=== PATIENT | female | born 1945 | race Caucasian/White ===

== ENCOUNTER → 2018-01-08 08:49 | Outpatient (CLI) | payer MEDICARE, SELFPAY ==
[2018-01-08 09:21] LABS: Color, Urine Yellow (Yellow); Glucose, Dipstick Normal (Normal); Ketone-Dipstick Negative (Negative); Leukocyte Esterase-Dipstick 100 /ul (Negative); Nitrite-Dipstick Negative (Negative); Occult Blood-Urine Negative /ul (Negative); Protein-Dipstick Negative (Negative); Specific Gravity, Urine 1.015 (1.002-1.030); Urine Bilirubin Dipstick Negative (Negative); Urine Clarity Sl. Cloudy (Clear); Urine Urobilinogen Normal (Normal); Urine pH 6.5 (5.0 - 8.0)
[2018-01-08 09:33] LABS: Absolute Lymphocyte Count 1.86 X10^3/ul (0.83-4.51); Absolute Neutrophil Count 3.2 X10^3/uL (2.0-7.7); Basophil# 0.04 X10^3/uL; Basophil% 0.7 % (0-1); Eosinophil# 0.48 X10^3/uL; Eosinophils% 7.9 % (0-5); Hematocrit 44.1 % (37-47); Hemoglobin 14.2 g/dl (12.0-15.0); Lymphocyte # 1.86 X10^3/ul (4.0); Lymphocyte % 30.6 % (19-41); Mean Corp Hgb Conc 32.2 g/gl (32-36); Mean Corpuscular Volume 90.2 fL (81-99); Mean Platelet Vol. 10.7 fl (6.2-12.0); Monocyte# 0.49 X10^3/uL; Monocyte% 8.1 % (0-10); Neutrophil # 3.19 X10^3/uL (2.7-7.7); Neutrophil % 52.5 % (47-70); Platelet Count 245 K/mm3 (150-450); RBC Distribution Width CV 13.4 % (11.6-14.6); RBC Distribution Width SD 44.1 fl (35.1-43.9); Red Blood Count 4.89 M/mm3 (4.2-5.4); White Blood Count 6.1 K/mm3 (4.4-11.0)
[2018-01-08 09:40] LABS: POSITIVE COUNT NO; POSITIVE DIFFERENTIAL NO; POSITIVE MORPHOLOGY NO
[2018-01-08 10:14] LABS: AST(SGOT) 25 U/L (15-37); Alanine Aminotransfer ALT/SGPT 25 U/L (13-56); Albumin, Serum 3.4 g/dL (3.2-5.0); Alkaline Phosphatase 99 U/L (45-117); Anion Gap 7 (5-15); BUN 14 mg/dL (7-18); BUN/Creat Ratio 12.6 RATIO (10-20); Calcium,Total 8.9 mg/dL (8.5-10.1); Chloride 104 mmol/L (98-107); Cholesterol 254 mg/dL (200); Creatinine, Serum 1.11 mg/dL (0.55-1.02); EST Glomerular Filtration Rate 52 mL/min (>60); Est Glom Filt Rate - Afr Amer 62 mL/min (>60); Globulin 3.4 g/dL (2.2-4.2); Glucose 90 mg/dL (74-106); High Density Lipoprotein 59 mg/dL; Potassium 4.1 mmol/L (3.5-5.1); Protein, Total 6.8 g/dL (6.4-8.2); Sodium Level 142 mmol/L (136-145); Thyroid Stim Hormone (TSH) 0.71 uIU/mL (0.358-3.74); Triglycerides 127 mg/dL; Very Low Density Lipoprotein 25 mg/dL (5-40)
== END ==
PROVIDERS: Family Provider Family Medicine; PCP Family Medicine; Visit Provider Family Medicine
DX: Z00.00 Encounter for general adult medical examination without abnormal findings (principal); E78.5 Hyperlipidemia, unspecified; E03.9 Hypothyroidism, unspecified; I10 Essential (primary) hypertension
CPT/HCPCS: 36415; 80053; 80061; 81002; 84443; 85025

== ENCOUNTER → 2018-03-14 14:18 | Outpatient (CLI) | payer MEDICARE, OTHER, SELFPAY | PROVIDERS: Family Provider Family Medicine; PCP Family Medicine; Visit Provider Family Medicine | DX: Z12.31 Encounter for screening mammogram for malignant neoplasm of breast (principal); M81.0 Age-related osteoporosis without current pathological fracture | CPT/HCPCS: 77063; 77067; 77080 ==

== ENCOUNTER → 2018-03-25 15:17 | Outpatient (CLI) | payer MEDICARE, OTHER, SELFPAY ==
[2018-03-25 17:06] LABS: Vitamin D,25 Hydroxy 26.3 ng/mL (29.95-100.01)
== END ==
PROVIDERS: Family Provider Family Medicine; PCP Family Medicine; Visit Provider Family Medicine
DX: M81.0 Age-related osteoporosis without current pathological fracture (principal)
CPT/HCPCS: 36415; 82306

== ENCOUNTER → 2018-09-19 08:51 | Outpatient (CLI) | payer MEDICARE, OTHER, SELFPAY ==
[2018-09-19 10:16] LABS: AST(SGOT) 28 U/L (15-37); Alanine Aminotransfer ALT/SGPT 22 U/L (13-56); Albumin, Serum 3.4 g/dL (3.2-5.0); Alkaline Phosphatase 110 U/L (45-117); Bilirubin, Direct 0.11 mg/dL (0.00-0.30); Cholesterol 247 mg/dL (200); Globulin 3.4 g/dL (2.2-4.2); High Density Lipoprotein 73 mg/dL; Protein, Total 6.8 g/dL (6.4-8.2); Thyroid Stim Hormone (TSH) 0.55 uIU/mL (0.358-3.74); Triglycerides 100 mg/dL; Very Low Density Lipoprotein 20 mg/dL (5-40)
== END ==
PROVIDERS: Family Provider Family Medicine; PCP Family Medicine; Referring Provider Family Medicine; Visit Provider Family Medicine
DX: E78.5 Hyperlipidemia, unspecified (principal)
CPT/HCPCS: 36415; 80061; 80076; 84443

== ENCOUNTER → 2019-11-28 07:44 | Outpatient (CLI) | payer MEDICARE, OTHER, SELFPAY ==
[2017-06-20 02:51] VITALS: BMI 34.5
[2019-11-28 08:50] LABS: Absolute Lymphocyte Count 1.68 X10^3/uL (0.83-4.51); Absolute Neutrophil Count 3.7 X10^3/uL (2.0-7.7); Basophil# 0.05 X10^3/uL; Basophil% 0.8 % (0-1); Eosinophil# 0.25 X10^3/uL; Hematocrit 45.1 % (37-47); Hemoglobin 14.9 g/dL (12.0-15.0); Lymphocyte # 1.68 X10^3/ul (4.0); Lymphocyte % 27.1 % (19-41); Mean Corpuscular Hgb 29.6 pg (27.0-32.0); Mean Corpuscular Volume 89.7 fL (81-99); Mean Platelet Vol. 10.9 fl (6.2-12.0); Monocyte# 0.49 X10^3/uL; Monocyte% 7.9 % (0-10); NRBC Flagged by Analyzer 0 % (0-5); Neutrophil # 3.73 X10^3/uL (2.7-7.7); Platelet Count 235 K/mm3 (150-450); RBC Distribution Width CV 13.5 % (11.6-14.6); RBC Distribution Width SD 43.7 fl (35.1-43.9); Red Blood Count 5.03 M/mm3 (4.2-5.4); White Blood Count 6.2 K/mm3 (4.4-11.0)
[2019-11-28 08:58] LABS: Color, Urine Yellow (Yellow); Glucose, Dipstick Normal (Normal); Ketone-Dipstick Negative (Negative); Leukocyte Esterase-Dipstick 500 /ul (Negative); Nitrite-Dipstick Negative (Negative); Occult Blood-Urine Negative /ul (Negative); Protein-Dipstick Negative (Negative); Specific Gravity, Urine 1.015 (1.002-1.030); Urine Bilirubin Dipstick Negative (Negative); Urine Clarity Sl. Cloudy (Clear); Urine Urobilinogen Normal (Normal); Urine pH 6.5 (5.0 - 8.0)
[2019-11-28 09:39] LABS: ALB/GLOB Ratio 1.1 RATIO (0.9-2.4); AST(SGOT) 30 U/L (15-37); Alanine Aminotransfer ALT/SGPT 26 U/L (13-56); Albumin, Serum 3.4 g/dL (3.2-5.0); Alkaline Phosphatase 84 U/L (45-117); Anion Gap 5 (5-15); BUN 19 mg/dL (7-18); Calcium,Total 9.3 mg/dL (8.5-10.1); Chloride 107 mmol/L (98-107); Cholesterol 275 mg/dL (200); Creatinine, Serum 1.19 mg/dL (0.55-1.02); EST Glomerular Filtration Rate 47 mL/min (>60); Est Glom Filt Rate - Afr Amer 57 mL/min (>60); Globulin 3.2 g/dL (2.2-4.2); Glucose 94 mg/dL (74-106); High Density Lipoprotein 71 mg/dL; Potassium 4.2 mmol/L (3.5-5.1); Protein, Total 6.6 g/dL (6.4-8.2); Sodium Level 140 mmol/L (136-145); Thyroid Stim Hormone (TSH) 0.71 uIU/mL (0.358-3.74); Triglycerides 93 mg/dL; Very Low Density Lipoprotein 19 mg/dL (5-40)
== END ==
PROVIDERS: PCP Family Medicine; Referring Provider Family Medicine; Visit Provider Family Medicine
DX: Z00.00 Encounter for general adult medical examination without abnormal findings (principal); E78.5 Hyperlipidemia, unspecified; E03.9 Hypothyroidism, unspecified; I10 Essential (primary) hypertension
CPT/HCPCS: 36415; 80053; 80061; 81002; 84443; 85025

== ENCOUNTER → 2019-12-03 14:42 | Outpatient (CLI) | payer MEDICARE, OTHER, SELFPAY ==
[2017-06-20 02:51] VITALS: BMI 34.5
--- NOTE | 2019-12-03 14:45 | BI_ITS ---
MAMMOGRAPHY - BILATERAL SCREENING REASON FOR EXAM: Female, 74 years old. Routine annual screening examination. PERTINENT HISTORY: BILAT SCREENING - FAM HX OF PAT 1ST COUSIN @ AGE 52 - NO PREV SURG''S TECHNIQUE: Digital bilateral breast hadley (3D mammographic acquisition) in the CC and MLO projections. 2-D mediolateral oblique (MLO) and craniocaudad (CC) views of both breasts were obtained. CAD: Full Field Digital Mammography with Computer Added Detection was performed. COMPARISON: March 14, 2018 and March 13, 2017 FINDINGS: Breast Composition: There are scattered areas of fibroglandular density. There are no dominant masses or suspicious calcifications. No other significant abnormalities are identified. BI/SCREEN MAMM (CAD) W/HADLEY BILAT IMPRESSION: Stable bilateral screening mammogram. Yearly follow-up mammogram recommended. (A) ASSESSMENT CATEGORY: BIRADS Category 2: Benign. A letter regarding these results will be sent to the patient by the facility within 30 days. Approximately 10% of breast cancers are not detected by mammography. A normal mammogram should not delay biopsy of a clinically suspicious abnormality. [id number] Electronically Signed: Brittney Montgomery, at 15:35 EDT Tel , Service support ,
== END ==
PROVIDERS: PCP Family Medicine; Referring Provider Family Medicine; Visit Provider Family Medicine
DX: Z12.31 Encounter for screening mammogram for malignant neoplasm of breast (principal)
CPT/HCPCS: 77063; 77067

== ENCOUNTER → 2020-11-12 08:45 | Outpatient (CLI) | payer MEDICARE, OTHER, SELFPAY ==
[2017-06-20 02:51] VITALS: BMI 34.5
[2020-11-12 09:40] LABS: Absolute Lymphocyte Count 2.01 X10^3/uL (0.83-4.51); Absolute Neutrophil Count 4.4 X10^3/uL (2.0-7.7); Basophil# 0.07 X10^3/uL; Basophil% 0.9 % (0-1); Eosinophil# 0.37 X10^3/uL; Hematocrit 49.4 % (37-47); Hemoglobin 15.4 g/dL (12.0-15.0); Lymphocyte # 2.01 X10^3/ul (0.83-4.51); Mean Corp Hgb Conc 31.2 g/dL (32-36); Mean Corpuscular Hgb 29.2 pg (27.0-32.0); Mean Corpuscular Volume 93.7 fL (81-99); Mean Platelet Vol. 11.2 fl (6.2-12.0); Monocyte# 0.52 X10^3/uL; NRBC Flagged by Analyzer 0 % (0-5); Neutrophil # 4.44 X10^3/uL (2.7-7.7); Neutrophil % 59.7 % (47-70); Platelet Count 272 K/mm3 (150-450); RBC Distribution Width CV 13.2 % (11.6-14.6); RBC Distribution Width SD 46.3 fl (35.1-43.9); Red Blood Count 5.27 M/mm3 (4.2-5.4); White Blood Count 7.4 K/mm3 (4.4-11.0)
[2020-11-12 10:33] LABS: Cholesterol 286 mg/dL (200); High Density Lipoprotein 75 mg/dL; Thyroid Stim Hormone (TSH) 0.95 uIU/mL (0.358-3.74); Triglycerides 123 mg/dL; Very Low Density Lipoprotein 25 mg/dL (5-40)
== END ==
PROVIDERS: PCP Family Medicine; Visit Provider Family Medicine
DX: Z00.00 Encounter for general adult medical examination without abnormal findings (principal); E78.5 Hyperlipidemia, unspecified; E03.9 Hypothyroidism, unspecified; I10 Essential (primary) hypertension
CPT/HCPCS: 36415; 80061; 84443; 85025

== ENCOUNTER → 2020-12-16 06:59 | Outpatient (CLI) | payer MEDICARE, OTHER, SELFPAY ==
--- NOTE | 2020-12-16 07:01 | BI_ITS ---
MAMMOGRAPHY - BILATERAL SCREENING REASON FOR EXAM: Female, 75 years old. Routine annual screening examination. PERTINENT HISTORY: Non-contributory. TECHNIQUE: Digital bilateral breast hadley (3D mammographic acquisition) in the CC and MLO projections. 2-D mediolateral oblique (MLO) and craniocaudad (CC) views of both breasts were obtained. CAD: Full Field Digital Mammography with Computer Added Detection was performed. COMPARISON: Comparison is made with prior study 12/03/2019 and 03/14/2018. FINDINGS: Breast Composition: The breasts are almost entirely fatty. There are no dominant masses or suspicious calcifications. No other significant abnormalities are identified. There has been no significant change since the prior study. BI/SCRN MAMM (CAD)W/HADLEY BILAT IMPRESSION: Stable bilateral screening mammogram. Yearly follow-up mammogram recommended. (A) ASSESSMENT CATEGORY: BIRADS Category 1: Negative. A letter regarding these results will be sent to the patient by the facility within 30 days. Approximately 10% of breast cancers are not detected by mammography. A normal mammogram should not delay biopsy of a clinically suspicious abnormality. [id number] Electronically Signed: Gerson Saldivar MD at 8:00 EDT , Service support ,
== END ==
PROVIDERS: PCP Family Medicine; Referring Provider Family Medicine; Visit Provider Family Medicine
DX: Z12.31 Encounter for screening mammogram for malignant neoplasm of breast (principal)
CPT/HCPCS: 77063; 77067

== ENCOUNTER → 2021-01-19 08:42 | Outpatient (CLI) | payer MEDICARE, OTHER, SELFPAY ==
[2017-06-20 02:51] VITALS: BMI 34.5
[2021-01-19 10:06] LABS: AST(SGOT) 31 U/L (15-37); Alanine Aminotransfer ALT/SGPT 25 U/L (13-56); Albumin, Serum 3.4 g/dL (3.2-5.0); Alkaline Phosphatase 123 U/L (45-117); Anion Gap 0 (5-15); BUN 17 mg/dL (7-18); BUN/Creat Ratio 15.9 RATIO (10-20); Calcium,Total 9.7 mg/dL (8.5-10.1); Chloride 104 mmol/L (98-107); Cholesterol 256 mg/dL (200); Creatinine, Serum 1.07 mg/dL (0.55-1.02); EST Glomerular Filtration Rate 53 mL/min (>60); Est Glom Filt Rate - Afr Amer 65 mL/min (>60); Globulin 3.5 g/dL (2.2-4.2); Glucose 91 mg/dL (74-106); High Density Lipoprotein 64 mg/dL; Protein, Total 6.9 g/dL (6.4-8.2); Sodium Level 138 mmol/L (136-145); Thyroid Stim Hormone (TSH) 0.94 uIU/mL (0.358-3.74); Triglycerides 98 mg/dL; Very Low Density Lipoprotein 20 mg/dL (5-40)
== END ==
PROVIDERS: PCP Family Medicine; Referring Provider Family Medicine; Visit Provider Family Medicine
DX: I10 Essential (primary) hypertension (principal); E03.9 Hypothyroidism, unspecified; E78.5 Hyperlipidemia, unspecified
CPT/HCPCS: 36415; 80053; 80061; 84443

== ENCOUNTER 2021-08-24 08:18 | Outpatient (CLI) | payer MEDICARE, OTHER, SELFPAY ==
[2021-08-24 10:29] LABS: Absolute Lymphocyte Count 1.61 X10^3/uL (0.83-4.51); Absolute Neutrophil Count 3.1 X10^3/uL (2.0-7.7); Basophil# 0.05 X10^3/uL; Basophil% 0.9 % (0-1); Eosinophil# 0.26 X10^3/uL; Eosinophils% 4.9 % (0-5); Hemoglobin 14.1 g/dL (12.0-15.0); Lymphocyte # 1.61 X10^3/ul (0.83-4.51); Lymphocyte % 30.1 % (19-41); Mean Corpuscular Hgb 29.6 pg (27.0-32.0); Mean Corpuscular Volume 92.2 fL (81-99); Mean Platelet Vol. 11.3 fl (6.2-12.0); Monocyte# 0.37 X10^3/uL; Monocyte% 6.9 % (0-10); NRBC Flagged by Analyzer 0 % (0-5); Neutrophil # 3.05 X10^3/uL (2.7-7.7); Platelet Count 214 K/mm3 (150-450); RBC Distribution Width CV 15.2 % (11.6-14.6); RBC Distribution Width SD 52.2 fl (35.1-43.9); Red Blood Count 4.77 M/mm3 (4.2-5.4); White Blood Count 5.4 K/mm3 (4.4-11.0)
[2021-08-24 11:20] LABS: AST(SGOT) 33 U/L (15-37); Alanine Aminotransfer ALT/SGPT 27 U/L (13-56); Albumin, Serum 3.4 g/dL (3.2-5.0); Alkaline Phosphatase 108 U/L (45-117); Anion Gap 9 (5-15); BUN 14 mg/dL (7-18); BUN/Creat Ratio 14.8 RATIO (10-20); Calcium,Total 9.4 mg/dL (8.5-10.1); Chloride 105 mmol/L (98-107); Cholesterol 253 mg/dL (200); Creatinine, Serum 0.95 mg/dL (0.55-1.02); EST Glomerular Filtration Rate 61 mL/min (>60); Est Glom Filt Rate - Afr Amer 74 mL/min (>60); Globulin 3.3 g/dL (2.2-4.2); Glucose 80 mg/dL (74-106); High Density Lipoprotein 74 mg/dL; Potassium 3.3 mmol/L (3.5-5.1); Protein, Total 6.7 g/dL (6.4-8.2); Sodium Level 141 mmol/L (136-145); Thyroid Stim Hormone (TSH) 0.68 uIU/mL (0.358-3.74); Triglycerides 92 mg/dL; Very Low Density Lipoprotein 18 mg/dL (5-40)
== END 2021-08-24 23:59 | disposition home or self-care (01) ==
LOC: MTLAB 08:22
PROVIDERS: PCP Family Medicine; Referring Provider Family Medicine; Visit Provider Family Medicine
DX: Z00.00 Encounter for general adult medical examination without abnormal findings (principal); I10 Essential (primary) hypertension; E78.5 Hyperlipidemia, unspecified; E03.9 Hypothyroidism, unspecified
CPT/HCPCS: 36415; 80053; 80061; 84443; 85025

== ENCOUNTER 2023-07-11 13:46 | Emergency (ER) | payer MEDICARE, SELFPAY ==
[2023-07-11 13:47] VITALS: BP 135/91; PULSE 98; RESP 14; TEMP 36.1; O2SAT 94; BMI 27.8
--- NOTE | 2023-07-11 15:05 | CT_ITS ---
INDICATION: Trauma, fall, injury EXAMINATION: CT BRAIN - CT Head or Brain W/O Contrast Injection TECHNIQUE: Multiple axial images were obtained of the head without intravenous contrast. A radiation dose optimization technique was used for this scan. IV Contrast dosage and agent: None. COMPARISON: 07/08/2015 FINDINGS: BRAIN PARENCHYMA: No intra- or extra-axial hemorrhage. No evidence of acute infarct. No intracranial mass or mass effect. There is preservation of the bean/white matter interface. Posterior fossa structures are unremarkable. CSF SPACES: Appropriate for age. No hydrocephalus. Basal cisterns are patent. CALVARIUM, SKULL BASE, PARANASAL SINUSES AND MASTOID AIR CELLS: Clear. No acute fracture. ORBITS: Both globes, extraocular muscles, optic nerves and retrobulbar fat appear unremarkable. CT/Brain/Head without Contrast IMPRESSION: No acute intracranial findings. Electronically Signed: Santos Vail MD at 16:17 EST ,
--- NOTE | 2023-07-11 15:06 | ED.VIS.FALL ---
HPI HPI - Fall History of Present Illness Chief Complaint: Fall Informant: patient and family Occured/Mechanism Occurred: Hours (1-2) Mechanism/Context: Yes same level fall Pain/Injury Pain Location: face Quality of Pain: Aching Current Severity: Mild Maximum Severity: Mild Associated Symptoms Associated Symptoms: Negative for Parasthesias, Weakness, Loss of function, Inability to ambulate, Loss of consciousness or Amnesia Narrative Narrative: 78-year-old female feeling well today was at the movie theater with her family states she was walking into theater and accidentally fell and hit her head on the floor or a nearby chair. She sustained a small laceration next to her left eye. She has a mild headache. There is no loss consciousness or amnesia. No nausea or vomiting. No other injuries. She denies any changes in her vision but she did have temporary visual disturbance that she states looked like little squiggly's that were white. That is gone now and her vision is back to normal. She denies any loss of vision or cut visual alcocer. She denies any prodromal symptoms. She thinks she either stumbled or lost her balance. She denies any vertiginous symptoms or lightheadedness. No recent illness. She and family state this was witnessed by many people and EMS was called. Paramedics took her blood pressure was high 180s. She states this is why they recommended she come to the hospital. She states she forgot to take her nightly blood pressure medication last night, Cozaar. [facility] Medical History (Updated 07/11/23 @ 15:[address] Deo Gallagher MD) HTN (hypertension) Hypothyroid Home Medications albuterol sulfate 90 mcg/actuation aerosol inhaler (ProAir HFA) 1 - 2 puff inhalation Q6H PRN PRN Sob &/Or Wheezing 07/08/15 [History Last Taken Unknown] losartan 50 mg tablet 100 mg PO DAILY 07/08/15 [History Last Taken Unknown] levothyroxine 125 mcg tablet 125 mcg PO QODAY 11/01/16 [History Last Taken 10/31/16] paroxetine HCl 20 mg tablet 20 mg PO DAILY 11/01/16 [History Last Taken Unknown] tiotropium 2.5 mcg-olodaterol 2.5 mcg/actuation mist for inhalation (Stiolto Respimat) 4 g IH DAILY 11/01/16 [History Last Taken Unknown] Azithromycin [Zithromax Z-Cesar] 250 mg PO UD ##1 06/20/17 [Rx Last Taken Unknown] alprazolam 0.25 mg tablet 0.125 mg PO BID PRN PRN Shortness Of Breath 06/20/17 [History Last Taken Unknown] levofloxacin 750 mg tablet (Levaquin) 750 mg PO DAILY 06/20/17 [History Last Taken Unknown] ondansetron 8 mg disintegrating tablet (Zofran ODT) 8 mg PO Q6H PRN PRN Nausea ##10 06/20/17 [Rx Last Taken Unknown] Allergy/AdvReac Type Severity Reaction Status Date / Time codeine Allergy Hives Verified 07/11/23 13:55 Social History Smoking Status: Former smoker ROS ROS ED Constitutional Constitutional ED: Denies chills or fever(s) Eyes Eyes: Denies change in vision or diplopia ENT ENT ED: Denies ear pain, epistaxis, facial pain or rhinorrhea Cardiovascular Cardiovascular: Denies chest pain or palpitations Respiratory/Chest Respiratory/Chest: Denies cough or dyspnea Gastrointestinal Gastrointestinal: Denies abdominal pain, diarrhea, melena, nausea or vomiting Genitourinary Genitourinary ED: Denies dysuria or hematuria Musculoskeletal Musculoskeletal: Denies back pain, extremity pain or neck pain Integumentary Reports laceration; Denies abscess, Abrasions or rash Neurologic Neurologic: Reports headache(s); Denies confusion, paresthesias or weakness EXAM Physical Exam Const Vital Signs: 07/11/23 13:47 Temperature 96.9 F L Temperature Source Temporal Pulse Rate 98 Respiratory Rate 14 Blood Pressure 135/91 H Blood Pressure Mean 105 Pulse Ox 94 Oxygen Delivery Method Room Air Positive well nourished and well developed General Appearance ED: well developed and NAD HEENT Reports TM's clear and nasal mucous membranes and turbinates normal HEENT Narrative: Small tender contusion without hematoma or crepitance/deformity lateral aspect of the left superior orbital brim, as well as a small 1 cm L-shaped partial-thickness laceration in the same area. No active bleeding. Clean appearing. No other areas of facial tenderness. No infraorbital hypoesthesia. No Negrete sign. No CSF otorhinorrhea. Face and Sinus: Negative for facial tenderness Tympanic Membrane ED: Yes TM's clear Eyes PERRL and EOMs intact bilaterally Visual Acuity: other Other Details: no entrapment or pain with extraocular movements Neck full ROM and supple General: Negative for tenderness Chest Wall inspection of chest normal and palpation of chest normal Chest: symmetrical chest wall rise; Negative for crepitus or tenderness Resp normal respiratory effort Back/Spine normal ROM Cervical Spine: Negative for cervical spine tenderness Thoracic Spine / Upper Back: Negative for thoracic spinal tenderness Lumbar Spine / Lower Back: Negative for lumbar spinal tenderness Extremity normal to inspection and full ROM Extremity Narrative: Mild tenderness at a minor contusion without hematoma lateral left shoulder at about the area of the acromion. The AC joint is nontender and the humerus is nontender and she has full range of motion without any discomfort or limitation. Otherwise extremities are atraumatic with full range of motion throughout. General Extremety ED: Yes tenderness Neuro oriented x3, CN's II-XII intact bilaterally, moves all extremities, no focal motor deficits and no sensory deficits noted [place] Coma Scale: document GCS findings Spontaneous Obeys Commands Oriented 15 Sensorium / Orientation: awake and alert Psych mental status grossly normal and thought process normal Skin no wounds Lesions: no lesions Rashes: no rashes MDM MDM MDM Narrative Medical decision making narrative: Given this patient's age, presence of a headache, direct trauma to the cranium, and transient visual disturbance, CT of the head is indicated. It was obtained in order to rule out intracranial injury, I reviewed the images and report which I agree with, negative for anything acute. Laceration was Dermabond to the procedure note. She was offered analgesics but declined states she will take some Advil when she gets home which I am okay with. Advised to take her blood pressure medication tonight as scheduled. Here her blood pressure is good, 135/91. With regards to her left shoulder, she did not realize she injured it until we examined her and she was moving around more, her exam is very benign and I am not concerned about a fracture, she can abduct fully without limitation and she is in agreement to skip x-rays here due to a very low suspicion of fracture. Radiography Diagnostic Testing: Clinical Impression(s) from Imaging Studies Brain CT 07/11/23 15:05 IMPRESSION: No acute intracranial findings. Electronically Signed: Santos Vail MD at 16:17 EST , Procedures Lacerations left face: Length: 1 cm Depth: Skin Shape: Linear Prep: Sterile Conditions and Chlorhexadine Laceration repair: Dermabond Discharge Plan Triage Chief Complaint: Fall ED Provider: Deo Gallagher Dx/Rx/DC Orders Clinical Impression: Facial laceration, Accidental fall, Closed head injury without loss of consciousness, Contusion of left shoulder Instructions: ED Head Injury (Adult), ED Laceration, Face: Skin Glue Prescriptions: No Action losartan 50 MG tablet 100 mg PO DAILY albuterol sulfate [ProAir HFA] 1 PUFF inhaler 1 - 2 puff inhalation Q6H PRN PRN (Reason: Sob &/Or Wheezing) tiotropium-olodaterol [Stiolto Respimat] 4 GM mist 4 g IH DAILY paroxetine HCl 20 MG tablet 20 mg PO DAILY levothyroxine 125 MCG tablet 125 mcg PO QODAY alprazolam 0.25 MG tablet 0.125 mg PO BID PRN PRN (Reason: Shortness Of Breath) levofloxacin [Levaquin] 750 MG tablet 750 mg PO DAILY Patient Comments: only took 1 of these Azithromycin [Zithromax Z-Cesar] 250 MG tablet 250 mg PO UD Qty: 1 0RF Rx Instructions: TAKE 2 TABLETS 1ST DAY THEN 1 TABLET DAILY FOR NEXT 4 DAYS. ondansetron [Zofran ODT] 8 MG tablet,disintegrating 8 mg PO Q6H PRN PRN (Reason: Nausea) Qty: 10 0RF Primary Care Provider: Gopal Burrows Referrals: Gopal Burrows MD [Primary Care Provider] - As Needed Disposition Disposition: Home, Self Care
== END 2023-07-11 16:51 | disposition home or self-care (01) ==
PROVIDERS: Emergency Provider Emergency Medicine; PCP Family Medicine; Visit Provider Emergency Medicine
DX: S01.81XA Laceration without foreign body of other part of head, initial encounter (principal); R51.9 Headache, unspecified; I10 Essential (primary) hypertension; S40.012A Contusion of left shoulder, initial encounter; Z87.891 Personal history of nicotine dependence; S09.8XXA Other specified injuries of head, initial encounter; Z79.899 Other long term (current) drug therapy; W01.198A Fall on same level from slipping, tripping and stumbling with subsequent striking against other object, initial encounter; Y93.01 Activity, walking, marching and hiking; Y92.26 Movie house or cinema as the place of occurrence of the external cause; E03.9 Hypothyroidism, unspecified
CPT/HCPCS: 12011; 70450; 99282

== ENCOUNTER 2023-07-14 08:21 | Emergency (ER) | payer MEDICARE, SELFPAY ==
[2023-07-14 08:23] VITALS: BP 130/78; PULSE 98; RESP 16; TEMP 36.3; O2SAT 91; BMI 27.8
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
--- NOTE | 2023-07-14 08:47 | CT_ITS ---
EXAM: CT HEAD WITHOUT INTRAVENOUS CONTRAST CLINICAL INDICATION: Fall injury 3 days ago. New headache. TECHNIQUE: Multiple axial images were obtained of the head without intravenous contrast. This CT exam was performed using one or more of the following dose reduction techniques: automated exposure control, adjustment of the mA and/or kV according to patient size, and/or use of iterative reconstruction technique. RADIATION DOSE: CTDIvol = 44.99 mGy, DLP = 779.24 mGy-cm COMPARISON: CT head without contrast 07/11/2023. FINDINGS: BRAIN AND EXTRA-AXIAL SPACES: Unremarkable. No intra- or extra-axial hemorrhage. No evidence of acute infarct. No intracranial mass or mass effect. There is preservation of the bean/white matter interface. Posterior fossa structures are unremarkable. Ventricles are appropriate for age. No hydrocephalus. Basal cisterns are patent. BONES/JOINTS: Unremarkable. No discrete lytic or blastic abnormalities. SINUSES: Unremarkable as visualized. Clear. MASTOID AIR CELLS: Unremarkable. Clear. ORBITS: Visualized globes, extraocular muscles, optic nerves and retrobulbar fat appear unremarkable. CT/Brain/Head without Contrast IMPRESSION: 1. No CT evidence of intracranial bleeding, intracranial mass, acute ischemic infarct or acute intracranial abnormality. 2. No interval change when compared to 07/11/2023. Electronically Signed: Carlton Logan MD at 10:31 EST ,
--- NOTE | 2023-07-14 08:49 | EX.ED.DYSGE1 ---
HPI History of Present Illness Chief Complaint: General Illness Informant: patient and family Narrative Narrative: Presents with headache neck pain left shoulder pain. Here with daughter. 3 days ago had a fall parking lot going to the movies with her grandson. She was here with CT brain that is negative. She is not on any blood thinners, reports since then increasing headaches. No nausea or vomiting. She states she has had gait instability previously where she holds onto things, however it has been more unstable. She does not have a walker. She lives with her grandson. There is been no new falls. [facility] Medical History HTN (hypertension) Hypothyroid Home Medications albuterol sulfate 90 mcg/actuation aerosol inhaler (ProAir HFA) 1 - 2 puff inhalation Q6H PRN PRN Sob &/Or Wheezing 07/08/15 [History Last Taken Unknown] losartan 50 mg tablet 100 mg PO DAILY 07/08/15 [History Last Taken Unknown] levothyroxine 125 mcg tablet 125 mcg PO QODAY 11/01/16 [History Last Taken 10/31/16] paroxetine HCl 20 mg tablet 20 mg PO DAILY 11/01/16 [History Last Taken Unknown] tiotropium 2.5 mcg-olodaterol 2.5 mcg/actuation mist for inhalation (Stiolto Respimat) 4 g IH DAILY 11/01/16 [History Last Taken Unknown] Azithromycin [Zithromax Z-Cesar] 250 mg PO UD ##1 06/20/17 [Rx Last Taken Unknown] alprazolam 0.25 mg tablet 0.125 mg PO BID PRN PRN Shortness Of Breath 06/20/17 [History Last Taken Unknown] levofloxacin 750 mg tablet (Levaquin) 750 mg PO DAILY 06/20/17 [History Last Taken Unknown] ondansetron 8 mg disintegrating tablet (Zofran ODT) 8 mg PO Q6H PRN PRN Nausea ##10 06/20/17 [Rx Last Taken Unknown] Allergy/AdvReac Type Severity Reaction Status Date / Time codeine Allergy Hives Verified 07/14/23 08:22 Social History Smoking Status: Former smoker ROS ROS ED Constitutional Constitutional ED: Denies chills, fever(s) or sweats Eyes Eyes: Denies change in vision ENT ENT ED: Denies dysphagia or sore throat Cardiovascular Cardiovascular: Denies chest pain, leg edema, palpitations or racing heartbeat Respiratory/Chest Respiratory/Chest: Denies cough, dyspnea or dyspnea on exertion Gastrointestinal Gastrointestinal: Denies abdominal pain, diarrhea, nausea or vomiting Genitourinary Genitourinary ED: Denies dysuria, hematuria or urinary frequency Musculoskeletal Musculoskeletal: Reports extremity pain and neck pain; Denies back pain Integumentary Denies rash or wounds Neurologic Neurologic: Reports headache(s); Denies paresthesias or weakness EXAM Physical Exam Const Vital Signs: 07/14/23 08:23 Temperature 97.4 F L Temperature Source Temporal Pulse Rate 98 Respiratory Rate 16 Blood Pressure 130/78 H Blood Pressure Mean 95 Pulse Ox 91 Oxygen Delivery Method Room Air Positive well nourished and well developed Constitutional Narrative: GCS 15 General Appearance ED: well developed and NAD HEENT Reports moist mucous membranes normocephalic and atraumatic Eyes PERRL, EOMs intact bilaterally and conjunctivae normal General Eye ED: Yes normal appearance of both eyes Neck no lymphadenopathy and supple Neck Narrative: Paracervical tenderness upper. No step-offs. General: tenderness Chest Wall inspection of chest normal and palpation of chest normal Chest Narrative: No chest wall tenderness. Chest: Negative for tenderness Resp normal respiratory effort and normal air movement Effort and Inspection: symmetric chest movement; Negative for respiratory distress Cardio regular rate, regular rhythm and no murmurs Peripheral Pulses: pulses 2+ throughout GI normal to inspection, nondistended, normoactive bowel sounds and non-tender Palpation: Negative for guarding or rebound tenderness present Back/Spine no CVA tenderness and no thoracic nor lumbar tenderness Extremity Extremity Narrative: Lower extremities: Negative logroll. Upper extremities: Able to range bilaterally, however there is ecchymosis tenderness proximal shoulder on left side. General Extremety ED: Yes tenderness; Negative for edema General Extremity: Negative for edema Neuro oriented x3 and no sensory deficits noted Sensorium / Orientation: awake and alert Skin no rashes or lesions noted and no wounds MDM MDM MDM Narrative Medical decision making narrative: Interventions / MDM: Differential diagnosis: Postconcussive headaches, shoulder contusion Diagnosis considered but do not suspect: Delayed intracranial hemorrhage however CT negative. Fractures however images are negative. My EKG interpretation: N/A Imaging independently reviewed and interpreted by myself: Left shoulder x-ray 3 views: No fracture or dislocation. CT head/cervical spine,: No intracranial hemorrhage no cervical fracture. Per radiology incidentally noted vertical trabeculations cervical spine at C5 with gas on the right side of the body. External documents reviewed: N/A Test considered but not ordered:N/A ED course: Headache persistent after head injury. She is not on any blood thinners however trauma scans reordered for rule out delayed bleeds. CT head and cervical spine. She has shoulder contusion on exam x-ray left shoulder ordered. Results images were negative. She was ambulated with no difficulties. She will use Tylenol as needed, discussed postconcussive symptoms. Outpatient follow-up with her PCP. All questions were answered. Re-evaluation: stable Disposition discussed with patient/family/significant other: Patient and family Case discussed with consulting clinician: N/A This note was generated with [employer]ent Edge[employer] software. It may contain incorrect words, spelling, and punctuation that were not noted in checking the note before signing. Radiography Diagnostic Testing: Clinical Impression(s) from Imaging Studies Brain CT 07/14/23 08:47 IMPRESSION: 1. No CT evidence of intracranial bleeding, intracranial mass, acute ischemic infarct or acute intracranial abnormality. 2. No interval change when compared to 07/11/2023. Electronically Signed: Carlton Logan MD at 10:31 EST , Cervical Spine CT 07/14/23 08:47 IMPRESSION: 1[address] evidence of acute fracture or malalignment of the cervical spine, craniocervical junction and cervicothoracic junction. 2. No CT evidence of suspicious cervical extruded disc fragment although limited by the absence of intrathecal contrast. 3. Prominent and intact vertical trabeculations containing gas in the right side of the C5 vertebral body. This is just above the intact C5 inferior endplate. This is of doubtful clinical significance and may be on a degenerative basis although there is no visible degenerative vacuum phenomenon inside the C5-C6 interspace as a source. Electronically Signed: Carlton Logan MD at 10:43 EST , Discharge Plan Triage Chief Complaint: General Illness ED Provider: Christopher Priest Dx/Rx/DC Orders Clinical Impression: Post-concussion headache, Neck strain, Contusion of left shoulder Instructions: Concussion Dc, ED Contusion, Upper Extremity, ED Neck Sprain or Strain Prescriptions: No Action losartan 50 MG tablet 100 mg PO DAILY albuterol sulfate [ProAir HFA] 1 PUFF inhaler 1 - 2 puff inhalation Q6H PRN PRN (Reason: Sob &/Or Wheezing) tiotropium-olodaterol [Stiolto Respimat] 4 GM mist 4 g IH DAILY paroxetine HCl 20 MG tablet 20 mg PO DAILY levothyroxine 125 MCG tablet 125 mcg PO QODAY alprazolam 0.25 MG tablet 0.125 mg PO BID PRN PRN (Reason: Shortness Of Breath) levofloxacin [Levaquin] 750 MG tablet 750 mg PO DAILY Patient Comments: only took 1 of these Azithromycin [Zithromax Z-Cesar] 250 MG tablet 250 mg PO UD Qty: 1 0RF Rx Instructions: TAKE 2 TABLETS 1ST DAY THEN 1 TABLET DAILY FOR NEXT 4 DAYS. ondansetron [Zofran ODT] 8 MG tablet,disintegrating 8 mg PO Q6H PRN PRN (Reason: Nausea) Qty: 10 0RF Primary Care Provider: Gopal Burrows Referrals: Gopal Burrows MD [Primary Care Provider] - 1 Week Activity Restrictions/Additional Instructions: Repeat CT your head negative. CT cervical spine no fractures. Left shoulder x-ray no fracture. Use Tylenol as needed for headache symptoms. Follow-up with your doctor. Disposition Disposition: Home, Self Care
--- OUTSIDE RECORDS SUMMARY | 2023-07-14 08:54 | XMS RPT_ITS | CCD ---
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 Negative. Neurological: Negative. Hematological: Negative. Psychiatric/Behavioral: Negative. Objective BP 134/78 (BP Site: Left Arm, BP Position: Sitting, BP Cuff Size: Large Adult) Pulse 89 Temp 36.1 C (96.9 F) (Temporal) Resp 16 Ht 165.1 cm (5' 5 ) Wt 89.1 kg (196 lb 6 oz) LMP 08/18/1983 SpO2 95% BMI 32.68 kg/m Physical Exam Vitals reviewed. Constitutional: Appearance: Normal appearance. HENT: Head: Normocephalic and atraumatic. Nose: Nose normal. Eyes: Extraocular Movements: Extraocular movements intact. Pupils: Pupils are equal, round, and reactive to light. Cardiovascular: Rate and Rhythm: Normal rate and regular rhythm. Pulmonary: Effort: Pulmonary effort is normal. Breath sounds: Normal breath sounds. Abdominal: General: Bowel sounds are normal. Palpations: Abdomen is soft. Musculoskeletal: General: Normal range of motion. Cervical back: Normal range of motion and neck supple. Skin: General: Skin is warm and dry. Capillary Refill: Capillary refill takes less than 2 seconds. Neurological: General: No focal deficit present. Mental Status: She is alert and oriented to person, place, and time. Mental status is at baseline. Psychiatric: Mood and Affect: Mood normal. Behavior: Behavior normal. Assessment and Plan Encounter Diagnosis ICD-10-CM 1. Acquired hypothyroidism E03.9 TSH BLD 2. Anxiety F41.9 3. Stage 3 chronic kidney disease, unspecified whether stage 3a or 3b CKD (HCC) N18.30 4. Benign essential HTN I10 5. Chronic obstructive pulmonary disease, unspecified COPD type (HCC) J44.9 6. Gastroesophageal reflux disease without esophagitis K21.9 7. Anxiety associated with depression F41.8 Continue present medications. Check TSH. Follow-up in 6 months. Rowdy Das MD Patient in the office today for a 6 month exam. REG: 08/30/2022 Medicare Wellness Exam Patient states she has not filled her Trelegy due to cost but she states she has some at home. I advised her to contact her insurance company to see what is covered at to let us know. She also has the Good Rx coupons if needed. Patient also reports she is taking her own fish oil instead of the Lovaza as ordered. Patient wants to know if that medication is OK to continue. Patient denies any other concerns today. No refills needed today. Sherry Rain LPN March 05, 2023 1:52 PM documented in this encounter [facility] 02-19-2023 Miscellaneous Notes Last Office Visit: 08-30-2022 Next Scheduled Office Visit: 02-28-2023 Requested Prescriptions Pending Prescriptions Disp Refills ALPRAZolam (XANAX) 0.5 mg tablet 90 tablet 2 Sig: Take 1 tablet by mouth three times daily as needed for up to 90 days. Sarah Hyman LPN February 19, 2023 10:56 AM documented in this encounter [facility] 12-14-2022 Miscellaneous Notes Patient called requesting the following refill. Requested Prescriptions Pending Prescriptions Disp Refills losartan (COZAAR) 100 mg tablet 90 tablet 3 Sig: Take 1 tablet by mouth once daily. levothyroxine (SYNTHROID) 100 mcg tablet 90 tablet 3 Sig: Take 1 tablet by mouth once daily. Patient last appointment: 08/30/2022 Patient Phone numbers: [phone] (home) Request is for script(s) to be escript to pharmacy. Shannon Matute LPN documented in this encounter [facility] 10-02-2022 Miscellaneous Notes Patient called requesting the following refill. Requested Prescriptions Pending Prescriptions Disp Refills omega-3 acid ethyl esters (LOVAZA) 1 gram capsule 180 capsule 3 Sig: Take 2 capsules by mouth once daily. Patient last appointment: 08/30/2022 Next appointment 02/28/2023 Patient Phone numbers: [phone] (home) Request is for script(s) to be escript to [facility] pharmacy. Riri Clement LPN documented in this encounter [facility] 10-02-[address] Das regarding patient's recent test results: Patient unable to take statin. LDL is still 203. Very elevated. Increase fish oil to 2 g/day. I spoke with patient Deyanira Gallagher and advised her of all information and instructions per Dr Das's note. Patient did voice understanding and is agreeable. Medication list updated. Riri Clement LPN October 02, 2022 10:42 AM documented in this encounter [facility] 09-29-2022 Miscellaneous Notes October 02, 2022 PID: [id number] Deyanira Gallagher [address] [place] [address] Dear Ms. Gallagher, We are pleased to inform you that the results of your recent breast imaging exam on 09/28/2022 are normal. Early detection of cancer is very important. We also understand recommendations regarding breast cancer screening are controversial. Please discuss with your primary care provider which strategy is best for you and whether a mammogram is right for you. Your imaging studies and report will be kept on file at [facility] as part of your permanent medical record and are available for your continuing care. Thank you for allowing us to help in meeting your health care needs. Sincerely, Dr. Burt Interpreting Radiologist [facility] (Normal over 40) documented in this encounter [facility] 09-28-2022 Note HNO ID: [id number] Author: Zarina Guevara Service: ? Author Type: Retort Loader Type: Progress Notes Filed: 09/28/2022 10:38 AM Note Text: Radiology Service Progress Note PATIENT NAME: Deyanira Gallagher DATE OF SERVICE: September 28, 2022 TIME: 10:15 AM PATIENT IDENTITY VERIFICATION COMPLETED USING TWO (2) IDENTIFIERS: Name and Date of confirmed by patient verbally. FALL SCREENING: Has the patient had 2 falls in the last year or 1 fall with injury or currently using an Ambulatory Assistive Device (Walker, Cane, Wheelchair, Crutches, etc.)? No PATIENT GENDER DATA: Female. status: : No status: NO. PATIENT RELEVANT IMPLANT DATA REVIEWED: Not Applicable RADIOLOGY DEPARTMENT: Mammography PERIPHERAL IV DATA: Not applicable SIGNED BY: Zarina Guevara September 28, 2022 10:15 AM [facility] 09-28-2022 History of Present illness Narrative Radiology Service Progress Note PATIENT NAME: Deyanira Gallagher DATE OF SERVICE: September 28, 2022 TIME: 10:15 AM PATIENT IDENTITY VERIFICATION COMPLETED USING TWO (2) IDENTIFIERS: Name and Date of confirmed by patient verbally. FALL SCREENING: Has the patient had 2 falls in the last year or 1 fall with injury or currently using an Ambulatory Assistive Device (Walker, Cane, Wheelchair, Crutches, etc.)? No PATIENT GENDER DATA: Female. status: : No status: NO. PATIENT RELEVANT IMPLANT DATA REVIEWED: Not Applicable RADIOLOGY DEPARTMENT: Mammography PERIPHERAL IV DATA: Not applicable SIGNED BY: Zarina Guevara September 28, 2022 10:15 AM documented in this encounter [facility] 09-08-2022 Miscellaneous Notes Zigmo informed this nurse that the following orders need generated for the care gaps to close for the year. Colon screening, Spirometry, Hep C Screen,, and Alpha 1 Antitrypsin Deficiency Screening Sarah Hyman LPN September 08, 2022 4:18 PM documented in this encounter [facility] 08-30-2022 Note HNO ID: [id number] Author: Rowdy Das MD Service: ? Author Type: Physician Type: Progress Notes Filed: 08/30/2022 2:54 PM Note Text: This note was created using [employer]. Subjective Deyanira Gallagher is a 77 year old female. Deyanira presents today for her annual Medicare wellness exam. Review of Systems Constitutional: Negative. HENT: Negative. Eyes: Negative. Respiratory: Negative. Cardiovascular: Negative. Gastrointestinal: Negative. Endocrine: Negative. Genitourinary: Negative. Musculoskeletal: Negative. Skin: Negative. Allergic/Immunologic: Negative. Neurological: Negative. Hematological: Negative. Psychiatric/Behavioral: Negative. Objective BP 128/58 (BP Site: Right Arm, BP Position: Sitting) Pulse 98 Temp 36.1 ?C (96.9 ?F) (Temporal) Resp 14 Ht 165.1 cm (5' 5 ) Wt 94.2 kg (207 lb 9.6 oz) LMP 08/18/1983 SpO2 98% BMI 34.55 kg/m? Physical Exam Vitals reviewed. Constitutional: Appearance: Normal appearance. HENT: Head: Normocephalic and atraumatic. Nose: Nose normal. Eyes: Extraocular Movements: Extraocular movements intact. Pupils: Pupils are equal, round, and reactive to light. Cardiovascular: Rate and Rhythm: Normal rate and regular rhythm. Pulmonary: Effort: Pulmonary effort is normal. Breath sounds: Normal breath sounds. Abdominal: General: Bowel sounds are normal. Palpations: Abdomen is soft. Musculoskeletal: General: Normal range of motion. Cervical back: Normal range of motion and neck supple. Skin: General: Skin is warm and dry. Capillary Refill: Capillary refill takes less than 2 seconds. Neurological: General: No focal deficit present. Mental Status: She is alert and oriented to person, place, and time. Mental status is at baseline. Psychiatric: Mood and Affect: Mood normal. Behavior: Behavior normal. Assessment and Plan Deyanira was seen today for medicare wellness exam. Diagnoses and all orders for this visit: Wellness examination Anxiety - ALPRAZolam (XANAX) 0.5 mg tablet; Take 1 tablet by mouth three times daily as needed for up to 90 days. Essential hypertension - COMP METABOLIC PANEL; Future Pure hypercholesterolemia - COMP METABOLIC PANEL; Future - LIPID PANEL BASIC; Future Benign essential HTN Chronic obstructive pulmonary disease, unspecified COPD type (HCC) Gastroesophageal reflux disease without esophagitis Postoperative hypothyroidism - TSH BLD; Future Anxiety associated with depression Screening for deficiency anemia - CBC + DIFF; Future Encounter for screening mammogram for malignant neoplasm of breast - [facility] SCREENING; Future Other orders - tmifqpxhgef-hmgljjjly-soywwtkv (TRELEGY ELLIPTA) 100-62.5-25 mcg inhalation powder; Inhale 1 Puff as instructed once daily. [facility] 08-30-2022 Note HNO ID: [id number] Author: Riri Clement LPN Service: ? Author Type: LICENSED NURSE Type: Progress Notes Filed: 08/30/2022 2:54 PM Note Text: Medicare Yearly Visit PAST MEDICAL HISTORY Diagnosis Date Arthritis Benign essential hypertension COPD (chronic obstructive pulmonary disease) (HCC) Depression Disorder of esophagus Eczema Hyperlipemia Hypertension Hypothyroidism PAST SURGICAL HISTORY Procedure Laterality Date APPENDECTOMY 1963 CHOLECYSTECTOMY 1982 HYSTERECTOMY HX 1984 TONSILLECTOMY AND ADENOIDECTOMY HX 1951 ALLERGIES: Levofloxacin and Codeine Medications reviewed: Yes FAMILY HISTORY Problem Relation Age of Onset Hypertension Mother Hypertension Father Stroke Father Diabetes Father other (heart disease) Father Hypertension Sister Hypertension Brother Cancer Brother SOCIAL HISTORY: Social History Tobacco Use Smoking status: Former Packs/day: 2.00 Years: 30.00 Pack years: 60.00 Types: Cigarettes Quit date: 03/18/2004 Years since quittin.4 Smokeless tobacco: Never Vaping Use Vaping Use: Never used Substance Use Topics Alcohol use: Not Currently Comment: occassionally Drug use: No Deyanira is more or less sedentary occasionally exercising in the form of walking. She watches her diet for sodium, low fat and low cholesterol most of the time, generally not very much. List of current specialists seen: none End of Live Planning discussed including patients advanced directive wishes: Yes I am willing to follow Deyanira's advanced directives. PHQ-2 / Depression screen She in the past two weeks denies, admits to having felt down, depressed, hopeless, or with little interest or pleasure in doing things. PHQ-2 Score: 2 Functional Ability/Safety Screen 1. Was the patient's timed Up and Go test unsteady or longer than 30 seconds? 2. Does the patient need help with the phone, transportation, shopping,preparing meals, housework, laundry, medications or managing money? Yes 3. Does your home have rugs in the hallway, lack of grab bars in the bathroom, lack of handrails on the stairs or have poor lighting? No Hearing Evaluation: within normal limits and normal PHYSICAL EXAM LMP 08/18/1983 Alert and oriented X 3: YES There is no height or weight on file to calculate BMI. Visual acuity: ASSESSMENT/PLAN: 77 year old female The following prevention plan was discussed during the office visit and provided to the patient: Riri Clement [facility] 08-30-2022 History of Present illness Narrative This note was created using [employer]. Subjective Deyanira Gallagher is a 77 year old female. Deyanira presents today for her annual Medicare wellness exam. Review of Systems Constitutional: Negative. HENT: Negative. Eyes: Negative. Respiratory: Negative. Cardiovascular: Negative. Gastrointestinal: Negative. Endocrine: Negative. Genitourinary: Negative. Musculoskeletal: Negative. Skin: Negative. Allergic/Immunologic: Negative. Neurological: Negative. Hematological: Negative. Psychiatric/Behavioral: Negative. Objective BP 128/58 (BP Site: Right Arm, BP Position: Sitting) Pulse 98 Temp 36.1 C (96.9 F) (Temporal) Resp 14 Ht 165.1 cm (5' 5 ) Wt 94.2 kg (207 lb 9.6 oz) LMP 08/18/1983 SpO2 98% BMI 34.55 kg/m Physical Exam Vitals reviewed. Constitutional: Appearance: Normal appearance. HENT: Head: Normocephalic and atraumatic. Nose: Nose normal. Eyes: Extraocular Movements: Extraocular movements intact. Pupils: Pupils are equal, round, and reactive to light. Cardiovascular: Rate and Rhythm: Normal rate and regular rhythm. Pulmonary: Effort: Pulmonary effort is normal. Breath sounds: Normal breath sounds. Abdominal: General: Bowel sounds are normal. Palpations: Abdomen is soft. Musculoskeletal: General: Normal range of motion. Cervical back: Normal range of motion and neck supple. Skin: General: Skin is warm and dry. Capillary Refill: Capillary refill takes less than 2 seconds. Neurological: General: No focal deficit present. Mental Status: She is alert and oriented to person, place, and time. Mental status is at baseline. Psychiatric: Mood and Affect: Mood normal. Behavior: Behavior normal. Assessment and Plan Deyanira was seen today for medicare wellness exam. Diagnoses and all orders for this visit: Wellness examination Anxiety - ALPRAZolam (XANAX) 0.5 mg tablet; Take 1 tablet by mouth three times daily as needed for up to 90 days. Essential hypertension - COMP METABOLIC PANEL; Future Pure hypercholesterolemia - COMP METABOLIC PANEL; Future - LIPID PANEL BASIC; Future Benign essential HTN Chronic obstructive pulmonary disease, unspecified COPD type (HCC) Gastroesophageal reflux disease without esophagitis Postoperative hypothyroidism - TSH BLD; Future Anxiety associated with depression Screening for deficiency anemia - CBC + DIFF; Future Encounter for screening mammogram for malignant neoplasm of breast - [facility] SCREENING; Future Other orders - qfpgupsggty-fydmuebkm-tncnftay (TRELEGY ELLIPTA) 100-62.5-25 mcg inhalation powder; Inhale 1 Puff as instructed once daily. Medicare Yearly Visit PAST MEDICAL HISTORY Diagnosis Date Arthritis Benign essential hypertension COPD (chronic obstructive pulmonary disease) (HCC) Depression Disorder of esophagus Eczema Hyperlipemia Hypertension Hypothyroidism PAST SURGICAL HISTORY Procedure Laterality Date APPENDECTOMY 1963 CHOLECYSTECTOMY 1982 HYSTERECTOMY HX 1983 TONSILLECTOMY AND ADENOIDECTOMY HX 1951 ALLERGIES: Levofloxacin and Codeine Medications reviewed: Yes FAMILY HISTORY Problem Relation Age of Onset Hypertension Mother Hypertension Father Stroke Father Diabetes Father other (heart disease) Father Hypertension Sister Hypertension Brother Cancer Brother SOCIAL HISTORY: Social History Tobacco Use Smoking status: Former Packs/day: 2.00 Years: 30.00 Pack years: 60.00 Types: Cigarettes Quit date: 03/18/2004 Years since quittin.4 Smokeless tobacco: Never Vaping Use Vaping Use: Never used Substance Use Topics Alcohol use: Not Currently Comment: occassionally Drug use: No Deyanira is more or less sedentary occasionally exercising in the form of walking. She watches her diet for sodium, low fat and low cholesterol most of the time, generally not very much. List of current specialists seen: none End of Live Planning discussed including patients advanced directive wishes: Yes I am willing to follow Deyanira's advanced directives. PHQ-2 / Depression screen She in the past two weeks denies, admits to having felt down, depressed, hopeless, or with little interest or pleasure in doing things. PHQ-2 Score: 2 Functional Ability/Safety Screen 1. Was the patient's timed Up and Go test unsteady or longer than 30 seconds? 2. Does the patient need help with the phone, transportation, shopping,preparing meals, housework, laundry, medications or managing money? Yes 3. Does your home have rugs in the hallway, lack of grab bars in the bathroom, lack of handrails on the stairs or have poor lighting? No Hearing Evaluation: within normal limits and normal PHYSICAL EXAM LMP 08/18/1983 Alert and oriented X 3: YES There is no height or weight on file to calculate BMI. Visual acuity: ASSESSMENT/PLAN: 77 year old female The following prevention plan was discussed during the office visit and provided to the patient: Riri Clement LPN documented in this encounter [facility] 03-02-2022 Miscellaneous Notes Please sign attached order per patient request and patients chart Sarah Hyman LPN March 02, 2022 3:23 PM documented in this encounter [facility] 03-02-2022 Miscellaneous Notes Please sign attached per patient request and prior chart order Sarah Hyman LPN March 02, 2022 3:18 PM documented in this encounter [facility] 02-20-2022 History of Present illness Narrative This note was created using [employer]. Subjective Deyanira Gallagher is a 76 year old female. Deyanira presents today for follow-up for multiple medical problems. See list. Her chronic medical problems are well controlled on her current regimen. Her blood pressure remains under excellent control. She has no new complaints today. She is doing well. Review of Systems Constitutional: Negative. HENT: Negative. Eyes: Negative. Respiratory: Negative. Cardiovascular: Negative. Gastrointestinal: Negative. Endocrine: Negative. Genitourinary: Negative. Musculoskeletal: Negative. Skin: Negative. Allergic/Immunologic: Negative. Neurological: Negative. Hematological: Negative. Psychiatric/Behavioral: Negative. Objective BP 110/78 (BP Site: Right Arm, BP Cuff Size: Large Adult) Pulse 85 Resp 14 Ht 165.1 cm (5' 5 ) Wt 90.8 kg (200 lb 3.2 oz) LMP 08/18/1983 SpO2 95% BMI 33.32 kg/m Physical Exam Vitals reviewed. Constitutional: Appearance: Normal appearance. HENT: Head: Normocephalic and atraumatic. Nose: Nose normal. Eyes: Extraocular Movements: Extraocular movements intact. Pupils: Pupils are equal, round, and reactive to light. Cardiovascular: Rate and Rhythm: Normal rate and regular rhythm. Pulmonary: Effort: Pulmonary effort is normal. Breath sounds: Normal breath sounds. Abdominal: General: Bowel sounds are normal. Palpations: Abdomen is soft. Musculoskeletal: General: Normal range of motion. Cervical back: Normal range of motion and neck supple. Skin: General: Skin is warm and dry. Capillary Refill: Capillary refill takes less than 2 seconds. Neurological: General: No focal deficit present. Mental Status: She is alert and oriented to person, place, and time. Mental status is at baseline. Psychiatric: Mood and Affect: Mood normal. Behavior: Behavior normal. Assessment and Plan Deyanira was seen today for 6 month exam. Diagnoses and all orders for this visit: Pure hypercholesterolemia - COMP METABOLIC PANEL; Future - LIPID PANEL BASIC; Future Other specified hypothyroidism - TSH BLD; Future Benign essential HTN - COMP METABOLIC PANEL; Future Other orders - albuterol HFA (PROVENTIL HFA, VENTOLIN HFA) 90 mcg/actuation inhaler; Inhale 2 Puffs as instructed every 4 hours as needed. documented in this encounter [facility] 02-20-2022 Nurse Note Pt has complains that when she wears a mask she feels like the room is spinning and nausea since before December documented in this encounter [facility] Diagnosis Pure hypercholesterolemia- Primary Other specified hypothyroidism Benign essential HTN Essential hypertension, benign [facility] Diagnosis Generalized weakness- Primary Other malaise and fatigue [facility] Diagnosis Wellness examination- Primary Anxiety Anxiety state, unspecified Essential hypertension Unspecified essential hypertension Pure hypercholesterolemia Benign essential HTN Essential hypertension, benign Chronic obstructive pulmonary disease, unspecified COPD type (HCC) Gastroesophageal reflux disease without esophagitis Esophageal reflux Postoperative hypothyroidism Postsurgical hypothyroidism Anxiety associated with depression Dysthymic disorder Screening for deficiency anemia Screening for other and unspecified deficiency anemia Encounter for screening mammogram for malignant neoplasm of breast Other screening mammogram [facility] Diagnosis Anxiety Anxiety state, unspecified [facility] Diagnosis Acquired hypothyroidism- Primary Unspecified hypothyroidism Anxiety Anxiety state, unspecified Stage 3 chronic kidney disease, unspecified whether stage 3a or 3b CKD (HCC) Benign essential HTN Essential hypertension, benign Chronic obstructive pulmonary disease, unspecified COPD type (HCC) Gastroesophageal reflux disease without esophagitis Esophageal reflux Anxiety associated with depression Dysthymic disorder [facility] Diagnosis Chronic obstructive pulmonary disease, unspecified COPD type (HCC)- Primary [facility] Diagnosis Encounter for screening mammogram for malignant neoplasm of breast Other screening mammogram documented in this [facility] Diagnostic Procedure Only (Routine) - Pending Review Specialty Diagnoses / Procedures Referred By Contac t Referred To Contact [facility] Diagnoses Encounter for screening mammogram for malignant neoplasm of breast Procedures MAYA SCREENING SCREENING MAMMOGRAPHY BI 2-VIEW BREAST INC Rowdy Moran MD [address] [place] [address] [facility] [address] [place] [address] Referral ID Status Reason Start Date Expiration Date Visits Requested Visits Authorized [id number] Pending Review Auto-Generat ed Referral 08/30/2022 09/29/2023 [address] [facility] for referral (narrative)* Diagnostic Procedure Only (Routine) - Closed Specialty Diagnoses / Procedures Referred By Contac t Referred To Contact [facility] Diagnoses Encounter for screening mammogram for malignant neoplasm of breast Procedures MAYA SCREENING SCREENING MAMMOGRAPHY BI 2-VIEW BREAST INC Rowdy Moran MD [address] [place] [address] [facility] [address] [address] Referral ID Status Reason Start Date Expiration Date V isits Requested Visits Authorized [id number] Closed Auto-Generate d Referral 08/30/2022 09/29/2023 [address] [facility] for visit Narrative* Diagnostic Procedure Only (Routine) - Closed Specialty Diagnoses / Procedures Referred By Contac t Referred To Contact [facility] Diagnoses Encounter for screening mammogram for malignant neoplasm of breast Procedures MAYA SCREENING SCREENING MAMMOGRAPHY BI 2-VIEW BREAST INC Rowdy Moran MD [address] [place] [address] [facility] [address] [place] [address] Referral ID Status Reason Start Date Expiration Date V isits Requested Visits Authorized [id number] Closed Auto-Generate d Referral 08/30/2022 09/29/2023 1 1 [facility] Summary Purpose Family History No Family History Records FoundNo Family History Records FoundNo Family History Records Found Advance Directives No Advanced Directives Records FoundNo Advanced Directives Records FoundNo Advanced Directives Records Found Additional Source Comments INFORMATION SOURCE (unrecogn ized section and content) DATE CREATED AUTHOR AUTHOR'S ORGANIZ ATION 03/22/2023 [facility] DATE CREATED AUTHOR AUTHOR'S ORGANIZ ATION 04/21/2023 [facility] Source Comments (unrecognize d section and content) In the event this informatio n is protected by the Federal Confidentiality of Alcohol and Drug Abuse Patient Records regulations: The Federal rules restrict any use of the information to criminally investigate or prosecute any alcohol or drug abuse patient.[facility] the event this information is protected by the Federal Confidentiality of Alcohol and Drug Abuse Patient Records regulations: The Federal rules restrict any use of the information to criminally investigate or prosecute any alcohol or drug abuse patient.[facility] the event this information is protected by the Federal Confidentiality of Alcohol and Drug Abuse Patient Records regulations: The Federal rules restrict any use of the information to criminally investigate or prosecute any alcohol or drug abuse patient.[facility] the event this information is protected by the Federal Confidentiality of Alcohol and Drug Abuse Patient Records regulations: The Federal rules restrict any use of the information to criminally investigate or prosecute any alcohol or drug abuse patient.[facility] the event this information is protected by the Federal Confidentiality of Alcohol and Drug Abuse Patient Records regulations: The Federal rules restrict any use of the information to criminally investigate or prosecute any alcohol or drug abuse patient.[facility] the event this information is protected by the Federal Confidentiality of Alcohol and Drug Abuse Patient Records regulations: The Federal rules restrict any use of the information to criminally investigate or prosecute any alcohol or drug abuse patient.[facility] the event this information is protected by the Federal Confidentiality of Alcohol and Drug Abuse Patient Records regulations: The Federal rules restrict any use of the information to criminally investigate or prosecute any alcohol or drug abuse patient.[facility] the event this information is protected by the Federal Confidentiality of Alcohol and Drug Abuse Patient Records regulations: The Federal rules restrict any use of the information to criminally investigate or prosecute any alcohol or drug abuse patient.[facility] the event this information is protected by the Federal Confidentiality of Alcohol and Drug Abuse Patient Records regulations: The Federal rules restrict any use of the information to criminally investigate or prosecute any alcohol or drug abuse patient.[facility] the event this information is protected by the Federal Confidentiality of Alcohol and Drug Abuse Patient Records regulations: The Federal rules restrict any use of the information to criminally investigate or prosecute any alcohol or drug abuse patient.[facility] the event this information is protected by the Federal Confidentiality of Alcohol and Drug Abuse Patient Records regulations: The Federal rules restrict any use of the information to criminally investigate or prosecute any alcohol or drug abuse patient.[facility] the event this information is protected by the Federal Confidentiality of Alcohol and Drug Abuse Patient Records regulations: The Federal rules restrict any use of the information to criminally investigate or prosecute any alcohol or drug abuse patient.[facility] Hospital[facility] the event this information is protected by the Federal Confidentiality of Alcohol and Drug Abuse Patient Records regulations: The Federal rules restrict any use of the information to criminally investigate or prosecute any alcohol or drug abuse patient.[facility] HospitalIn the event this information is protected by the Federal Confidentiality of Alcohol and Drug Abuse Patient Records regulations: The Federal rules restrict any use of the information to criminally investigate or prosecute any alcohol or drug abuse patient.[facility] Hospital[facility] the event this information is protected by the Federal Confidentiality of Alcohol and Drug Abuse Patient Records regulations: The Federal rules restrict any use of the information to criminally investigate or prosecute any alcohol or drug abuse patient.[facility] HospitalIn the event this information is protected by the Federal Confidentiality of Alcohol and Drug Abuse Patient Records regulations: The Federal rules restrict any use of the information to criminally investigate or prosecute any alcohol or drug abuse patient.[facility] Hospital[facility] the event this information is protected by the Federal Confidentiality of Alcohol and Drug Abuse Patient Records regulations: The Federal rules restrict any use of the information to criminally investigate or prosecute any alcohol or drug abuse patient.[facility] Care Teams (unrecognized sec tion and content) 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 Start Date End Date Rowdy Das MD PCP - General Family Practice 07/06/15 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 Start Date End Date Rowdy Das MD PCP - General Family Practice 07/06/15 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 Start Date End Date Rowdy Das MD PCP - General Family Practice 07/06/15 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 Start Date End Date Rowdy Das MD PCP - General Family Medicine 07/06/15 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 Start Date End Date Rowdy Das MD PCP - General Family Medicine 07/06/15 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 Start Date End Date Rowdy Das MD PCP - General Family Medicine 07/06/15 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 Start Date End Date Rowdy Das MD PCP - General Family Medicine 07/06/15 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 Start Date End Date Rowdy Das MD PCP - General Family Medicine 07/06/15 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 Start Date End Date Rowdy Das MD PCP - General Family Medicine 07/06/15 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 Start Date End Date Rowdy Das MD PCP - General Family Medicine 07/06/15 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 Start Date End Date Rowdy Das MD PCP - General Family Medicine 07/06/15 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 Start Date End Date Rowdy Das MD PCP - General Family Medicine 07/06/15 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 Start Date End Date Rowdy Das MD PCP - General Family Medicine 07/06/15 Reason for Visit (unrecogniz ed section and content) Reason Comments 6 Month Exam F/unit(s) copd,anxie ty and other medical problems Reason Onset Date Comments Refill Request 03/02/2022 Reason Comments Orders Reason Comments Medicare Wellness Exam Reason Comments Results elevated lipids Reason Onset Date Comments Refill Request 10/02/2022 Reason Onset Date Comments Refill Request 12/14/2022 Reason Onset Date Comments Refill Request 02/19/2023 Reason Comments 6 Month Exam Reason Onset Date Comments Refill Request 03/20/2023 Reason Comments Follow Up FOR RECORDS PERTAINING TO PATIENTS WHO ARE OR HAVE BEEN ENROLLED IN A CHEMICAL DEPENDENCY/SUBSTANCEABUSE PROGRAM, SOME INFORMATION MAY BE OMITTED. This clinical summary was aggregated from multiple sources. Caution should be exercised in using it in the provision of clinical care. This summary normalizes information from multiple sources, and as a consequence, information in this document may materially change the coding, format and clinical context of patient data. In addition, data may be omitted in some cases. CLINICAL DECISIONS SHOULD BE BASED ON THE PRIMARY CLINICAL RECORDS. [facility] [employer] [facility]. provides no warranty or guarantee of the accuracy or completeness of information in this document.
[2023-07-14 11:38] VITALS: PULSE 74; RESP 16; O2SAT 100
== END 2023-07-14 11:39 | disposition home or self-care (01) ==
PROVIDERS: Emergency Provider Emergency Medicine; PCP Family Medicine; Visit Provider Emergency Medicine
DX: G44.309 Post-traumatic headache, unspecified, not intractable (principal); S40.012A Contusion of left shoulder, initial encounter; Z87.891 Personal history of nicotine dependence; S16.1XXA Strain of muscle, fascia and tendon at neck level, initial encounter; W19.XXXA Unspecified fall, initial encounter; Y92.481 Parking lot as the place of occurrence of the external cause; I10 Essential (primary) hypertension; E03.9 Hypothyroidism, unspecified; Z79.899 Other long term (current) drug therapy
CPT/HCPCS: 70450; 72125; 73030; 99282

== ENCOUNTER 2024-12-17 10:06 | Emergency (ER) | payer MEDICARE, OTHER, SELFPAY ==
[2024-12-17 10:08] VITALS: BP 110/56; PULSE 82; RESP 16; TEMP 35.9; O2SAT 98; BMI 24.8
--- NOTE | 2024-12-17 10:29 | EX.ED.DYSGE1 ---
HPI History of Present Illness Chief Complaint: Nausea/Vomiting/Diarrhea Detail of Chief Complaint: Numerous symptoms Informant: patient and family Onset/Context/Timing Onset: - (December 10) Context: Sudden Onset Timing: Intermittent Quality: Nausea and vomiting, epigastric pain, paresthesias, dark urine Location: Predominately GI Current Severity: Mild Maximum Severity: Severe Worsened by: Nothing Relieved by: Nothing Associated Symptoms Associated Symptoms: Thirst, dry mouth, decreased urine output Narrative Narrative: Patient is a 79-year-old woman. She has history of COPD, hypothyroidism, depression who presents because of nausea and vomiting that started December 10. She had several episodes of vomiting on Sunday and . She also vomited on Sunday and Sunday according to daughter. Patient initially denied. She did have loose stool. She has not had vomiting since Sunday and has had no loose stools since Sunday. Patient states she does not have an appetite. Patient had some intermittent bilateral paresthesias. She does endorse thirst and dry mouth. She denies orthostatic symptoms. She states she has had decreased urine output and her urines been dark. She denies ill contacts. She denies fever, chills night sweats. She denies upper respiratory tract infectious symptoms. She denies cardiovascular symptoms. Patient denies any change in the color, consistency or caliber of her stool past 24 hours. She states initially it was soft and possibly smaller in size. She has no urologic symptoms other than the decreased urine output and dark-colored urine no history of liver disease. She is status post appendectomy and cholecystectomy. Prior similar symptoms: Yes Recent Illness/Hospital[facility]: [facility] Medical History (Updated 12/17/24 @ 14:[address] Jean Claude Starr MD) Anxiety and depression Hyperlipidemia Hypothyroid HTN (hypertension) Home Medications ?Medication ?Instructions ?Recorded ?Last Taken ?Type losartan 50 mg tablet 100 mg PO DAILY 07/08/15 Unknown History levothyroxine 125 mcg tablet 125 mcg PO QODAY 11/01/16 10/31/16 History paroxetine HCl 20 mg tablet 20 mg PO DAILY 11/01/16 Unknown History albuterol sulfate 90 mcg/actuation 2 puff inhalation Q6H PRN 12/17/24 Unknown History aerosol inhaler (Ventolin HFA) shortness of breath or wheezing alprazolam 0.25 mg tablet 0.5 mg PO TID PRN anxiety 12/17/24 Unknown History fluticasone fur. 100 mcg-umeclid 1 inh inhalation DAILY 12/17/24 Unknown History 62.5 mcg-vilant 25 mcg inhalat.powder (Trelegy Ellipta) nitrofurantoin 100 mg PO Q12 #10 CAPSULES 12/17/24 Unknown Rx monohydrate/macrocrystals 100 mg capsule ondansetron 4 mg disintegrating 4 mg PO Q8H PRN PRN Nausea #10 tabs 12/17/24 Unknown Rx tablet Allergy/AdvReac Type Severity Reaction Status Date / Time codeine Allergy Hives Verified 12/17/24 10:06 Social History Smoking Status: Former smoker ROS ROS ED Constitutional Constitutional ED: Reports weight loss and other Details: Significant weight loss since the of her . ; Denies chills, fever(s), subjective or sweats Eyes Eyes: Denies blurry vision or change in vision ENT ENT ED: Denies ear pain, rhinorrhea or sore throat Cardiovascular Cardiovascular: Denies chest pain, orthopnea, palpitations, paroxysmal nocturnal dyspnea or racing heartbeat Respiratory/Chest Respiratory/Chest: Denies cough, dyspnea, dyspnea on exertion, orthopnea or paroxysmal nocturnal dyspnea Gastrointestinal Gastrointestinal: Reports abdominal pain, diarrhea, nausea, vomiting and other Details: Initially she had epigastric pain. She no longer has epigastric pain. ; Denies constipation Genitourinary Genitourinary ED: Denies dysuria, hematuria or urinary frequency Musculoskeletal Musculoskeletal: Denies arthralgias, back pain or myalgias Integumentary Denies rash Neurologic Neurologic: Reports paresthesias and weakness; Denies headache(s) Endocrine Endocrinology: Denies cold intolerance or heat intolerance Hematologic/Lymphatic Hematologic/Lymphatic: Reports systems reviewed and no addt'l complaints, except as documented EXAM Physical Exam Const Vital Signs: 12/17/24 10:08 12/17/24 12:06 12/17/24 12:41 Temperature 96.7 F L Temperature Source Temporal Pulse Rate 82 69 Pulse Rate [Lying] 72 Pulse Rate [Sitting (for 1 minute prior to obtaining)] 70 Pulse Rate [Standing (for 1 minute prior to obtaining)] 85 Respiratory Rate 16 11 L Blood Pressure 110/56 L 134/87 H Blood Pressure [Lying] 123/67 H Blood Pressure [Sitting (for 1 minute prior to obtaining)] 129/82 H Blood Pressure [Standing (for 1 minute prior to obtaining)] 127/84 H Blood Pressure Mean 74 102 Blood Pressure Mean [Lying] 85 Blood Pressure Mean [Sitting (for 1 minute prior to obtaining)] 97 Blood Pressure Mean [Standing (for 1 minute prior to obtaining)] 98 Pulse Ox 98 Oxygen Delivery Method Room Air 12/17/24 14:00 Temperature Temperature Source Pulse Rate 67 Pulse Rate [Lying] Pulse Rate [Sitting (for 1 minute prior to obtaining)] Pulse Rate [Standing (for 1 minute prior to obtaining)] Respiratory Rate 15 Blood Pressure 136/71 H Blood Pressure [Lying] Blood Pressure [Sitting (for 1 minute prior to obtaining)] Blood Pressure [Standing (for 1 minute prior to obtaining)] Blood Pressure Mean 92 Blood Pressure Mean [Lying] Blood Pressure Mean [Sitting (for 1 minute prior to obtaining)] Blood Pressure Mean [Standing (for 1 minute prior to obtaining)] Pulse Ox 97 Oxygen Delivery Method Positive well nourished and well developed Constitutional Narrative: Pleasant elderly woman who appears in no distress. General Appearance ED: well developed and NAD; Negative for pallor HEENT HEENT Narrative: Head is atraumatic normocephalic. Ears normal. Nares patent. Posterior pharynx is normal Eyes PERRL and EOMs intact bilaterally Neck no lymphadenopathy, supple and no JVD Chest Wall inspection of chest normal and palpation of chest normal Resp normal respiratory effort and clear to auscultation bilaterally Cardio regular rate, regular rhythm, S1 normal heart sound, S2 normal heart sound and no murmurs GI normal to inspection, nondistended, normoactive bowel sounds, non-distended and no masses; Negative for non-tender or hepatosplenomegaly GI Narrative: Patient is some mild tenderness to the anterior iliac spine on the right. There is no guarding or peritoneal findings. She is slightly tympanitic to percussion. Palpation: soft Back/Spine no CVA tenderness Extremity normal to inspection Neuro oriented x3 and CN's II-XII intact bilaterally Sensorium / Orientation: alert Psych mental status grossly normal Skin no rashes or lesions noted, no wounds and No skin turgor normal General Skin Exam: Negative for jaundice or pallor MDM MDM MDM Narrative Medical decision making narrative: With complaint of predominately nausea vomiting clinically dehydrated with decreased urine output will obtain basic metabolic panel to assess renal function, CO2 anion gap and electrolytes. CBC was obtained assess H&H and white count. UA to assess specific gravity and to determine if there is bilirubin in the urine. 1 L of normal saline was ordered. Prior records were reviewed. Patient's had no admission dating back to 2017. She has been seen in the ER for minor traumatic injuries and exacerbation of her COPD. History & Record Review Additional record(s) reviewed:: Prior ED visit Lab Data Attestation: I reviewed the patient's lab results. Lab results narrative: BMP is remarkable for slight elevation of glucose and elevated BUN to creatinine ratio. Urine is consistent with infection. White count is unremarkable. H&H is normal. Labs: Laboratory Results - last 24 hr 12/17/24 12/17/24 12/17/24 11:40 11:40 12:04 WBC Cancelled Corrected WBC Cancelled RBC Cancelled Hgb Cancelled Hct Cancelled MCV Cancelled MCH Cancelled MCHC Cancelled RDW Std Deviation Cancelled RDW Coeff of Vipul Cancelled Plt Count Cancelled MPV Cancelled Immature Gran % (Auto) Cancelled Neut % (Auto) Cancelled Lymph % (Auto) Cancelled Sierra % (Auto) Cancelled Eos % (Auto) Cancelled Baso % (Auto) Cancelled Absolute Neuts (auto) Cancelled Absolute Lymphs (auto) Cancelled Total Counted Cancelled Neutrophils % (Manual) Cancelled Band Neutrophils % Cancelled Lymphocytes % (Manual) Cancelled Monocytes % (Manual) Cancelled Eosinophils % (Manual) Cancelled Basophils % (Manual) Cancelled Metamyelocytes % Cancelled Myelocytes % Cancelled Promyelocytes % Cancelled Blast Cells % Cancelled Plasma Cell % (Manual) Cancelled Other Cells % Cancelled Nucleated RBC % Cancelled Nucleated RBCs/100 WBC Cancelled Differential Comment Cancelled Diff Path Review Cancelled Hypersegmented Neuts Cancelled Atypical Lymphocytes Cancelled Reactive Lymphocytes Cancelled Smudge Cells Cancelled Toxic Granulation Cancelled Toxic Vacuolation Cancelled Dohle Bodies Cancelled George Rods Cancelled Platelet Estimate Cancelled Plt Morphology Comment Cancelled RBC Morphology Cancelled Cancelled Polychromasia Cancelled Hypochromasia Cancelled Basophilic Stippling Cancelled Anisocytosis Cancelled Microcytosis Cancelled Macrocytosis Cancelled Spherocytes Cancelled Sickle Cells Cancelled Target Cells Cancelled Tear Drop Cells Cancelled Ovalocytes Cancelled Stomatocytes Cancelled [place] Bodies Cancelled Eva Cells Cancelled Bite Cells Cancelled Crenated Cell Cancelled Acanthocytes (Spur) Cancelled Rouleaux Cancelled Schistocytes Cancelled Sodium 137 Potassium 4.4 Chloride 100 Carbon Dioxide 24.3 Anion Gap 13 BUN 29 H Creatinine 1.18 Estim Creat Clear Calc 35.93 L Est GFR (MDRD) Non-Af 48 L BUN/Creatinine Ratio 24.7 H Glucose 103 H Calcium 9.5 Urine Color Zully Urine Clarity Sl. Cloudy Urine pH 5.0 Ur Specific Sellers 1.020 Urine Protein 30 H Urine Glucose (UA) Normal Urine Ketones Negative Urine Occult Blood 10 H Urine Nitrite Positive H Urine Bilirubin 1 H Urine Urobilinogen 4 H Ur Leukocyte Esterase 500 H Urine RBC 0 SEEN Urine WBC 10-25 SEEN Ur Squamous Epith Cells 5-10 SEEN Urine Bacteria 1+ Hyaline Casts 0-5 SEEN Fine Granular Casts 5-10 SEEN Coarse Granular Casts 0-5 SEEN Urine Mucus 0 SEEN 12/17/24 12:32 WBC 6.9 Corrected WBC RBC 4.92 Hgb 14.2 Hct 43.6 MCV 88.6 MCH 28.9 MCHC 32.6 RDW Std Deviation 43.2 RDW Coeff of Vipul 13.3 Plt Count 184 MPV 11.7 Immature Gran % (Auto) 0.300 Neut % (Auto) 67.1 Lymph % (Auto) 21.6 Sierra % (Auto) 9.4 Eos % (Auto) 0.6 Baso % (Auto) 1.0 Absolute Neuts (auto) 4.6 Absolute Lymphs (auto) 1.49 Total Counted Neutrophils % (Manual) Band Neutrophils % Lymphocytes % (Manual) Monocytes % (Manual) Eosinophils % (Manual) Basophils % (Manual) Metamyelocytes % Myelocytes % Promyelocytes % Blast Cells % Plasma Cell % (Manual) Other Cells % Nucleated RBC % 0 Nucleated RBCs/100 WBC Differential Comment Diff Path Review Hypersegmented Neuts Atypical Lymphocytes Reactive Lymphocytes Smudge Cells Toxic Granulation Toxic Vacuolation Dohle Bodies George Rods Platelet Estimate Plt Morphology Comment RBC Morphology Polychromasia Hypochromasia Basophilic Stippling Anisocytosis Microcytosis Macrocytosis Spherocytes Sickle Cells Target Cells Tear Drop Cells Ovalocytes Stomatocytes [place] Bodies Eva Cells Bite Cells Crenated Cell Acanthocytes (Spur) Rouleaux Schistocytes Sodium Potassium Chloride Carbon Dioxide Anion Gap BUN Creatinine Estim Creat Clear Calc Est GFR (MDRD) Non-Af BUN/Creatinine Ratio Glucose Calcium Urine Color Urine Clarity Urine pH Ur Specific Sellers Urine Protein Urine Glucose (UA) Urine Ketones Urine Occult Blood Urine Nitrite Urine Bilirubin Urine Urobilinogen Ur Leukocyte Esterase Urine RBC Urine WBC Ur Squamous Epith Cells Urine Bacteria Hyaline Casts Fine Granular Casts Coarse Granular Casts Urine Mucus Treatment and Re-Evaluation :: Patient did pass p.o. challenge. She was reassessed and does have suprapubic tenderness. In light of this we will send urine culture and treat with antibiotics. She received her first dose in the emergency department. Patient and daughter were informed of results plan. They are in agreement. Discharge Plan Triage Chief Complaint: Nausea/Vomiting/Diarrhea ED Provider: Jean Claude Starr Dx/Rx/DC Orders Clinical Impression: Abdominal pain, Nausea & vomiting, Urinary tract infection, Acute prerenal azotemia Instructions: ED Dehydration (Adult), ED Cystitis Female Adult, ED Vomiting (Adult) Prescriptions: New nitrofurantoin monohyd/m-cryst 100 mg capsule 100 mg PO Q12 Qty: 10 0RF ondansetron 4 mg tablet,disintegrating 4 mg PO Q8H PRN PRN (Reason: Nausea) Qty: 10 0RF No Action losartan 50 MG tablet 100 mg PO DAILY paroxetine HCl 20 MG tablet 20 mg PO DAILY levothyroxine 125 MCG tablet 125 mcg PO QODAY Trelegy Ellipta 100-62.5-25 mcg blister with device 1 inh inhalation DAILY albuterol sulfate [Ventolin HFA] 90 mcg/actuation HFA aerosol inhaler 2 puff INHALATION Q6H PRN (Reason: shortness of breath or wheezing) alprazolam 0.25 mg tablet 0.5 mg PO TID PRN (Reason: anxiety) Primary Care Provider: Gopal Burrows Referrals: Gopal Burrows MD [Primary Care Provider] - 3-5 Days Print Language: Moroccan Disposition Disposition: Home, Self Care
[2024-12-17] MEDS: 0.9% Normal Saline (1000mL) 1,000 ML 1000 ML IV (10:55)
[2024-12-17 12:06] VITALS: BP 134/87; PULSE 69; RESP 11
[2024-12-17 12:17] LABS: Mucous, Urine 0 SEEN /hpf (<or=2+); Red Blood Cells-Urine 0 SEEN /hpf (0-5)
[2024-12-17 12:23] LABS: Anion Gap 13 (5-15); BUN 29 mg/dL (4-19); BUN/Creat Ratio 24.7 RATIO (10-20); Calcium,Total 9.5 mg/dL (7.6-11.0); Carbon Dioxide 24.3 mmol/L (21.0-32.0); Chloride 100 mmol/L (98-108); Creatinine, Serum 1.18 mg/dL (0.70-1.20); EST Glomerular Filtration Rate 48 (>60); Estimated Creatinine Clearance 35.93 ml/min (50-250); Glucose 103 mg/dL (70-99); Potassium 4.4 mmol/L (3.3-5.1); Sodium Level 137 mmol/L (133-145)
[2024-12-17 12:24] LABS: Color, Urine Amber (Yellow); Glucose, Dipstick Normal (Normal); Ketone-Dipstick Negative (Negative); Leukocyte Esterase-Dipstick 500 /ul (Negative); Nitrite-Dipstick Positive (Negative); Occult Blood-Urine 10 /ul (Negative); Protein-Dipstick 30 mg/dl (Negative); Urine Clarity Sl. Cloudy (Clear); Urine Urobilinogen 4 mg/dl (Normal)
[2024-12-17 12:26] LABS: Urine Bilirubin Dipstick 1 mg/dL (Negative)
[2024-12-17 12:38] LABS: Absolute Lymphocyte Count 1.49 X10^3/uL (0.83-4.51); Absolute Neutrophil Count 4.6 X10^3/uL (2.0-7.7); Basophil# 0.07 X10^3/uL; Eosinophil# 0.04 X10^3/uL; Eosinophils% 0.6 % (0-5); Hematocrit 43.6 % (37-47); Hemoglobin 14.2 g/dL (12.0-15.0); Lymphocyte # 1.49 X10^3/ul (0.83-4.51); Lymphocyte % 21.6 % (19-41); Mean Corp Hgb Conc 32.6 g/dL (32-36); Mean Corpuscular Hgb 28.9 pg (27.0-32.0); Mean Corpuscular Volume 88.6 fL (81-99); Mean Platelet Vol. 11.7 fl (6.2-12.0); Monocyte# 0.65 X10^3/uL; Monocyte% 9.4 % (0-10); NRBC Flagged by Analyzer 0 % (0-5); Neutrophil # 4.63 X10^3/uL (2.7-7.7); Neutrophil % 67.1 % (47-70); Platelet Count 184 K/mm3 (150-450); RBC Distribution Width CV 13.3 % (11.6-14.6); RBC Distribution Width SD 43.2 fl (35.1-43.9); Red Blood Count 4.92 M/mm3 (4.2-5.4); White Blood Count 6.9 K/mm3 (4.4-11.0)
[2024-12-17 12:41] VITALS: BP 123/67; BP 127/84; BP 129/82; PULSE 70; PULSE 72; PULSE 85
[2024-12-17 12:41] LABS: White Blood Cells 10-25 SEEN /hpf (0-5)
[2024-12-17 12:42] LABS: Bacteria 1+ /hpf (None Seen); Squamous Epithelial Cells - UA 5-10 SEEN /hpf (5-10)
[2024-12-17 12:46] LABS: Coarse Granular Cast 0-5 SEEN /lpf (0-5 /lpf); Fine Granular Cast- Urine 5-10 SEEN /lpf (0-5); Hyaline Cast 0-5 SEEN /lpf (0-5)
[2024-12-17 14:00] VITALS: BP 136/71; PULSE 67; RESP 15; O2SAT 97
[2024-12-17] MEDS: Nitrofurantoin Macrocrystals 100 MG Capsule PO (14:28)
[2024-12-17 14:29] VITALS: BP 130/71; PULSE 66; RESP 14; TEMP 36.6; O2SAT 98
== END 2024-12-17 14:30 | disposition home or self-care (01) ==
PROVIDERS: Emergency Provider Emergency Medicine; PCP Family Medicine; Visit Provider Emergency Medicine
DX: R11.2 Nausea with vomiting, unspecified (principal); J44.9 Chronic obstructive pulmonary disease, unspecified; N39.0 Urinary tract infection, site not specified; I10 Essential (primary) hypertension; Z90.89 Acquired absence of other organs; R19.7 Diarrhea, unspecified; Z87.891 Personal history of nicotine dependence; E78.5 Hyperlipidemia, unspecified; R10.9 Unspecified abdominal pain; R79.89 Other specified abnormal findings of blood chemistry; E03.9 Hypothyroidism, unspecified; Z79.890 Hormone replacement therapy; F41.8 Other specified anxiety disorders; Z79.899 Other long term (current) drug therapy; Z79.51 Long term (current) use of inhaled steroids
CPT/HCPCS: 36415; 80048; 81001; 85025; 87077; 87086; 87088; 96360; 96361; 99285; A4216

== ENCOUNTER 2024-12-19 15:28 | Inpatient (IN) | payer MEDICARE, OTHER, SELFPAY ==
[2024-12-19] VITALS (32 sets, daily range): BP systolic 79–154; BP diastolic 52–103; PULSE 76–92; RESP 14–26; TEMP 36.3–37.2; O2SAT 92–100; BMI 25.6
--- NOTE | 2024-12-19 15:36 | EKG12_ITS ---
Test Reason : CP Blood Pressure : */* mmHG Vent. Rate : 85 BPM Atrial Rate : 85 BPM P-R Int : 148 ms QRS Dur : 132 ms QT Int : 372 ms P-R-T Axes : 57 -35 40 degrees QTcB Int : 442 ms Normal sinus rhythm Left axis deviation Right bundle branch block Inferior infarct , age undetermined Anterior infarct , age undetermined Abnormal ECG Confirmed by MICHELLE MONTOYA, WILLY ([id number]), senior editor JERONIMO HARRISON ([id number]) on 12/22/2024 6:56:23 AM Referred By: Confirmed By: WILLY MARTINEZ MD
--- NOTE | 2024-12-19 16:20 | ED.VIS.CHEST ---
HPI History of Present Illness Chief Complaint: Chest Pain [facility] Medical History Anxiety and depression Hyperlipidemia Hypothyroid HTN (hypertension) Home Medications ?Medication ?Instructions ?Recorded ?Last Taken ?Type losartan 50 mg tablet 100 mg PO DAILY 07/08/15 Unknown History levothyroxine 125 mcg tablet 125 mcg PO DAILY 11/01/16 10/31/16 History paroxetine HCl 20 mg tablet 20 mg PO DAILY 11/01/16 Unknown History albuterol sulfate 90 mcg/actuation 2 puff inhalation Q6H PRN 12/17/24 Unknown History aerosol inhaler (Ventolin HFA) shortness of breath or wheezing alprazolam 0.25 mg tablet 0.5 mg PO TID PRN anxiety 12/17/24 Unknown History fluticasone fur. 100 mcg-umeclid 1 inh inhalation DAILY 12/17/24 Unknown History 62.5 mcg-vilant 25 mcg inhalat.powder (Trelegy Ellipta) nitrofurantoin 100 mg PO Q12 #10 CAPSULES 12/17/24 Unknown Rx monohydrate/macrocrystals 100 mg capsule rosuvastatin 10 mg tablet (Crestor) 10 mg PO DAILY 12/19/24 Unknown History Allergy/AdvReac Type Severity Reaction Status Date / Time codeine Allergy Hives Verified 12/19/24 15:29 Social History Smoking Status: Former smoker EXAM Physical Exam Const Vital Signs: 12/19/24 15:29 12/19/24 16:41 12/19/24 16:42 Temperature 99 F Temperature Source Oral Pulse Rate 90 92 Respiratory Rate 16 19 H Respiratory Effort Normal Non-Labored Blood Pressure 146/74 H 140/82 H Blood Pressure Mean 98 101 Pulse Ox 97 96 Oxygen Delivery Method Room Air Room Air 12/19/24 16:43 12/19/24 17:00 12/19/24 18:00 Temperature Temperature Source Pulse Rate 88 85 Respiratory Rate 17 19 H Respiratory Effort Blood Pressure 131/88 H 154/68 H Blood Pressure Mean 102 91 Pulse Ox 97 Oxygen Delivery Method Room Air Room Air 12/19/24 18:15 12/19/24 18:26 12/19/24 18:30 Temperature 97.4 F L Temperature Source Pulse Rate 90 88 86 Respiratory Rate 20 H 14 18 Respiratory Effort Blood Pressure 132/73 H 132/73 H 150/88 H Blood Pressure Mean 84 92 107 Pulse Ox 97 Oxygen Delivery Method 12/19/24 18:45 12/19/24 18:54 12/19/24 19:00 Temperature Temperature Source Pulse Rate 81 87 91 Respiratory Rate 18 14 24 H Respiratory Effort Blood Pressure 121/103 H 121/103 H 132/75 H Blood Pressure Mean 107 109 88 Pulse Ox 98 97 95 Oxygen Delivery Method Room Air 12/19/24 19:15 12/19/24 19:30 12/19/24 19:45 Temperature Temperature Source Pulse Rate 81 90 Respiratory Rate 19 H 21 H Respiratory Effort Blood Pressure 110/64 118/62 108/56 L Blood Pressure Mean 75 78 70 Pulse Ox 93 92 Oxygen Delivery Method Room Air 12/19/24 19:46 12/19/24 20:00 12/19/24 20:15 Temperature Temperature Source Pulse Rate 90 92 83 Respiratory Rate 16 16 23 H Respiratory Effort Blood Pressure 87/63 L Blood Pressure Mean 71 Pulse Ox 95 100 Oxygen Delivery Method Room Air Room Air 12/19/24 20:25 12/19/24 20:29 12/19/24 21:31 Temperature Temperature Source Pulse Rate 78 Respiratory Rate 18 Respiratory Effort Blood Pressure 79/68 L 99/53 L 108/58 L Blood Pressure Mean 73 68 74 Pulse Ox 96 Oxygen Delivery Method Room Air MDM MDM MDM Narrative Medical decision making narrative: HISTORY OF PRESENT ILLNESS: Chief complaint: Chest pain 79-year-old female history of COPD, hypertension, hypothyroidism, anxiety presents with chest pain. Patient notes chest pain began this morning. Notes last approximate 8 hours. Noted to radiate to the back. The pain was not pressure like. It was not exertional. It was not associated with deep breath. States it was not ripping or tearing. States spontaneous resolve just prior to arrival. She notes no vomiting today but did note vomiting yesterday. No hemoptysis, hematochezia, melena or hematemesis. Denies syncope. Denies family personal history of connective tissue disorders. The patient denies recent surgery in the last 4 weeks or immobilization in the last 3 days, denies previous diagnosis of DVT or PE, hemoptysis, unilateral leg swelling or malignancy with treatment the last 6 months or palliative. No estrogen use noted. Patient denies sudden onset of pain, no tearing sensation, no migratory symptoms, no new numbness, weakness or loss of sensation. Patient denies family history or personal history of Connective tissue disorders (Marfan's Syndrome, Opal Danlos etc). Denies fever cough or chills. Denies sick contacts. REVIEW OF SYSTEMS: Pertinent positives: Chest pain Pertinent negatives: Syncope, focal neurologic deficit PHYSICAL EXAM: Nursing triage notes reviewed, Vital signs reviewed Constitutional: please see mdm HENT: MMM Eyes: Pupils equal round and reactive to light, Extraocular muscles intact Neck: No stridor, no JVD, full neck ROM Lungs: Clear to auscultation, No wheezing or rales. No increased work of breathing, no conversational dyspnea, no accessory muscle use, no nasal flaring. No respiratory distress noted Heart: Regular rate and rhythm, No murmurs, No rubs and No gallops, 2+ distal pulses (radial, femoral, posterior tibial) in all extremities Abdomen: Soft, there is no tenderness, rigidity, rebound or guarding, no obvious peritoneal signs, no palpable pulsatile abdominal masses, no auscultated abdominal bruit : No CVAT Extremities: No edema Neuro: No new focal neurological deficits, cranial nerves II through XII intact, 5/5 strength in all present extremities. Intact sensation to light touch in all present extremities, 2+ reflexes bilateral patella tendons. Skin: No rash or lesions noted MEDICAL DECISION MAKING: Chief Complaint: please see HPI External records reviewed: Reviewed prior cardiovascular stent, prior EKGs, no recent Stress or echocardiogram result in the chart. Seen yesterday in the ED for nausea vomiting diarrhea. Denied chest pain at that time. Factors affecting care: As per HPI Social determinants of health: n denies smoking, illicit drug use (cocaine, methamphetamine) History obtained from others: none Consults: Dr. Rosenbaum (recommended PCU full) [facility] Narrative: The patient was initially hemodynamically stable, afebrile and nontoxic-appearing. Exam without focal cardiopulmonary abnormalities. Patient appeared comfortable. No acute distress. No diaphoresis. She was not short of breath. Her vitals were stable I considered the following differential diagnosis: ACS, anemia, arrhythmia, pericarditis, pneumothorax, PE, aortic dissection, esophageal pathology While I considered pulmonary embolism as a potential etiology the patient a low risk Wells score and as such have a low suspicion for PE. No indication for D-dimer or advanced imaging at this time Labs/Images were obtained in the protocol secondary to poor department on dynamics including high-volume high acuity ALL IMAGES (IF OBTAINED) HAVE BEEN PERSONALLY REVIEWED AND INTERPRETED BY MYSELF. EKG with normal sinus rhythm rate 85, left axis deviation, right bundle branch block, no obvious acute STEMI. Right bundle branch block was seen on prior EKG from 2017 Initial troponin was elevated consistent myocardial ischemia Initial BNP grossly elevated consistent with volume overload D-dimer elevated concerning for VTE CTA of the chest was negative for acute PE CBC without leukocytosis, severe anemia, no thrombocytopenia. No coagulopathy BMP without evidence of significant electrolyte abnormalities, no anion gap, no acute kidney injury. The synthesis of the patient's history, physical exam, labs images suggest likely NSTEMI. Will need cardiology consultation. Patient not having any chest pain here no STEMI on EKG sign of PE or dissection on CTA. Patient is appropriate for PCU admission per Dr. Rosenbaum. The patient and/or family, caregivers express understanding. The patient and/or family, caregivers agrees with the plan. Shared decision making: I will have a discussion with the patient and or visitors regarding risk/benefits of further testing or admission. They will be made aware of of the risk/benefits inherent in this decision they will be given the opportunity to voice understanding. Total critical care time today provided was at least 35 minutes. This excludes separately billable procedures. Critical care time (if documented) is secondary to the patient having high probability of clinically significant/life threatening deterioration in the patient's condition which required my urgent intervention. Impression: 1. Chest pain 2. NSTEMI 3. Elevated D-dimer Dispo: Admit to PCU This note was generated with [employer] dictation software. It may contain incorrect words, spelling, and punctuation that were not noted in review of the chart prior to signing. Lab Data Labs: Laboratory Results - last 24 hr 12/19/24 12/19/24 12/19/24 16:35 18:00 18:45 WBC 8.9 RBC 4.94 Hgb 14.2 Hct 43.7 MCV 88.5 MCH 28.7 MCHC 32.5 RDW Std Deviation 42.7 RDW Coeff of Vipul 13.3 Plt Count 221 MPV 11.9 Immature Gran % (Auto) 0.200 Neut % (Auto) 76.8 H Lymph % (Auto) 12.2 L [place] % (Auto) 9.8 Eos % (Auto) 0.5 Baso % (Auto) 0.5 Absolute Neuts (auto) 6.8 Absolute Lymphs (auto) 1.08 Nucleated RBC % 0 PT 13.9 INR 1.1 APTT 27.0 D-Dimer Quant (PE/DVT) 4.00 H* Sodium 138 Potassium 3.9 Chloride 101 Carbon Dioxide 25.2 Anion Gap 12 BUN 15 Creatinine 1.07 Estim Creat Clear Calc 43.21 L Est GFR (MDRD) Non-Af 53 L BUN/Creatinine Ratio 14.3 Glucose 107 H Calcium 9.7 Troponin T High Sens 5909 H* Troponin T Hi Sens 2 Hr 5021 H* [place] 4[place] [address] H 12/19/24 20:25 WBC RBC Hgb Hct MCV MCH MCHC RDW Std Deviation RDW Coeff of Vipul Plt Count MPV Immature Gran % (Auto) Neut % (Auto) Lymph % (Auto) [place] % (Auto) Eos % (Auto) Baso % (Auto) Absolute Neuts (auto) Absolute Lymphs (auto) Nucleated RBC % PT INR APTT D-Dimer Quant (PE/DVT) Sodium Potassium Chloride Carbon Dioxide Anion Gap BUN Creatinine Estim Creat Clear Calc Est GFR (MDRD) Non-Af BUN/Creatinine Ratio Glucose Calcium Troponin T High Sens Troponin T Hi Sens 2 Hr Troponin T Hi Sens 4Hr 4679 H* NT pro BNP II Radiography Diagnostic Testing: Clinical Impression(s) from Imaging Studies Chest X-Ray 12/19/24 17:15 IMPRESSION: Cardiomegaly without overt failure. Reading Location: [facility] Chest CTA 12/19/24 19:35 IMPRESSION: 1. No pulmonary embolism is identified. Some of the distal pulmonary arteries cannot be evaluated due to suboptimal opacification. 2. Mild cardiomegaly with small pericardial effusion. 3. Continue low-dose CT scan of the chest in 12 months is recommended. Reading Location: [facility] Discharge Plan Triage Chief Complaint: Chest Pain ED Provider: Agustin Easley Dx/Rx/DC Orders Primary Care Provider: Gopal Burrows
[2024-12-19 17:08] LABS: Absolute Lymphocyte Count 1.08 X10^3/uL (0.83-4.51); Absolute Neutrophil Count 6.8 X10^3/uL (2.0-7.7); Basophil# 0.04 X10^3/uL; Basophil% 0.5 % (0-1); Eosinophil# 0.04 X10^3/uL; Eosinophils% 0.5 % (0-5); Hematocrit 43.7 % (37-47); Hemoglobin 14.2 g/dL (12.0-15.0); Lymphocyte # 1.08 X10^3/ul (0.83-4.51); Lymphocyte % 12.2 % (19-41); Mean Corp Hgb Conc 32.5 g/dL (32-36); Mean Corpuscular Hgb 28.7 pg (27.0-32.0); Mean Corpuscular Volume 88.5 fL (81-99); Mean Platelet Vol. 11.9 fl (6.2-12.0); Monocyte# 0.87 X10^3/uL; Monocyte% 9.8 % (0-10); NRBC Flagged by Analyzer 0 % (0-5); Neutrophil % 76.8 % (47-70); Platelet Count 221 K/mm3 (150-450); RBC Distribution Width CV 13.3 % (11.6-14.6); RBC Distribution Width SD 42.7 fl (35.1-43.9); Red Blood Count 4.94 M/mm3 (4.2-5.4); White Blood Count 8.9 K/mm3 (4.4-11.0)
--- NOTE | 2024-12-19 17:15 | RAD_ITS ---
EXAM: XR Chest, 1 View CLINICAL INDICATION: CHEST PAIN TECHNIQUE: Frontal view of the chest. COMPARISON: No relevant prior studies available. FINDINGS: LUNGS AND PLEURAL SPACES: Unremarkable. No consolidation. No pneumothorax. HEART: Cardiomegaly without overt failure. MEDIASTINUM: Unremarkable. Normal mediastinal contour. BONES/JOINTS: Unremarkable. No acute fracture. RAD/Chest 1 View (Portable) IMPRESSION: Cardiomegaly without overt failure. Reading Location: [id number]
[2024-12-19 17:29] LABS: Anion Gap 12 (5-15); BUN 15 mg/dL (4-19); BUN/Creat Ratio 14.3 RATIO (10-20); Calcium,Total 9.7 mg/dL (7.6-11.0); Carbon Dioxide 25.2 mmol/L (21.0-32.0); Chloride 101 mmol/L (98-108); Creatinine, Serum 1.07 mg/dL (0.70-1.20); EST Glomerular Filtration Rate 53 (>60); Estimated Creatinine Clearance 43.21 ml/min (50-250); Glucose 107 mg/dL (70-99); Potassium 3.9 mmol/L (3.3-5.1); Sodium Level 138 mmol/L (133-145); Troponin T High Sensitivity 5909 ng/L (<=14)
[2024-12-19] MEDS: Heparin Injection (Vial) 5,000 UNIT/ML VIAL IV (18:02)
[2024-12-19] MEDS: HEPARIN/D5w 25,000 UNITS 25,000 UNITS/250 ML IV.SOLN. 8 UNITS CONT INF (18:04)
[2024-12-19] MEDS: Aspirin 325 MG Tablet PO (18:16)
[2024-12-19 18:37] LABS: Pro- Brain NATRIURETIC PEPTIDE 10767 pg/mL (<=1800)
[2024-12-19 19:20] LABS: International Normalized Ratio 1.1; Prothrombin Time (Protime)PT. 13.9 SECONDS (11.7-14.9)
[2024-12-19 19:22] LABS: Troponin T High Sens 2 HR 5021 ng/L (<=14)
--- OUTSIDE RECORDS SUMMARY | 2024-12-19 19:23 | XMS RPT_ITS | CCD ---
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 Name Role Phone Gopal Das MD, Raymond Gregory Primary Care Provider Pippa MONTOYA, Gopal Charles Primary Care Provider Pippa MONTOYA, Gopal Charles Primary Care Provider Pippa MONTOYA, Gopal Charles Primary Care Provider Pippa MONTOYA, Gopal Charles Primary Care Provider GOPAL DAS Referring Unavailab le PIPPA, GOPAL CHARLES Primary Care Unavailab le PIPPAGOPAL Referring Unavailab le PIPPA, GOPAL CHARLES Primary Care Unavailab le PIPPA, GOPAL CHARLES Attending Unavailab le PIPPA, GOPAL CHARLES Primary Care Unavailab le PIPPA, GOPAL CHARLES Attending Unavailab le PIPPA, GOPAL CHARLES Primary Care Unavailab le PIPPA, GOPAL CHARLES Attending Unavailab le PIPPA, GOPAL CHARLES Primary Care Unavailab le StarrJean Claude Attending Unavailable Gopal Das Primary Care Unavailable Dr. Gopal Das MD Primary Care Provider Dr. Jean Claude Starr MD Emergency Provider Allergies Allergy Classification Reported Allergen(s) Allergy Type Date of Onset Reaction(s) Facility Opioid Agonists (1 source) Codeine Drug Allergy 07-22-2015 [facility] Quinolones (antibiotic) (1 source) levoFLOXacin Drug Allergy 06-21-2017 Vomiting [facility] (20 sources) Codeine; Translations: [CODEINE] Drug Allergy 07-22-2015 [facility] (20 sources) levoFLOXacin; Translations: [LEVOFLOXACIN] Drug Allergy 06-21-2017 Vomiting [facility] (1 source) Codeine Drug Allergy 12-17-2024 [facility] Repository Medications Current Medications Medication Drug Class(es) Dates Sig (Normalized) Sig (Original) [id number] 200 actuat albuterol 0.09 mg/actuat metered dose inhaler (20 sources) beta2-Adrenergic Agonist Start: 12-17-2024 Albuterol Sulfate (Ventolin Hfa) 90 mcg/actuation HFA aerosol inhaler Active 2 NMA INHALATION EVERY 6 HOURS as needed for shortness of breath or wheezing December 17, 2024 12:00am Start: 09-03-2023 take 2 puff(s) by mo uth every four hours as needed albuterol HFA (PROVENTIL HFA, VENTOLIN HFA) 90 mcg/actuation inhaler inhale 2 puffs by mouth every 4 hours as needed 25.5 Each 3 09/03/2023 Active Start: 11-22-2022 End: 09-03-2023 take 2 puff(s) by mouth every four hours as needed albuterol HFA (PROVENTIL HFA, VENTOLIN HFA) 90 mcg/actuation inhaler TAKE 2 PUFFS BY MOUTH EVERY 4 HOURS NEEDED 54 Each 3 11/22/2022 09/03/2023 Discontinued Start: 02-20-2022 End: 11-22-2022 take 2 puff(s) by inhalation every four hours as needed albuterol HFA (PROVENTIL HFA, VENTOLIN HFA) 90 mcg/actuation inhaler Inhale 2 Puffs as instructed every 4 hours as needed. 18 g 11 02/20/2022 11/22/2022 Discontinued Start: 03-08-2021 End: 02-20-2022 take 2 puff(s) by inhalation every four hours as needed albuterol HFA (PROVENTIL HFA, VENTOLIN HFA) 90 mcg/actuation inhaler Apply 2 Puffs to affected area every 4 hours as needed. 0 03/08/2021 02/20/2022 Discontinued Start: 07-08-2015 take 1 puff(s) by in halation every six hours as needed Albuterol Sulfate (Proair Hfa (Sp)Vent Pts) 1 PUFF inhaler Active 1 - 2 PUFF INHALATION EVERY 6 HOURS NEEDED July 08, 2015 12:00am Start: 05-22-2015 End: 11-26-2021 PROAIR HFA 90 mcg/actuation inhaler as needed. 0 05/22/2015 11/26/2021 Discontinued (Duplicate Entry) Comment on above: as needed. Apply 2 Puffs to aff ected area every 4 hours as needed. Inhale 2 Puffs as in structed every 4 hours as needed. TAKE 2 PUFFS BY MOUT H EVERY 4 HOURS NEEDED inhale 2 puffs by mo uth every 4 hours as needed ALPRAZolam 0.25 mg oral tablet (20 sources) Benzodiazepine Start: take 2 tablets by mouth three times daily as needed for anxiety Alprazolam 0.25 mg tablet Active 0.5 mg PO THREE TIMES A DAY as needed for anxiety December 17, 2024 12:00am Start: 11-27-2024 End: 02-25-2025 take 1 tablet by mouth every eight hours as needed for anxiety and anxiety ALPRAZolam (XANAX) 0.5 mg tablet Indications: Anxiety Take 1 tablet by mouth three times a day as needed for anxiety for up to 90 days. 90 tablet 1 11/27/2024 02/25/2025 Active Start: 08-30-2022 End: 08-05-2024 take 1 tablet by mouth every eight hours as needed for anxiety and anxiety ALPRAZolam (XANAX) 0.5 mg tablet Indications: Anxiety Take 1 tablet by mouth three times a day as needed for anxiety for up to 90 days. 90 tablet 1 05/07/2024 08/05/2024 Active Start: 01-13-2022 End: 02-12-2022 take 1 tablet by mouth every eight hours as needed for anxiety and anxiety ALPRAZolam (XANAX) 0.5 mg tablet Indications: Anxiety Take 1 tablet by mouth every 8 hours as needed for up to 30 days. 120 tablet 0 01/13/2022 02/12/2022 Active Start: 06-20-2017 End: 12-17-2024 take 0.125 mg by mouth twice daily as needed Alprazolam 0.25 MG tablet Discontinued 0.125 mg PO TWICE DAILY NEEDED as needed for Shortness Of Breath June 20, 2017 1:00am December 17, 2024 11:07am Start: 06-20-2017 take 0.125 mg by tomas th twice daily as needed Alprazolam Active 0.125 MG PO TWICE DAILY NEEDED June 20, 2017 12:00am Start: 02-19-2017 End: 01-11-2022 take 1 tablet by mouth every eight hours as needed ALPRAZolam (XANAX) 0.5 mg tablet Take 1 tablet by mouth every 8 hours as needed. 0 02/19/2017 01/11/2022 Discontinued Comment on above: Take 1 tablet by tomas th every 8 hours as needed. Take 1 tablet by tomas th every 8 hours as needed for up to 30 days. Take 1 tablet by tomas th three times daily as needed for up to 90 days. Take 0.5 mg by mouth three times daily as needed. Calcium Carbonate / vitamin D3 (20 sources) take 2 tablets by mouth once daily CALCIUM CARBONATE/VITAMIN D3 (CALCIUM 600 + D ORAL) Take 2 tablets by mouth once daily. Active take 2 tablets by mouth once twin ly CALCIUM CARBONATE/VITAMIN D3 (CALCIUM 600 + D ORAL) Take 2 tablets by mouth once daily. 0 Active take 1 tablet by mouth once jaret y CALCIUM CARBONATE/VITAMIN D3 (CALCIUM 600 + D ORAL) Take 1 tablet by mouth once daily. 0 Active Comment on above: Take 1 tablet by tomas th once daily. Take 2 tablets by mo [facility] once daily. cholecalciferol 0.125 mg oral tablet (20 sources) Vitamin D take 1 tablet by mouth once daily Cholecalciferol, Vitamin D3, 5,000 unit tab Take 5,000 Units by mouth once daily. Active Comment on above: Take 5,000 Units by mouth once daily. cyanocobalamin-salcaprozat sod 1,000 mcg tab (20 sources) take 1 tablet by mouth once daily cyanocobalamin-salc aprozat sod 1,000 mcg tab Take 1 tablet by mouth once daily. Active take 1 tablet by tomas th once daily cyanocobalamin-salcaprozat sod 1,000 mcg tab Take 1 tablet by mouth once daily. 0 Active Comment on above: Take 1 tablet by tomas th once daily. Fluticasone-Umeclidin- Vilanter (20 sources) Anticholinergic, Corticosteroid, beta2-Adrenergic Agonist Start: 12-17-2024 Quykrjjudfj-Zruabhlbt-Gn lanter (Trelegy Ellipta) 100-62.5-25 mcg blister with device Active 1 NMA INHALATION DAILY December 17, 2024 12:00am Start: 06-19-2023 End: 11-05-2023 take 1 puff(s) by inhalation once daily vouwgjwvbix-ulzfavwtk-tpnhrccy (TRELEGY ELLIPTA) 100-62.5-25 mcg inhalation powder Indications: Chronic obstructive pulmonary disease, unspecified (HCC) Inhale 1 Puff as instructed once daily. 180 Each 3 11/05/2023 Active Start: 11-22-2022 take 1 puff(s) by mo uth once daily TRELEGY ELLIPTA 100-62.5-25 mcg inhalati on powder Indications: Chronic obstructive pulmonary disease, unspecified (HCC) INHALE 1 PUFF BY MOUTH DIRECTED ONCE A DAY 180 Each 3 11/22/2022 Active Start: 01-09-2022 End: 11-22-2022 take 1 puff(s) by inhalation once daily fikpfntvjfj-bnfdgjrri-ndkfufrn (TRELEGY ELLIPTA) 100-62.5-25 mcg inhalation powder Inhale 1 Puff as instructed once daily. 90 Each 3 08/30/2022 11/22/2022 Discontinued Start: [birth year]-16[birth year]1969 take 1 puff(s) by inhalation once daily gkbndetzyrg-zxcbnkrzg-edtadzlr (TRELEGY ELLIPTA) 100-62.5-25 mcg inhalation powder Inhale 1 Puff as instructed once daily. 0 07/16/1969 Active Comment on above: Inhale 1 Puff as ins tructed once daily. INHALE 1 PUFF BY TOMAS DIRECTED ONCE A DAY levothyroxine sodium 0.125 mg oral tablet (20 sources) l-Thyroxine Start: 01-14-20 take 1 tablet by mouth once daily before breakfast levothyroxine (SYNTHROID) 125 mcg tablet Take 1 tablet by mouth daily before breakfast. 90 tablet 3 01/14/2024 Active Start: 03-22-2023 End: 03-21-2024 take 1 tablet by mouth once daily before breakfast levothyroxine (SYNTHROID) 112 mcg tablet Take 1 tablet by mouth daily before breakfast. 90 tablet 3 03/22/2023 01/14/2024 Discontinued Start: 12-17-2022 End: 03-22-2023 take 1 tablet by mouth once daily levothyroxine (SYNTHROID) 100 mcg tablet Take 1 tablet by mouth once daily. 90 tablet 3 12/17/2022 03/22/2023 Discontinued Start: 01-13-2022 End: 12-14-2022 take 1 tablet by mouth once daily levothyroxine (SYNTHROID) 100 mcg tablet Take 1 tablet by mouth once daily. 90 tablet 3 01/13/2022 12/14/2022 Discontinued Start: 07-06-2017 End: 01-11-2022 take 1 tablet by mouth once daily levothyroxine (SYNTHROID) 100 mcg tablet Take 1 tablet by mouth once daily. 0 07/06/2017 01/11/2022 Discontinued (Erroneous entry) Start: 11-01-2016 take 1 tablet by tomas th every other day Levothyroxine 125 MCG tablet Active 125 ug PO EVERY OTHER DAY November 01, 2016 12:00am Start: 04-12-2015 End: 01-11-2022 levothyroxine (SYNTHROID) 11 2 mcg tablet 1 tablet once daily. 0 04/12/2015 01/11/2022 Discontinued (Duplicate Entry) Comment on above: 1 tablet once daily. Take 1 tablet by tomas th once daily. Take 1 tablet by tomas th daily before breakfast. losartan potassium 100 mg oral tablet (20 sources) Angiotensin 2 Receptor Obie Start: 09-18-2023 End: 07-11-2024 take 1 tablet by mouth once daily losartan (COZAAR) 100 mg tablet TAKE 1 TABLET BY MOUTH EVERY DAY 90 tablet 3 07/11/2024 Active Start: 12-17-2022 take 1 tablet by tomas th once daily losartan (COZAAR) 100 mg tablet Take 1 tablet by mouth once daily. 90 tablet 3 12/17/2022 Active Start: 01-13-2022 End: 12-14-2022 take 1 tablet by mouth once daily losartan (COZAAR) 100 mg tablet Take 1 tablet by mouth once daily. 90 tablet 3 01/13/2022 12/14/2022 Discontinued Start: 07-12-2015 End: 01-11-2022 take 1 tablet by mouth once daily losartan (COZAAR) 100 mg tablet Take 1 tablet by mouth once daily. 0 02/19/2017 01/11/2022 Discontinued Start: 07-08-2015 take 2 tablets by [facility] once daily Losartan 50 MG tablet Active 100 mg PO DAILY July 08, 2015 1:00am Start: 07-08-2015 take 100 mg by mouth once jaret y Losartan Active 100 MG PO DAILY July 08, 2015 12:00am Comment on above: 1 tablet once daily. Take 1 tablet by [facility] once daily. Multivitamin capsule (20 sources) take 1 capsule by mouth once daily Multivitamin capsule Take 1 capsule by mouth once daily. Active take 1 capsule by mouth once twin ly Multivitamin capsule Take 1 capsule by mouth once daily. 0 Active Comment on above: Take 1 capsule by [facility] once daily. naproxen sodium 220 mg oral capsule (20 sources) Nonsteroidal Anti-inflammatory Drug naproxen sodium 220 mg cap Take by mouth as needed. Active Comment on above: Take by mouth as nee ded. nitrofurantoin, macrocrystals 25 mg / nitrofurantoin, monohydrate 75 mg oral capsule (1 source) Nitrofuran Antibacterial Start: 12-18-19 take 1 capsule by mouth every twelve hours Nitrofurantoin Monohyd/M-Cryst 100 mg capsule Active 100 mg PO EVERY 12 HOURS December 17, 2024 12:00am [place]-3 Fatty Acids 300 mg cap (20 sources) take 1 capsule by mouth once daily [place]-3 Fatty Acids 300 mg cap Take 1 capsule by mouth once daily. Active take 1 capsule by mouth once twin ly [place]-3 Fatty Acids 300 mg cap Take 1 capsule by mouth once daily. 0 Active Comment on above: Take 1 capsule by [facility] once daily. ondansetron 4 mg disintegrating oral tablet (4 sources) Serotonin-3 Receptor Antagonist Start: take 1 tablet by mouth every eight hours as needed for nausea Ondansetron 4 mg tablet,disintegrati ng Active 4 mg PO EVERY 8 HOURS NEEDED as needed for Nausea December 17, 2024 12:00am Start: 06-20-2017 End: 12-17-2024 take 1 tablet by mouth every six hours as needed for nausea Ondansetron (Zofran Odt) 8 MG tablet,disintegrating Discontinued 8 mg PO EVERY 6 HOURS NEEDED as needed for Nausea June 20, 2017 6:20am December 17, 2024 11:24am PARoxetine hydrochloride 20 mg oral tablet (20 sources) Serotonin Reuptake Inhibitor Start: 11-01-2016 End: 11-26-2024 take 1 tablet by mouth once daily Paroxetine Hcl 20 MG tablet Active 20 mg PO DAILY November 01, 2016 12:00am Start: 05-07-2015 End: 01-11-2022 PARoxetine ER (PAXIL CR) 12. 5 mg 24 hr tablet once daily. 0 05/07/2015 01/11/2022 Discontinued (Erroneous entry) Comment on above: once daily. [facility] rosuvastatin calcium 10 mg oral tablet (6 sources) HMG-CoA Reductase Inhibitor Start: 024 End: 025 take 1 tablet by mouth once daily at bedtime rosuvastatin (CRESTOR) 10 mg tablet Take 1 tablet by mouth daily at bedtime. 90 tablet 3 01/14/2024 01/13/2025 Active triamcinolone acetonide 1 mg/ml topical cream (20 sources) Corticosteroid triamcinolone acetonide (KENALOG) 0.1 % cream Apply to affected area as needed. Active Comment on above: Apply to affected ar ea as needed. ubidecarenone 100 mg oral capsule (20 sources) take 10 capsules by mouth once daily coenzyme Q10 100 mg cap Take 200 mg by mouth once daily. Active Comment on above: Take 200 mg by mouth once daily. ZINC/ASCORBIC ACID/PYRIDOXINE (ZINC LOZENGE ORAL) (20 sources) ZINC/ASCORBIC ACID/PYRIDOXINE (ZINC LOZENGE ORAL) Take 1 Lozenge by mouth as needed. Active ZINC/ASCORBIC AC ID/PYRIDOXINE (ZINC LOZENGE ORAL) Take 1 Lozenge by mouth as needed. 0 Active ZINC/ASCORBIC AC ID/PYRIDOXINE (ZINC LOZENGE ORAL) Take by mouth as needed. 0 Active Comment on above: Take by mouth as nee ded. Take 1 Lozenge by mo [facility] as needed. Completed/Discontinued Medications Medication Drug Class(es) Dates Sig (Normalized) Sig (Original) Albuterol Sulfate (Proair Hfa (Sp)Vent Pts) 1 PUFF inhaler (1 source) Start: 07-08-2015 End: 12-17-2024 take 1 puff(s) by inhalation every six hours as needed Albuterol Sulfate (Proair Hfa (Sp)Vent Pts) 1 PUFF inhaler Discontinued 1 - 2 NMA INHALATION EVERY 6 HOURS NEEDED as needed for Sob &/Or Wheezing July 08, 2015 1:00am December 17, 2024 10:56am azelastine hydrochloride 0.5 mg/ml ophthalmic solution (6 sources) Histamine-1 Receptor Antagonist Start: 04-23-2015 End: 08-30-2022 Azelastine HCl (OPTIVAR) 0.05 % ophthalmic solution four times daily. 0 04/23/2015 08/30/2022 Discontinued Comment on above: four times daily. azithromycin 250 mg oral tablet (3 sources) Macrolide Antimicrobial Start: 06-20-2017 End: 12-17-2024 take 2 tablets by mouth once daily, then take 1 tablet by mouth once daily Azithromycin (Zithromax Z-Cesar) 250 MG tablet Discontinued 250 mg PO DIRECTED June 20, 2017 1:00am December 17, 2024 10:56am TAKE 2 TABLETS 1ST DAY THEN 1 TABLET DAILY FOR NEXT 4 DAYS. 1 ml denosumab 60 mg/ml prefilled syringe (6 sources) RANK Ligand Inhibitor Start: 06-23-2021 End: 08-30-2022 denosumab (PROLIA) 60 mg/mL Inject 60 mg subcutaneously once every 6 months. 0 06/23/2021 08/30/2022 Discontinued Comment on above: Inject 60 mg subcuta neously once every 6 months. dicyclomine hydrochloride 20 mg oral tablet (6 sources) Anticholinergic End: 08-30-2022 dicyclomine (BENTYL) 20 mg tablet Take 20 mg by mouth as needed. 0 08/30/2022 Discontinued Comment on above: Take 20 mg by mouth as needed. ibuprofen 100 mg oral tablet (6 sources) Nonsteroidal Anti-inflammatory Drug End: 08-30-2022 take 1 tablet by mouth every six hours as needed Ibuprofen 100 mg tablet Take 100 mg by mouth every 6 hours as needed. 0 08/30/2022 Discontinued Comment on above: Take 100 mg by mouth every 6 hours as needed. levoFLOXacin 750 mg oral tablet (3 sources) Quinolone Antimicrobial Start: 06-20-2017 End: 12-17-2024 take 1 tablet by mouth once daily Levofloxacin (Levaquin) 750 MG tablet Discontinued 750 mg PO DAILY June 20, 2017 1:00am December 17, 2024 10:56am nystatin [id number] unt/ml / triamcinolone acetonide 1 mg/ml topical cream (19 sources) Polyene Antifungal, Corticosteroid Start: 02-19-2017 End: 11-05-2023 nystatin-triamcinol one (MYCOLOG II) cream Apply 1 application to affected area three times daily as needed. 0 02/19/2017 11/05/2023 Discontinued (Other) Comment on above: Apply 1 application to affected area three times daily as needed. Tiotropium-Olodater ol (3 sources) Anticholinergic, beta2-Adrenergic Agonist Start: 11-01-2016 End: 12-17-2024 take 4 g by inhalation once daily Tiotropium-Olodater ol (Stiolto Respimat Inhal [place]) 4 GM mist Discontinued 4 g IH DAILY November 01, 2016 12:00am December 17, 2024 11:24am Start: 11-01-2016 take 4 g by inhalati on once daily Tiotropium-Olodaterol (Stiolto Respimat Inhal [place]) 4 GM mist Active 4 GM IH DAILY October 31, 2016 11:00pm omega-3 acid ethyl esters (detention) 1000 mg oral capsule (6 sources) Start: 10-02-2022 End: 03-05-2023 omega-3 acid ethyl esters (LOVAZA) 1 gram capsule Take 2 capsules by mouth once daily. 180 capsule 3 10/02/2022 03/05/2023 Discontinued Comment on above: Take 2 g by mouth on ce daily. Take 2 capsules by m outh once daily. omeprazole 40 mg delayed release oral capsule (6 sources) Proton Pump Inhibitor Start: 11-10-2015 End: 08-30-2022 take 1 capsule by mouth once daily Omeprazole (PRILOSEC) 40 mg capsule Take 1 capsule by mouth once daily. 30 capsule 2 11/10/2015 08/30/2022 Discontinued Comment on above: Take 1 capsule by mo ut once daily. oxymetazoline hydrochloride 0.5 mg/ml nasal spray (6 sources) End: 08-30-2022 oxymetazoline (GENASAL) 0.05 % nasal spray Use 2 Sprays in the nose as needed. 0 08/30/2022 Discontinued Comment on above: Use 2 Sprays in the nose as needed. sodium chloride 0.111 meq/ml nasal spray (6 sources) End: 08-30-2022 sodium chloride (AYR, OCEAN) 0.65 % nasal spray Use 1 [place] in the nose as needed. 0 08/30/2022 Discontinued Comment on above: Use 1 [place] in the n ose as needed. tiotropium 0.018 mg inhalation powder (6 sources) Anticholinergic Start: 04-12-2015 End: 08-30-2022 SPIRIVA WITH HANDIHALER 18 mcg inhalation capsule once daily. 0 04/12/2015 08/30/2022 Discontinued Comment on above: once daily. Problems Active Problems Problem Classification Problem Date Documented Da te Episodic/Chronic Abdominal pain (1 source) Abdominal pain; Translations: [Unspecified abdominal pain] 12-17-2024 Episodic Acute and unspecified renal failure (1 source) Prerenal azotemia; Translations: [Unspecified kidney failure] 12-17-2024 Chronic Anxiety disorders (20 sources) Mixed anxiety and depressive disorder; Translations: [Other specified anxiety disorders] Onset: 6 08-18-2015 Chronic Chronic kidney disease (17 sources) Chronic kidney disease stage 3; Translations: [Stage 3 chronic kidney disease, unspecified whether stage 3a or 3b CKD (HCC)] Onset: 3 03-05-2023 Chronic Chronic kidney disease (2 sources) Chronic kidney disease; Translations: [Stage 3 chronic kidney disease, unspecified whether stage 3a or 3b CKD (HCC)] Onset: 3 Chronic obstructive pulmonary disease and bronchiectasis (20 sources) Chronic obstructive lung disease; Translations: [Chronic obstructive pulmonary disease, unspecified] Onset: 6 08-18-2015 Chronic Complications of surgical procedures or medical care (1 source) Postoperative hypothyroidism; Translations: [Postprocedural hypothyroidism] Chronic Disorders of lipid metabolism (20 sources) Hyperlipidemia; Translations: [Hyperlipidemia, unspecified] Onset: 7 11-26-2021 Chronic E Codes: Adverse effects of medical drugs (3 sources) Adverse reaction to drug; Translations: [Adverse effect of unspecified drugs, medicaments and biological substances, initial encounter] 06-21-2017 Episodic E Codes: Fall (3 sources) Accidental fall ; Translations: [Unspecified fall, initial encounter] 07-11-2023 Episodic Esophageal disorders (20 sources) Gastroesophageal reflux disease without esophagitis; Translations: [Gastro-esophageal reflux disease without esophagitis] Onset: 6 08-18-2015 Chronic Essential hypertension (20 sources) Essential hypertension; Translations: [Essential (primary) hypertension] Onset: 6 08-18-2015 Chronic Headache; including migraine (2 sources) Headache; Translations: [Post-traumatic headache, unspecified, not intractable] 07-14-2023 Episodic Malaise and fatigue (2 sources) Asthenia; Translations: [Weakness] Episodic Mood disorders (20 sources) Depressive disorder; Translations: [Depression] Onset: 7 11-26-2021 Chronic Nausea and vomiting (4 sources) Nausea and vomiting; Translations: [Nausea with vomiting, unspecified] 06-21-2017 Episodic Open wounds of head; neck; and trunk (3 sources) Facial laceration ; Translations: [Laceration without foreign body of other part of head, initial encounter] 07-11-2023 Episodic Osteoporosis (20 sources) Osteoporosis; Translations: [Age-related osteoporosis without current pathological fracture] Onset: 8 11-26-2021 Chronic Other gastrointestinal disorders (1 source) Chronic constipation; Translations: [Other constipation] 11-17-2024 Episodic Other injuries and conditions due to external causes (3 sources) Closed injury of head; Translations: [Unspecified injury of head, initial encounter] 07-11-2023 Episodic Other non-traumatic joint disorders (1 source) Polyarthropathy; Translations: [Polyarthritis, unspecified] 01-14-2024 Chronic Other non-traumatic joint disorders (1 source) Polyarthritis, unspecified; Translations: [Polyarthritis] Onset: Chronic Other nutritional; endocrine; and metabolic disorders (20 sources) Obesity; Translations: [Obesity, unspecified] Onset: 6 08-18-2015 Chronic Other skin disorders (1 source) Seborrheic keratosis; Translations: [Other seborrheic keratosis] 11-17-2024 Episodic Sprains and strains (2 sources) Strain of neck muscle; Translations: [Strain of muscle, fascia and tendon at neck level, initial encounter] 07-14-2023 Episodic Superficial injury; contusion (3 sources) Contusion of left shoulder; Translations: [Contusion of left shoulder, initial encounter] 07-11-2023 Episodic Thyroid disorders (20 sources) Hypothyroidism; Translations: [Hypothyroidism, unspecified] Onset: 7 11-26-2021 Chronic Unclassified (1 source) Unknown / UNK(Unknown) Onset: 7 Urinary tract infections (1 source) Urinary tract infectious disease; Translations: [Urinary tract infection, site not specified] 12-17-2024 Episodic Past or Other Problems Problem Classification Problem Date Documented Da te Episodic/Chronic Acute bronchitis (20 sources) Acute bacterial bronchitis; Translations: [Acute bronchitis due to other specified organisms] Onset: 06-19-2017 11-26-2021 Episodic Allergic reactions (20 sources) Eczema; Translations: [Dermatitis, unspecified] Onset: 02-19-2017 11-26-2021 Episodic Conditions associated with dizziness or vertigo (20 sources) Dizziness; Translations: [Dizziness and giddiness] Onset: 05-29-2019 11-26-2021 Episodic Esophageal disorders (20 sources) Disorder of esophagus; Translations: [Disease of esophagus, unspecified] Onset: 02-19-2017 11-26-2021 Episodic Fluid and electrolyte disorders (3 sources) Hyperkalemia; Translations: [Hyperkalemia] Onset: 01-14-2024 01-14-2024 Episodic Other gastrointestinal disorders (20 sources) Occult blood in stools; Translations: [Other fecal abnormalities] Onset: 09-03-2015 09-03-2015 Episodic Other non-traumatic joint disorders (20 sources) Pain of joint of right foot; Translations: [Pain in right ankle and joints of right foot] Onset: 04-16-2018 11-26-2021 Episodic Other screening for suspected conditions (not mental disorders or infectious disease) (20 sources) Patient encounter status; Translations: [Encounter for screening mammogram for malignant neoplasm of breast] Onset: 01-07-2018 11-26-2021 Episodic Unclassified (1 source) HYPOTHYROIDISM,E0 3.9 Onset: 07-05-2017 Unclassified (1 source) Patient encounter status 11-17-2024 Results Test Name Value Interpretation Reference Range Facility Absolute lymphocyte countOrd ered By: Jean Claude Starr on 12-17-2024 Lymphocytes Auto (Unsp spec) [#/Vol] 1.49 10*3/uL 0.83-4.51 [facility] Absolute neutrophil countOrd ered By: Jean Claudeaudrey Starr on 12-17-2024 Neutrophils (Bld) [#/Vol] 4.6 10*3/uL 2.0-7.7 [facility] Anion gap in Serum or Plasma Ordered By: Jean Claudeaudrey Starr on 12-17-2024 Anion gap [Moles/Vol] 13 mmol/L 5-15 [facility] Automated lymphocyte count a s percentage of total leukocytesOrdered By: Jean Claudeaudrey Starr on 12-17-2024 Lymphocytes/100 WBC Auto (Unsp spec) 21.6 % 19-41 [facility] BUN/creatinine ratioOrdered By: Jean Claudeaudrey Starr on 12-17-2024 Urea nitrogen/Creatinine [Mass ratio] 24.7 mg/mg High 10-20 [facility] Basic Metabolic Profile (BMP )on 12-17-2024 BUN/CRE 24.7 RATIO High 10- [facility] Comment on above: Performed By: #### L 100.0100, L500.2500 #### [facility] Laboratory [address] [place], [address] Calcium [Mass/Vol] 9.5 mg/dL Normal 7.6-11.0 [facility] Comment on above: Performed By: #### L 100.0100, L500.2500 #### [facility] [address] [place], [address] Chloride [Moles/Vol] 100 mmol/L Normal 98-108 [facility] Comment on above: Performed By: #### L 100.0100, L500.2500 #### [facility] [address] [place], [address] CO2 [Moles/Vol] 24.3 mmol/L Normal 21.0-32.0 [facility] Comment on above: Performed By: #### L 100.0100, L500.2500 #### [facility] [address] [place], [address] Creatinine [Mass/Vol] 1.18 mg/dL Normal 0.70-1.20 [facility] Comment on above: Performed By: #### L 100.0100, L500.2500 #### [facility] [address] [place], [address] ECRCL 35.93 ml/min Low 50-250 [facility] Comment on above: Performed By: #### L 100.0100, L500.2500 #### [facility] [address] [place], [address] GAP 13 Normal 5-15 [facility] Comment on above: Performed By: #### L 100.0100, L500.2500 #### [facility] [address] [place], [address] GFR/1.73 sq M.predicted among non-blacks MDRD (S/P/Bld) [Vol rate/Area] 48 mL/min/{1.73_m2} Low >60 [facility] Comment on above: Result Comment: mL/m in/1.73m2 CKD-EPI Creatinine Equation (2020) Performed By: #### L 100.0100, L500.2500 #### [facility] [address] [place], [address] Glucose [Mass/Vol] 103 mg/dL High 70-99 [facility] Comment on above: Performed By: #### L 100.0100, L500.2500 #### [facility] [address] [place], [address] Potassium [Moles/Vol] 4.4 mmol/L Normal 3.3-5.1 [facility] Comment on above: Result Comment: Hemo lysis present, Results??could be affected. ?? Performed By: #### L 100.0100, L500.2500 #### [facility] [address] [place], [address] Sodium [Moles/Vol] 137 mmol/L Normal 133-145 [facility] Comment on above: Performed By: #### L 100.0100, L500.2500 #### [facility] [address] [place], [address] Urea nitrogen [Mass/Vol] 29 mg/dL High 4-19 [facility] Comment on above: Performed By: #### L 100.0100, L500.2500 #### [facility] [address] [place], [address] Basophil percentageOrdered B y: Jean Claude Starr on 12-17-2024 Basophils/100 WBC (Bld) 1.0 % 0-1 [facility] Bilirubin Test strip Ql (U)O rdered By: Jean Claude Starr on 12-17-2024 Bilirubin Ql (U) 1 mg/dL High Negative [facility] Comment on above: COLOR OF URINE MAY A FFECT DIPSTICK RESULTS. CBC W/Diff, Automatedon Absolute Lymph 1.49 X10 3/uL Normal 0.83-4.51 [facility] Comment on above: Order Comment: REDRA W. PREVIOUS SPECIMEN REJECTED DUE TO SPECIMEN BEING QNS. 12/17/24 1157 Gerard Asencio. Performed By: #### L 100.0100 #### [facility] [address] [place], [address] Absolute Neut 4.6 X10 3/uL Normal 2.0-7.7 [facility] Comment on above: Order Comment: REDRA W. PREVIOUS SPECIMEN REJECTED DUE TO SPECIMEN BEING QNS. 12/17/24 1157 Gerard Page Performed By: #### L 100.0100 #### [facility] [address] [place], [address] Basophils/100 WBC (Bld) 1.0 % Normal 0-1 [facility] Comment on above: Order Comment: REDRA W. PREVIOUS SPECIMEN REJECTED DUE TO SPECIMEN BEING QNS. 12/17/24 1157 Gerard Asencio. Performed By: #### L 100.0100 #### [facility] [address] [place], [address] Eosinophils/100 WBC (Bld) 0.6 % Normal 0-5 [facility] Comment on above: Order Comment: REDRA W. PREVIOUS SPECIMEN REJECTED DUE TO SPECIMEN BEING QNS. 12/17/24 1157 Gerard Page Performed By: #### L 100.0100 #### [facility] [address] [place], [address] Erythrocyte distribution width (RBC) [Ratio] 13.3 % Normal 11.6-14.6 [facility] Comment on above: Order Comment: REDRA W. PREVIOUS SPECIMEN REJECTED DUE TO SPECIMEN BEING QNS. 12/17/24 1157 Gerard Page Performed By: #### L 100.0100 #### [facility] [address] [place], [address] Hematocrit (Bld) [Volume fraction] 43.6 % Normal 37-47 [facility] Comment on above: Order Comment: REDRA W. PREVIOUS SPECIMEN REJECTED DUE TO SPECIMEN BEING QNS. 12/17/24 1157 Gerard Page Performed By: #### L 100.0100 #### [facility] [address] [place], [address] Hemoglobin (Bld) [Mass/Vol] 14.2 g/dL Normal 12.0-15.0 [facility] Comment on above: Order Comment: REDRA W. PREVIOUS SPECIMEN REJECTED DUE TO SPECIMEN BEING QNS. 12/17/24 1157 Gerard Page Performed By: #### L 100.0100 #### [facility] [address] [place], [address] IG% 0.300 Normal 0.0-0.9 [facility] Comment on above: Order Comment: REDRA W. PREVIOUS SPECIMEN REJECTED DUE TO SPECIMEN BEING QNS. 12/17/24 1157 Gerard Page Result Comment: IG% - Immature Granulocytes (promyelocytes, myelocytes and metamyelocytes) > 1% indicates that a LEFT SHIFT is Present. Performed By: #### L 100.0100 #### [facility] [address] [place], [address] Lymphocytes/100 WBC (Bld) 21.6 % Normal 19-41 [facility] Comment on above: Order Comment: REDRA W. PREVIOUS SPECIMEN REJECTED DUE TO SPECIMEN BEING QNS. 12/17/24 1157 Gerard Page Performed By: #### L 100.0100 #### [facility] [address] [place], [address] MCH (RBC) [Entitic mass] 28.9 pg Normal 27.0-32.0 [facility] Comment on above: Order Comment: REDRA W. PREVIOUS SPECIMEN REJECTED DUE TO SPECIMEN BEING QNS. 12/17/24 1157 Gerard Page Performed By: #### L 100.0100 #### [facility] [address] [place], [address] MCHC (RBC) [Mass/Vol] 32.6 g/dL Normal 32-36 [facility] Comment on above: Order Comment: REDRA W. PREVIOUS SPECIMEN REJECTED DUE TO SPECIMEN BEING QNS. 12/17/24 1157 Gerard Page Performed By: #### L 100.0100 #### [facility] [address] [place], [address] MCV (RBC) [Entitic vol] 88.6 fL Normal 81-99 [facility] Comment on above: Order Comment: REDRA W. PREVIOUS SPECIMEN REJECTED DUE TO SPECIMEN BEING QNS. 12/17/24 1157 Gerard Page Performed By: #### L 100.0100 #### [facility] [address] [place], [address] Monocytes/100 WBC (Bld) 9.4 % Normal 0-10 [facility] Comment on above: Order Comment: REDRA W. PREVIOUS SPECIMEN REJECTED DUE TO SPECIMEN BEING QNS. 12/17/24 1157 Gerard Asencio. Performed By: #### L 100.0100 #### [facility] [address] [place], [address] Neutrophils/100 WBC (Bld) 67.1 % Normal 47-70 [facility] Comment on above: Order Comment: REDRA W. PREVIOUS SPECIMEN REJECTED DUE TO SPECIMEN BEING QNS. 12/17/24 1157 Gerard Asencio. Performed By: #### L 100.0100 #### [facility] Laboratory [address] [place], [address] Nucleated RBC (Bld) [#/Vol] 0 10*3/uL Normal 0-5 [facility] Comment on above: Order Comment: REDRA W. PREVIOUS SPECIMEN REJECTED DUE TO SPECIMEN BEING QNS. 12/17/24 1157 Gerard Asencio. Performed By: #### L 100.0100 #### [facility] [address] [place], [address] Platelet mean volume (Bld) [Entitic vol] 11.7 fL Normal 6.2-12.0 [facility] Comment on above: Order Comment: REDRA W. PREVIOUS SPECIMEN REJECTED DUE TO SPECIMEN BEING QNS. 12/17/24 1157 Gerard Asencio. Performed By: #### L 100.0100 #### [facility] [address] [place], [address] Platelets (Bld) [#/Vol] 184 10*3/uL Normal 150-450 [facility] Comment on above: Order Comment: REDRA W. PREVIOUS SPECIMEN REJECTED DUE TO SPECIMEN BEING QNS. 12/17/24 1157 Gerard Garcesr. Performed By: #### L 100.0100 #### [facility] [address] [place], [address] RBC (Bld) [#/Vol] 4.92 10*6/uL Normal 4.2-5.4 [facility] Comment on above: Order Comment: REDRA W. PREVIOUS SPECIMEN REJECTED DUE TO SPECIMEN BEING QNS. 12/17/24 1157 Gerard R Stoner. Performed By: #### L 100.0100 #### [facility] [address] [place], [address] RDW SD 43.2 fl Normal 35.1-43.9 [facility] Comment on above: Order Comment: REDRA W. PREVIOUS SPECIMEN REJECTED DUE TO SPECIMEN BEING QNS. 12/17/24 1157 Gerard R Stoner. Performed By: #### L 100.0100 #### [facility] [address] [place], [address] WBC (Bld) [#/Vol] 6.9 10*3/uL Normal 4.4-11.0 [facility] Comment on above: Order Comment: REDRA W. PREVIOUS SPECIMEN REJECTED DUE TO SPECIMEN BEING QNS. 12/17/24 1157 Gerard R Stoner. Performed By: #### L 100.0100 #### [facility] [address] [place], [address] Absolute Neut Normal 2.0-7.7 [facility] Comment on above: Result Comment: This specimen has been REJECTED due to Laboratory criteria: Quanity Not Sufficient. ED STAFF has been notified of need of recollection. 12/17/24 1155 Gerard R Stoner Performed By: #### L 100.0100, L500.2500 #### [facility] [address] [place], [address] HCT Normal 37-47 [facility] Comment on above: Result Comment: This specimen has been REJECTED due to Laboratory criteria: Quanity Not Sufficient. ED STAFF has been notified of need of recollection. 12/17/24 1155 Gerard R Stoner Performed By: #### L 100.0100, L500.2500 #### [facility] [address] [place], [address] HGB Normal 12.0-15.0 [facility] Comment on above: Result Comment: This specimen has been REJECTED due to Laboratory criteria: Quanity Not Sufficient. ED STAFF has been notified of need of recollection. 12/17/24 1155 Gerard R Stoner Performed By: #### L 100.0100, L500.2500 #### [facility] [address] [place], [address] MCH Normal 27.0-32.0 [facility] Comment on above: Result Comment: This specimen has been REJECTED due to Laboratory criteria: Quanity Not Sufficient. ED STAFF has been notified of need of recollection. 12/17/24 1155 Gerard R Stoner Performed By: #### L 100.0100, L500.2500 #### [facility] [address] [place], [address] MCHC Normal 32-36 [facility] Comment on above: Result Comment: This specimen has been REJECTED due to Laboratory criteria: Quanity Not Sufficient. ED STAFF has been notified of need of recollection. 12/17/24 1155 Gerard R Stoner Performed By: #### L 100.0100, L500.2500 #### [facility] [address] [place], [address] MCV Normal 81-99 [facility] Comment on above: Result Comment: This specimen has been REJECTED due to Laboratory criteria: Quanity Not Sufficient. ED STAFF has been notified of need of recollection. 12/17/24 1155 Gerard R Stoner Performed By: #### L 100.0100, L500.2500 #### [facility] [address] [place], [address] NEUT% Normal 47-70 [facility] Comment on above: Result Comment: This specimen has been REJECTED due to Laboratory criteria: Quanity Not Sufficient. ED STAFF has been notified of need of recollection. 12/17/24 1155 Gerard R Stoner Performed By: #### L 100.0100, L500.2500 #### [facility] [address] [place], [address] PLT Normal 150-450 [facility] Comment on above: Result Comment: This specimen has been REJECTED due to Laboratory criteria: Quanity Not Sufficient. ED STAFF has been notified of need of recollection. 12/17/24 1155 Gerard R Stoner Performed By: #### L 100.0100, L500.2500 #### [facility] [address] [place], [address] RBC Normal 4.2-5.4 [facility] Comment on above: Result Comment: This specimen has been REJECTED due to Laboratory criteria: Quanity Not Sufficient. ED STAFF has been notified of need of recollection. 12/17/24 115 Gerard R Stoner Performed By: #### L 100.0100, L500.2500 #### [facility] [address] [place], [address] RDW CV Normal 11.6-14.6 [facility] Comment on above: Result Comment: This specimen has been REJECTED due to Laboratory criteria: Quanity Not Sufficient. ED STAFF has been notified of need of recollection. 12/17/24 115 Gerard R Stoner Performed By: #### L 100.0100, L500.2500 #### [facility] [address] [place], [address] RDW SD Normal 35.1-43.9 [facility] Comment on above: Result Comment: This specimen has been REJECTED due to Laboratory criteria: Quanity Not Sufficient. ED STAFF has been notified of need of recollection. 12/17/24 115 Gerard R Stoner Performed By: #### L 100.0100, L500.2500 #### [facility] [address] [place], [address] WBC Normal 4.4-11.0 [facility] Comment on above: Result Comment: This specimen has been REJECTED due to Laboratory criteria: Quanity Not Sufficient. ED STAFF has been notified of need of recollection. 12/17/24 1155 Gerard R Stoner Performed By: #### L 100.0100, L500.2500 #### [facility] [address] [place], [address] Carbon dioxide, total [Moles /volume] in Central venous bloodOrdered By: Jean Claude Starr on 12-17-2024 CO2 [Moles/Vol] 24.3 mmol/L 21.0-32.0 [facility] Chloride assayOrdered By: Nima Starr on 12-17-2024 Chloride [Moles/Vol] 100 mmol/L 98-108 [facility] Emergency Department Summary on 12-17-2024 Emergency Department Summary [facility] Medical Records Department [address] [place] [address] Emergency Department Summary 12/17/24 MR#: [id number] Acct: [id number] Name: YULIA GALLAGHER Rep #: [id number] : 1945 79 From: Jean Claude Starr MD PCP: Dr. Gopal Das MD Status:REG ER Location: ED HPI History of Present Illness Chief Complaint: Nausea/Vomiting/Miranda rrhea Detail of Chief Complaint: Numerous symptoms Informant: patient and family Onset/Context/Keily garcia Onset: - (December 10) Context: Sudden Onset Timing: Intermittent Quality: Nausea and vomiting, epigastric pain, paresthesias, dark urine Location: Predominately GI Current Severity: Mild Maximum Severity: Severe Worsened by: Nothing Relieved by: Nothing Associated Symptoms Associated Symptoms: Thirst, dry mouth, decreased urine output Narrative Narrative: Patient is a 79-year-old woman. She has history of COPD, hypothyroidism, depression who presents because of nausea and vomiting that started December 10. She had several episodes of vomiting on Sunday and . She also vomited on Sunday and Sunday according to daughter. Patient initially denied. She did have loose stool. She has not had vomiting since Sunday and has had no loose stools since Sunday. Patient states she does not have an appetite. Patient had some intermittent bilateral paresthesias. She does endorse thirst and dry mouth. She denies orthostatic symptoms. She states she has had decreased urine output and her urines been dark. She denies ill contacts. She denies fever, chills night sweats. She denies upper respiratory tract infectious symptoms. She denies cardiovascular symptoms. Patient denies any change in the color, consistency or caliber of her stool past 24 hours. She states initially it was soft and possibly smaller in size. She has no urologic symptoms other than the decreased urine output and dark-colored urine no history of liver disease. She is status post appendectomy and cholecystectomy. Prior similar symptoms: Yes Recent Illness/Hospitaliza tion: No PFSH [facility] Medical History (Updated 12/17/24 @ 14:[address] Jean Claude Starr MD) Anxiety and depression Hyperlipidemia Hypothyroid HTN (hypertension) Home Medications ???Medication ???Instructions ???Recorded ???Last Taken ???Type losartan 50 mg tablet 100 mg PO DAILY 07/08/15 Unknown H istory levothyroxine 125 mcg tablet 125 mcg PO QODAY 11/01/16 10/31/16 History paroxetine HCl 20 mg tablet 20 mg PO DAILY 11/01/16 Unknown Hi story albuterol sulfate 90 mcg/actuation 2 puff inhalation Q6H PRN Unknown History aerosol inhaler (Ventolin HFA) shortness of breath or wheezing alprazolam 0.25 mg tablet 0.5 mg PO TID PRN anxiety 12/17/24 Unknown History fluticasone fur. 100 mcg-umeclid 1 inh inhalation DAILY 12/17/24 Un known History 62.5 mcg-vilant 25 mcg inhalat.powder (Trelegy Ellipta) nitrofurantoin 100 mg PO Q12 #10 CAPSULES 5 Unknown Rx monohydrate/macrocr ystals 100 mg capsule ondansetron 4 mg disintegrating 4 mg PO Q8H PRN PRN Nausea #10 tab s 12/17/24 Unknown Rx tablet Allergy/AdvReac Type Severity Reaction Status Date / Time codeine Allergy Hives Verified 12/17/24 10:06 Social History Smoking Status: Former smoker ROS ROS ED Constitutional Constitutional ED: Reports weight loss and other Details: Significant weight loss since the of her . ; Denies chills, fever(s), subjective or sweats Eyes Eyes: Denies blurry vision or change in vision ENT ENT ED: Denies ear pain, rhinorrhea or sore throat Cardiovascular Cardiovascular: Denies chest pain, orthopnea, palpitations, paroxysmal nocturnal dyspnea or racing heartbeat Respiratory/Chest Respiratory/Chest: Denies cough, dyspnea, dyspnea on exertion, orthopnea or paroxysmal nocturnal dyspnea Gastrointestinal Gastrointestinal: Reports abdominal pain, diarrhea, nausea, vomiting and other Details: Initially she had epigastric pain. She no longer has epigastric pain. ; Denies constipation Genitourinary Genitourinary ED: Denies dysuria, hematuria or urinary frequency Musculoskeletal Musculoskeletal: Denies arthralgias, back pain or myalgias Integumentary Denies rash Neurologic Neurologic: Reports paresthesias and weakness; Denies headache(s) Endocrine Endocrinology: Denies cold intolerance or heat intolerance Hematologic/Lymphat ic Hematologic/Lymphat ic: Reports systems reviewed and no addt'l complaints, except as documented EXAM Physical Exam Const Vital Signs: 12/17/24 10:08 12/17/24 12:06 12/17/24 12:41 Temperature 96.7 F L Temperature Source Temporal Pulse Rate 82 69 Pulse Rate [Lying] 72 Pulse Rate [Sitting (for 1 minute prior to o (more content not included)... Normal [facility] Eosinophil percentageOrdered By: Jean Claudeaudrey Starr on 12-17-2024 Eosinophils/100 WBC (Bld) 0.6 % 0-5 [facility] Erythrocyte distribution wid th ratioOrdered By: Jean Claude Starr on 12-17-2024 Erythrocyte distribution width (RBC) [Ratio] 13.3 % 11.6-14.6 [facility] Erythrocyte distribution wid th standard deviationOrdered By: Jean Claude Starr on 12-17-2024 Erythrocyte distribution width (RBC) [Ratio] 43.2 fl 35.1-43.9 [facility] Glomerular filtration rate ( GFR) estimation/1.73 sq m using serum, plasma, or whole bOrdered By: Jean Claudeaudrey Starr on 12-17-2024 GFR/1.73 sq M.predicted among non-blacks MDRD (S/P/Bld) [Vol rate/Area] 48 mL/min/{1.73_m2} Low >60 [facility] Comment on above: mL/min/1.73m2 CKD-EP I Creatinine Equation (2020) Hematocrit Auto (Bld) [Volum e fraction]Ordered By: Jean Claude Starr on 12-17-2024 Hematocrit (Bld) [Volume fraction] 43.6 % 37-47 [facility] Hemoglobin measurementOrdere d By: Jean Claude Starr on 12-17-2024 Hemoglobin (Bld) [Mass/Vol] 14.2 g/dL 12.0-15.0 [facility] Hyaline casts LM.LPF (Urine sed) [#/Area]Ordered By: Jean Claude Starr on 12-17-2024 Hyaline casts (Urine sed) [#/Area] 0 /[LPF] 0-5 [facility] Immature granulocytes/100 WB C Auto (Bld)Ordered By: Jean Claudeaudrey Starr on 12-17-2024 Immature granulocytes/100 WBC (Bld) 0.300 % 0.0-0.9 [facility] Comment on above: IG% - Immature Granu locytes (promyelocytes, myelocytes and metamyelocytes) > 1% indicates that a LEFT SHIFT is Present. Ketones Test strip Ql (U)Ord ered By: Jean Claude Starr on 12-17-2024 Ketones Ql (U) Negative Negative [facility] MCV (mean corpuscular volume ) determinationOrdered By: Jean Claude Starr on 12-17-2024 MCV (RBC) [Entitic vol] 88.6 fL 81-99 [facility] Mean corpuscular hemoglobin (MCH) determinationOrdered By: Jean Claudeaudrey Starr on 12-17-2024 MCH (RBC) [Entitic mass] 28.9 pg 27.0-32.0 [facility] Mean corpuscular hemoglobin concentration (MCHC) determinationOrdered By: Jean Claudeaudrey Starr on 12-17-2024 MCHC (RBC) [Mass/Vol] 32.6 g/dL 32-36 [facility] Mean platelet volume determi nationOrdered By: Jean Claudeaudrey Starr 12-17-2024 Platelet mean volume (Bld) [Entitic vol] 11.7 fL 6.2-12.0 [facility] Microscopic analysis of urin e for red blood cells (RBC)Ordered By: Jean Claude Starr on 12-17-2024 Microscopic analysis of urine for red blood cells (RBC) 0 SEEN /hpf 0-5 [facility] Monocyte percentageOrdered B y: Jean Claude Starr on 12-17-2024 Monocytes/100 WBC (Bld) 9.4 % 0-10 [facility] Mucus LM Ql (Urine sed)Order ed By: Jean Claude Starr on 12-17-2024 Mucus Ql (Urine sed) 0 SEEN /hpf [facility] Neutrophil percentageOrdered By: Jean Claude Starr on 12-17-2024 Neutrophils/100 WBC (Bld) 67.1 % 47-70 [facility] Nitrite Test strip Ql (U)Ord ered By: Jean Claude Starr on 12-17-2024 Nitrite Ql (U) Positive High Negative [facility] Nucleated red blood cell per centageOrdered By: Jean Claude Starr on 12-17-2024 Nucleated RBC/100 WBC (Bld) [Ratio] 0 % 0-5 [facility] Platelet countOrdered By: Nima Starr on 12-17-2024 Platelets (Bld) [#/Vol] 184 10*3/uL 150-450 [facility] Potassium measurement (mass/ volume)Ordered By: Jean Claudeaudrey Starr on 12-17-2024 Potassium (Unsp spec) [Mass/Vol] 4.4 mmol/L 3.3-5.1 [facility] Comment on above: Hemolysis present, R esults could be affected. Protein Test strip Ql (U)Ord ered By: Jean Claude Starr on 12-17-2024 Protein Ql (U) 30 mg/dl High Negative [facility] RBC Auto (Bld) [#/Vol]Ordere d By: Jean Claude Starr on 12-17-2024 RBC (Bld) [#/Vol] 4.92 10*6/uL 4.2-5.4 [facility] Serum creatinine measurement (mass/volume)Ordered By: Jean Claude Starr on 12-17-2024 Creatinine [Mass/Vol] 1.18 mg/dL 0.70-1.20 [facility] Serum glucose measurement (m ass/volume)Ordered By: Jean Claude Starr on 12-17-2024 Glucose [Mass/Vol] 103 mg/dL High 70-99 [facility] Serum or plasma calcium claude urement (mass/volume)Ordered By: Jean Claude Starr on 12-17-2024 Calcium [Mass/Vol] 9.5 mg/dL 7.6-11.0 [facility] Serum or plasma urea nitroge n measurement (mass/volume)Ordered By: Jean Claude Starr on 12-17-2024 Urea nitrogen [Mass/Vol] 29 mg/dL High 4-19 [facility] Sodium levelOrdered By: Jean Claude Starr on 12-17-2024 Sodium [Moles/Vol] 137 mmol/L 133-145 [facility] Squamous epithelial cells de tection in urine sediment by light microscopyOrdered By: Jean Claude Starr on 12-17-2024 Epithelial cells.squamous LM Ql (Urine sed) 5-10 SEEN /hpf 5-10 [facility] Urinalysis, Completeon 12-17 CAST,COARSE GR 0-5 SEEN Normal 0-5 /lpf [facility] Comment on above: Order Comment: COLOR OF URINE MAY AFFECT DIPSTICK RESULTS. ELEVATOR REPAIRER HELPER TO SPECIFY Performed By: #### L [id number] #### [facility] [address] [facility] [address] CAST,FINE GRAN 5-10 SEEN Normal 0-5 [facility] Comment on above: Order Comment: COLOR OF URINE MAY AFFECT DIPSTICK RESULTS. ELEVATOR REPAIRER HELPER TO SPECIFY Performed By: #### L [id number] #### [facility] [address] [place], [address] CAST,HYALINE 0-5 SEEN Normal 0-5 [facility] Comment on above: Order Comment: COLOR OF URINE MAY AFFECT DIPSTICK RESULTS. ELEVATOR REPAIRER HELPER TO SPECIFY Performed By: #### L [id number] #### [facility] [address] [place], [address] BACTERIA 1+ /hpf Normal None Seen [facility] Comment on above: Order Comment: COLOR OF URINE MAY AFFECT DIPSTICK RESULTS. ELEVATOR REPAIRER HELPER TO SPECIFY Performed By: #### L [id number] #### [facility] [address] [place], [address] EPI,SQUAMOUS 5-10 SEEN Normal 5-10 [facility] Comment on above: Order Comment: COLOR OF URINE MAY AFFECT DIPSTICK RESULTS. ELEVATOR REPAIRER HELPER TO SPECIFY Performed By: #### L [id number] #### [facility] [address] [place], [address] WBC 10-25 SEEN Normal 0-5 [facility] Comment on above: Order Comment: COLOR OF URINE MAY AFFECT DIPSTICK RESULTS. ELEVATOR REPAIRER HELPER TO SPECIFY Performed By: #### L [id number] #### [facility] [address] [place], [address] Mucus Ql (Urine sed) 0 SEEN Normal [facility] Comment on above: Order Comment: COLOR OF URINE MAY AFFECT DIPSTICK RESULTS. ELEVATOR REPAIRER HELPER TO SPECIFY Performed By: #### L [id number] #### [facility] [address] [place], [address] RBC 0 SEEN Normal 0-5 [facility] Comment on above: Order Comment: COLOR OF URINE MAY AFFECT DIPSTICK RESULTS. ELEVATOR REPAIRER HELPER TO SPECIFY Performed By: #### L [id number] #### [facility] [address] [place], [address] Urine clarityOrdered By: Jean Claude Strar on 12-17-2024 Clarity (U) Sl. Cloudy Clear [facility] Urine coarse granular cast d etectionOrdered By: Jean Claude Starr on 12-17-2024 Coarse Granular Casts LM Ql (Urine sed) 0-5 SEEN /lpf 0-5 /lpf [facility] Urine color determinationOrd ered By: Jean Claude Starr on 12-17-2024 Color (U) Zully Yellow [facility] Urine glucose detectionOrder ed By: Jean Claude Starr on 12-17-2024 Glucose Ql (U) Normal mg/dl Normal [facility] Urine leukocyte esterase det ection by dipstickOrdered By: Jean Claude Starr on 12-17-2024 Leukocyte esterase Test strip Ql (U) 500 /ul High Negative [facility] Urine pHOrdered By: Jean Claude ventura on 12-17-2024 pH (U) 5.0 [pH] 5.0 - 8.0 [facility] Urine sediment bacteria coun t by microscopy (number/high power field)Ordered By: Jean Claude Starr on 12-17-2024 Bacteria LM.HPF (Urine sed) [#/Area] 1 /[HPF] None Seen [facility] Urine sediment fine granular cast count by microscopy (number/low power field)Ordered By: Jean Claude Starr on 12-17-2024 Fine Granular Casts LM.LPF (Urine sed) [#/Area] 5-10 SEEN /lpf 0-5 [facility] Urine specific gravity measu rementOrdered By: [facility] on 12-17-2024 Specific gravity (U) [Rel density] 1.020 1.002-1.030 [facility] Urine urobilinogen measureme ntOrdered By: Jean Claude Starr on 12-17-2024 Urobilinogen Ql (U) 4 mg/dl High Normal [facility] White blood cell (WBC) count Ordered By: Jean Claude Starr on 12-17-2024 WBC (Bld) [#/Vol] 6.9 10*3/uL 4.4-11.0 [facility] White blood cell countOrdere d By: Jean Claude Starr on 12-17-2024 White blood cell count 10-25 SEEN /hpf 0-5 [facility] CNOVon 11-17-2024 CNOV Office Visit (FAMMAS) ---- YULIA GALLAGHER ([id number]) 1945 F Date Time Provider Department 11/17/24 2:40 PM GOPAL DAS During your visit today, we recorded the following information about you: Temperature Pulse Respiration Blood pressure 97.5 degrees 92/minute 16/minute 136/72 Weight Height 70.7 kg 1.651 m Yemi Clement LPN 11/17/2024 3:21 PM Signed Harish is here today for her annual Medicare wellness exam Hepatitis C Screening Never done BP Controlled (<130/80) Never done DTaP,Tdap,Td Vaccine(1 - Tdap) Never done Pneumococcal Vaccine: 50+(1 of 2 - PCV) Never done Shingrix Vaccine(1 of 2) Never done Bone Density Screening due on 03/14/2020 RSV Vaccine(1 - 1-dose 75+ series) Never done Covid-19 Vaccine( - season) Never done Advance Directive Discussion due on 07/16/2024 Patient declines all of the above vaccines No refills needed Yemi Clement LPN November 17, 2024 2:41 PM Gopal Das MD 11/17/2024 3:21 PM Signed Yulia Gallagher is a 79 year old female here for a Medicare wellness visit. Subjective Harish is a 79-year-old female with a history of COPD and depression, presenting for a Medicare wellness visit, with additional concerns about constipation and skin lesions. Medicare Wellness Visit: COPD: - Currently using Trelegy and a rescue inhaler. - Reports using Trelegy only on bad days, with effects lasting 3-4 days. - Unclear on proper usage of Trelegy and rescue inhaler. Depression: - Mood is stable. - Managed with Paxil. Constipation: - Reports irregular bowel movements, with some days of no bowel movements and other days requiring straining. - Occasionally experiences very soft stools. - Uncertain if changes are related to decreased food intake. Skin Lesions: - Multiple skin lesions under the breasts, varying in color and size, with associated pruritus. - No current dermatology follow-up. Review of Systems GENERAL: No weight loss, malaise, or fevers. HEENT: Negative for frequent or significant headaches, changes in vision, or hearing; no nose bleeds or other nasal problems. NECK: Negative for lumps, goiter, pain, and significant neck swelling. RESPIRATORY: Negative for cough, dyspnea, or shortness of breath. CARDIOVASCULAR: Negative for chest pain, leg swelling, CHF, or palpitations. GI: Positive for occasional constipation and episodes of loose stool; negative for nausea, vomiting, heartburn, abdominal pain, blood in stool, or black stool. GENITOURINARY: No history of dysuria, frequency, or incontinence. MUSCULOSKELETAL: Negative for joint pain or swelling, or muscle pain; no back pain. SKIN: Positive for pruritic lesions (likely seborrheic keratoses) under the breasts; negative for other rashes or itching. PSYCH: Negative for anxiety or depression. HEMATOLOGY/LYMPHOLO GY: No bleeding concerns. NEURO: No history of headaches, syncope, paralysis, seizures, or tremors. ENDOCRINE: No history of polydipsia, increased thirst, or other endocrine symptoms. PAST SURGICAL HISTORY Procedure Laterality Date APPENDECTOMY 1962 CHOLECYSTECTOMY 1982 HYSTERECTOMY HX 1983 TONSILLECTOMY AND ADENOIDECTOMY HX 1951 PAST MEDICAL HISTORY Diagnosis Date Arthritis Benign essential hypertension COPD (chronic obstructive pulmonary disease) (HCC) Depression Disorder of esophagus Eczema Hyperlipemia Hypertension Hypothyroidism FAMILY HISTORY Problem Relation Age of Onset Hypertension Mother Hypertension Father Stroke Father Diabetes Father other (heart disease) Father Hypertension Sister Hypertension Brother Cancer Brother Social History Tobacco Use Smoking status: Former Current packs/day: 0.00 Average packs/day: 2.0 packs/day for 30.0 years (60.0 ttl pk-yrs) Types: Cigarettes Start date: 03/18/1974 Quit date: 03/18/2004 Years since quittin.6 Smokeless tobacco: Never Vaping Use Vaping status: Never Used Substance Use Topics Alcohol use: Not Currently Comment: occassionally Drug use: No ALLERGIES Allergen Reactions Levofloxacin Vomiting Codeine Hives MEDICATIONS: losartan (COZAAR) 100 mg tablet TAKE 1 TABLET BY MOUTH EVERY DAY levothyroxine (SYNTHROID) 125 mcg tablet Take 1 tablet by mouth daily before breakfast. rosuvastatin (CRESTOR) 10 mg tablet Take 1 tablet by mouth daily at bedtime. PARoxetine (PAXIL) 20 mg tablet Take 1 tablet by mouth once daily. fluticasone-umeclid in-vilanter (TRELEGY ELLIPTA) 100-62.5-25 mcg inhalation powder Inhale 1 Puff as instructed once daily. albuterol HFA (PROVENTIL HFA, VENTOLIN HFA) 90 mcg/actuation inhaler inhale 2 puffs by mouth every 4 hours as needed triamcinolone acetonide (KENALOG) 0.1 % cream Apply to affected area as needed. naproxen sodium 220 mg cap Take by mouth as needed. Multivitamin capsule Take 1 capsule by tomas (more content not included)... Normal [facility] CNOVon 05-07-2024 [facility] Office Visit (F[facility]MAS) ---- YULIA GALLAGHER ([id number]) 1945 F Date Time Provider Department 05/07/24 2:20 PM GOPAL DAS During your visit today, we recorded the following information about you: Temperature Pulse Respiration Blood pressure 97.6 degrees 62/minute 18/minute 132/80 Weight Height 75.3 kg 1.651 m Farrah Hyman LPN 05/17/2024 3:32 PM Signed Patient is in office for 6 month exam. Patient has no current complaints or concerns. No refills needed aFrrah Hyman LPN May 07, 2024 2:35 PM Gopal Das MD 05/17/2024 3:32 PM Signed Subjective Yulia Gallagher is a 79 year old female.The patient presents today for follow-up for multiple medical problems. See list. Her chronic medical problems have been stable. Her blood pressure is under good control. She has no new complaints today. She is feeling well. Review of Systems Constitutional: Negative. HENT: Negative. Eyes: Negative. Respiratory: Negative. Cardiovascular: Negative. Gastrointestinal: Negative. Endocrine: Negative. Genitourinary: Negative. Musculoskeletal: Negative. Skin: Negative. Allergic/Immunologi c: Negative. Neurological: Negative. Hematological: Negative. Psychiatric/Behavio ral: Negative. PAST SURGICAL HISTORY Procedure Laterality Date APPENDECTOMY 1963 CHOLECYSTECTOMY 1982 HYSTERECTOMY HX 1983 TONSILLECTOMY AND ADENOIDECTOMY HX 1951 PAST MEDICAL HISTORY Diagnosis Date Arthritis Benign essential hypertension COPD (chronic obstructive pulmonary disease) (HCC) Depression Disorder of esophagus Eczema Hyperlipemia Hypertension Hypothyroidism FAMILY HISTORY Problem Relation Age of Onset Hypertension Mother Hypertension Father Stroke Father Diabetes Father other (heart disease) Father Hypertension Sister Hypertension Brother Cancer Brother Social History Tobacco Use Smoking status: Former Current packs/day: 0.00 Average packs/day: 2.0 packs/day for 30.0 years (60.0 ttl pk-yrs) Types: Cigarettes Start date: 03/18/1974 Quit date: 03/18/2004 Years since quittin.1 Smokeless tobacco: Never Vaping Use Vaping status: Never Used Substance Use Topics Alcohol use: Not Currently Comment: occassionally Drug use: No ALLERGIES Allergen Reactions Levofloxacin Vomiting Codeine Hives MEDICATIONS: levothyroxine (SYNTHROID) 125 mcg tablet Take 1 tablet by mouth daily before breakfast. rosuvastatin (CRESTOR) 10 mg tablet Take 1 tablet by mouth daily at bedtime. PARoxetine (PAXIL) 20 mg tablet Take 1 tablet by mouth once daily. fluticasone-umeclid in-vilanter (TRELEGY ELLIPTA) 100-62.5-25 mcg inhalation powder Inhale 1 Puff as instructed once daily. losartan (COZAAR) 100 mg tablet take 1 tablet by mouth every day albuterol HFA (PROVENTIL HFA, VENTOLIN HFA) 90 mcg/actuation inhaler inhale 2 puffs by mouth every 4 hours as needed triamcinolone acetonide (KENALOG) 0.1 % cream Apply to affected area as needed. naproxen sodium 220 mg cap Take by mouth as needed. Multivitamin capsule Take 1 capsule by mouth once daily. Cholecalciferol, Vitamin D3, 5,000 unit tab Take 5,000 Units by mouth once daily. CALCIUM CARBONATE/VITAMIN D3 (CALCIUM 600 + D ORAL) Take 2 tablets by mouth once daily. cyanocobalamin-salc aprozat sod 1,000 mcg tab Take 1 tablet by mouth once daily. coenzyme Q10 100 mg cap Take 200 mg by mouth once daily. [place]-3 Fatty Acids 300 mg cap Take 1 capsule by mouth once daily. ZINC/ASCORBIC ACID/PYRIDOXINE (ZINC LOZENGE ORAL) Take 1 Lozenge by mouth as needed. ALPRAZolam (XANAX) 0.5 mg tablet Take 1 tablet by mouth three times a day as needed for anxiety for up to 90 days. Allergies, past surgical history, family history and past medical history were reviewed per this encounter. Medications were reviewed and verified. 11/05/2023 05/07/2024 INTAKE PAIN ASSESSMENT Are you having pain associated with your visit today? No No If pain assessment is 0, no action needed. If pain assessment is positive, please see assessment and plain. Objective BP 132/80 (BP Site: Left Arm, BP Position: Sitting, BP Cuff Size: Regular Adult) Pulse 62 Temp 36.4 ?C (97.6 ?F) (Temporal) Resp 18 Ht 165.1 cm (5' 5) Wt 75.3 kg (166 lb) LMP 08/18/1983 SpO2 97% BMI 27.62 kg/m? Physical Exam Vitals reviewed. Constitutional: Appearance: [...] is soft. Musculoskeletal: General: Normal range of (more content not included)... Normal [facility] 01-14-2024 [facility] Office Visit ([facility]) ---- YULIA GALLAGHER ([id number]) 1945 F Date Time Provider Department 01/14/24 1:40 PM GOPAL DAS During your visit today, we recorded the following information about you: Pulse Respiration Blood pressure Weight 80/minute 18/minute 122/68 74.9 kg Skyla Rain LPN 01/14/2024 2:14 PM Signed Patient in the office today to discuss recent lab results completed on 01/07/2024. Gopal Das MD 01/14/2024 2:14 PM Signed Subjective Yulia Gallagher is a 78 year old female. Yulia presents today for follow-up for lab work. Lab work showed TSH was elevated. Her current dose of Synthroid is 112 mcg. She is compliant with her medications and is taking it properly. Additionally her potassium was high at 5.6. Most likely due to hemolyzed specimen. It will need rechecked. She also had LDL over 200. She has refused medicine prior to today due to her having had severe side effect from statin. Patiently she complains of shoulder pain bilaterally today. Review of Systems Constitutional: Negative. HENT: Negative. Eyes: Negative. Respiratory: Negative. Cardiovascular: Negative. Gastrointestinal: Negative. Endocrine: Negative. Genitourinary: Negative. Musculoskeletal: Negative. Skin: Negative. Allergic/Immunologi c: Negative. Neurological: Negative. Hematological: Negative. Psychiatric/Behavio ral: Negative. PAST SURGICAL HISTORY Procedure Laterality Date APPENDECTOMY 1962 CHOLECYSTECTOMY 1982 HYSTERECTOMY HX 1983 TONSILLECTOMY AND ADENOIDECTOMY HX 1951 PAST MEDICAL HISTORY Diagnosis Date Arthritis Benign essential hypertension COPD (chronic obstructive pulmonary disease) (HCC) Depression Disorder of esophagus Eczema Hyperlipemia Hypertension Hypothyroidism FAMILY HISTORY Problem Relation Age of Onset Hypertension Mother Hypertension Father Stroke Father Diabetes Father other (heart disease) Father Hypertension Sister Hypertension Brother Cancer Brother Social History Tobacco Use Smoking status: Former Packs/day: 2.00 Years: 30.00 Additional pack years: 0.00 Total pack years: 60.00 Types: Cigarettes Quit date: 03/18/2004 Years since quittin.8 Smokeless tobacco: Never Vaping Use Vaping Use: Never used Substance Use Topics Alcohol use: Not Currently Comment: occassionally Drug use: No ALLERGIES Allergen Reactions Levofloxacin Vomiting Codeine Hives MEDICATIONS: ALPRAZolam (XANAX) 0.5 mg tablet Take 0.5 mg by mouth three times a day as needed for anxiety. PARoxetine (PAXIL) 20 mg tablet Take 1 tablet by mouth once daily. fluticasone-umeclid in-vilanter (TRELEGY ELLIPTA) 100-62.5-25 mcg inhalation powder Inhale 1 Puff as instructed once daily. losartan (COZAAR) 100 mg tablet take 1 tablet by mouth every day albuterol HFA (PROVENTIL HFA, VENTOLIN HFA) 90 mcg/actuation inhaler inhale 2 puffs by mouth every 4 hours as needed triamcinolone acetonide (KENALOG) 0.1 % cream Apply to affected area as needed. naproxen sodium 220 mg cap Take by mouth as needed. cyanocobalamin-salc aprozat sod 1,000 mcg tab Take 1 tablet by mouth once daily. levothyroxine (SYNTHROID) 125 mcg tablet Take 1 tablet by mouth daily before breakfast. rosuvastatin (CRESTOR) 10 mg tablet Take 1 tablet by mouth daily at bedtime. Multivitamin capsule Take 1 capsule by mouth once daily. (Patient not taking: Reported on 01/14/2024) Cholecalciferol, Vitamin D3, 5,000 unit tab Take 5,000 Units by mouth once daily. (Patient not taking: Reported on 01/14/2024) CALCIUM CARBONATE/VITAMIN D3 (CALCIUM 600 + D ORAL) Take 2 tablets by mouth once daily. (Patient not taking: Reported on 01/14/2024) coenzyme Q10 100 mg cap Take 200 mg by mouth once daily. (Patient not taking: Reported on 01/14/2024) [place]-3 Fatty Acids 300 mg cap Take 1 capsule by mouth once daily. (Patient not taking: Reported on 01/14/2024) ZINC/ASCORBIC ACID/PYRIDOXINE (ZINC LOZENGE ORAL) Take 1 Lozenge by mouth as needed. (Patient not taking: Reported on 01/14/2024) Allergies, past surgical history, family history and past medical history were reviewed per this encounter. Medications were reviewed and verified. Objective BP 122/68 (BP Site: Left Arm, BP Position: Sitting, BP Cuff Size: Regular Adult) Pulse 80 Resp 18 Wt 74.9 kg (165 lb 3.2 oz) LMP 08/18/1983 BMI 27.49 kg/m? Physical Exam Vitals reviewed. Constitutional: Appearance: Normal appearance. HENT: Head: Normocephalic and atraumatic. Nose: Nose normal. Eyes: Extraocular Movements: Extraocular movements intact. Pupils: Pupils are equal, round, and reactive to light. Cardiovascular: Rate and Rhythm: Normal rate and regular rhythm. Pulmonary: Effort: Pulmonary effort is normal. Breath sounds: Normal breath sounds. Abdominal: General: Bowel sounds are normal. (more content not included)... [facility] 01-08-2024 [facility] Telephone ([facility]) ---- TIFFANIEYULIA Guillermina ([id number]) 1945 F Date Time Provider Department 01/08/24 GOPAL DAS During your visit today, we recorded the following information about you: Farrah Hyman LPN 01/08/2024 3:53 PM Signed ----- Message from Gopal Das MD sent at 01/08/2024 3:40 PM EDT ----- Schedule follow-up to discuss results Farrah Hyman LPN 01/08/2024 3:53 PM Signed Message left for patient to phone office at earliest convenience in regards to results. Farrah Hyman LPN January 08, 2024 3:53 PM Cindy Norwood 01/09/2024 8:33 AM Signed Yulia returned the phone call to the [place] office. I scheduled an office visit to for her to follow up with Dr. Das on January 13 at 1:40 pm. Cindy Phillip January 09, 2024 8:33 AM Allergies As of Date: 01/08/2024 Noted Allergy Reaction LEVOFLOXACIN 06/21/2017 11 - Vomiting CODEINE 07/22/2015 4 - Hives Date Reviewed: 11/05/2023 Reviewed by: Skyla Rain LPN - Fully Assessed Reason for Visit: Results [95] Prescriptions as of 01/09/2024 - PARoxetine (PAXIL) 20 mg tablet Take 1 tablet by mouth once daily. - fluticasone-umeclid in-vilanter (TRELEGY ELLIPTA) 100-62.5-25 mcg inhalation powder Inhale 1 Puff as instructed once daily. - losartan (COZAAR) 100 mg tablet take 1 tablet by mouth every day - albuterol HFA (PROVENTIL HFA, VENTOLIN HFA) 90 mcg/actuation inhaler inhale 2 puffs by mouth every 4 hours as needed - levothyroxine (SYNTHROID) 112 mcg tablet Take 1 tablet by mouth daily before breakfast. - triamcinolone acetonide (KENALOG) 0.1 % cream Apply to affected area as needed. - naproxen sodium 220 mg cap Take by mouth as needed. - Multivitamin capsule Take 1 capsule by mouth once daily. - Cholecalciferol, Vitamin D3, 5,000 unit tab Take 5,000 Units by mouth once daily. - CALCIUM CARBONATE/VITAMIN D3 (CALCIUM 600 + D ORAL) Take 2 tablets by mouth once daily. - cyanocobalamin-salc aprozat sod 1,000 mcg tab Take 1 tablet by mouth once daily. - coenzyme Q10 100 mg cap Take 200 mg by mouth once daily. - [place]-3 Fatty Acids 300 mg cap Take 1 capsule by mouth once daily. - ZINC/ASCORBIC ACID/PYRIDOXINE (ZINC LOZENGE ORAL) Take 1 Lozenge by mouth as needed. Problem List As Of Date 01/08/2024 Noted Resolved COPD (chronic obstructive pulmonary disease) (H*08/18/2015 Essential hypertension [I10] 08/18/2015 Gastroesophageal reflux disease without esophag*08/18/2015 Anxiety associated with depression [F41.8] 08/18/2015 Non morbid obesity [E66.9] 08/18/2015 Heme positive stool [R19.5] 09/03/2015 Acute bacterial bronchitis [J20.8, B96.89] 06/19/2017 Arthralgia of right foot [M25.571] 04/16/2018 Disorder of esophagus [K22.9] 02/19/2017 Dizziness [R42] 05/29/2019 Eczema [L30.9] 02/19/2017 Hyperlipidemia [E78.5] 02/19/2017 Hypothyroidism [E03.9] 02/19/2017 Osteoporosis [M81.0] 01/07/2018 Well adult health check [Z00.00] 01/07/2018 Visit for screening mammogram [Z12.31] 01/07/2018 Depression [F32.A] 02/19/2017 Chronic obstructive pulmonary disease (HCC) [J4*02/19/2017 Benign essential HTN [I10] 02/19/2017 Stage 3 chronic kidney disease (HCC) [N18.30] 03/05/2023 Encounter Status:Closed by CINDY NORWOOD on 01/09/24 [facility] CBC W Auto Differential pane l (Bld)on 06-24-2024 Basophils (Bld) [#/Vol] 0.07 10*3/uL Normal <0.11 [facility] Comment on above: Order Comment: Speci men Type: BLOOD SPECIMEN Ordering Facility: [facility] Address: [address] [place] [address] Performed By: #### 5 7021-8 #### [facility] CLIA [id number] [address] [place] [address] [place] Basophils/100 WBC (Bld) 1.4 % Normal [facility] Comment on above: Order Comment: Speci men Type: BLOOD SPECIMEN Ordering Facility: [facility] Address: [address] [place] [address] Performed By: #### 5 7021-8 #### [facility] CLIA [id number] [address] [place] [address] [place] Differential cell count method Nom (Bld) Auto Normal [facility] Comment on above: Order Comment: Speci men Type: BLOOD SPECIMEN Ordering Facility: [facility] Address: [address] [place] [address] Performed By: #### 5 7021-8 #### [facility] CLIA [id number] [address] [place] [address] [place] Eosinophils (Bld) [#/Vol] 0.52 10*3/uL High <0.46 [facility] Comment on above: Order Comment: Speci men Type: BLOOD SPECIMEN Ordering Facility: [facility] Address: [address] [place] [address] Performed By: #### 5 7021-8 #### [facility] CLIA [id number] [address] [place] [address] [place] Eosinophils/100 WBC (Bld) 10.1 % Normal [facility] Comment on above: Order Comment: Speci men Type: BLOOD SPECIMEN Ordering Facility: [facility] Address: [address] [place] [address] Performed By: #### 5 7021-8 #### [facility] CLIA [id number] [address] [place] [address] [place] Erythrocyte distribution width (RBC) [Ratio] 13.7 % Normal 11.5-15.0 [facility] Comment on above: Order Comment: Speci men Type: BLOOD SPECIMEN Ordering Facility: [facility] Address: [address] [place] [address] Performed By: #### 5 7021-8 #### [facility] CLIA [id number] [address] [place] [address] [place] Hematocrit (Bld) [Volume fraction] 44.9 % Normal 36.0-46.0 [facility] Comment on above: Order Comment: Speci men Type: BLOOD SPECIMEN Ordering Facility: [facility] Address: [address] [place] [address] Performed By: #### 5 7021-8 #### [facility] CLIA [id number] [address] [place] [address] [place] Hemoglobin (Bld) [Mass/Vol] 14.5 g/dL Normal 11.5-15.5 [facility] Comment on above: Order Comment: Speci men Type: BLOOD SPECIMEN Ordering Facility: [facility] Address: [address] [place] [address] Performed By: #### 5 7021-8 #### [facility] CLIA [id number] [address] [place] [address] [place] Immature granulocytes (Bld) [#/Vol] 10*3/uL Normal <0.10 [facility] Comment on above: Order Comment: Speci men Type: BLOOD SPECIMEN Ordering Facility: [facility] Address: [address] [place] [address] Performed By: #### 5 7021-8 #### [id number] [address] [place] [address] [place] Immature granulocytes/100 WBC (Bld) 0.2 % Normal [facility] Comment on above: Order Comment: Speci men Type: BLOOD SPECIMEN Ordering Facility: [facility] Address: [address] [place] [address] Performed By: #### 5 7021-8 #### [facility] CLIA [id number] [address] [place] [address] [place] Lymphocytes (Bld) [#/Vol] 1.30 10*3/uL Normal 1.00-4.0 0 [facility] Comment on above: Order Comment: Speci men Type: BLOOD SPECIMEN Ordering Facility: [facility] Address: [address] [place], [place] [address] Performed By: #### 5 7021-8 #### [facility] CLIA [id number] [address] [place] [address] [place] Lymphocytes/100 WBC (Bld) 25.1 % Normal [facility] Comment on above: Order Comment: Speci men Type: BLOOD SPECIMEN Ordering Facility: [facility] Address: [address] [place] [address] Performed By: #### 5 7021-8 #### [facility] CLIA [id number] [address] [place] [address] [place] MCH (RBC) [Entitic mass] 29.5 pg Normal 26.0-34.0 [facility] Comment on above: Order Comment: Speci men Type: BLOOD SPECIMEN Ordering Facility: [facility] Address: [address] [place] [address] Performed By: #### 5 7021-8 #### [facility] CLIA [id number] [address] [place] [address] [place] MCHC (RBC) [Mass/Vol] 32.3 g/dL Normal 30.5-36.0 [facility] Comment on above: Order Comment: Speci men Type: BLOOD SPECIMEN Ordering Facility: [facility] Address: [address] [place] [address] Performed By: #### 5 7021-8 #### [facility] CLIA [id number] [address] [place] [address] [place] MCV (RBC) [Entitic vol] 91.3 fL Normal 80.0-100.0 [facility] Comment on above: Order Comment: Speci men Type: BLOOD SPECIMEN Ordering Facility: [facility] Address: [address] [place] [address] Performed By: #### 5 7021-8 #### [facility] CLIA [id number] [address] [place] [address] [place] Monocytes (Bld) [#/Vol] 0.45 10*3/uL Normal <0.87 [facility] Comment on above: Order Comment: Speci men Type: BLOOD SPECIMEN Ordering Facility: [facility] Address: [address] [place] [address] Performed By: #### 5 7021-8 #### [facility] CLIA [id number] [address] [place] [address] [place] Monocytes/100 WBC (Bld) 8.7 % Normal [facility] Comment on above: Order Comment: Speci men Type: BLOOD SPECIMEN Ordering Facility: [facility] Address: [address] [place] [address] Performed By: #### 5 7021-8 #### [facility] CLIA [id number] [address] [place] [address] [place] Neutrophils (Bld) [#/Vol] 2.82 10*3/uL Normal 1.45-7.5 0 [facility] Comment on above: Order Comment: Speci men Type: BLOOD SPECIMEN Ordering Facility: [facility] Address: [address] [place] [address] Performed By: #### 5 7021-8 #### [facility] CLIA [id number] [address] [place] [address] [place] Neutrophils/100 WBC (Bld) 54.5 % Normal [facility] Comment on above: Order Comment: Speci men Type: BLOOD SPECIMEN Ordering Facility: [facility] Address: [address] [place] [address] Performed By: #### 5 7021-8 #### [facility] CLIA [id number] [address] [place] [address] [place] Nucleated RBC (Bld) [#/Vol] 10*3/uL Normal <0.01 [facility] Comment on above: Order Comment: Speci men Type: BLOOD SPECIMEN Ordering Facility: [facility] Address: [address] [place] [address] Performed By: #### 5 7021-8 #### [facility] CLIA [id number] [address] [place] [address] [place] Nucleated RBC/100 WBC (Bld) [Ratio] 0.0 /100 WBC Normal [facility] Comment on above: Order Comment: Speci men Type: BLOOD SPECIMEN Ordering Facility: [facility] Address: [address] [place] [address] Performed By: #### 5 7021-8 #### [facility] CLIA [id number] [address] [place] [address] [place] Platelet mean volume (Bld) [Entitic vol] 11.1 fL Normal 9.0-12.7 [facility] Comment on above: Order Comment: Speci men Type: BLOOD SPECIMEN Ordering Facility: [facility] Address: [address] [place] [address] Performed By: #### 5 7021-8 #### [facility] CLIA [id number] [address] [place] [address] [place] Platelets (Bld) [#/Vol] 220 10*3/uL Normal 150-400 [facility] Comment on above: Order Comment: Speci men Type: BLOOD SPECIMEN Ordering Facility: [facility] Address: [address] [place] [address] Performed By: #### 5 7021-8 #### [facility] CLIA [id number] [address] [place] [address] [place] RBC (Bld) [#/Vol] 4.92 10*6/uL Normal 3.90-5.20 [facility] Comment on above: Order Comment: Speci men Type: BLOOD SPECIMEN Ordering Facility: [facility] Address: [address] [place] [address] Performed By: #### 5 7021-8 #### [facility] CLIA [id number] [address] [place] [address] [place] WBC (Bld) [#/Vol] 5.17 10*3/uL Normal 3.70-11.00 [facility] Comment on above: Order Comment: Speci men Type: BLOOD SPECIMEN Ordering Facility: [facility] Address: [address] [place] [address] Performed By: #### 5 7021-8 #### [facility] CLIA [id number] [address] [place] [address] [place] Comprehensive metabolic 2000 panelon 01-07-2024 Albumin [Mass/Vol] 4.0 g/dL Normal 3.9-4.9 [facility] Comment on above: Order Comment: Speci men Type: BLOOD SPECIMEN Ordering Facility: [facility] Address: [address] [place] [address] Performed By: #### 2 4323-8 #### [facility] CLIA [id number] [address] [place] [address] [place] ALP [Catalytic activity/Vol] 114 U/L Normal 34-123 [facility] Comment on above: Order Comment: Speci men Type: BLOOD SPECIMEN Ordering Facility: [facility] Address: [address] [place] [address] [place] [address] Performed By: #### 2 4323-8 #### [facility] CLIA [id number] [address] [place] [address] [place] ALT [Catalytic activity/Vol] 10 U/L Normal 7-38 [facility] Comment on above: Order Comment: Speci men Type: BLOOD SPECIMEN Ordering Facility: [facility] Address: [facility] [place] [address] Performed By: #### 2 4323-8 #### [facility] CLIA [id number] [address] [place] [address] [place] Anion gap [Moles/Vol] 9 mmol/L Normal 8-15 [facility] Comment on above: Order Comment: Speci men Type: BLOOD SPECIMEN Ordering Facility: [facility] Address: [facility] [place] [address] Performed By: #### 2 4323-8 #### [facility] CLIA [id number] [address] [place] [address] [place] AST [Catalytic activity/Vol] 25 U/L Normal 13-35 [facility] Comment on above: Order Comment: Speci men Type: BLOOD SPECIMEN Ordering Facility: [facility] Address: [facility] [place] [address] Performed By: #### 2 4323-8 #### [facility] CLIA [id number] [address] [place] [address] [place] Bilirubin [Mass/Vol] 0.4 mg/dL Normal 0.2-1.3 [facility] Comment on above: Order Comment: Speci men Type: BLOOD SPECIMEN Ordering Facility: [facility] Address: [facility] [place] [id number] Performed By: #### 2 4323-8 #### [facility] CLIA [id number] [address] [place] [address] [place] Calcium [Mass/Vol] 10.1 mg/dL Normal 8.5-10.2 [facility] Comment on above: Order Comment: Speci men Type: BLOOD SPECIMEN Ordering Facility: [facility] Address: [address] [place] [address] Performed By: #### 2 4323-8 #### [facility] CLIA [id number] [address] [place] [address] [place] Chloride [Moles/Vol] 104 mmol/L Normal 98-107 [facility] Comment on above: Order Comment: Speci men Type: BLOOD SPECIMEN Ordering Facility: [facility] Address: [address] [place] [address] Performed By: #### 2 4323-8 #### [facility] CLIA [id number] [address] [place] [address] [place] CO2 [Moles/Vol] 27 mmol/L Normal 22-30 [facility] Comment on above: Order Comment: Speci men Type: BLOOD SPECIMEN Ordering Facility: [facility] Address: [address] [place] [address] Performed By: #### 2 4323-8 #### [facility] CLIA [id number] [address] [place] [address] [place] Creatinine [Mass/Vol] 1.13 mg/dL High 0.58-0.96 [facility] Comment on above: Order Comment: Speci men Type: BLOOD SPECIMEN Ordering Facility: [facility] Address: [address] [place] [address] Performed By: #### 2 4323-8 #### [facility] CLIA [id number] [address] [place] [address] [place] Creatinine and Glomerular filtration rate.predicted panel (S/P/Bld) 51 mL/min/1.73m??? Low >=60 [facility] Comment on above: Order Comment: Speci men Type: BLOOD SPECIMEN Ordering Facility: [facility] Address: [address] [place], [place] [address] Result Comment: Estela mated Glomerular Filtration Rate (eGFR) is calculated using the 2020 CKD-EPI creatinine equation. This equation utilizes serum creatinine, sex, and age as parameters. The creatinine assay has traceable calibration to isotope dilution-mass spectrometry. Refer to KDIGO guidelines for clinical interpretation. In patients with unstable renal function, e.g. those with acute kidney injury, the eGFR may not accurately reflect actual GFR. Performed By: #### 2 4323-8 #### [facility] [id number] [address] [place] [address] [place] Glucose [Mass/Vol] 93 mg/dL Normal 74-99 [facility] Comment on above: Order Comment: Gloria storey Type: BLOOD SPECIMEN Ordering Facility: [facility] Address: [address] [place] [address] Result Comment: The [place] Diabetes Association (ADA) provides guidance for cutoff values for fasting glucose and random glucose. The ADA defines fasting as no caloric intake for at least 8 hours. Fasting plasma glucose results between 100 to 125 mg/dL indicate increased risk for diabetes (prediabetes). Fasting plasma glucose results greater than or equal to 126 mg/dL meet the criteria for diagnosis of diabetes. In the absence of unequivocal hyperglycemia, results should be confirmed by repeat testing. In a patient with classic symptoms of hyperglycemia or hyperglycemic crisis, random plasma glucose results greater than or equal to 200 mg/dL meet the criteria for diagnosis of diabetes. Reference: Standards of Medical Care in Diabetes 2016, [place] Diabetes Association. Diabetes Care. 2016.39(Suppl 1). Performed By: #### 2 4323-8 #### [facility] [id number] [address] [place] [address] [place] Potassium [Moles/Vol] 5.6 mmol/L High 3.7-5.1 [facility] Comment on above: Order Comment: Gloria storey Type: BLOOD SPECIMEN Ordering Facility[facility] Address: [address] [place], [place] [address] Performed By: #### 2 4323-8 #### [facility] CLIA [id number] [address] [place] [address] [place] Protein [Mass/Vol] 6.4 g/dL Normal 6.3-8.0 [facility] Comment on above: Order Comment: Speci men Type: BLOOD SPECIMEN Ordering Facility: [facility] Address: [address] [place] [address] Performed By: #### 2 4323-8 #### [facility] CLIA [id number] [address] [place] [address] [place] Sodium [Moles/Vol] 140 mmol/L Normal 136-144 [facility] Comment on above: Order Comment: Speci men Type: BLOOD SPECIMEN Ordering Facility: [facility] Address: [address] [place] [address] Performed By: #### 2 4323-8 #### [facility] CLIA [id number] [address] [place] [address] [place] Urea nitrogen [Mass/Vol] 15 mg/dL Normal 7-21 [facility] Comment on above: Order Comment: Speci men Type: BLOOD SPECIMEN Ordering Facility: [facility] Address: [address] [place] [address] Performed By: #### 2 4323-8 #### [facility] CLIA [id number] [address] [place] [address] [place] Lipid 1996 panelon 4 Cholesterol [Mass/Vol] 297 mg/dL High <[address] [facility] Comment on above: Order Comment: Speci men Type: BLOOD SPECIMEN Ordering Facility: [facility] Address: [address] [place] [address] Result Comment: <200 mg/dL, Desirable 200-239 mg/dL, Borderline high >239 mg/dL, High Performed By: #### 2 4331-1 #### [facility] CLIA [id number] [address] [place] [address] [place] [facility] CLIA [id number] [address] [place] [address] [place] #### 3016-3 #### [facility] CLIA [id number] [address] [place] [address] [place] Cholesterol in HDL [Mass/Vol] 64 mg/dL Normal >39 [facility] Comment on above: Order Comment: Gloria storey Type: BLOOD SPECIMEN Ordering Facility: [facility] Address: [address] [place] [address] Result Comment: 40-5 9 mg/dL, Acceptable >59 mg/dL, High: Negative risk factor for coronary heart disease <40 mg/dL, Low: Positive risk factor for coronary heart disease Performed By: #### 2 4331-1 #### [facility] CLIA [id number] [address] [place] [address] [place] [facility] CLIA [id number] [address] [place] [address] [place] #### 3016-3 #### [facility] CLIA [id number] [address] [place] [address] [place] Cholesterol in LDL [Mass/Vol] 214 mg/dL High <100 [facility] Comment on above: Order Comment: lGoria storey Type: BLOOD SPECIMEN Ordering Facility[facility] Address: [address] [place] [address] Result Comment: <100 mg/dL, Optimal 100-129 mg/dL, Near optimal/above optimal 130-159 mg/dL, Borderline high 160-189 mg/dL, High >189 mg/dL, Very high Secondary prevention optimal LDL Cholesterol levels are recommended to be < 70 mg/dL Performed By: #### 2 4331-1 #### [facility] CLIA [id number] [address] [place] [address] [place] [facility] CLIA [id number] [address] [place] [address] [place] #### 3016-3 #### [facility] CLIA [id number] [address] [place] [address] [place] Cholesterol in LDL/Cholesterol in HDL [Mass ratio] 3.34 {ratio} High <2.54 [facility] Comment on above: Order Comment: Speci men Type: BLOOD SPECIMEN Ordering Facility[facility] Address: [address] [place] [address] Result Comment: Salas olivo: 1. National Cholesterol Education Program ATP III Guideline At-A-Glance Quick Desk Reference: National Heart, Lung, and Blood [place]. National Institutes of Health. 2001: NIH Publication No. 01-3305. 2. An International Atherosclerosis Society position paper: global recommendations for the management of dyslipidemia: executive summary, Atherosclerosis. 2014: 232(2):410-413. Performed By: #### 2 4331-1 #### [facility] CLIA [id number] [address] [place] [address] [place] [facility] CLIA [id number] [address] [place] [address] [place] #### 3016-3 #### [facility] CLIA [id number] [address] [place] [address] [place] Cholesterol in VLDL [Mass/Vol] 19 mg/dL Normal <30 [facility] Comment on above: Order Comment: Speci men Type: BLOOD SPECIMEN Ordering Facility[facility] Address: [address] [place] [address] Performed By: #### 2 4331-1 #### [facility] CLIA [id number] [address] [place] [address] [place] [facility] CLIA [id number] [address] [place] [address] [place] #### 3016-3 #### [facility] CLIA [id number] [address] [place] [address] [place] Cholesterol non HDL [Mass/Vol] 233 mg/dL High <130 [facility] Comment on above: Order Comment: Speci men Type: BLOOD SPECIMEN Ordering Facility[facility] Address: [address] [place] [address] Result Comment: <130 mg/dL, Optimal 130-159 mg/dL, Near optimal/above optimal 160-189 mg/dL, Borderline high 190-219 mg/dL, High >219 mg/dL, Very high Secondary prevention optimal non HDL Cholesterol levels are recommended to be <100 mg/dL Performed By: #### 2 4331-1 #### [facility] CLIA [id number] [address] [place] [address] [place] [address] [place] #### 3016-3 #### [facility] CLIA [id number] [address] [place] [address] [place] Cholesterol.total/Cholest caity in HDL [Mass ratio] 4.64 {ratio} Normal <5.10 [facility] Comment on above: Order Comment: Speci men Type: BLOOD SPECIMEN Ordering Facility[facility] Address: [address] [place] [address] Performed By: #### 2 4331-1 #### [facility] CLIA [id number] [address] [place] [address] [place] [id number] [place] [address] [place] #### 3016-3 #### [facility] CLIA [id number] [address] [place] [address] [place] FASTING TIME 12 hrs Normal [facility] Comment on above: Order Comment: Speci men Type: BLOOD SPECIMEN Ordering Facility[facility] Address: [address] [place] [address] Performed By: #### 2 4331-1 #### [facility] CLIA [id number] [address] [place] [address] [place] [facility] CLIA [id number] [address] [place] [address] [place] #### 3016-3 #### [facility] CLIA [id number] [address] [place] [address] [place] Triglyceride [Mass/Vol] 95 mg/dL Normal <150 [facility] Comment on above: Order Comment: Speci men Type: BLOOD SPECIMEN Ordering Facility: [facility] Address: [address] [place] [address] Result Comment: <150 mg/dL, Normal 150-199 mg/dL, Borderline high 200-499 mg/dL, High >499 mg/dL, Very high Performed By: #### 2 4331-1 #### [facility] CLIA [id number] [address] [place] [address] [place] [facility] CLIA [id number] [address] [place] [address] [place] #### 3016-3 #### [facility] CLIA [id number] [address] [place] [address] [place] TSH SerPl-aCncon 01-07-2024 TSH Qn 6.820 m[IU]/L High 0.270-4.200 [facility] Comment on above: Order Comment: Speci men Type: BLOOD SPECIMEN Ordering Facility[facility] Address: [address] [place] [address] Performed By: #### 2 4331-1 #### [facility] CLIA [id number] [address] [place] [id number] [place] [facility] CLIA [id number] [address] [place] [address] [place] #### 3016-3 #### [facility] CLIA [id number] [address] [place] [id number] [place] TSH SerPl-aCncon 03-21-2023 TSH Qn 6.500 m[IU]/L High 0.270-4.200 [facility] Comment on above: Order Comment: Speci men Type: BLOOD SPECIMEN Ordering Facility[facility] Address: [address] [place] [address] Performed By: #### 3 016-3 #### [facility] CLIA [id number] [facility] [place] [id number] [place] MAYA SCREENINGon 09-28-2022 [facility] TSHon 07-06-2017 Thyroid stimulating hormone (TSH) 0.130 UIU/ML Low 0.358-3.740 [facility] Comment on above: Result Comment: 3rd generation ultra sensitive TSH Performed By: #### L [id number] ####[facility] [id number] [place], [place] [address]Ny# [phone] Vital Signs Date Time Vital Sign Value Performing Clinician Facility 12-17-2024 14:29-0400 Body temperature 97.9 [degF] Dr. Gopal Das MD Work Phone: [facility] 12-17-2024 14:29-0400 Diastolic blood pressure 71 mm[Hg] Dr. Gopal Das MD Work Phone: [facility] 12-17-2024 14:29-0400 Heart rate 66 /min Dr. Gopal Das MD Work Phone: [facility] 12-17-2024 14:29-0400 Respiratory rate 14 /min Dr. Gopal Das MD Work Phone: [facility] 12-17-2024 14:29-0400 SaO2% (BldA) [Mass fraction] 98 % Dr. Gopal Das MD Work Phone: [facility] 12-17-2024 14:29-0400 Systolic blood pressure 130 mm[Hg] Dr. Gopal Das MD Work Phone: [facility] 12-17-2024 10:08-0400 Body height 165.[address] Gopal Das MD Work Phone: [facility] 12-17-2024 10:08-0400 Body mass index (BMI) [Ratio] 24.8 kg/m2 Dr. Gopal Das MD Work Phone: [facility] 12-17-2024 10:08-0400 Body weight 67.[address] Gopal Das MD Work Phone: [facility] 11-17-2024 14:30-0400 Body height 165.1 cm Gopal Das MD Work Phone: [facility] 11-17-2024 14:30-0400 Body mass index (BMI) [Ratio] 25.93 kg/m2 Gopal Das MD Work Phone: [facility] 11-17-2024 14:30-0400 Body temperature 97.5 [degF] Gopal Das MD Work Phone: [facility] 11-17-2024 14:30-0400 Body weight 70.67 kg Gopal Das MD Work Phone: [facility] 11-17-2024 14:30-0400 Diastolic blood pressure 72 mm[Hg] Gopal Das MD Work Phone: [facility] 11-17-2024 14:30-0400 Heart rate 92 /min Gopal Das MD Work Phone: [facility] 11-17-2024 14:30-0400 Respiratory rate 16 /min Gopal Das MD Work Phone: [facility] 11-17-2024 14:30-0400 SaO2% (BldA) [Mass fraction] 96 % Gopal Das MD Work Phone: [facility] 11-17-2024 14:30-0400 Systolic blood pressure 136 mm[Hg] Gopal Das MD Work Phone: [facility] 05-07-2024 14:35-0400 Body height 165.1 cm Gopal Das MD Work Phone: [facility] 05-07-2024 14:35-0400 Body mass index (BMI) [Ratio] 27.62 kg/m2 Gopal Das MD Work Phone: [facility] 05-07-2024 14:35-0400 Body temperature 97.59 [degF] Gopal Das MD Work Phone: [facility] 05-07-2024 14:35-0400 Body weight 75.3 kg Gopal Das MD Work Phone: [facility] 05-07-2024 14:35-0400 Diastolic blood pressure 80 mm[Hg] Gopal Das MD Work Phone: [facility] 05-07-2024 14:35-0400 Heart rate 62 /min Gopal Das MD Work Phone: [facility] 05-07-2024 14:35-0400 Respiratory rate 18 /min Gopal Das MD Work Phone: [facility] 05-07-2024 14:35-0400 SaO2% (BldA) [Mass fraction] 97 % Gopal Das MD Work Phone: [facility] 05-07-2024 14:35-0400 Systolic blood pressure 132 mm[Hg] Gopal Das MD Work Phone: [facility] 01-14-2024 13:28-0400 Body mass index (BMI) [Ratio] 27.49 kg/m2 Gopal Das MD Work Phone: [facility] 01-14-2024 13:28-0400 Body weight 74.93 kg Gopal Das MD Work Phone: [facility] 01-14-2024 13:28-0400 Diastolic blood pressure 68 mm[Hg] Gopal Das MD Work Phone: [facility] 01-14-2024 13:28-040 Heart rate 80 /min Gopal Das MD Work Phone: [facility] 01-14-2024 13:28040 Respiratory rate 18 /min Gopal Das MD Work Phone: [facility] 01-14-2024 13:28040 Systolic blood pressure 122 mm[Hg] Gopal Das MD Work Phone: [facility] 11-05-2023 16:10-0400 Body height 165.1 cm Gopal Das MD Work Phone: [facility] 11-05-2023 16:10-0400 Body mass index (BMI) [Ratio] 27.12 kg/m2 Gopal Das MD Work Phone: [facility] 11-05-2023 16:10-0400 Body temperature 97.9 [degF] Gopal Das MD Work Phone: [facility] 11-05-2023 16:10-0400 Body weight 73.94 kg Gopal Das MD Work Phone: [facility] 11-05-2023 16:10-0400 Diastolic blood pressure 72 mm[Hg] Gopal Das MD Work Phone: [facility] 11-05-2023 16:10-0400 Heart rate 62 /min Gopal Das MD Work Phone: [facility] 11-05-2023 16:10-0400 Respiratory rate 15 /min Gopal Das MD Work Phone: [facility] 11-05-2023 16:10-0400 SaO2% (BldA) [Mass fraction] 95 % Gopal Das MD Work Phone: [facility] 11-05-2023 16:10-0400 Systolic blood pressure 136 mm[Hg] Gopal Das MD Work Phone: [facility] 07-14-2023 11:38-0500 Heart rate 74 /min [facility] 07-14-2023 11:38-0500 Respiratory rate 16 /min [facility] 07-14-2023 11:38-0500 SaO2% (BldA) [Mass fraction] 100 % [facility] 07-14-2023 08:23-0500 Body height 165.1 cm [facility] 07-14-2023 08:23-0500 Body mass index (BMI) [Ratio] 27.8 kg/m2 [facility] 07-14-2023 08:23-0500 Body temperature 97.4 [degF] [facility] 07-14-2023 08:23-0500 Body weight 75.79 kg [facility] 07-14-2023 08:23-0500 Diastolic blood pressure 78 mm[Hg] [facility] 07-14-2023 08:23-0500 Systolic blood pressure 130 mm[Hg] [facility] 07-11-2023 13:47-0500 Body height 170.18 cm [facility] 07-11-2023 13:47-0500 Body mass index (BMI) [Ratio] 27.8 kg/m2 [facility] 07-11-2023 13:47-0500 Body temperature 96.9 [degF] [facility] 07-11-2023 13:47-0500 Body weight 80.6 kg [facility] 07-11-2023 13:47-0500 Diastolic blood pressure 91 mm[Hg] [facility] 07-11-2023 13:47-0500 Heart rate 98 /min [facility] 07-11-2023 13:47-0500 Respiratory rate 14 /min [facility] 07-11-2023 13:47-0500 SaO2% (BldA) [Mass fraction] 94 % [facility] 07-11-2023 13:47-0500 Systolic blood pressure 135 mm[Hg] [facility] 04-16-2023 10:22-0400 Body height 165.1 cm Gopal Das MD Work Phone: [facility] 04-16-2023 10:22-0400 Body temperature 97 [degF] Gopal Das MD Work Phone: [facility] 04-16-2023 10:22-0400 Body weight 86.36 kg Gopal Das MD Work Phone: [facility] 04-16-2023 10:22-0400 Diastolic blood pressure 84 mm[Hg] Gopal Das MD Work Phone: [facility] 04-16-2023 10:22-0400 Heart rate 76 /min Gopal Das MD Work Phone: [facility] 04-16-2023 10:22-0400 Respiratory rate 18 /min Gopal Das MD Work Phone: [facility] 04-16-2023 10:22-0400 SaO2% (BldA) [Mass fraction] 96 % Gopal Das MD Work Phone: [facility] 04-16-2023 10:22-0400 Systolic blood pressure 138 mm[Hg] Gopal aDs MD Work Phone: [facility] 03-05-2023 13:46-0400 Body height 165.1 cm Gopal Das MD Work Phone: [facility] 03-05-2023 13:46-0400 Body temperature 96.91 [degF] Gopal Das MD Work Phone: [facility] 03-05-2023 13:46-0400 Body weight 89.08 kg Gopal Das MD Work Phone: [facility] 03-05-2023 13:46-0400 Diastolic blood pressure 78 mm[Hg] Gopal Dsa MD Work Phone: [facility] 03-05-2023 13:46-0400 Heart rate 89 /min Gopal Das MD Work Phone: [facility] 03-05-2023 13:46-0400 Respiratory rate 16 /min Gopal Das MD Work Phone: [facility] 03-05-2023 13:46-0400 SaO2% (BldA) [Mass fraction] 95 % Gopal Das MD Work Phone: [facility] 03-05-2023 13:46-0400 Systolic blood pressure 134 mm[Hg] Gopal Das MD Work Phone: [facility] 08-30-2022 13:32-0500 Body height 165.1 cm Gopal Das MD Work Phone: [facility] 08-30-2022 13:32-0500 Body temperature 96.91 [degF] Gopal Das MD Work Phone: [facility] 08-30-2022 13:32-0500 Body weight 94.17 kg Gopal Das MD Work Phone: [facility] 08-30-2022 13:32-0500 Diastolic blood pressure 58 mm[Hg] Gopal Das MD Work Phone: [facility] 08-30-2022 13:32-0500 Heart rate 98 /min Gopal Das MD Work Phone: [facility] 08-30-2022 13:32-0500 Respiratory rate 14 /min Gopal Das MD Work Phone: [facility] 08-30-2022 13:32-0500 SaO2% (BldA) [Mass fraction] 98 % Gopal Das MD Work Phone: [facility] 08-30-2022 13:32-0500 Systolic blood pressure 128 mm[Hg] Gopal Das MD Work Phone: [facility] 02-20-2022 10:07-0400 Body height 165.1 cm Gopal Das MD Work Phone: [facility] 02-20-2022 10:07-0400 Body weight 90.81 kg Gopal Das MD Work Phone: [facility] 02-20-2022 10:07-0400 Diastolic blood pressure 78 mm[Hg] Gopal Das MD Work Phone: [facility] 02-20-2022 10:07-0400 Heart rate 85 /min Gopal Das MD Work Phone: [facility] 02-20-2022 10:07-0400 Respiratory rate 14 /min Gopal Das MD Work Phone: [facility] 02-20-2022 10:07-0400 SaO2% (BldA) [Mass fraction] 95 % Gopal Das MD Work Phone: [facility] 02-20-2022 10:07-0400 Systolic blood pressure 110 mm[Hg] Gopal Das MD Work Phone: [facility] 06-27-2021 09:29-0500 Body temperature 97.5 [degF] Gopal Das MD Work Phone: [facility] 06-27-2021 09:29-0500 Body weight 96.16 kg Gopal Das MD Work Phone: [facility] 06-27-2021 09:29-0500 Diastolic blood pressure 80 mm[Hg] Gopal Das MD Work Phone: [facility] 06-27-2021 09:29-0500 Heart rate 88 /min Gopal Das MD Work Phone: [facility] 06-27-2021 09:29-0500 SaO2% (BldA) [Mass fraction] 93 % Gopal Das MD Work Phone: [facility] 06-27-2021 09:29-0500 Systolic blood pressure 128 mm[Hg] Gopal Das MD Work Phone: [facility] Encounters Encounter Date Encounter Type Care Provider Facility Start: 12-17-2024 End: 12-17-2024 Emergency department patient visit Formerly [facility], [facility]–1983 Facility:[facility] Start: 11-27-2024 End: 11-27-2024 Refill Gopal Das MD Work Phone: [facility] Comment on above: Refill Request Start: 11-26-2024 End: 11-27-2024 Refill Gopal Das MD Work Phone: [facility] Comment on above: Refill Request Start: 11-17-2024 End: 11-17-2024 Patient encounter procedure Gopal Das MD Work Phone: [facility] Comment on above: Wellness examination (Primary Dx); Essential hypertension; Benign essential HTN; Chronic obstructive pulmonary disease, unspecified COPD type (HCC); Gastroesophageal reflux disease without esophagitis; Hypothyroidism, unspecified type; Stage 3 chronic kidney disease, unspecified whether stage 3a or 3b CKD (HCC); Anxiety associated with depression; Screening for deficiency anemia; Encounter for screening mammogram for malignant neoplasm of breast; Mixed hyperlipidemia; Chronic constipation; Seborrheic keratoses; Medicare annual wellness visit, subsequent Start: 11-17-2024 End: 11-17-2024 Patient encounter status Gopal Das MD Work Phone: [facility] Start: 11-17-2024 End: 11-17-2024 ambulatory GOPAL ADS Facility:[id number] Start: 07-09-2024 End: 07-11-2024 Refill Alice Ji APRN.CNP Work Phone: [facility] Comment on above: Refill Request Start: 05-07-2024 End: 05-07-2024 Office outpatient visit 25 minutes Gopal Das MD Work Phone: [facility] Comment on above: Benign essential HTN (Primary Dx); Pure hypercholesterolemia; Acquired hypothyroidism; Stage 3 chronic kidney disease, unspecified whether stage 3a or 3b CKD (HCC); Screening for deficiency anemia; Anxiety; Chronic obstructive pulmonary disease, unspecified COPD type (HCC) Start: 05-07-2024 End: 05-07-2024 ambulatory GOPAL DAS Facility:[id number] Start: 01-14-2024 End: 01-14-2024 Office outpatient visit 15 minutes Gopal Das MD Work Phone: [facility] Comment on above: Serum potassium elev ated (Primary Dx); Polyarthritis; Acquired hypothyroidism; Pure hypercholesterolemia; Hyperkalemia Start: 01-14-2024 End: 01-14-2024 ambulatory GOPAL DAS Facility:[id number] Start: 01-08-2024 Telephone encounter Gopal Das MD Work Phone: [facility] Comment on above: Results Start: 01-07-2024 End: 01-07-2024 ambulatory GOPAL DAS Facility:[facility] Start: 11-05-2023 End: 11-05-2023 Patient encounter procedure Gopal Das MD Work Phone: [facility] Comment on above: Wellness examination (Primary Dx); Advance care planning; Chronic obstructive pulmonary disease, unspecified (HCC); Acquired hypothyroidism; Stage 3 chronic kidney disease, unspecified whether stage 3a or 3b CKD (HCC); Benign essential HTN; Pure hypercholesterolemia; Screening for deficiency anemia; Encounter for screening mammogram for malignant neoplasm of breast; Medicare annual wellness visit, subsequent Start: 11-05-2023 End: 11-05-2023 Patient encounter status Gopal Das MD Work Phone: [facility] Start: 08-31-2023 Refill Janett Parson i, APRN.CNP Work Phone: [facility] Comment on above: Refill Request Start: 07-14-2023 End: 07-14-2023 Emergency department patient visit [facility] Work Phone: Start: 07-11-2023 End: 07-11-2023 Emergency department patient visit [facility] Work Phone: Start: 04-16-2023 End: 04-16-2023 Office outpatient visit 15 minutes Goapl Das MD Work Phone: [facility] Comment on above: Chronic obstructive pulmonary disease, unspecified COPD type (HCC) (Primary Dx) Start: 03-22-2023 Telephone encounter Gopal Das MD Work Phone: [facility] Start: 03-21-2023 End: 03-21-2023 ambulatory GOPAL DAS Facility:[facility] Start: 03-20-2023 Refill Gopal Richards MD Work Phone: [facility] Comment on above: Refill Request Start: 03-05-2023 End: 03-05-2023 Office outpatient visit 15 minutes Gopal Das MD Work Phone: [facility] Comment on above: Acquired hypothyroid ism (Primary Dx); Anxiety; Stage 3 chronic kidney disease, unspecified whether stage 3a or 3b CKD (HCC); Benign essential HTN; Chronic obstructive pulmonary disease, unspecified COPD type (HCC); Gastroesophageal reflux disease without esophagitis; Anxiety associated with depression Start: 02-19-2023 Refill Gopal Richards MD Work Phone: [facility] Comment on above: Refill Request Start: 12-14-2022 Refill Gopal Richards MD Work Phone: [facility] Comment on above: Refill Request Start: 10-02-2022 Telephone encounter Gopal Das MD Work Phone: [facility] Comment on above: Results (elevated li pids) Refill Request Start: 09-29-2022 Documentation procedure Mammog anthony Coordinator [facility] Start: 09-29-2022 Letter encounter Mammography Coordinator [facility] Department Start: 09-28-2022 End: 09-28-2022 Subsequent hospital visit by physician Screen Mammo [facility] Comment on above: Encounter for screen ing mammogram for malignant neoplasm of breast [Z12.31] Start: 09-08-2022 Telephone encounter Gopal Das MD Work Phone: [facility] Comment on above: Orders Start: 08-30-2022 End: 08-30-2022 Patient encounter procedure Gopal Das MD Work Phone: [facility] Comment on above: Wellness examination (Primary Dx); Anxiety; Essential hypertension; Pure hypercholesterolemia; Benign essential HTN; Chronic obstructive pulmonary disease, unspecified COPD type (HCC); Gastroesophageal reflux disease without esophagitis; Postoperative hypothyroidism; Anxiety associated with depression; Screening for deficiency anemia; Encounter for screening mammogram for malignant neoplasm of breast Start: 08-30-2022 End: 08-30-2022 Patient encounter status Gopal Das MD Work Phone: [facility] Start: 03-02-2022 Refill Gopal Richards MD Work Phone: [facility] Comment on above: Refill Request Orders Start: 02-20-2022 End: 02-20-2022 Office outpatient visit 15 minutes Gopal Das MD Work Phone: [facility] Comment on above: Pure hypercholestero lemia (Primary Dx); Other specified hypothyroidism; Benign essential HTN Start: 01-11-2022 Refill Gopal Richards MD Work Phone: [facility] Comment on above: Refill Request Start: 11-26-2021 Chart abstracting Gopal Das MD Work Phone: [facility] Start: 11-26-2021 Patient encounter status Verna Das MD Work Phone: [facility] Start: 07-05-2017 Ambulatory Gopal Das Facilit y:[facility] Procedures Date Procedure Procedure Detail Performing Clinician Start: 12-17-2024 Urnls dip stick/tabl et reagent auto microscopy Dr. Gopal Das MD Work Phone: Start: 12-17-[address] Gopal Das MD Work Phone: Start: 07-14-2023 CT cervical spine wi thout contrast Start: 07-14-2023 CT of head without contrast Start: 07-11-2023 CT of head without contrast Start: 09-28-2022 Screening mammograph y bi 2-view breast inc cad Gopal Das MD Work Phone: Start: 08-24-2015 Colonoscopy Gopal lopez MD Work Phone: Plan of Treatment Date Care Activity Detail Author Start: 09-29-2027 LIPID SCREEN LIPID SCREEN [facility] Start: 04-07-2027 LIPID SCREEN LIPID SCREEN [facility] Start: 01-06-2027 Diabetes Screening Diabetes Screening [facility] Start: 11-17-2025 Annual PCP Team Chronic Disease Visit Annual PCP Team Chronic Disease Visit [facility] Start: 09-28-2025 DIABETES SCREEN DIABETES SCREEN [facility] Start: 09-28-2025 Diabetes Screening Diabetes Screening [facility] Start: 05-25-2025 End: 05-25-2025 Patient encounter procedure 05/25/2025 2:10 PM EST [facility] [address] [place] [id number] Gopal Das MD [address] [place], [place] [id number] 6 month follow up [facility] Comment on above: 6 month follow up Start: 05-07-2025 Annual PCP Team Chronic Disease Visit Annual PCP Team Chronic Disease Visit [facility] Start: 04-07-2025 DIABETES SCREEN DIABETES SCREEN [facility] Start: 03-16-2025 Influenza vaccination Influenza Vaccine (Season Ended) [facility] Start: 01-13-2025 Annual PCP Team Chronic Disease Visit Annual PCP Team Chronic Disease Visit [facility] Start: 01-13-2025 BP Controlled (<130/80) BP Controlled (<130/80) [facility] Start: 01-06-2025 Complete blood count Hemoglobin/Hematocrit [facility] Start: 01-06-2025 Creatinine measurement Serum Creatinine [facility] Start: 12-17-2024 [facility] Start: 12-17-2024 Bacteria identified in Urine by Culture Urine Culture [facility] Start: 12-17-2024 [facility] Start: 12-01-2024 End: 12-01-2024 Patient encounter procedure 12/01/2024 11:10 AM EDT Appointment Mammogram [address] [place] [address] Mammogram Start: 11-17-2024 End: 02-16-2025 CBC W Auto Differential panel - Blood COMPLETE BLOOD COUNT AND DIFFERENTIAL Lab Routine Screening for deficiency anemia Expected: 11/17/2024, Expires: 02/16/2025 [facility] Work Phone: Comment on above: Expected: 11/17/2024, Expires: Start: 11-17-2024 End: 02-16-2025 Comprehensive metabolic 2000 panel - Serum or Plasma COMPREHENSIVE METABOLIC PANEL Lab Routine Essential hypertension Stage 3 chronic kidney disease, unspecified whether stage 3a or 3b CKD (HCC) Expected: 11/17/2024, Expires: 02/16/2025 [facility] Comment on above: Expected: 11/17/2024, Expires: Start: 11-17-2024 End: 02-16-2025 Lipid 1996 panel - Serum or Plasma LIPID PANEL, FASTING Lab Routine Mixed hyperlipidemia Expected: 11/17/2024, Expires: 02/16/2025 [facility] Comment on above: Expected: 11/17/2024, Expires: Start: 11-17-2024 End: 02-16-2025 Thyrotropin [Units/volume] in Serum or Plasma THYROID STIMULATING HORMONE Lab Routine Hypothyroidism, unspecified type Expected: 11/17/2024, Expires: 02/16/2025 [facility] Comment on above: Expected: 11/17/2024, Expires: Start: 11-10-2024 End: 11-10-2024 Patient encounter procedure 11/10/2024 11:00 AM EDT Office Visit [facility] [address] [place] [phone] Gopal Das MD [address] [place], [place] [id number] Annual Wellness [facility] Comment on above: Annual Wellness Start: 11-04-2024 Annual PCP Team Chronic Disease Visit Annual PCP Team Chronic Disease Visit [facility] Start: 07-16-2024 Advance Directive Discussion Advance Directive Discussion [facility] Start: 05-07-2024 End: 05-07-2024 Patient encounter procedure 05/07/2024 2:20 PM EDT Office Visit [facility] [address] [place] [phone] Gopal Das MD [address] [place] [address] 6 Month Follow Up [facility] Comment on above: 6 Month Follow Up Start: 05-07-2024 End: 08-06-2024 CBC W Auto Differential panel - Blood COMPLETE BLOOD COUNT AND DIFFERENTIAL Lab Routine Screening for deficiency anemia Expected: 05/07/2024, Expires: 08/06/2024 [facility] Work Phone: Comment on above: Expected: 05/07/2024, Expires: Start: 05-07-2024 End: 08-06-2024 Comprehensive metabolic 2000 panel - Serum or Plasma COMPREHENSIVE METABOLIC PANEL Lab Routine Pure hypercholesterolemia Benign essential HTN Stage 3 chronic kidney disease, unspecified whether stage 3a or 3b CKD (HCC) Expected: 05/07/2024, Expires: 08/06/2024 [facility] Comment on above: Expected: 05/07/2024, Expires: Start: 05-07-2024 End: 08-06-2024 Lipid 1996 panel - Serum or Plasma LIPID PANEL BASIC Lab Routine Pure hypercholesterolemia Expected: 05/07/2024, Expires: 08/06/2024 [facility] Comment on above: Expected: 05/07/2024, Expires: Start: 05-07-2024 End: 08-06-2024 Thyrotropin [Units/volume] in Serum or Plasma THYROID STIMULATING HORMONE Lab Routine Acquired hypothyroidism Expected: 05/07/2024, Expires: 08/06/2024 [facility] Comment on above: Expected: 05/07/2024, Expires: 5 Start: 04-16-2024 Annual PCP Team Chronic Disease Visit Annual PCP Team Chronic Disease Visit [facility] Start: 04-15-2024 End: 07-15-2024 Hepatic function 2000 panel - Serum or Plasma HEPATIC FUNCTION PNL Lab Routine Pure hypercholesterolemia Expected: 04/15/2024, Expires: 07/15/2024 [facility] Comment on above: Expected: 04/15/2024, Expires: 4 Start: 04-15-2024 End: 07-15-2024 Lipid 1996 panel - Serum or Plasma LIPID PANEL BASIC Lab Routine Pure hypercholesterolemia Expected: 04/15/2024, Expires: 07/15/2024 [facility] Comment on above: Expected: 04/15/2024, Expires: 4 Start: 04-15-2024 End: 07-15-2024 Thyrotropin [Units/volume] in Serum or Plasma THYROID STIMULATING HORMONE Lab Routine Acquired hypothyroidism Expected: 04/15/2024, Expires: 07/15/2024 [facility] Comment on above: Expected: 04/15/2024, Expires: Start: 03-16-2024 Covid-19 Vaccine ( season) Covid-19 Vaccine () [facility] Start: 03-16-2024 Influenza vaccination [facility] Start: 03-05-2024 ANNUAL PCP TEAM CHRONIC DISEASE VISIT ANNUAL PCP TEAM CHRONIC DISEASE VISIT [facility] Start: 01-14-2024 End: 04-14-2024 Basic metabolic 2000 panel - Serum or Plasma BASIC METABOLIC PANEL Lab Routine Serum potassium elevated Expected: 01/14/2024, Expires: 04/14/2024 [facility] Work Phone: Comment on above: Expected: 01/14/2024, Expires: 4 Start: 01-14-2024 End: 04-14-2024 Erythrocyte sedimentation rate SEDIMENTATION RATE, WESTERGREN Lab Routine Polyarthritis Expected: 01/14/2024, Expires: 04/14/2024 [facility] Comment on above: Expected: 01/14/2024, Expires: Start: 01-14-2024 End: 01-14-2024 Patient encounter procedure 01/14/2024 1:40 PM EDT [facility] [address] [place] [id number] Gopal Das MD [address] [place] [address] discuss lab results [facility] Comment on above: discuss lab results Start: 11-05-2023 End: 02-04-2024 CBC W Auto Differential panel - Blood COMPLETE BLOOD COUNT AND DIFFERENTIAL Lab Routine Screening for deficiency anemia Expected: 11/05/2023, Expires: 02/04/2024 [facility] Work Phone: Comment on above: Expected: 11/05/2023, Expires: Start: 11-05-2023 End: 02-04-2024 Comprehensive metabolic 2000 panel - Serum or Plasma COMPREHENSIVE METABOLIC PANEL Lab Routine Stage 3 chronic kidney disease, unspecified whether stage 3a or 3b CKD (HCC) Benign essential HTN Pure hypercholesterolemia Expected: 11/05/2023, Expires: 02/04/2024 [facility] Comment on above: Expected: 11/05/2023, Expires: Start: 11-05-2023 End: 02-04-2024 Lipid 1996 panel - Serum or Plasma LIPID PANEL BASIC Lab Routine Pure hypercholesterolemia Expected: 11/05/2023, Expires: 02/04/2024 [facility] Comment on above: Expected: 11/05/2023, Expires: Start: 11-05-2023 End: 02-04-2024 Thyrotropin [Units/volume] in Serum or Plasma THYROID STIMULATING HORMONE Lab Routine Acquired hypothyroidism Expected: 11/05/2023, Expires: 02/04/2024 [facility] Comment on above: Expected: 11/05/2023, Expires: Start: 09-29-2023 Complete blood count Hemoglobin/Hematocrit [facility] Start: 09-29-2023 Creatinine measurement Serum Creatinine [facility] Start: 09-29-2023 HEMOGLOBIN/HEMATOCRIT HEMOGLOBIN/HEMATOCRIT [facility] Start: 09-29-2023 SERUM CREATININE SERUM CREATININE [facility] Start: 08-30-2023 ANNUAL PCP TEAM CHRONIC DISEASE VISIT ANNUAL PCP TEAM CHRONIC DISEASE VISIT [facility] Start: 08-30-2023 BP CONTROLLED (<130/80) BP CONTROLLED (<130/80) [facility] Start: 07-16-2023 Advance Directive Discussion Advance Directive Discussion [facility] Start: 07-14-2023 [facility] Start: 07-14-2023 Plain X-ray of shoulder Shoulder min 2 Views [facility] Start: 07-14-2023 XR Shoulder GE 2 Views [facility] Start: 07-11-2023 [facility] Start: 03-16-2023 Covid-19 Vaccine () Covid-19 Vaccine () [facility] Start: 03-16-2023 Influenza vaccination [facility] Start: 03-05-2023 End: 05-05-2023 Thyrotropin [Units/volume] in Serum or Plasma TSH BLD Lab Routine Acquired hypothyroidism Expected: 03/05/2023, Expires: 05/05/2023 [facility] Work Phone: Comment on above: Expected: 03/05/2023, Expires: Start: 02-20-2023 ANNUAL PCP TEAM CHRONIC DISEASE VISIT ANNUAL PCP TEAM CHRONIC DISEASE VISIT [facility] Start: 02-20-2023 BP CONTROLLED (<130/80) BP CONTROLLED (<130/80) [facility] Start: 08-30-2022 End: 10-30-2022 CBC W Auto Differential panel - Blood CBC + DIFF Lab Routine Screening for deficiency anemia Expected: 08/30/2022, Expires: 10/30/2022 [facility] Work Phone: Comment on above: Expected: 08/30/2022, Expires: Start: 08-30-2022 End: 10-30-2022 Comprehensive metabolic 2000 panel - Serum or Plasma COMP METABOLIC PANEL Lab Routine Essential hypertension Pure hypercholesterolemia Expected: 08/30/2022, Expires: 10/30/2022 [facility] Work Phone: Comment on above: Expected: 08/30/2022, Expires: 3 Start: 08-30-2022 End: 10-30-2022 Lipid 1996 panel - Serum or Plasma LIPID PANEL BASIC Lab Routine Pure hypercholesterolemia Expected: 08/30/2022, Expires: 10/30/2022 [facility] Work Phone: Comment on above: Expected: 08/30/2022, Expires: 3 Start: 08-30-2022 End: 10-30-2022 Thyrotropin [Units/volume] in Serum or Plasma TSH BLD Lab Routine Postoperative hypothyroidism Expected: 08/30/2022, Expires: 10/30/2022 [facility] Work Phone: Comment on above: Expected: 08/30/2022, Expires: 3 Start: 07-16-2022 ADVANCE DIRECTIVE DISCUSSION ADVANCE DIRECTIVE DISCUSSION [facility] Start: 2022 RSV Vaccine (1 - 1-dose 75+ series) RSV Vaccine (1 - 1-dose 75+ series) [facility] Start: 03-16-2022 Influenza vaccination [facility] Start: 02-20-2022 End: 04-22-2022 Comprehensive metabolic 2000 panel - Serum or Plasma COMP METABOLIC PANEL Lab Routine Pure hypercholesterolemia Benign essential HTN Expected: 02/20/2022, Expires: 04/22/2022 [facility] Work Phone: Comment on above: Expected: 02/20/2022, Expires: 2 Start: 02-20-2022 End: 04-22-2022 Lipid 1996 panel - Serum or Plasma LIPID PANEL BASIC Lab Routine Pure hypercholesterolemia Expected: 02/20/2022, Expires: 04/22/2022 [facility] Work Phone: Comment on above: Expected: 02/20/2022, Expires: 2 Start: 02-20-2022 End: 04-22-2022 Thyrotropin [Units/volume] in Serum or Plasma TSH BLD Lab Routine Other specified hypothyroidism Expected: 02/20/2022, Expires: 04/22/2022 [facility] Work Phone: Comment on above: Expected: 02/20/2022, Expires: Start: 07-16-2021 ADVANCE DIRECTIVE DISCUSSION ADVANCE DIRECTIVE DISCUSSION [facility] Start: 03-14-2020 Screening for osteoporosis Bone Density Screening [facility] Start: 06-23-2018 COLOGUARD (FIT-DNA) COLOGUARD (FIT-DNA) [facility] Start: 08-24-2017 Colonoscopy COLONOSCOPY [facility] Start: 08-24-2017 COLORECTAL CANCER SCREENING COLORECTAL CANCER SCREENING [facility] Start: 2012 BONE DENSITY BONE DENSITY [facility] Start: 2012 PNEUMOVAX AGE 65 AND OVER WITH 5YR LOOKBACK (#1) PNEUMOVAX AGE 65 AND OVER WITH 5YR LOOKBACK (#1) [facility] Start: 2007 RSV Vaccine (1 - 1-dose 60+ series) RSV Vaccine (1 - 1-dose 60+ series) [facility] Start: 1997 SHINGRIX VACCINE (1 of 2) SHINGRIX VACCINE (1 of 2) [facility] Start: 1992 COLOGUARD (FIT-DNA) COLOGUARD (FIT-DNA) [facility] Start: [address] COLONOGRAPHY [facility] Start: 1992 DIABETES SCREEN DIABETES SCREEN [facility] Start: 1992 FECAL OCCULT BLOOD FECAL OCCULT BLOOD [facility] Start: 1992 LIPID SCREEN LIPID SCREEN [facility] Start: 1992 SIGMOIDOSCOPY SIGMOIDOSCOPY [facility] Start: 1987 Mammography MAMMOGRAM [facility] Start: 1977 Zoledronic acid therapy ALPHA-1 ANTITRYPSIN DEFICIENCY SCREENING [facility] Start: 1966 Pneumococcal Vaccine: 50+ (1 of 2 - PCV) Pneumococcal Vaccine: 50+ (1 of 2 - PCV) [facility] Start: 1966 Urine microalbumin profile [facility] Start: 1965 ANNUAL PCP TEAM CHRONIC DISEASE VISIT ANNUAL PCP TEAM CHRONIC DISEASE VISIT [facility] Start: 1965 BP CONTROLLED (<130/80) BP CONTROLLED (<130/80) [facility] Start: 1965 HEPATITIS C SCREENING HEPATITIS C SCREENING [facility] Start: 1965 Hepatitis C screening Hepatitis C Screening [facility] Start: 1965 SPIROMETRY SPIROMETRY [facility] Start: 1953 Pneumococcal Vaccine: 65+ (1 - PCV) Pneumococcal Vaccine: 65+ (1 - PCV) [facility] Start: 1953 Pneumococcal Vaccine: 65+ (1 of 2 - PCV) Pneumococcal Vaccine: 65+ (1 of 2 - PCV) [facility] Start: 1953 PNEUMOCOCCAL: 65+ (1 - PCV) PNEUMOCOCCAL: 65+ (1 - PCV) [facility] Start: 1952 COVID-19 VACCINE (#1) COVID-19 VACCINE (#1) [facility] Start: 1947 COVID-19 VACCINE (#1) COVID-19 VACCINE (#1) [facility] End: 09-29-2023 MAYA SCREENING MAYA SCREENING Radiology Routine Encounter for screening mammogram for malignant neoplasm of breast 1 Occurrences starting 08/30/2022 until 09/29/2023 [facility] Work Phone: Comment on above: 1 Occurrences starting 08/30/2022 until 09/29/2023 End: 12-04-2024 MG Breast Screening MAYA SCREENING Radiology Routine Encounter for screening mammogram for malignant neoplasm of breast 1 Occurrences starting 11/05/2023 until 12/04/2024 [facility] Comment on above: 1 Occurrences starting 11/05/2023 until 12/04/2024 End: 12-17-2025 MG Breast Screening MAYA SCREENING Radiology Routine Encounter for screening mammogram for malignant neoplasm of breast 1 Occurrences starting 11/17/2024 until 12/17/2025 [facility] Comment on above: 1 Occurrences starting 11/17/2024 until 12/17/2025 Patient Education [facility] Work Phone: Patient referral [facility] Work Phone: [place] culture [facility] [place] [facility] [place] Payer Category Payer Medicare [id number] 2024 Self-pay [id number] 2024 Unknown [id number] 2024 Medicare (Managed Care) [employer] ME DICARE [id number] 2023 Unknown [id number] 2021 Medicare AETNA MEDICARE A ETNA MEDICARE O [id number] 2021-Present [phone] [address] [place] [address] [facility] [id number] 2021 Medicare [id number] 2021 Private Health Insurance [facility] [id number] 2019 Medicare HUMANA MEDICARE HUMANA MEDICARE PPO [id number] 2019-Present [phone] [id number] [place] [id number] [id number] 2015 Unknown RODY [id number] 2012 Medicare MEDICARE PART A B [id number] 3 [id number] Medicare [id number] Private Health Insurance AETNA SR SUPPLEM ENT INS [id number] Private Health Insurance [id number] Unknown [id number] Social History Date Type Detail Facility Start: 07-22-2015 End: 12-17-2024 Tobacco smoking status NHIS Ex-smoker [facility] Start: 03-18-1974 End: 03-18-2004 History of tobacco use Current smoker [facility] Start: 07-22-2015 End: 03-05-2023 Cigarettes smoked current (pack per day) - Reported 2 [facility] Start: 11-26-2021 End: 02-20-2022 Alcohol intake Current drinker of alcohol (finding) [facility] Start: 07-22-2015 History SDOH Alcohol Comment per week [facility] Start: 1945 Sex Assigned At Not on file [facility] Start: 12-24-2021 End: 02-20-2022 Exposure to SARS-CoV-2 (event) Not sure [facility] Start: 03-18-1974 End: 03-18-2004 History of tobacco use Cigarette Smoker [facility] Start: 02-20-2022 Tobacco use and exposure Smokeless tobacco non-user [facility] Start: 08-30-2022 End: 11-17-2024 Alcohol intake Ex-drinker (finding) [facility] Start: 08-30-2022 History SDOH Alcohol Frequency 2 [facility] Start: 08-30-2022 History SDOH Alcohol Std Drinks 1 [facility] Start: 08-30-2022 History SDOH Social Connections Phone 5 [facility] Start: 08-30-2022 History SDOH Social Connections Jain 3 [facility] Start: 08-30-2022 History SDOH Physical Activity DPW 0 [facility] Start: 08-30-2022 History SDOH Stress 4 [facility] Start: 08-30-2022 Education 21 [facility] Start: 08-30-2022 Alcohol Comment occassionally [facility] Start: 08-30-2022 End: 03-05-2023 Social connection and isolation panel [facility] Do you belong to any clubs or organizations such as samaritan groups, unions, fraternal or athletic groups, or school groups? No [facility] Are you now , , , , never or living with a partner? [facility] How often to you hav e a drink containing alcohol? Monthly or less [facility] How many standard dr inks containing alcohol do you have on a typical day? 1 or 2 [facility] How often do you hav e 6 or more drinks on 1 occasion? Never [facility] How hard is it for y ou to pay for the very basics like food, housing, medical care, and heating Not hard at all [facility] Do you feel stress - tense, restless, nervous, or anxious, or unable to sleep at night because your mind is troubled all the time - these days [OSQ] Rather much [facility] (I/We) worried amanda er (my/our) food would run out before (I/we) got money to buy more. Never true [facility] Start: 08-30-2022 Gender identity Identifies as female gender (finding) [facility] Start: 08-30-2022 Sexual orientation Heterosexual (finding) [facility] Start: 1945 Sex Assigned At Female [facility] Start: 07-11-2023 End: 07-14-2023 Tobacco smoking status NHIS Unknown if ever smoked [facility] Are you now , , , , never or living with a partner? [facility] Do you feel stress - tense, restless, nervous, or anxious, or unable to sleep at night because your mind is troubled all the time - these days [OSQ] Very much [facility] Do you feel stress - tense, restless, nervous, or anxious, or unable to sleep at night because your mind is troubled all the time - these days [OSQ] Not at all [facility] Functional Status Date Assessment Result Facility [facility] Mental Status Date Assessment Result Facility 07-14-2023 Cognitive function Level Of Cons ciousness Awake;Alert;Appropriate;Follow s Commands [facility] Work Phone: Clinical Notes 02-20-2022 to 12-17-2024 Note Date & Type Note Facility 12-17-2024 Discharge summary [facility] 12-17-2024 Discharge summary Note Date/Time December 17, 2024 2:17pm [facility] Medical Records Department [address] [place] [address] Emergency Department Summary 12/17/24 MR#: [id number] Acct: [id number] Name: YULIA GALLAGHER Rep #:[id number] : 1945 79 From: Jean Claude Starr MD PCP: Dr. Gopal Das MD Status:REG ER Location: ED HPI History of Present Illness Chief Complaint: Nausea/Vomiting/Diarrhea Detail of Chief Complaint: Numerous symptoms Informant: patient and family Onset/Context/Timing Onset: - (December 10) Context: Sudden Onset Timing: Intermittent Quality: Nausea and vomiting, epigastric pain, paresthesias, dark urine Location: Predominately GI Current Severity: Mild Maximum Severity: Severe Worsened by: Nothing Relieved by: Nothing Associated Symptoms Associated Symptoms: Thirst, dry mouth, decreased urine output Narrative Narrative: Patient is a 79-year-old woman. She has history of COPD, hypothyroidism, depression who presents because of nausea and vomiting that started December 10. She had several episodes of vomiting on Sunday and . She also vomited on Sunday and Sunday according to daughter. Patient initially denied. She did have loose stool. She has not had vomiting since Sunday and has had no loose stools since Sunday. Patient states she does not have an appetite. Patient had some intermittent bilateral paresthesias. She does endorse thirst and dry mouth. She denies orthostatic symptoms. She states she has had decreased urine output and her urines been dark. She denies ill contacts. She denies fever, chills night sweats. She denies upper respiratory tract infectious symptoms. She denies cardiovascular symptoms. Patient denies any change in the color, consistency or caliber of her stool past24 hours. She states initially it was soft and possibly smaller in size. She has no urologic symptoms other than the decreased urine output and dark-colored urine no history of liver disease. She is status post appendectomy and cholecystectomy. Prior similar symptoms: Yes Recent Illness/Hospitalization: No PFSH PFSH Medical History (Updated 12/17/24 @ 14:[address] Jean Claude Starr MD) Anxiety and depression Hyperlipidemia Hypothyroid HTN (hypertension) Home Medications ?Medication ?Instructions ?Recorded ?Last Taken ?Type losartan 50 mg tablet 100 mg PO DAILY 07/08/15 Unk nown History levothyroxine 125 mcg tablet 125 mcg PO QODAY 11/01/16 10/31/16 History paroxetine HCl 20 mg tablet 20 mg PO DAILY 11/01/16 Un known History albuterol sulfate 90 mcg/actuation 2 puff inhalation Q 6H PRN 12/17/24 Unknown History aerosol inhaler (Ventolin HFA) shortness of breath or wheezing alprazolam 0.25 mg tablet 0.5 mg PO TID PRN anxiety Unknown History fluticasone fur. 100 mcg-umeclid 1 inh inhalation JARET Y 12/17/24 Unknown History 62.5 mcg-vilant 25 mcg inhalat.powder (Trelegy Ellipta) nitrofurantoin 100 mg PO Q12 #10 CAPSULES 0 12/17/24 Unknown Rx monohydrate/macrocrystals 100 mg capsule ondansetron 4 mg disintegrating 4 mg PO Q8H PRN PRN Na usea #10 tabs 12/17/24 Unknown Rx tablet Allergy/AdvReac Type Severity Reaction Status Date / Time codeine Allergy Hives Verified 12/17/24 10:06 Social History Smoking Status: Former smoker ROS ROS ED Constitutional Constitutional ED: Reports weight loss and other Details: Significant weight loss since the of her . ; Denies chills, fever(s), subjective or sweats Eyes Eyes: Denies blurry vision or change in vision ENT ENT ED: Denies ear pain, rhinorrhea or sore throat Cardiovascular Cardiovascular: Denies chest pain, orthopnea, palpitations, paroxysmal nocturnaldyspnea or racing heartbeat Respiratory/Chest Respiratory/Chest: Denies cough, dyspnea, dyspnea on exertion, orthopnea or paroxysmal nocturnal dyspnea Gastrointestinal Gastrointestinal: Reports abdominal pain, diarrhea, nausea, vomiting and other Details: Initially she had epigastric pain. She no longer has epigastric pain. ; Denies constipation Genitourinary Genitourinary ED: Denies dysuria, hematuria or urinary frequency Musculoskeletal Musculoskeletal: Denies arthralgias, back pain or myalgias Integumentary Denies rash Neurologic Neurologic: Reports paresthesias and weakness; Denies headache(s) Endocrine Endocrinology: Denies cold intolerance or heat intolerance Hematologic/Lymphatic Hematologic/Lymphatic: Reports systems reviewed and no addt'l complaints, exceptas documented EXAM Physical Exam Const Vital Signs: 12/17/24 10:08 12/17/24 12:06 12/17/24 12:41 Temperature 96.7 F L Temperature Source Temporal Pulse Rate 82 69 Pulse Rate [Lying] 72 Pulse Rate [Sitting (for 1 minute prior to obtaining)] 70 Pulse Rate [Standing (for 1 minute prior to obtaining)] 85 Respiratory Rate 16 11 L Blood Pressure 110/56 L 134/87 H Blood Pressure [Lying] 123/67 H Blood Pressure [Sitting (for 1 minute prior to obtaining)] 129/82 H Blood Pressure [Standing (for 1 minute prior to obtaining)] 127/84 H Blood Pressure Mean 74 102 Blood Pressure Mean [Lying] 85 Blood Pressure Mean [Sitting (for 1 minute prior to obtaining)] 97 Blood Pressure Mean [Standing (for 1 minute prior to obtaining)] 98 Pulse Ox 98 Oxygen Delivery Method Room Air 12/17/24 14:00 Temperature Temperature Source Pulse Rate 67 Pulse Rate [Lying] Pulse Rate [Sitting (for 1 minute prior to obtaining)] Pulse Rate [Standing (for 1 minute prior to obtaining)] Respiratory Rate 15 Blood Pressure 136/71 H Blood Pressure [Lying] Blood Pressure [Sitting (for 1 minute prior to obtaining)] Blood Pressure [Standing (for 1 minute prior to obtaining)] Blood Pressure Mean 92 Blood Pressure Mean [Lying] Blood Pressure Mean [Sitting (for 1 minute prior to obtaining)] Blood Pressure Mean [Standing (for 1 minute prior to obtaining)] Pulse Ox 97 Oxygen Delivery Method Positive well nourished and well developed Constitutional Narrative: Pleasant elderly woman who appears in no distress. General Appearance ED: well developed and NAD; Negative for pallor HEENT HEENT Narrative: Head is atraumatic normocephalic. Ears normal. Nares patent. Posterior pharynx is normal Eyes PERRL and EOMs intact bilaterally Neck no lymphadenopathy, supple and no JVD Chest Wall inspection of chest normal and palpation of chest normal Resp normal respiratory effort and clear to auscultation bilaterally Cardio regular rate, regular rhythm, S1 normal heart sound, S2 normal heart sound and no murmurs GI normal to inspection, nondistended, normoactive bowel sounds, non-distended and no masses; Negative for non-tender or hepatosplenomegaly GI Narrative: Patient is some mild tenderness to the anterior iliac spine on the right. Thereis no guarding or peritoneal findings. She is slightly tympanitic to percussion. Palpation: soft Back/Spine no CVA tenderness Extremity normal to inspection Neuro oriented x3 and CN's II-XII intact bilaterally Sensorium / Orientation: alert Psych mental status grossly normal Skin no rashes or lesions noted, no wounds and No skin turgor normal General Skin Exam: Negative for jaundice or pallor MDM MDM MDM Narrative Medical decision making narrative: With complaint of predominately nausea vomiting clinically dehydrated with decreased urine output will obtain basic metabolic panel to assess renal function,CO2 anion gap and electrolytes. CBC was obtained assess H&H and white count. UA to assess specific gravity and to determine if there is bilirubin in the urine. 1 L of normal saline was ordered. Prior records were reviewed. Patient's had no admission dating back to 2016. She has been seen in the ER for minor traumatic injuries and exacerbation of her COPD. History & Record Review Additional record(s) reviewed:: Prior ED visit Lab Data Attestation: I reviewed the patient's lab results. Lab results narrative: BMP is remarkable for slight elevation of glucose and elevated BUN to creatinineratio. Urine is consistent with infection. White count is unremarkable. H&H is normal. Labs: Laboratory Results - last 24 hr 12/17/24 12/17/24 12/17/24 11:40 11:40 12:04 WBC Cancelled Corrected WBC Cancelled RBC Cancelled Hgb Cancelled Hct Cancelled MCV Cancelled MCH Cancelled MCHC Cancelled RDW Std Deviation Cancelled RDW Coeff of Vipul Cancelled Plt Count Cancelled MPV Cancelled Immature Gran % (Auto) Cancelled Neut % (Auto) Cancelled Lymph % (Auto) Cancelled [place] % (Auto) Cancelled Eos % (Auto) Cancelled Baso % (Auto) Cancelled Absolute Neuts (auto) Cancelled Absolute Lymphs (auto) Cancelled Total Counted Cancelled Neutrophils % (Manual) Cancelled Band Neutrophils % Cancelled Lymphocytes % (Manual) Cancelled Monocytes % (Manual) Cancelled Eosinophils % (Manual) Cancelled Basophils % (Manual) Cancelled Metamyelocytes % Cancelled Myelocytes % Cancelled Promyelocytes % Cancelled Blast Cells % Cancelled Plasma Cell % (Manual) Cancelled Other Cells % Cancelled Nucleated RBC % Cancelled Nucleated RBCs/100 WBC Cancelled Differential Comment Cancelled Diff Path Review Cancelled Hypersegmented Neuts Cancelled Atypical Lymphocytes Cancelled Reactive Lymphocytes Cancelled Smudge Cells Cancelled Toxic Granulation Cancelled Toxic Vacuolation Cancelled Dohle Bodies Cancelled George Rods Cancelled Platelet Estimate Cancelled Plt Morphology Comment Cancelled RBC Morphology Cancelled Cancelled Polychromasia Cancelled Hypochromasia Cancelled Basophilic Stippling Cancelled Anisocytosis Cancelled Microcytosis Cancelled Macrocytosis Cancelled Spherocytes Cancelled Sickle Cells Cancelled Target Cells Cancelled Tear Drop Cells Cancelled Ovalocytes Cancelled Stomatocytes Cancelled [place] Bodies Cancelled Scuddy Cells Cancelled Bite Cells Cancelled Crenated Cell Cancelled Acanthocytes (Spur) Cancelled Rouleaux Cancelled Schistocytes Cancelled Sodium 137 Potassium 4.4 Chloride 100 Carbon Dioxide 24.3 Anion Gap 13 BUN 29 H Creatinine 1.18 Estim Creat Clear Calc 35.93 L Est GFR (MDRD) Non-Af 48 L BUN/Creatinine Ratio 24.7 H Glucose 103 H Calcium 9.5 Urine Color Zully Urine Clarity Sl. Cloudy Urine pH 5.0 Ur Specific Voss 1.020 Urine Protein 30 H Urine Glucose (UA) Normal Urine Ketones Negative Urine Occult Blood 10 H Urine Nitrite Positive H Urine Bilirubin 1 H Urine Urobilinogen 4 H Ur Leukocyte Esterase 500 H Urine RBC 0 SEEN Urine WBC 10-25 SEEN Ur Squamous Epith Cells 5-10 SEEN Urine Bacteria 1+ Hyaline Casts 0-5 SEEN Fine Granular Casts 5-10 SEEN Coarse Granular Casts 0-5 SEEN Urine Mucus 0 SEEN 12/17/24 12:32 WBC 6.9 Corrected WBC RBC 4.92 Hgb 14.2 Hct 43.6 MCV 88.6 MCH 28.9 MCHC 32.6 RDW Std Deviation 43.2 RDW Coeff of Vipul 13.3 Plt Count 184 MPV 11.7 Immature Gran % (Auto) 0.300 Neut % (Auto) 67.1 Lymph % (Auto) 21.6 [place] % (Auto) 9.4 Eos % (Auto) 0.6 Baso % (Auto) 1.0 Absolute Neuts (auto) 4.6 Absolute Lymphs (auto) 1.49 Total Counted Neutrophils % (Manual) Band Neutrophils % Lymphocytes % (Manual) Monocytes % (Manual) Eosinophils % (Manual) Basophils % (Manual) Metamyelocytes % Myelocytes % Promyelocytes % Blast Cells % Plasma Cell % (Manual) Other Cells % Nucleated RBC % 0 Nucleated RBCs/100 WBC Differential Comment Diff Path Review Hypersegmented Neuts Atypical Lymphocytes Reactive Lymphocytes Smudge Cells Toxic Granulation Toxic Vacuolation Dohle Bodies George Rods Platelet Estimate Plt Morphology Comment RBC Morphology Polychromasia Hypochromasia Basophilic Stippling Anisocytosis Microcytosis Macrocytosis Spherocytes Sickle Cells Target Cells Tear Drop Cells Ovalocytes Stomatocytes [place] Bodies Scuddy Cells Bite Cells Crenated Cell Acanthocytes (Spur) Rouleaux Schistocytes Sodium Potassium Chloride Carbon Dioxide Anion Gap BUN Creatinine Estim Creat Clear Calc Est GFR (MDRD) Non-Af BUN/Creatinine Ratio Glucose Calcium Urine Color Urine Clarity Urine pH Ur Specific Voss Urine Protein Urine Glucose (UA) Urine Ketones Urine Occult Blood Urine Nitrite Urine Bilirubin Urine Urobilinogen Ur Leukocyte Esterase Urine RBC Urine WBC Ur Squamous Epith Cells Urine Bacteria Hyaline Casts Fine Granular Casts Coarse Granular Casts Urine Mucus Treatment and Re-Evaluation :: Patient did pass p.o. challenge. She was reassessed and does have suprapubic tenderness. In light of this we will send urine culture and treat with antibiotics. She received her first dose in the emergency department. Patient and daughter were informed of results plan. They are in agreement. Discharge Plan Triage Chief Complaint: Nausea/Vomiting/Diarrhea ED Provider: Jean Claude Starr Dx/Rx/DC Orders Clinical Impression: Abdominal pain, Nausea & vomiting, Urinary tract infection, Acute prerenal azotemia Instructions: ED Dehydration (Adult), ED Cystitis Female Adult, ED Vomiting (Adult) Prescriptions: New nitrofurantoin monohyd/m-cryst 100 mg capsule 100 mg PO Q12 Qty: 10 0RF ondansetron 4 mg tablet,disintegrating 4 mg PO Q8H PRN PRN (Reason: Nausea) Qty: 10 0RF No Action losartan 50 MG tablet 100 mg PO DAILY paroxetine HCl 20 MG tablet 20 mg PO DAILY levothyroxine 125 MCG tablet 125 mcg PO QODAY Trelegy Ellipta 100-62.5-25 mcg blister with device 1 inh inhalation DAILY albuterol sulfate [Ventolin HFA] 90 mcg/actuation HFA aerosol inhaler 2 puff INHALATION Q6H PRN (Reason: shortness of breath or wheezing) alprazolam 0.25 mg tablet 0.5 mg PO TID PRN (Reason: anxiety) Primary Care Provider: Gopal Das Referrals: Gopal Das MD [Primary Care Provider] - 3-5 Days Print Language: Mongolian Disposition Disposition: Home, Self Care What to do if you have Problems For any increased pain, shortness of breath, bleeding, nausea or vomiting, chestpain, or any unexpected problems, contact your Primary Care Provider. Call [facility] ([phone]) or report to the closest Emergency Room. Call 911 if necessary. 12/17/24 1871 <Electronically signed by Jean Claude Starr MD> Cosigner Signature (if applicable): CC: Dr. Gopal Das MD ~ Signed [facility] Work Phone: 1(355) 243-679305-15-2025 Telephone encounter Note* Telephone Encounter - Yemi Clement LPN - 11/27/2024 1:20 PM EDT Patient called requesting the following refill. Requested Prescriptions Pending Prescriptions Disp Refills ALPRAZolam (XANAX) 0.5 mg tablet 90 tablet 1 Sig: Take 1 tablet by mouth three times a day as needed for anxiety for up to 90 days. Patient last appointment: 11/17/2024 Next appointment 05/25/2025 Patient Phone numbers: [phone] (home) Request is for script(s) to be escript to [facility] pharmacy. Yemi Clement LPN [facility]05-15-2025 Miscellaneous Notes* Telephone Encounter - Yemi Clement LPN - 11/27/2024 1:20 PM EDT Patient called requesting the following refill. Requested Prescriptions Pending Prescriptions Disp Refills ALPRAZolam (XANAX) 0.5 mg tablet 90 tablet 1 Sig: Take 1 tablet by mouth three times a day as needed for anxiety for up to 90 days. Patient last appointment: 11/17/2024 Next appointment 05/25/2025 Patient Phone numbers: [phone] (home) Request is for script(s) to be escript to [facility] pharmacy. Yemi Clement LPN [facility] Telephone encounter Note * Telephone Encounter - Yemi Clement LPN - 11/26/2024 2:42 PM EDT Patient called requesting the following refill. Requested Prescriptions Pending Prescriptions Disp Refills PARoxetine (PAXIL) 20 mg tablet 90 tablet 3 Sig: Take 1 tablet by mouth once daily. Patient last appointment: 11/17/2024 Next appointment 05/25/2025 Patient Phone numbers: [phone] (home) Request is for script(s) to be escript to [facility] pharmacy. Yemi Clement LPN [facility]05-14-2025 Miscellaneous Notes* Telephone Encounter - Yemi Clement LPN - 11/26/2024 2:42 PM EDT Patient called requesting the following refill. Requested Prescriptions Pending Prescriptions Disp Refills PARoxetine (PAXIL) 20 mg tablet 90 tablet 3 Sig: Take 1 tablet by mouth once daily. Patient last appointment: 11/17/2024 Next appointment 05/25/2025 Patient Phone numbers: [phone] (home) Request is for script(s) to be escript to [facility] pharmacy. Yemi Clement LPN [facility] Instructions* Patient Instructions* Gopal Das MD - 11/17/2024 3:21 PM EDT Screening schedule The following prevention plan is recommended: Hepatitis C Screening Never done BP Controlled (<130/80) Never done DTaP,Tdap,Td Vaccine(1 - Tdap) Never done Pneumococcal Vaccine: 50+(1 of 2 - PCV) Never done Shingrix Vaccine(1 of 2) Never done Bone Density Screening due on 03/14/2020 RSV Vaccine(1 - 1-dose 75+ series) Never done Covid-19 Vaccine( season) Never done Advance Directive Discussion due on 07/16/2024 WHAT YOU CAN DO TO PREVENT FALLS Many falls can be prevented. By making some changes, you can lower your chances of falling. Four things YOU can do to prevent falls for you* and your caregiver 1. Begin a regular exercise program Exercise is one of the most important ways to lower your chances of falling. It makes you stronger and helps you feel better. Exercises that improve balance and coordination (like Wili Chi) are the most helpful. Lack of exercise leads to weakness and increases your chances of falling. Ask your doctor or health care provider about the best type of exercise program for you. 2. Have your health care provider review your medicines Have your doctor or pharmacist review all the medicines you take, even jgxw-rwa-vgucmje medicines. As you get older, the way medicines work in your body can change. Some medicines, or combinations of medicines, can make you sleepy or dizzy andcan cause you to fall. 3. Have your vision checked Have your eyes checked by an eye doctor at least once a year. You may be wearing the wrong glasses or have a condition like glaucoma or cataracts that limits your vision. Poor vision can increase your chances of falling. 4. Make your home safer About half of all falls happen at home. To make your home safer: Remove things you can trip over (like papers, books, clothes, and shoes) from stairs and places where you walk. Remove small throw rugs or use double-sided tape to keep the rugs from slipping. Keep items you use often in cabinets you can reach easily without using a step stool. Have grab bars put in next to your toilet and in the tub or shower. Use non-slip mats in the bathtub and on shower floors. Improve the lighting in your home. As you get older, you need brighter lights to see well. Hang light-weight curtains or shades to reduce glare. Have handrails and lights put in on all staircases. Wear shoes both inside and outside the house. Avoid going barefoot or wearing slippers. For more information, contact: Centers for Disease Control and Prevention www.cdc.gov/injury * This information may not apply if you have certain medical conditions. documented in [facility]Reg[facility]25 NoteHNO ID: [id number] Author: GOPAL DAS MD Service: ? Author Type: Physician Type: Progress Notes Filed: 11/17/2024 15:21 Note Text: Yulia Gallagher is a 79 year old female here for a Medicare wellness visit. Jenny Moreira is a 79-year-old female with a history of COPD and depression, presenting for a Medicare wellness visit, with additional concerns about constipation and skin lesions. Medicare Wellness Visit: COPD: - Currently using Trelegy and a rescue inhaler. - Reports using Trelegy only on bad days, with effects lasting 3-4 days. - Unclear on proper usage of Trelegy and rescue inhaler. Depression: - Mood is stable. - Managed with Paxil. Constipation: - Reports irregular bowel movements, with some days of no bowel movements and other days requiring straining. - Occasionally experiences very soft stools. - Uncertain if changes are related to decreased food intake. Skin Lesions: - Multiple skin lesions under the breasts, varying in color and size, with associated pruritus. - No current dermatology follow-up. Review of Systems GENERAL: No weight loss, malaise, or fevers. HEENT: Negative for frequent or significant headaches, changes in vision, or hearing; no nose bleeds or other nasal problems. NECK: Negative for lumps, goiter, pain, and significant neck swelling. RESPIRATORY: Negative for cough, dyspnea, or shortness of breath. CARDIOVASCULAR: Negative for chest pain, leg swelling, CHF, or palpitations. GI: Positive for occasional constipation and episodes of loose stool; negative for nausea, vomiting, heartburn, abdominal pain, blood in stool, or black stool. GENITOURINARY: No history of dysuria, frequency, or incontinence. MUSCULOSKELETAL: Negative for joint pain or swelling, or muscle pain; no back pain. SKIN: Positive for pruritic lesions (likely seborrheic keratoses) under the breasts; negative for other rashes or itching. PSYCH: Negative for anxiety or depression. HEMATOLOGY/LYMPHOLOGY: No bleeding concerns. NEURO: No history of headaches, syncope, paralysis, seizures, or tremors. ENDOCRINE: No history of polydipsia, increased thirst, or other endocrine symptoms. PAST SURGICAL HISTORY Procedure Laterality Date APPENDECTOMY 1962 CHOLECYSTECTOMY 1982 HYSTERECTOMY HX 1983 TONSILLECTOMY AND ADENOIDECTOMY HX 1951 PAST MEDICAL HISTORY Diagnosis Date Arthritis Benign essential hypertension COPD (chronic obstructive pulmonary disease) (HCC) Depression Disorder of esophagus Eczema Hyperlipemia Hypertension Hypothyroidism FAMILY HISTORY Problem Relation Age of Onset Hypertension Mother Hypertension Father Stroke Father Diabetes Father other (heart disease) Father Hypertension Sister Hypertension Brother Cancer Brother Social History Tobacco Use Smoking status: Former Current packs/day: 0.00 Average packs/day: 2.0 packs/day for 30.0 years (60.0 ttl pk-yrs) Types: Cigarettes Start date: 03/18/1974 Quit date: 03/18/2004 Years since quittin.6 Smokeless tobacco: Never Vaping Use Vaping status: Never Used Substance Use Topics Alcohol use: Not Currently Comment: occassionally Drug use: No ALLERGIES Allergen Reactions Levofloxacin Vomiting Codeine Hives MEDICATIONS: losartan (COZAAR) 100 mg tablet TAKE 1 TABLET BY MOUTH EVERY DAY levothyroxine (SYNTHROID) 125 mcg tablet Take 1 tablet by mouth daily before breakfast. rosuvastatin (CRESTOR) 10 mg tablet Take 1 tablet by mouth daily at bedtime. PARoxetine (PAXIL) 20 mg tablet Take 1 tablet by mouth once daily. odbclroydow-ursusvpbr-oedtwovh (TRELEGY ELLIPTA) 100-62.5-25 mcg inhalation powder Inhale 1 Puff as instructed once daily. albuterol HFA (PROVENTIL HFA, VENTOLIN HFA) 90 mcg/actuation inhaler inhale 2 puffs by mouth every 4 hours as needed triamcinolone acetonide (KENALOG) 0.1 % cream Apply to affected area as needed. naproxen sodium 220 mg cap Take by mouth as needed. Multivitamin capsule Take 1 capsule by mouth once daily. Cholecalciferol, Vitamin D3, 5,000 unit tab Take 5,000 Units by mouth once daily. CALCIUM CARBONATE/VITAMIN D3 (CALCIUM 600 + D ORAL) Take 2 tablets by mouth once daily. cyanocobalamin-salcaprozat sod 1,000 mcg tab Take 1 tablet by mouth once daily. coenzyme Q10 100 mg cap Take 200 mg by mouth once daily. [place]-3 Fatty Acids 300 mg cap Take 1 capsule by mouth once daily. ZINC/ASCORBIC ACID/PYRIDOXINE (ZINC LOZENGE ORAL) Take 1 Lozenge by mouth as needed. Allergies, past surgical history, family history and past medical history were reviewed per this encounter. Medications were reviewed and verified. 05/07/2024 11/17/2024 INTAKE PAIN ASSESSMENT Are you having pain associated with your visit today? No No If pain assessment is 0, no action needed. If pain assessment is positive, please see assessment and plain. Objective BP 136/72 (BP Site: Left Arm, BP Position: Sitting, BP Cuff Size: (more content not included)...[facility]05-05-2025 History of Present illness Narrative* Gopal Das MD - 11/17/2024 3:15 PM EDT Images from the original note were not included. Yulia Gallagher is a 79 year old female here for a Medicare wellness visit. Jenny Moreira is a 79-year-old female with a history of COPD and depression, presenting for a Medicare wellness visit, with additional concerns about constipation and skin lesions. Medicare Wellness Visit: COPD: - Currently using Trelegy and a rescue inhaler. - Reports using Trelegy only on bad days, with effects lasting 3-4 days. - Unclear on proper usage of Trelegy and rescue inhaler. Depression: - Mood is stable. - Managed with Paxil. Constipation: - Reports irregular bowel movements, with some days of no bowel movements and other days requiring straining. - Occasionally experiences very soft stools. - Uncertain if changes are related to decreased food intake. Skin Lesions: - Multiple skin lesions under the breasts, varying in color and size, with associated pruritus. - No current dermatology follow-up. Review of Systems GENERAL: No weight loss, malaise, or fevers. HEENT: Negative for frequent or significant headaches, changes in vision, or hearing; no nose bleeds or other nasal problems. NECK: Negative for lumps, goiter, pain, and significant neck swelling. RESPIRATORY: Negative for cough, dyspnea, or shortness of breath. CARDIOVASCULAR: Negative for chest pain, leg swelling, CHF, or palpitations. GI: Positive for occasional constipation and episodes of loose stool; negative for nausea, vomiting, heartburn, abdominal pain, blood in stool, or black stool. GENITOURINARY: No history of dysuria, frequency, or incontinence. MUSCULOSKELETAL: Negative for joint pain or swelling, or muscle pain; no back pain. SKIN: Positive for pruritic lesions (likely seborrheic keratoses) under the breasts; negative for other rashes or itching. PSYCH: Negative for anxiety or depression. HEMATOLOGY/LYMPHOLOGY: No bleeding concerns. NEURO: No history of headaches, syncope, paralysis, seizures, or tremors. ENDOCRINE: No history of polydipsia, increased thirst, or other endocrine symptoms. PAST SURGICAL HISTORY Procedure Laterality Date APPENDECTOMY 1962 CHOLECYSTECTOMY 1981 HYSTERECTOMY HX 1983 TONSILLECTOMY AND ADENOIDECTOMY HX 1951 PAST MEDICAL HISTORY Diagnosis Date Arthritis Benign essential hypertension COPD (chronic obstructive pulmonary disease) (HCC) Depression Disorder of esophagus Eczema Hyperlipemia Hypertension Hypothyroidism FAMILY HISTORY Problem Relation Age of Onset Hypertension Mother Hypertension Father Stroke Father Diabetes Father other (heart disease) Father Hypertension Sister Hypertension Brother Cancer Brother Social History Tobacco Use Smoking status: Former Current packs/day: 0.00 Average packs/day: 2.0 packs/day for 30.0 years (60.0 ttl pk-yrs) Types: Cigarettes Start date: 03/18/1974 Quit date: 03/18/2004 Years since quittin.6 Smokeless tobacco: Never Vaping Use Vaping status: Never Used Substance Use Topics Alcohol use: Not Currently Comment: occassionally Drug use: No ALLERGIES Allergen Reactions Levofloxacin Vomiting Codeine Hives MEDICATIONS: losartan (COZAAR) 100 mg tablet TAKE 1 TABLET BY MOUTH EVERY DAY levothyroxine (SYNTHROID) 125 mcg tablet Take 1 tablet by mouth daily before breakfast. rosuvastatin (CRESTOR) 10 mg tablet Take 1 tablet by mouth daily at bedtime. PARoxetine (PAXIL) 20 mg tablet Take 1 tablet by mouth once daily. aenuxcqbrgi-wclxvaxul-vkqiyrhe (TRELEGY ELLIPTA) 100-62.5-25 mcg inhalation powder Inhale 1 Puff asinstructed once daily. albuterol HFA (PROVENTIL HFA, VENTOLIN HFA) 90 mcg/actuation inhaler inhale 2 puffs by mouth every 4 hours as needed triamcinolone acetonide (KENALOG) 0.1 % cream Apply to affected area as needed. naproxen sodium 220 mg cap Take by mouth as needed. Multivitamin capsule Take 1 capsule by mouth once daily. Cholecalciferol, Vitamin D3, 5,000 unit tab Take 5,000 Units by mouth once daily. CALCIUM CARBONATE/VITAMIN D3 (CALCIUM 600 + D ORAL) Take 2 tablets by mouth once daily. cyanocobalamin-salcaprozat sod 1,000 mcg tab Take 1 tablet by mouth once daily. coenzyme Q10 100 mg cap Take 200 mg by mouth once daily. [place]-3 Fatty Acids 300 mg cap Take 1 capsule by mouth once daily. ZINC/ASCORBIC ACID/PYRIDOXINE (ZINC LOZENGE ORAL) Take 1 Lozenge by mouth as needed. Allergies, past surgical history, family history and past medical history were reviewed per this encounter. Medications were reviewed and verified. 05/07/2024 11/17/2024 INTAKE PAIN ASSESSMENT Are you having pain associated with your visit today? No No If pain assessment is 0, no action needed. If pain assessment is positive, please see assessment and plain. Objective BP 136/72 (BP Site: Left Arm, BP Position: Sitting, BP Cuff Size: Regular Adult) Pulse 92 Temp 36.4 C (97.5 F) (Temporal) Resp 16 Ht 165.1 cm (5' 5) Wt 70.7 kg (155 lb 12.8 oz) LMP 08/18/1983 SpO2 96% BMI 25.93 kg/m Physical Exam GENERAL: NAD, alert and oriented. SKIN: Unremarkable, no rash or skin lesions. HEAD: Normocephalic. EYES: PERRLA, EOMI, conjunctiva clear. EARS: External ears normal, canals clear, TM's normal. NOSE/SINUSES: Nares normal. Septum midline. OROPHARYNX: Lips, mucosa, and tongue normal, good dentition. No oral lesions noted. NECK: Supple, no lymphadenopathy, normal thyroid, no carotid bruits. LUNGS: Clear to auscultation bilaterally, no wheezes/rhonchi/rales. HEART: Regular rate and rhythm, no murmurs. No ectopy. EXTREMITIES: Normal, no deformities, no skin discoloration, no edema. NEURO: Awake, alert and oriented x3, cranial nerves II-XII grossly intact, normal gait, no involuntary motions. Procedures Assessment and Plan 1. Wellness examination (Z00.00) - Conducted Medicare wellness examination. - Ordered comprehensive lab work including CBC, CMP, lipid panel, and TSH. - Follow-up scheduled for May 25 at 1410. 2. Essential hypertension (I10) 3. Benign essential HTN (I10) - Blood pressure is well-controlled. 4. Chronic obstructive pulmonary disease, unspecified COPD type (HCC) (J44.9) - Currently using Trelegy and rescue inhaler. - Educated on the importance of daily use of Trelegy to prevent exacerbations; advised to use rescue inhaler as needed. 5. Gastroesophageal reflux disease without esophagitis (K21.9) - No current issues reported. 6. Hypothyroidism, unspecified type (E03.9) - Ordered TSH to monitor thyroid function. 7. Stage 3 chronic kidney disease, unspecified whether stage 3a or 3b CKD ([facility]) (N18.30) - No combination machine tool operator currently managing care. - Ordered CMP to assess renal function. 8. Anxiety associated with depression (F41.8) - Mood is stable on Paxil. 9. Screening for deficiency anemia (Z13.0) - Ordered CBC to screen for anemia. 10. Encounter for screening mammogram for malignant neoplasm of breast (Z12.31) - Discussed the importance of regular mammograms for early detection of breast cancer. - Ordered screening mammogram; patient advised to schedule at her convenience. 11. Mixed hyperlipidemia (E78.2) - Ordered lipid panel to monitor cholesterol levels. 12. Chronic constipation (K59.09) - Advised increased water intake and daily use of psyllium fiber (e.g., Metamucil) to regulate bowel movements. - Educated on potential initial cramping with fiber use. 13. Seborrheic keratoses (L82.1) - Multiple lesions noted, some pruritic. - Discussed benign nature of seborrheic keratoses. - Advised patient that treatment is not necessary unless desired for cosmetic reasons. Gopal Das MD 11/17/2024 Recording using [employer] software for draft documentation of the visit was discussed with the patient/authorized sales promotion representative; all questions welcomed and answered. Patient/authorized sales promotion representative agreed to proceed Medicare Health Risk Assessment General Health Exercise: Minutes/Day 0 min Exercise: Days/Week 0 days Alcohol: Daily Use Alcohol: Drinks/Day 1 or 2 Alcohol: 6 or more drinks Never Feel off balance Yes Concerns: Teeth/Dentures Yes (dentures are too big) Concerns: Sexual function No Troubled by feelings Anxious; Stressed Frequency: Eating healthy diet Several days ADLs requiring help Grocery shopping; Cooking; Housework Safety precautions in home/vehicle Yes Smoke, vape, chews tobacco No Difficulty hearing No Difficulty seeing Yes (due to allergies her eyes get blurry) Current Providers Specialists: I have reviewed specialist-related care of the patient in the medical record. Medical/Family history review Reviewed and updated problem list, medical/surgical/family/social history, medications, and allergies. Opioid use review Opioid Medications (last 90 days) No data to display Anxiety/Depression screening Recommendation: no further intervention at this time Cognitive screening Mini Cog Score: (P) 4 Cognitive screening reviewed and No further action needed (score 3-5). Functional Observation Was the patient's Timed Up & Go test unsteady or >= 12 seconds? No Advance Care Planning Patient did not wish or was not able to name a surrogate decision maker or provide an advance care plan Measurements BP 136/72 (BP Site: Left Arm, BP Position: Sitting, BP Cuff Size: Regular Adult) Pulse 92 Temp 36.4 C (97.5 F) (Temporal) Resp 16 Ht 165.1 cm (5' 5) Wt 70.7 kg (155 lb 12.8 oz) LMP 08/18/1983 SpO2 96% BMI 25.93 kg/m Vision Screening: Follows with optometry/ophthalmology Assessment/Plan Medicare annual wellness visit, subsequent (Z00.00) - Counseled on healthy diet and regular exercise - Fall avoidance information provided * Yemi Clement LPN - 11/17/2024 2:26 PM EDT Harish is here today for her annual Medicare wellness exam Hepatitis C Screening Never done BP Controlled (<130/80) Never done DTaP,Tdap,Td Vaccine(1 - Tdap) Never done Pneumococcal Vaccine: 50+(1 of 2 - PCV) Never done Shingrix Vaccine(1 of 2) Never done Bone Density Screening due on 03/14/2020 RSV Vaccine(1 - 1-dose 75+ series) Never done Covid-19 Vaccine( - season) Never done Advance Directive Discussion due on 07/16/2024 Patient declines all of the above vaccines No refills needed Yemi Clement LPN November 17, 2024 2:41 PM [facility]25 NoteHNO ID: [id number] Author: YEMI CLEMENT LPN Service: ? Author Type: LICENSED NURSE Type: Progress Notes Filed: 11/17/2024 15:21 Note Text: Harish is here today for her annual Medicare wellness exam Hepatitis C Screening Never done BP Controlled (<130/80) Never done DTaP,Tdap,Td Vaccine(1 - Tdap) Never done Pneumococcal Vaccine: 50+(1 of 2 - PCV) Never done Shingrix Vaccine(1 of 2) Never done Bone Density Screening due on 03/14/2020 RSV Vaccine(1 - 1-dose 75+ series) Never done Covid-19 Vaccine( season) Never done Advance Directive Discussion due on 07/16/2024 Patient declines all of the above vaccines No refills needed Yemi Clement LPN November 17, 2024 2:41 [facility] Note* Telephone Encounter - Farrah Hyman LPN - 07/10/2024 8:29 AM EST Last Office Visit: 05-07-2024 Next Scheduled Office Visit: 11-10-2024 Requested Prescriptions Pending Prescriptions Disp Refills losartan (COZAAR) 100 mg tablet [Pharmacy Med Name: LOSARTAN POTASSIUM 100 MG TAB] 90 tablet 3 Sig: TAKE 1 TABLET BY MOUTH EVERY DAY Farrah Hyman LPN July 10, 2024 8:29 AM [facility]12-26-2024 Miscellaneous Notes* Telephone Encounter - Farrah Hyman LPN - 07/10/2024 8:29 AM EST Last Office Visit: 05-07-2024 Next Scheduled Office Visit: 11-10-2024 Requested Prescriptions Pending Prescriptions Disp Refills losartan (COZAAR) 100 mg tablet [Pharmacy Med Name: LOSARTAN POTASSIUM 100 MG TAB] 90 tablet 3 Sig: TAKE 1 TABLET BY MOUTH EVERY DAY Farrah Hyman LPN July 10, 2024 8:29 AM documented in [facility] encounterReg[facility]-2024 NoteHNO ID: [id number] Author: GOPAL DAS MD Service: ? Author Type: Physician Type: Progress Notes Filed: 05/17/2024 15:32 Note Text: Jenny Gallagher is a 79 year old female.The patient presents today for follow-up for multiple medical problems. See list. Her chronic medical problems have been stable. Her blood pressure is under good control. She has no new complaints today. She is feeling well. Review of Systems Constitutional: Negative. HENT: Negative. Eyes: Negative. Respiratory: Negative. Cardiovascular: Negative. Gastrointestinal: Negative. Endocrine: Negative. Genitourinary: Negative. Musculoskeletal: Negative. Skin: Negative. Allergic/Immunologic: Negative. Neurological: Negative. Hematological: Negative. Psychiatric/Behavioral: Negative. PAST SURGICAL HISTORY Procedure Laterality Date APPENDECTOMY 1962 CHOLECYSTECTOMY 1982 HYSTERECTOMY HX 1983 TONSILLECTOMY AND ADENOIDECTOMY HX 1951 PAST MEDICAL HISTORY Diagnosis Date Arthritis Benign essential hypertension COPD (chronic obstructive pulmonary disease) (HCC) Depression Disorder of esophagus Eczema Hyperlipemia Hypertension Hypothyroidism FAMILY HISTORY Problem Relation Age of Onset Hypertension Mother Hypertension Father Stroke Father Diabetes Father other (heart disease) Father Hypertension Sister Hypertension Brother Cancer Brother Social History Tobacco Use Smoking status: Former Current packs/day: 0.00 Average packs/day: 2.0 packs/day for 30.0 years (60.0 ttl pk-yrs) Types: Cigarettes Start date: 03/18/1974 Quit date: 03/18/2004 Years since quittin.1 Smokeless tobacco: Never Vaping Use Vaping status: Never Used Substance Use Topics Alcohol use: Not Currently Comment: occassionally Drug use: No ALLERGIES Allergen Reactions Levofloxacin Vomiting Codeine Hives MEDICATIONS: levothyroxine (SYNTHROID) 125 mcg tablet Take 1 tablet by mouth daily before breakfast. rosuvastatin (CRESTOR) 10 mg tablet Take 1 tablet by mouth daily at bedtime. PARoxetine (PAXIL) 20 mg tablet Take 1 tablet by mouth once daily. tbzhyhllxhn-pesyniidz-rsqprwni (TRELEGY ELLIPTA) 100-62.5-25 mcg inhalation powder Inhale 1 Puff as instructed once daily. losartan (COZAAR) 100 mg tablet take 1 tablet by mouth every day albuterol HFA (PROVENTIL HFA, VENTOLIN HFA) 90 mcg/actuation inhaler inhale 2 puffs by mouth every 4 hours as needed triamcinolone acetonide (KENALOG) 0.1 % cream Apply to affected area as needed. naproxen sodium 220 mg cap Take by mouth as needed. Multivitamin capsule Take 1 capsule by mouth once daily. Cholecalciferol, Vitamin D3, 5,000 unit tab Take 5,000 Units by mouth once daily. CALCIUM CARBONATE/VITAMIN D3 (CALCIUM 600 + D ORAL) Take 2 tablets by mouth once daily. cyanocobalamin-salcaprozat sod 1,000 mcg tab Take 1 tablet by mouth once daily. coenzyme Q10 100 mg cap Take 200 mg by mouth once daily. [place]-3 Fatty Acids 300 mg cap Take 1 capsule by mouth once daily. ZINC/ASCORBIC ACID/PYRIDOXINE (ZINC LOZENGE ORAL) Take 1 Lozenge by mouth as needed. ALPRAZolam (XANAX) 0.5 mg tablet Take 1 tablet by mouth three times a day as needed for anxiety for up to 90 days. Allergies, past surgical history, family history and past medical history were reviewed per this encounter. Medications were reviewed and verified. 11/05/2023 05/07/2024 INTAKE PAIN ASSESSMENT Are you having pain associated with your visit today? No No If pain assessment is 0, no action needed. If pain assessment is positive, please see assessment and plain. Objective BP 132/80 (BP Site: Left Arm, BP Position: Sitting, BP Cuff Size: Regular Adult) Pulse 62 Temp 36.4 ?C (97.6 ?F) (Temporal) Resp 18 Ht 165.1 cm (5' 5) Wt 75.3 kg (166 lb) LMP 08/18/1983 SpO2 97% BMI 27.62 kg/m? Physical Exam Vitals reviewed. Constitutional: Appearance: [...] Assessment and Plan Encounter Diagnosis ICD-10-CM 1. Benign essential HTN I10 COMPREHENSIVE METABOLIC PANEL Blood pressure improve (more content not included)...[facility] 05-17-[facility] History of Present illness Narrative* Gopal Das MD - 05/17/2024 3:29 PM EDT Subjective Yulia Gallagher is a 79 year old female.The patient presents today for follow-up for multiple medical problems. See list. Her chronic medical problems have been stable. Her blood pressure is under good control. She has no new complaints today. She is feeling well. Review of Systems Constitutional: Negative. HENT: Negative. Eyes: Negative. Respiratory: Negative. Cardiovascular: Negative. Gastrointestinal: Negative. Endocrine: Negative. Genitourinary: Negative. Musculoskeletal: Negative. Skin: Negative. Allergic/Immunologic: Negative. Neurological: Negative. Hematological: Negative. Psychiatric/Behavioral: Negative. PAST SURGICAL HISTORY Procedure Laterality Date APPENDECTOMY 1963 CHOLECYSTECTOMY 1982 HYSTERECTOMY HX 1984 TONSILLECTOMY AND ADENOIDECTOMY HX 1951 PAST MEDICAL HISTORY Diagnosis Date Arthritis Benign essential hypertension COPD (chronic obstructive pulmonary disease) (HCC) Depression Disorder of esophagus Eczema Hyperlipemia Hypertension Hypothyroidism FAMILY HISTORY Problem Relation Age of Onset Hypertension Mother Hypertension Father Stroke Father Diabetes Father other (heart disease) Father Hypertension Sister Hypertension Brother Cancer Brother Social History Tobacco Use Smoking status: Former Current packs/day: 0.00 Average packs/day: 2.0 packs/day for 30.0 years (60.0 ttl pk-yrs) Types: Cigarettes Start date: 03/18/1974 Quit date: 03/18/2004 Years since quittin.1 Smokeless tobacco: Never Vaping Use Vaping status: Never Used Substance Use Topics Alcohol use: Not Currently Comment: occassionally Drug use: No ALLERGIES Allergen Reactions Levofloxacin Vomiting Codeine Hives MEDICATIONS: levothyroxine (SYNTHROID) 125 mcg tablet Take 1 tablet by mouth daily before breakfast. rosuvastatin (CRESTOR) 10 mg tablet Take 1 tablet by mouth daily at bedtime. PARoxetine (PAXIL) 20 mg tablet Take 1 tablet by mouth once daily. dteijsijwae-powgxkizy-obuhiuwg (TRELEGY ELLIPTA) 100-62.5-25 mcg inhalation powder Inhale 1 Puff asinstructed once daily. losartan (COZAAR) 100 mg tablet take 1 tablet by mouth every day albuterol HFA (PROVENTIL HFA, VENTOLIN HFA) 90 mcg/actuation inhaler inhale 2 puffs by mouth every 4 hours as needed triamcinolone acetonide (KENALOG) 0.1 % cream Apply to affected area as needed. naproxen sodium 220 mg cap Take by mouth as needed. Multivitamin capsule Take 1 capsule by mouth once daily. Cholecalciferol, Vitamin D3, 5,000 unit tab Take 5,000 Units by mouth once daily. CALCIUM CARBONATE/VITAMIN D3 (CALCIUM 600 + D ORAL) Take 2 tablets by mouth once daily. cyanocobalamin-salcaprozat sod 1,000 mcg tab Take 1 tablet by mouth once daily. coenzyme Q10 100 mg cap Take 200 mg by mouth once daily. [place]-3 Fatty Acids 300 mg cap Take 1 capsule by mouth once daily. ZINC/ASCORBIC ACID/PYRIDOXINE (ZINC LOZENGE ORAL) Take 1 Lozenge by mouth as needed. ALPRAZolam (XANAX) 0.5 mg tablet Take 1 tablet by mouth three times a day as needed for anxiety forup to 90 days. Allergies, past surgical history, family history and past medical history were reviewed per this encounter. Medications were reviewed and verified. 11/05/2023 05/07/2024 INTAKE PAIN ASSESSMENT Are you having pain associated with your visit today? No No If pain assessment is 0, no action needed. If pain assessment is positive, please see assessment and plain. Objective BP 132/80 (BP Site: Left Arm, BP Position: Sitting, BP Cuff Size: Regular Adult) Pulse 62 Temp 36.4 C (97.6 F) (Temporal) Resp 18 Ht 165.1 cm (5' 5) Wt 75.3 kg (166 lb) LMP 08/18/1983 SpO2 97% BMI 27.62 kg/m Physical Exam Vitals reviewed. Constitutional: Appearance: [...] Assessment and Plan Encounter Diagnosis ICD-10-CM 1. Benign essential HTN I10 COMPREHENSIVE METABOLIC PANEL Blood pressure improved and stable on current regimen. Continue present medications. 2. Pure hypercholesterolemia E78.00 COMPREHENSIVE METABOLIC PANEL LIPID PANEL BASIC Improved and stable on current medication. Check lipids 3. Acquired hypothyroidism E03.9 THYROID STIMULATING HORMONE Stable on current medication 4. Stage 3 chronic kidney disease, unspecified whether stage 3a or 3b CKD (HCC) N18.30 COMPREHENSIVE METABOLIC PANEL Stable 5. Screening for deficiency anemia Z13.0 COMPLETE BLOOD COUNT AND DIFFERENTIAL 6. Anxiety F41.9 ALPRAZolam (XANAX) 0.5 mg tablet Stable 7. Chronic obstructive pulmonary disease, unspecified COPD type (HCC) J44.9 Stable on current medication Continue present medications. Check labs as above. Monitor blood pressure regularly. Exercise as tolerated. Maintain good diet. Follow-up in 6 months. Gopal Das MD * Farrah Hyman LPN - 05/07/2024 2:30 PM EDT Patient is in office for 6 month exam. Patient has no current complaints or concerns. No refills needed Farrah Hyman LPN May 07, 2024 2:35 PM documented in [facility] encounterReg[facility]24 NoteHNO ID: [id number] Author: FARRAH HYMAN LPN Service: ? Author Type: LICENSED NURSE Type: Progress Notes Filed: 05/17/2024 15:32 Note Text: Patient is in office for 6 month exam. Patient has no current complaints or concerns. No refills needed Farrah Hyman LPN May 07, 2024 2:35 [facility] NoteHNO ID: [id number] Author: GOPAL DAS MD Service: ? Author Type: Physician Type: Progress Notes Filed: 01/14/2024 14:14 Note Text: Subjective Yulia Gallagher is a 78 year old female. Yulia presents today for follow-up for lab work. Lab work showed TSH was elevated. Her current dose of Synthroid is 112 mcg. She is compliant with her medications and is taking it properly. Additionally her potassium was high at 5.6. Most likely due to hemolyzed specimen. It will need rechecked. She also had LDL over 200. She has refused medicine prior to today due to her having had severe side effect from statin. Patiently she complains of shoulder pain bilaterally today. Review of Systems Constitutional: Negative. HENT: Negative. Eyes: Negative. Respiratory: Negative. Cardiovascular: Negative. Gastrointestinal: Negative. Endocrine: Negative. Genitourinary: Negative. Musculoskeletal: Negative. Skin: Negative. Allergic/Immunologic: Negative. Neurological: Negative. Hematological: Negative. Psychiatric/Behavioral: Negative. PAST SURGICAL HISTORY Procedure Laterality Date APPENDECTOMY 1963 CHOLECYSTECTOMY 1982 HYSTERECTOMY HX 1984 TONSILLECTOMY AND ADENOIDECTOMY HX 1951 PAST MEDICAL HISTORY Diagnosis Date Arthritis Benign essential hypertension COPD (chronic obstructive pulmonary disease) (HCC) Depression Disorder of esophagus Eczema Hyperlipemia Hypertension Hypothyroidism FAMILY HISTORY Problem Relation Age of Onset Hypertension Mother Hypertension Father Stroke Father Diabetes Father other (heart disease) Father Hypertension Sister Hypertension Brother Cancer Brother Social History Tobacco Use Smoking status: Former Packs/day: 2.00 Years: 30.00 Additional pack years: 0.00 Total pack years: 60.00 Types: Cigarettes Quit date: 03/18/2004 Years since quittin.8 Smokeless tobacco: Never Vaping Use Vaping Use: Never used Substance Use Topics Alcohol use: Not Currently Comment: occassionally Drug use: No ALLERGIES Allergen Reactions Levofloxacin Vomiting Codeine Hives MEDICATIONS: ALPRAZolam (XANAX) 0.5 mg tablet Take 0.5 mg by mouth three times a day as needed for anxiety. PARoxetine (PAXIL) 20 mg tablet Take 1 tablet by mouth once daily. egplhnyvepe-kuzzrrvin-crfxmsdf (TRELEGY ELLIPTA) 100-62.5-25 mcg inhalation powder Inhale 1 Puff as instructed once daily. losartan (COZAAR) 100 mg tablet take 1 tablet by mouth every day albuterol HFA (PROVENTIL HFA, VENTOLIN HFA) 90 mcg/actuation inhaler inhale 2 puffs by mouth every 4 hours as needed triamcinolone acetonide (KENALOG) 0.1 % cream Apply to affected area as needed. naproxen sodium 220 mg cap Take by mouth as needed. cyanocobalamin-salcaprozat sod 1,000 mcg tab Take 1 tablet by mouth once daily. levothyroxine (SYNTHROID) 125 mcg tablet Take 1 tablet by mouth daily before breakfast. rosuvastatin (CRESTOR) 10 mg tablet Take 1 tablet by mouth daily at bedtime. Multivitamin capsule Take 1 capsule by mouth once daily. (Patient not taking: Reported on 01/14/2024) Cholecalciferol, Vitamin D3, 5,000 unit tab Take 5,000 Units by mouth once daily. (Patient not taking: Reported on 01/14/2024) CALCIUM CARBONATE/VITAMIN D3 (CALCIUM 600 + D ORAL) Take 2 tablets by mouth once daily. (Patient not taking: Reported on 01/14/2024) coenzyme Q10 100 mg cap Take 200 mg by mouth once daily. (Patient not taking: Reported on 01/14/2024) [place]-3 Fatty Acids 300 mg cap Take 1 capsule by mouth once daily. (Patient not taking: Reported on 01/14/2024) ZINC/ASCORBIC ACID/PYRIDOXINE (ZINC LOZENGE ORAL) Take 1 Lozenge by mouth as needed. (Patient not taking: Reported on 01/14/2024) Allergies, past surgical history, family history and past medical history were reviewed per this encounter. Medications were reviewed and verified. Objective BP 122/68 (BP Site: Left Arm, BP Position: Sitting, BP Cuff Size: Regular Adult) Pulse 80 Resp 18 Wt 74.9 kg (165 lb 3.2 oz) LMP 08/18/1983 BMI 27.49 kg/m? Physical Exam Vitals reviewed. Constitutional: Appearance: [...] time. Mental status is at baseline. Psychiatric: M (more content not included)...[facility]07-01-[facility] History of Present illness Narrative* Gopal Das MD - 01/14/2024 2:09 PM EDT Subjective Yulia Gallagher is a 78 year old female. Yulia presents today for follow- up for lab work. Labwork showed TSH was elevated. Her current dose of Synthroid is 112 mcg. She is compliant with her medications and is taking it properly. Additionally her potassium was high at 5.6. Most likely due tohemolyzed specimen. It will need rechecked. She also had LDL over 200. She has refused medicine prior to today due to her having had severe side effect from statin. Patiently she complains ofshoulder pain bilaterally today. Review of Systems Constitutional: Negative. HENT: Negative. Eyes: Negative. Respiratory: Negative. Cardiovascular: Negative. Gastrointestinal: Negative. Endocrine: Negative. Genitourinary: Negative. Musculoskeletal: Negative. Skin: Negative. Allergic/Immunologic: Negative. Neurological: Negative. Hematological: Negative. Psychiatric/Behavioral: Negative. PAST SURGICAL HISTORY Procedure Laterality Date APPENDECTOMY 1963 CHOLECYSTECTOMY 1982 HYSTERECTOMY HX 1984 TONSILLECTOMY AND ADENOIDECTOMY HX 1951 PAST MEDICAL HISTORY Diagnosis Date Arthritis Benign essential hypertension COPD (chronic obstructive pulmonary disease) (HCC) Depression Disorder of esophagus Eczema Hyperlipemia Hypertension Hypothyroidism FAMILY HISTORY Problem Relation Age of Onset Hypertension Mother Hypertension Father Stroke Father Diabetes Father other (heart disease) Father Hypertension Sister Hypertension Brother Cancer Brother Social History Tobacco Use Smoking status: Former Packs/day: 2.00 Years: 30.00 Additional pack years: 0.00 Total pack years: 60.00 Types: Cigarettes Quit date: 03/18/2004 Years since quittin.8 Smokeless tobacco: Never Vaping Use Vaping Use: Never used Substance Use Topics Alcohol use: Not Currently Comment: occassionally Drug use: No ALLERGIES Allergen Reactions Levofloxacin Vomiting Codeine Hives MEDICATIONS: ALPRAZolam (XANAX) 0.5 mg tablet Take 0.5 mg by mouth three times a day as needed for anxiety. PARoxetine (PAXIL) 20 mg tablet Take 1 tablet by mouth once daily. lrevdqzvqks-rqczdothh-vdsvvqmk (TRELEGY ELLIPTA) 100-62.5-25 mcg inhalation powder Inhale 1 Puff asinstructed once daily. losartan (COZAAR) 100 mg tablet take 1 tablet by mouth every day albuterol HFA (PROVENTIL HFA, VENTOLIN HFA) 90 mcg/actuation inhaler inhale 2 puffs by mouth every 4 hours as needed triamcinolone acetonide (KENALOG) 0.1 % cream Apply to affected area as needed. naproxen sodium 220 mg cap Take by mouth as needed. cyanocobalamin-salcaprozat sod 1,000 mcg tab Take 1 tablet by mouth once daily. levothyroxine (SYNTHROID) 125 mcg tablet Take 1 tablet by mouth daily before breakfast. rosuvastatin (CRESTOR) 10 mg tablet Take 1 tablet by mouth daily at bedtime. Multivitamin capsule Take 1 capsule by mouth once daily. (Patient not taking: Reported on 01/14/2024) Cholecalciferol, Vitamin D3, 5,000 unit tab Take 5,000 Units by mouth once daily. (Patient not taking: Reported on 01/14/2024) CALCIUM CARBONATE/VITAMIN D3 (CALCIUM 600 + D ORAL) Take 2 tablets by mouth once daily. (Patient not taking: Reported on 01/14/2024) coenzyme Q10 100 mg cap Take 200 mg by mouth once daily. (Patient not taking: Reported on 01/14/2024) [place]-3 Fatty Acids 300 mg cap Take 1 capsule by mouth once daily. (Patient not taking: Reported on01/14/2024) ZINC/ASCORBIC ACID/PYRIDOXINE (ZINC LOZENGE ORAL) Take 1 Lozenge by mouth as needed. (Patient not taking: Reported on 01/14/2024) Allergies, past surgical history, family history and past medical history were reviewed per this encounter. Medications were reviewed and verified. Objective BP 122/68 (BP Site: Left Arm, BP Position: Sitting, BP Cuff Size: Regular Adult) Pulse 80 Resp 18 Wt 74.9 kg (165 lb 3.2 oz) LMP 08/18/1983 BMI 27.49 kg/m Physical Exam Vitals reviewed. Constitutional: Appearance: [...] Assessment and Plan Encounter Diagnosis ICD-10-CM 1. Serum potassium elevated E87.5 BASIC METABOLIC PANEL 2. Polyarthritis M13.0 SEDIMENTATION RATE, [place] 3. Acquired hypothyroidism E03.9 THYROID STIMULATING HORMONE 4. Pure hypercholesterolemia E78.00 5. Hyperkalemia E87.5 Recheck potassium level. Check sed rate. Increase Synthroid to 125 mcg daily. Begin Crestor 10 mg daily. Recheck labs in 3 months. Gopal Das MD * Skyla Rain LPN - 01/14/2024 1:40 PM EDT Patient in the office today to discuss recent lab results completed on 01/07/2024. documented in this encounterReg[facility]24 NoteHNO ID: [id number] Author: SKYLA RAIN LPN Service: ? Author Type: LICENSED NURSE Type: Progress Notes Filed: 01/14/2024 14:14 Note Text: Patient in the office today to discuss recent lab results completed on 01/07/2024.[facility]06-26-2024 Telephone encounter Note* Telephone Encounter - Cindy Norwood - 01/09/2024 8:32 AM EDT Yulia returned the phone call to the [place] office. I scheduled an office visit to for her to follow up with Dr. Das on January 13 at 1:40 pm. Cindy Phillip January 09, 2024 8:33 AM [facility]06-26-2024 Miscellaneous Notes* Telephone Encounter - Cindy Norwood - 01/09/2024 8:32 AM EDT Yulia returned the phone call to the [place] office. I scheduled an office visit to for her to follow up with Dr. Das on January 13 at 1:40 pm. Cindy Phillip January 09, 2024 8:33 AM * Telephone Encounter - Farrah Hyman LPN - 01/08/2024 3:53 PM EDT Message left for patient to phone office at earliest convenience in regards to results. Farrah Hyman LPN January 08, 2024 3:53 PM * Telephone Encounter - Farrah Hyman LPN - 01/08/2024 3:53 PM EDT ----- Message from Gopal Das MD sent at 01/08/2024 3:40 PM EDT ----- Schedule follow-up to discuss results documented in this encounterReg[facility]06-25-2024 Telephone encounter Note * Telephone Encounter - Farrah Hyman LPN - 01/08/2024 3:53 PM EDT Message left for patient to phone office at earliest convenience in regards to results. Farrah Hmyan LPN January 08, 2024 3:53 PM [facility]06-25-2024 Telephone encounter Note* Telephone Encounter - Farrah Hyman LPN - 01/08/2024 3:53 PM EDT ----- Message from Gopal Das MD sent at 01/08/2024 3:40 PM EDT ----- Schedule follow-up to discuss results [facility]04-28-2024 Instructions* Patient Instructions* Gopal Das MD - 11/11/2023 5:43 PM EDT Screening schedule The following prevention plan is recommended: Pneumococcal Vaccine: 65+(1 of 2 - PCV) Never done Spirometry Never done Hepatitis C Screening Never done BP Controlled (<130/80) Never done DTaP,Tdap,Td Vaccine(1 - Tdap) Never done Shingrix Vaccine(1 of 2) Never done RSV Vaccine(1 - 1-dose 60+ series) Never done Bone Density Screening due on 03/14/2020 Covid-19 Vaccine( - 2022- season) Never done Serum Creatinine due on 09/29/2023 Hemoglobin/Hematocrit due on 09/29/2023 WHAT YOU CAN DO TO PREVENT FALLS Many falls can be prevented. By making some changes, you can lower your chances of falling. Four things YOU can do to prevent falls for you* and your caregiver 1. Begin a regular exercise program Exercise is one of the most important ways to lower your chances of falling. It makes you stronger and helps you feel better. Exercises that improve balance and coordination (like Wili Chi) are the most helpful. Lack of exercise leads to weakness and increases your chances of falling. Ask your doctor or health care provider about the best type of exercise program for you. 2. Have your health care provider review your medicines Have your doctor or pharmacist review all the medicines you take, even [id number] medicines. As you get older, the way medicines work in your body can change. Some medicines, or combinations of medicines, can make you sleepy or dizzy andcan cause you to fall. 3. Have your vision checked Have your eyes checked by an eye doctor at least once a year. You may be wearing the wrong glasses or have a condition like glaucoma or cataracts that limits your vision. Poor vision can increase your chances of falling. 4. Make your home safer About half of all falls happen at home. To make your home safer: Remove things you can trip over (like papers, books, clothes, and shoes) from stairs and places where you walk. Remove small throw rugs or use double-sided tape to keep the rugs from slipping. Keep items you use often in cabinets you can reach easily without using a step stool. Have grab bars put in next to your toilet and in the tub or shower. Use non-slip mats in the bathtub and on shower floors. Improve the lighting in your home. As you get older, you need brighter lights to see well. Hang light-weight curtains or shades to reduce glare. Have handrails and lights put in on all staircases. Wear shoes both inside and outside the house. Avoid going barefoot or wearing slippers. For more information, contact: Centers for Disease Control and Prevention www.cdc.gov/injury * This information may not apply if you have certain medical conditions. documented in this encounterReg[facility]-22-2024 History of Present illness Narrative* Gopal Das MD - 11/05/2023 4:23 PM EDT Images from the original note were not included. Subjective Yulia Gallagher is a 78 year old female. Yulia presents today for her Medicare wellness visit.Additionally she follows up for multiple medical problems. See list. Her chronic medical problems been stable. Her blood pressure is under good control on her current regimen. Review of Systems Constitutional: Negative. HENT: Negative. Eyes: Negative. Respiratory: Negative. Cardiovascular: Negative. Gastrointestinal: Negative. Endocrine: Negative. Genitourinary: Negative. Musculoskeletal: Negative. Skin: Negative. Allergic/Immunologic: Negative. Neurological: Negative. Hematological: Negative. Psychiatric/Behavioral: Negative. PAST SURGICAL HISTORY Procedure Laterality Date APPENDECTOMY 1963 CHOLECYSTECTOMY 1982 HYSTERECTOMY HX 1983 TONSILLECTOMY AND ADENOIDECTOMY HX 1951 PAST MEDICAL HISTORY Diagnosis Date Arthritis Benign essential hypertension COPD (chronic obstructive pulmonary disease) (HCC) Depression Disorder of esophagus Eczema Hyperlipemia Hypertension Hypothyroidism FAMILY HISTORY Problem Relation Age of Onset Hypertension Mother Hypertension Father Stroke Father Diabetes Father other (heart disease) Father Hypertension Sister Hypertension Brother Cancer Brother Social History Tobacco Use Smoking status: Former Packs/day: 2.00 Years: 30.00 Additional pack years: 0.00 Total pack years: 60.00 Types: Cigarettes Quit date: 03/18/2004 Years since quittin.6 Smokeless tobacco: Never Vaping Use Vaping Use: Never used Substance Use Topics Alcohol use: Not Currently Comment: occassionally Drug use: No ALLERGIES Allergen Reactions Levofloxacin Vomiting Codeine Hives MEDICATIONS: losartan (COZAAR) 100 mg tablet take 1 tablet by mouth every day albuterol HFA (PROVENTIL HFA, VENTOLIN HFA) 90 mcg/actuation inhaler inhale 2 puffs by mouth every 4 hours as needed levothyroxine (SYNTHROID) 112 mcg tablet Take 1 tablet by mouth daily before breakfast. triamcinolone acetonide (KENALOG) 0.1 % cream Apply to affected area as needed. naproxen sodium 220 mg cap Take by mouth as needed. Multivitamin capsule Take 1 capsule by mouth once daily. Cholecalciferol, Vitamin D3, 5,000 unit tab Take 5,000 Units by mouth once daily. CALCIUM CARBONATE/VITAMIN D3 (CALCIUM 600 + D ORAL) Take 2 tablets by mouth once daily. cyanocobalamin-salcaprozat sod 1,000 mcg tab Take 1 tablet by mouth once daily. coenzyme Q10 100 mg cap Take 200 mg by mouth once daily. [place]-3 Fatty Acids 300 mg cap Take 1 capsule by mouth once daily. ZINC/ASCORBIC ACID/PYRIDOXINE (ZINC LOZENGE ORAL) Take 1 Lozenge by mouth as needed. PARoxetine (PAXIL) 20 mg tablet Take 1 tablet by mouth once daily. cnaniuvvlqx-mcxcayqaq-swjhafeb (TRELEGY ELLIPTA) 100-62.5-25 mcg inhalation powder Inhale 1 Puff asinstructed once daily. Allergies, past surgical history, family history and past medical history were reviewed per this encounter. Medications were reviewed and verified. Objective BP 136/72 (BP Site: Left Arm, BP Position: Sitting, BP Cuff Size: Large Adult) Pulse 62 Temp 36.6 C (97.9 F) (Temporal) Resp 15 Ht 165.1 cm (5' 5) Wt 73.9 kg (163 lb) LMP 08/18/1983 SpO2 95% BMI 27.12 kg/m Physical Exam Vitals reviewed. Constitutional: Appearance: [...] Assessment and Plan Encounter Diagnosis ICD-10-CM 1. Wellness examination Z00.00 2. Advance care planning Z71.89 ADVANCE CARE PLAN DISCUSSION 3. Chronic obstructive pulmonary disease, unspecified (HCC) J44.9 oktptvjpcyw-gjpxsexxk-icrqigyg (TRELEGY ELLIPTA) 100-62.5-25 mcg inhalation powder 4. Acquired hypothyroidism E03.9 THYROID STIMULATING HORMONE 5. Stage 3 chronic kidney disease, unspecified whether stage 3a or 3b CKD (HCC) N18.30 COMPREHENSIVE METABOLIC PANEL 6. Benign essential HTN I10 COMPREHENSIVE METABOLIC PANEL 7. Pure hypercholesterolemia E78.00 COMPREHENSIVE METABOLIC PANEL LIPID PANEL BASIC 8. Screening for deficiency anemia Z13.0 COMPLETE BLOOD COUNT AND DIFFERENTIAL 9. Encounter for screening mammogram for malignant neoplasm of breast Z12.31 MAYA SCREENING All open preventative health maintenance topics discussed with patient in detail. This includes risks and benefits regarding vaccines, cancer screening, healthy life style, and diet. Continue present medications. Check labs as above. Monitor blood pressure regularly. Exercise as tolerated. Maintain good diet. Follow-up in 6 months. Medicare Health Risk Assessment General Health Fair Exercise: Minutes/Day 0 min Exercise: Days/Week 0 days Alcohol: Daily Use Never Alcohol: Drinks/Day Patient does not drink Alcohol: 6 or more drinks Never Feel off balance Yes (scooter but does not use) Concerns: Teeth/Dentures No Concerns: Sexual function No Troubled by feelings None of the above Frequency: Eating healthy diet Nearly every day ADLs requiring help None of the above Safety precautions in home/vehicle No Smoke, vape, chews tobacco No Difficulty hearing No Difficulty seeing No Current Providers Specialists: I have reviewed specialist-related care of the patient in the medical record. Medical/Family history review Reviewed and updated problem list, medical/surgical/family/social history, medications, and allergies. Opioid use review Opioid Medications (last 90 days) No data to display Depression screening Depression Screening PHQ-2 Score 11/05/2023 0 Depression screening tool completed and reviewed. Based on score and interview, patient is not at risk for depression. Screening tool discussed with patient, and I recommended no further interventionat this time. Cognitive screening Mini Cog Score: 5 Cognitive screening reviewed and No further action needed (score 3-5). Functional Observation Was the patient's Timed Up & Go test unsteady or ? 12 seconds? No Advance Care Planning Surrogate decision maker documented and/or advance directives scanned in chart Measurements BP 136/72 Pulse 62 Temp (Src) 97.9 (Temporal) Resp 15 Ht 5' 5 (1.65m) Wt 163 lb (73.9kg) SpO2 95% LMP 08/18/1983 BMI 27.12 kg/(m^2). Vision Screening: Follows with optometry/ophthalmology Assessment/Plan Medicare annual wellness visit, subsequent (Z00.00) - Counseled on healthy diet and regular exercise - Fall avoidance information provided - Personalized prevention plan provided * Skyla Rain LPN - 11/05/2023 3:44 PM EDT Patient in the office today for an annual Medicare Wellness exam. No refills needed today. Health Maintenance Due: Pneumococcal Vaccine: 65+(1 of 2 - PCV) Spirometry Hepatitis C Screening BP Controlled (<130/80) DTaP,Tdap,Td Vaccine(1 - Tdap) Shingrix Vaccine(1 of 2) RSV Vaccine(1 - 1-dose 60+ series) Covid-19 Vaccine( - 2022- season) Advance Directive Discussion done Serum Creatinine Hemoglobin/Hematocrit Refills entered. Skyla Rain LPN November 05, 2023 4:16 PM documented in this encounterRegency [facility]02-19-2024 Miscellaneous Notes* Telephone Encounter - Farrah Hyman LPN - 09/03/2023 1:16 PM EST Last Office Visit: 04-16-2023 Next Scheduled Office Visit: 09-24-2023 Requested Prescriptions Pending Prescriptions Disp Refills albuterol HFA (PROVENTIL HFA, VENTOLIN HFA) 90 mcg/actuation inhaler [Pharmacy Med Name: ALBUTEROL HFA (PROAIR) INHALER] 25.5 Each 3 Sig: inhale 2 puffs by mouth every 4 hours as needed Farrah Hyman LPN September 03, 2023 1:17 PM documented in this encounterRegency [facility]12-27-2023 Discharge summary Author Deo Gallagher [facility] July 11, 2023 4:22pm Note Date/Time July 11, 2023 3:11pm [facility] Medical Records Department [address] [place] [address] Emergency Department Summary 07/11/23 MR#: [id number] Acct: [id number] Name: YULIA GALLAGHER Rep #:[id number] 1945 78 From: Deo Gallagher MD PCP: Dr. Gopal Das MD Status:REG ER Location: ED HPI HPI - Fall History of Present Illness Chief Complaint: Fall Informant: patient and family Occured/Mechanism Occurred: Hours (1-2) Mechanism/Context: Yes same level fall Pain/Injury Pain Location: face Quality of Pain: Aching Current Severity: Mild Maximum Severity: Mild Associated Symptoms Associated Symptoms: Negative for Parasthesias, Weakness, Loss of function, Inability to ambulate, Loss of consciousness or Amnesia Narrative Narrative: 78-year-old female feeling well today was at the movie theater with her family states she was walking into theater and accidentally fell and hit her head on the floor or a nearby chair. She sustained a small laceration next to her left eye. She has a mild headache. There is no loss consciousness or amnesia. No nausea or vomiting. No other injuries. She denies any changes in her vision but she did have temporary visual disturbance that she states looked like little squiggly's that were white. That is gone now and her vision is back tonormal. She denies any loss of vision or cut visual alcocer. She denies any prodromal symptoms. She thinks she either stumbled or lost her balance. She denies any vertiginous symptoms or lightheadedness. No recent illness. She and family state this was witnessed by many people and EMS was called. Paramedics took her blood pressure was high 180s. She states this is why they recommended she come to the hospital. She states she forgot to take her nightlyblood pressure medication last night, Cozaar. [facility] Medical History (Updated 07/11/23 @ 15:[address] Deo Gallagher MD) HTN (hypertension) Hypothyroid Home Medications albuterol sulfate 90 mcg/actuation aerosol inhaler (ProAir HFA) 1 - 2 puff inhalation Q6H PRN PRN Sob &/Or Wheezing 07/08/15 [History Last Taken Unknown] losartan 50 mg tablet 100 mg PO DAILY 07/08/15 [History Last Taken Unknown] levothyroxine 125 mcg tablet 125 mcg PO QODAY 11/01/16 [History Last Taken 10/31/16] paroxetine HCl 20 mg tablet 20 mg PO DAILY 11/01/16 [History Last Taken Unknown] tiotropium 2.5 mcg-olodaterol 2.5 mcg/actuation mist for inhalation (Stiolto Respimat) 4 g IH DAILY 11/01/16 [History Last Taken Unknown] Azithromycin [Zithromax Z-Cesar] 250 mg PO UD ##1 06/20/17 [Rx Last Taken Unknown] alprazolam 0.25 mg tablet 0.125 mg PO BID PRN PRN Shortness Of Breath 06/20/17 [History Last Taken Unknown] levofloxacin 750 mg tablet (Levaquin) 750 mg PO DAILY 06/20/17 [History Last Taken Unknown] ondansetron 8 mg disintegrating tablet (Zofran ODT) 8 mg PO Q6H PRN PRN Nausea ##10 06/20/17 [Rx Last Taken Unknown] Allergy/AdvReac Type Severity Reaction Status Date / Time codeine Allergy Hives Verified 07/11/23 13:55 Social History Smoking Status: Former smoker ROS ROS ED Constitutional Constitutional ED: Denies chills or fever(s) Eyes Eyes: Denies change in vision or diplopia ENT ENT ED: Denies ear pain, epistaxis, facial pain or rhinorrhea Cardiovascular Cardiovascular: Denies chest pain or palpitations Respiratory/Chest Respiratory/Chest: Denies cough or dyspnea Gastrointestinal Gastrointestinal: Denies abdominal pain, diarrhea, melena, nausea or vomiting Genitourinary Genitourinary ED: Denies dysuria or hematuria Musculoskeletal Musculoskeletal: Denies back pain, extremity pain or neck pain Integumentary Reports laceration; Denies abscess, Abrasions or rash Neurologic Neurologic: Reports headache(s); Denies confusion, paresthesias or weakness EXAM Physical Exam Const Vital Signs: 07/11/23 13:47 Temperature 96.9 F L Temperature Source Temporal Pulse Rate 98 Respiratory Rate 14 Blood Pressure 135/91 H Blood Pressure Mean 105 Pulse Ox 94 Oxygen Delivery Method Room Air Positive well nourished and well developed General Appearance ED: well developed and NAD HEENT Reports TM's clear and nasal mucous membranes and turbinates normal HEENT Narrative: Small tender contusion without hematoma or crepitance/deformity lateral aspect of the left superior orbital brim, as well as a small 1 cm L-shaped partial-thickness laceration in the same area. No active bleeding. Clean appearing. No other areas of facial tenderness. No infraorbital hypoesthesia. No Negrete sign. No CSF otorhinorrhea. Face and Sinus: Negative for facial tenderness Tympanic Membrane ED: Yes TM's clear Eyes PERRL and EOMs intact bilaterally Visual Acuity: other Other Details: no entrapment or pain with extraocular movements Neck full ROM and supple General: Negative for tenderness Chest Wall inspection of chest normal and palpation of chest normal Chest: symmetrical chest wall rise; Negative for crepitus or tenderness Resp normal respiratory effort Back/Spine normal ROM Cervical Spine: Negative for cervical spine tenderness Thoracic Spine / Upper Back: Negative for thoracic spinal tenderness Lumbar Spine / Lower Back: Negative for lumbar spinal tenderness Extremity normal to inspection and full ROM Extremity Narrative: Mild tenderness at a minor contusion without hematoma lateral left shoulder at about the area of the acromion. The AC joint is nontender and the humerus is nontender and she has full range of motion without any discomfort or limitation. Otherwise extremities are atraumatic with full range of motion throughout. General Extremety ED: Yes tenderness Neuro oriented x3, CN's II-XII intact bilaterally, moves all extremities, no focal motor deficits and no sensory deficits noted James Coma Scale: document GCS findings Spontaneous Obeys Commands Oriented 15 Sensorium / Orientation: awake and alert Psych mental status grossly normal and thought process normal Skin no wounds Lesions: no lesions Rashes: no rashes MDM MDM MDM Narrative Medical decision making narrative: Given this patient's age, presence of a headache, direct trauma to the cranium, and transient visual disturbance, CT of the head is indicated. It was obtained in order to rule out intracranial injury, I reviewed the images and report whichI agree with, negative for anything acute. Laceration was Dermabond to the procedure note. She was offered analgesics but declined states she will take some Advil when she gets home which I am okay with. Advised to take her blood pressure medication tonight as scheduled. Here her blood pressure is good, 135/91. With regards to her left shoulder, she did not realize she injured it until we examined her and she was moving around more, her exam is very benign and I am not concerned about a fracture, she can abduct fully without limitationand she is in agreement to skip x-rays here due to a very low suspicion of fracture. Radiography Diagnostic Testing: Clinical Impression(s) from Imaging Studies Brain CT 07/11/23 15:05 IMPRESSION: No acute intracranial findings. Electronically Signed: Santos Vail MD at 16:17 EST , Procedures Lacerations left face: Length: 1 cm Depth: Skin Shape: Linear Prep: Sterile Conditions and Chlorhexadine Laceration repair: Dermabond Discharge Plan Triage Chief Complaint: Fall ED Provider: Deo Gallagher Dx/Rx/DC Orders Clinical Impression: Facial laceration, Accidental fall, Closed head injury without loss of consciousness, Contusion of left shoulder Instructions: ED Head Injury (Adult), ED Laceration, Face: Skin Glue Prescriptions: No Action losartan 50 MG tablet 100 mg PO DAILY albuterol sulfate [ProAir HFA] 1 PUFF inhaler 1 - 2 puff inhalation Q6H PRN PRN (Reason: Sob &/Or Wheezing) tiotropium-olodaterol [Stiolto Respimat] 4 GM mist 4 g IH DAILY paroxetine HCl 20 MG tablet 20 mg PO DAILY levothyroxine 125 MCG tablet 125 mcg PO QODAY alprazolam 0.25 MG tablet 0.125 mg PO BID PRN PRN (Reason: Shortness Of Breath) levofloxacin [Levaquin] 750 MG tablet 750 mg PO DAILY Patient Comments: only took 1 of these Azithromycin [Zithromax Z-Cesar] 250 MG tablet 250 mg PO UD Qty: 1 0RF Rx Instructions: TAKE 2 TABLETS 1ST DAY THEN 1 TABLET DAILY FOR NEXT 4 DAYS. ondansetron [Zofran ODT] 8 MG tablet,disintegrating 8 mg PO Q6H PRN PRN (Reason: Nausea) Qty: 10 0RF Primary Care Provider: Gopal Das Referrals: Gopal Das MD [Primary Care Provider] - As Needed Disposition Disposition: Home, Self Care What to do if you have Problems For any increased pain, shortness of breath, bleeding, nausea or vomiting, chestpain, or any unexpected problems, contact your Primary Care Provider. Call [facility] ([phone]) or report to the closest Emergency Room. Call 911 if necessary. 07/11/232 <Electronically signed by Deo Gallagher MD> Cosigner Signature (if applicable): CC: Dr. Gopal Das MD ~ Signed [facility] Work Phone: 1(313) 935-607810-02-2023 History of Present illness Narrative* Gopal Das MD - 04/16/2023 1:09 PM EDT This note was created using En Noir. Subjective Yulia Gallagher is a 78 year old female.Patient is in office with follow up for COPD. Patient states that she is needing a letter to give to the post office explaining that patient is unable to walk more then 200 feet. Patients mailbox is 400 feet from door, therefore she is unable toget her mail, unless someone brings it to [...] (Temporal) Resp 18 Ht 165.1 cm (5' 5) Wt 86.4 kg (190 lb 6.4 oz) [...] our house instead of to her mailbox. Gopal Das MD * Farrah Hyman LPN - 04/16/2023 10:12 AM EDT Patient is in office with follow up for COPD. Patient states that she is needing a letter to give to the post office explaining that patient is unable to walk more then 200 feet. Patients mailbox is 400 feet from door, therefore she is unable toget her mail, unless someone brings it to her door. No refills needed Farrah Hyman LPN April 16, 2023 10:24 AM documented in this encounterRegency [facility]09-07-2023 Miscellaneous Notes* Telephone Encounter - Farrah Hyman LPN - 03/22/2023 1:12 PM EDT Patient notified of information, verbalized understanding Farrah Hyman LPN March 22, 2023 1:13 PM * Telephone Encounter - Gopal Das MD - 03/22/2023 9:51 AM EDT Have Yulia increase her Synthroid dose to 112 mcg daily. Recheck TSH in 3 months. * Addendum Note - Gopal Das MD - 03/22/2023 9:50 AM EDTAddended by: GOPAL DAS on: 03/22/2023 09:50 AM Modules accepted: Orders * Telephone Encounter - María Hopkins MA - 03/22/2023 9:09 AM EDT Patient called and states that she faithfully takes med every morning and has not missed any doses * Telephone Encounter - María Hopkins MA - 03/22/2023 9:09 AM EDT -----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 Specialty Start Date End Date Gopal Das MD PCP - General Family Practice 07/06/15 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 Specialty Start Date End Date Gopal Das MD PCP - General Family Medicine 07/06/15 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 Specialty Start Date End Date Gopal Das MD PCP - General Family Medicine 07/06/15 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 Specialty Start Date End Date Gopal Das MD PCP - General Family Medicine 07/06/15 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 Specialty Start Date End Date Gopal Das MD PCP - General Family Medicine 07/06/15 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 Specialty Start Date End Date Gopal Das MD PCP - General Family Medicine 07/06/15 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 Specialty Start Date End Date Gopal Das MD PCP - General Family Medicine 07/06/15 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 Specialty Start Date End Date Gopal Das MD PCP - General Family Medicine 07/06/15 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 Specialty Start Date End Date Gopal Das MD PCP - General Family Medicine 07/06/15 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 Specialty Start Date End Date Gopal Das MD PCP - General Family Medicine 07/06/15 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 Specialty Start Date End Date Gopal Das MD PCP - General Family Medicine 07/06/15 Team Status: Active Member Role Status Dates Dr. Gopal Das MD Family Provider Active Dr. Goapl Das MD Primary Care Provider Active Team Status: Inactive Member Role Status Dates Dr. Gopal Das MD Primary Care Provider Active Dr. Deo Gallagher MD Emergency Provider Active Team Status: Inactive Member Role Status Dates Dr. Gopal Das MD Primary Care Provider Active Dr. 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 Specialty Start Date End Date Gopal Das MD PCP - General Family Medicine 07/06/15 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 Specialty Start Date End Date Gopal Das MD PCP - General Family Medicine 07/06/15 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 Specialty Start Date End Date Gopal Das MD PCP - General Family Medicine 07/06/15 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 Specialty Start Date End Date Gopal Das MD PCP - General Family Medicine 07/06/15 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 Specialty Start Date End Date Gopal Das MD PCP - General Family Medicine 07/06/15 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 Specialty Start Date End Date Gopal Das MD PCP - General Family Medicine 07/06/15 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 Specialty Start Date End Date Gopal Das MD PCP - [facility] Family Medicine 07/06/15 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 Specialty Start Date End Date Gopal Das MD PCP - General Family Medicine 07/06/15 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 Specialty Start Date End Date Gopal Das MD PCP - [facility] Medicine 07/06/15 Team Status: Active Member Role Status Dates Dr. Gopal Das MD Primary Care Provider Active Team Status: Inactive Member Role Status Dates Dr. Gopal Das MD Primary Care Provider Active Start: December 17, 2024 End: December 17, 2024 Dr. Jean Claude Starr MD Emergency Provider Active Sta rt: December 17, 2024 End: December 17, 2024 Reason for Visit (unrecogniz ed section and content) Reason Onset Date Comments Refill Request 01/11/2022 Reason Comments 6 Month Exam F/unit(s) copd,anxie [...] Refill Request 03/20/2023 Reason Comments Follow Up Reason Comments Refill Request Reason Comments Results Reason Comments Follow Up Discuss labwork Reason Onset Date Comments Refill Request 11/26/2024 Reason Onset Date Comments Refill Request 11/27/2024 Goals (unrecognized section and content) Goals may be documented in a n alternate sectionGoals may be documented in an alternate sectionGoals may be documented in an alternate section FOR RECORDS PERTAINING TO PATIENTS WHO ARE [...] BE BASED ON THE PRIMARY CLINICAL RECORDS. [facility]. provides no warranty or guarantee of the accuracy or completeness of information in this document.
--- NOTE | 2024-12-19 19:24 | ED.RN ---
Critical D Dimer of 4.[address] Easley notified
--- NOTE | 2024-12-19 19:35 | CT_ITS ---
EXAM: CT Angiography Chest Without and With Intravenous Contrast CLINICAL INDICATION: CP, ELEVATED D-DIMER TECHNIQUE: Axial computed tomographic angiography images of the chest without and with intravenous contrast. This CT exam was performed using one or more of the following dose reduction techniques: automated exposure control, adjustment of the mA and/or kV according to patient size, and/or use of iterative reconstruction technique. MIP reconstructed images were created and reviewed. COMPARISON: No relevant prior studies available. FINDINGS: LIMITATIONS: Suboptimal opacification of the pulmonary arteries. PULMONARY ARTERIES: No pulmonary embolism is identified. Some of the distal pulmonary arteries cannot be evaluated due to suboptimal opacification. AORTA: No acute findings. No thoracic aortic aneurysm. LUNGS AND PLEURAL SPACES: Lung emphysema/COPD. No mass. No consolidation. No significant effusion. No pneumothorax. HEART: Mild cardiomegaly with small pericardial effusion. No evidence of RV dysfunction. BONES/JOINTS: No acute fracture. No dislocation. SOFT TISSUES: Unremarkable. LYMPH NODES: Unremarkable. No enlarged lymph nodes. OTHER FINDINGS: 3 mm nodule of the left major fissure. CT/CTA Chest W/WO Contrast IMPRESSION: 1. No pulmonary embolism is identified. Some of the distal pulmonary arteries cannot be evaluated due to suboptimal opacification. 2. Mild cardiomegaly with small pericardial effusion. 3. Continue low-dose CT scan of the chest in 12 months is recommended. Reading Location: [facility]
[2024-12-19 21:33] LABS: Troponin T High Sens 4 HR 4679 ng/L (<=14)
--- NOTE | 2024-12-19 22:34 | HP.PCM.HOS_ITS ---
HPI - General General Date of Admission: 12/19/24 Date of Service: 12/19/24 Chief Complaint: Chest pain, recent prior history N/V/D HPI Narrative The patient is a 79 y/o F w/ PMHx: Anxiety and Depression, COPD, HTN, HLD, Hypothyroidism, Former tobacco use who presents to the [facility] ED on 12/19/24 with history of onset of chest discomfort beginning in the morning on day of presentation with radiation toward the back occurring at rest spontaneously resolving just prior to ED arrival with no marked dyspnea, nausea or emesis on day of presentation but she was seen in the ED the day prior for episode of nausea and emesis as well as loose stools which had been ongoing starting on December 10 however her emesis had seemed to oscar as well as the loose stools but she continued to have poor appetite and decreased urine output eventually improving passing p.o. challenge with concern for suprapubic tenderness on exam with urinalysis marked appearing discharged on nitrofurantoin at that time. Currently urine culture pending from 12/17/2024 with gram-positive cocci 80,000-100,000 with identification and sensitivity still pending. Patient currently notes she has been able to tolerate oral intake with no abdominal pain or any recurrent diarrhea or emesis since ED arrival. She notes that when she did have her chest discomfort she rated it 10 out of 10 in severity and described as stabbing/squeezing/aching with associated dyspnea, diaphoresis and nausea without emesis. She has not had any recurrent discomfort in the ED. Workup in the ED included T99, heart rate 90, BP 146/74, respiratory rate 16, 97% on room air with most recent repeat vitals T97.4, heart rate 87, BP 121/103, respiratory rate 14, 97% room air, CBC with WBC 8.9, hemoglobin 14.2, platelet 221 without marked shift, BMP with BUN/15/1.07, GFR 53, glucose 107, coags unremarkable aside D-dimer 4.0, troponin 5909 with repeat delta troponin 5021 and most recently 4-hour troponin 4679, NT proBNP II 10,767, chest x-ray with cardiomegaly without overt failure evident, CTPA with no evidence of PE, some of the distal pulmonary arteries cannot be evaluated due to suboptimal opacification, mild cardiomegaly small pericardial effusion EKG with normal sinus rhythm with right bundle myrtle block seen on previous EKGs with no acute evidence of ischemia. In the ED patient ministered full-strength aspirin therapy in addition to heparin bolus and started on a heparin drip. ED discussed case with PENDING SALE TO [facility] Medical History (Updated 12/20/24 @ 01:[address] Vicki Rosenbaum MD) Anxiety and depression Hyperlipidemia Hypothyroid HTN (hypertension) Home Medications ?Medication ?Instructions ?Recorded ?Last Taken ?Type losartan 50 mg tablet 100 mg PO DAILY BP 07/08/15 Unknown History levothyroxine 125 mcg tablet 125 mcg PO DAILY thyroid 11/01/16 12/19/24 08:00 History 125 mcg paroxetine HCl 20 mg tablet 20 mg PO DAILY depression 11/01/16 12/18/24 22:00 History 20 mg albuterol sulfate 90 mcg/actuation 2 puff inhalation Q 6H PRN 12/17/24 12/19/24 08:00 History aerosol inhaler (Ventolin HFA) shortness of breath or wheezing 2 puff alprazolam 0.25 mg tablet 0.25 mg PO TID PRN anxiety 0 12/17/24 Unknown History fluticasone fur. 100 mcg-umeclid 1 inh inhalation JARET Y COPD 12/17/24 12/19/24 08:00 History 62.5 mcg-vilant 25 mcg 1 inh inhalat.powder (Trelegy Ellipta) nitrofurantoin 100 mg PO Q12 #10 CAPSULES 0 12/17/24 Unknown Rx monohydrate/macrocrystals 100 mg capsule rosuvastatin 10 mg tablet (Crestor) 10 mg PO DAILY low ers cholesterol 12/19/24 12/18/24 22:00 History 10 mg losartan 100 mg tablet 100 mg PO DAILY BP 12/20/24 12/18/24 22:00 History 100 mg Allergy/AdvReac Type Severity Reaction Status Date / Time codeine Allergy Hives Verified 12/19/24 15:29 Family History (Updated 12/20/24 @ 01:[address] Vicki Rosenbaum MD) Mother Alzheimer's dementia Father CAD (coronary artery disease) Heart disease Hypertension Myocardial infarction Surgical History (Updated 12/20/24 @ 01:[address] Vicki Rosenbaum MD) History of cholecystectomy S/P appendectomy History of hysterectomy History of tonsillectomy and adenoidectomy Status post cataract extraction Social History (Updated 12/20/24 @ 01:[address] Vicki Rosenbaum MD) household members: none Smoking Status: Former smoker how long ago did patient quit smoking: Quit remotely but cannot give exact timeline. alcohol intake: current alcohol intake frequency: holidays/special occasions only substance use type: does not use ROS ROS Narrative Admission Review of Systems: CONSTITUTIONAL: No weight loss, fever, chills, + weakness or fatigue. HEENT: Eyes: No visual loss, blurred vision, double vision or yellow sclerae. Ears, Nose, Throat: No hearing loss, sneezing, congestion, runny nose or sore throat. SKIN: No rash or itching, lesions, wounds. CARDIOVASCULAR: + Chest pain. No palpitations, edema, orthopnea, syncopal events. RESPIRATORY: No shortness of breath, cough or sputum, wheezing, hemoptysis. GASTROINTESTINAL: + anorexia, nausea, vomiting, diarrhea, suprapubic discomfort. No abdominal pain, melena, BRBPR. GENITOURINARY: + Suprapubic discomfort. No dysuria, frequency, urgency or retention. NEUROLOGICAL: No headache, dizziness, syncope, paralysis, ataxia, numbness or tingling in the extremities, focal weakness, change in bowel or bladder control, seizure. MUSCULOSKELETAL: + muscle, back pain, joint pain or stiffness. HEMATOLOGIC: No anemia, bleeding or bruising. LYMPHATICS: No enlarged nodes. No history of splenectomy. PSYCHIATRIC: + History of anxiety and depression. ENDOCRINOLOGIC: No reports of sweating, cold or heat intolerance. No polyuria or polydipsia. ALLERGIES: No history of asthma, hives, eczema or rhinitis. Vital Signs Vital Signs Vital Signs: 12/19/24 15:29 12/19/24 16:41 12/19/24 16:42 Temperature 99 F Temperature Source Oral Pulse Rate 90 92 Respiratory Rate 16 19 H Respiratory Effort Normal Non-Labored Blood Pressure 146/74 H 140/82 H Blood Pressure Mean 98 101 Pulse Ox 97 96 Oxygen Delivery Method Room Air Room Air 12/19/24 16:43 12/19/24 17:00 12/19/24 18:00 Temperature Temperature Source Pulse Rate 88 85 Respiratory Rate 17 19 H Respiratory Effort Blood Pressure 131/88 H 154/68 H Blood Pressure Mean 102 91 Pulse Ox 97 Oxygen Delivery Method Room Air Room Air 12/19/24 18:15 12/19/24 18:26 12/19/24 18:30 Temperature 97.4 F L Temperature Source Pulse Rate 90 88 86 Respiratory Rate 20 H 14 18 Respiratory Effort Blood Pressure 132/73 H 132/73 H 150/88 H Blood Pressure Mean 84 92 107 Pulse Ox 97 Oxygen Delivery Method 12/19/24 18:45 12/19/24 18:54 12/19/24 19:00 Temperature Temperature Source Pulse Rate 81 87 91 Respiratory Rate 18 14 24 H Respiratory Effort Blood Pressure 121/103 H 121/103 H 132/75 H Blood Pressure Mean 107 109 88 Pulse Ox 98 97 95 Oxygen Delivery Method Room Air 12/19/24 19:15 12/19/24 19:30 12/19/24 19:45 Temperature Temperature Source Pulse Rate 81 90 Respiratory Rate 19 H 21 H Respiratory Effort Blood Pressure 110/64 118/62 108/56 L Blood Pressure Mean 75 78 70 Pulse Ox 93 92 Oxygen Delivery Method Room Air 12/19/24 19:46 12/19/24 20:00 12/19/24 20:15 Temperature Temperature Source Pulse Rate 90 92 83 Respiratory Rate 16 16 23 H Respiratory Effort Blood Pressure 87/63 L Blood Pressure Mean 71 Pulse Ox 95 100 Oxygen Delivery Method Room Air Room Air 12/19/24 20:25 12/19/24 20:29 12/19/24 21:31 Temperature Temperature Source Pulse Rate 78 Respiratory Rate 18 Respiratory Effort Blood Pressure 79/68 L 99/53 L 108/58 L Blood Pressure Mean 73 68 74 Pulse Ox 96 Oxygen Delivery Method Room Air Weight Weight: 154 lb 1.65 oz Body Mass Index (BMI) 25.6 Physical Exam Narrative Physical Examination: General: Awake, alert, oriented x 3 and cooperative, seated upright in the ED bed, denies any current chest discomfort. Skin: Normal color, normal turgor, no icterus, no cyanosis except for occasional stage ecchymoses, abrasion, bilateral lower extremity venous stasis skin changes. HEENT: AT/NC, EOMI, PERRLA, mildly dry MM, no carotid bruits, no markedly discerned JVD noted. Lungs: Mildly diminished, greater bases, poor effort, no rales, ronchi or wheezing. Heart: Regular rate and rhythm; no gallop, rub audible. Abdomen: Soft, overweight, NTTP, ND, mildly hyperactive BS, no appreciated HSM. Extremities: No cyanosis, no clubbing, stable chronic distal peripheral edema, see skin. Neurological: Patient awake, alert, oriented as noted, cognitive function intact; pupils equally reactive to light and accommodation, cranial nerves grossly normal, moving all 4 extremities, no focal deficits, strength moderately to severely globally decreased secondary to acute presentation complaints Psychiatric: Affect appears fatigued otherwise normal, no acute evidence of depressive or anxiety feelings but does have underlying history. Results Lab / Micro Data 12/19/24 16:35 12/19/24 16:35 Labs: Laboratory Results - last 24 hr 12/19/24 16:35: WBC 8.9, RBC 4.94, Hgb 14.2, Hct 43.7, MCV 88.5, MCH 28.7, MCHC 32.5, RDW Std Deviation 42.7, RDW Coeff of Vipul 13.3, Plt Count 221, MPV 11.9, Immature Gran % (Auto) 0.200, Neut % (Auto) 76.8 H, Lymph % (Auto) 12.2 L, Oliver % (Auto) 9.8, Eos % (Auto) 0.5, Baso % (Auto) 0.5, Absolute Neuts (auto) 6.8, Absolute Lymphs (auto) 1.08, Nucleated RBC % 0, Sodium 138, Potassium 3.9, Chloride 101, Carbon Dioxide 25.2, Anion Gap 12, BUN 15, Creatinine 1.07, Estim Creat Clear Calc 43.21 L, Est GFR (MDRD) Non-Af 53 L, BUN/Creatinine Ratio 14.3, Glucose 107 H, Calcium 9.7, Troponin T High Sens 5909 H*, [place] [address] H 12/19/24 18:00: PT 13.9, INR 1.1, APTT 27.0, D-Dimer Quant (PE/DVT) 4.00 H* 12/19/24 18:45: Troponin T Hi Sens 2 Hr 5021 H* 12/19/24 20:25: Troponin T Hi Sens 4Hr 4679 H* Imaging Radiology Impression Chest X-Ray 12/19/24 17:15 IMPRESSION: Cardiomegaly without overt failure. Reading Location: [id number] Chest CTA 12/19/24 19:35 IMPRESSION: 1. No pulmonary embolism is identified. Some of the distal pulmonary arteries cannot be evaluated due to suboptimal opacification. 2. Mild cardiomegaly with small pericardial effusion. 3. Continue low-dose CT scan of the chest in 12 months is recommended. Reading Location: [facility] Assessment & Plan Assessment/Plan (1) NSTEMI, initial episode of care: PLAN: Plan The patient is a 79 y/o F w/ PMHx: Anxiety and Depression, COPD, HTN, HLD, Hypothyroidism, Former tobacco use who presents to the [facility] ED on 12/19/24 with history of onset of chest discomfort beginning in the morning on day of presentation with radiation toward the back occurring at rest spontaneously resolving just prior to ED arrival with no marked dyspnea, nausea or emesis on day of presentation but she was seen in the ED the day prior for episode of nausea and emesis as well as loose stools which had been ongoing starting on Sunday, December 10 however her emesis had seemed to oscar as well as the loose stools but she continued to have poor appetite and decreased urine output eventually improving passing p.o. challenge with concern for suprapubic tenderness on exam with urinalysis marked appearing discharged on nitrofurantoin at that time. #1. Chest Pain w/ Acute NSTEMI, presumed type I with noted small pericardial effusion: EKG in ED w/ sinus rhythm with a right bundle branch block noted on previous EKGs with no acute evidence of ischemia, CXR w/ cardiomegaly without any overt failure evident, troponin 5909 with repeat delta troponin 5021 and most recently 4-hour troponin 4679, NT proBNP II 10,767,. Will admit to PCU, maintain on a monitored bed, continue serial cardiac enzymes and EKGs. Obtain magnesium level upon admission. Will continue heparin drip. Continue medical management w/ asa, add low-dose metoprolol given COPD history but will defer to Cardiology discretion, continue FAM inhibitor, continue home statin w/ AM FLP. ECHO requested. Cardiology consulted and aware. Will maintain n.p.o. status after midnight for possible cardiac catheterization. #2. Recent intractable nausea, emesis, diarrhea possibly possibly secondary recent acute complicated gram-positive cocci urinary tract infection: UA upon ED evaluation 12/17/2024 notable, urine culture with current gram-positive cocci noted but identification and sensitivity still pending, discharged at that time on nitrofurantoin, will monitor I/Os, continue nitrofurantoin w/ transition as able pending sensitivities and speciation. If any onset continued diarrhea low threshold to obtain C. difficile and enteric pathogen's to be cautious. As long as patient tolerating oral intake we will continue to allow cardiac diet until n.p.o. status at midnight. #3. Chronic COPD: Will temporarily hold home inhalers and in the interim transition to ATC DuoNebs, PRN albuterol, HOB, IS parameters, encourage continued tobacco cessation. #4. Chronic Kidney Disease Stage III, unclear subtype per GFR trending: Admission BUN/Cr 15/1.07, GFR 53, baseline renal function 0.9-1.1, repeat BMP in AM. #5. Anxiety and depression: Will continue patient home paroxetine and low-dose alprazolam regimen with hold parameters for sedation. #6. Hypertension: Continue home regimen including losartan, given presentation will add low-dose Coreg but will defer regimen adjustment/changes to cardiology discretion,, PRN hydralazine. #7. Hyperlipidemia: Continue home statin regimen. AM FLP. #8. Hypothyroidism: Will continue patient on levothyroxine regimen. #9. Former tobacco use: Encourage continued tobacco cessation. #10. DVT prophylaxis: Continue heparin drip as noted above. #11. CODE status: Patient LUKASZ is her son-in-law Dominic Flores and living will is currently in place. Discussed CODE status at length including difference between FULL code, DNR-CCA and DNR-CC status. Following discussions about the differences in these status, requested Full Code status. Advanced Care Planning Face to Face Time: 16 minutes. Charges/Coding Visit Charges Inpatient E&M: 83925 Init Hosp L3 Procedures Hospitalists Procedures: 18082 Advncd Care Plan 30 Min
--- OUTSIDE RECORDS SUMMARY | 2024-12-19 23:19 | XMS RPT_ITS | CCD ---
Author Organization [facility] Care Team Providers Care Agriscience Technology Instructor Name Role Phone Gopal Das MD, Raymond Gregory Primary Care Provider Pippa MONTOYA, Gopal Charles Primary Care Provider Pippa MONTOYA, Gopal Charles Primary Care Provider Pippa MONTOYA, Gopal Charles Primary Care Provider Pippa MONTOYA, Gopal Charlse Primary Care Provider GOPAL DAS Referring Unavailab [...] Agonists (1 source) Codeine Drug Allergy 07-22-2015 [facility] Quinolones (antibiotic) (1 source) levoFLOXacin Drug Allergy 06-21-2017 [facility] (20 sources) Codeine; Translations: [CODEINE] Drug Allergy 07-22-2015 [facility] (20 sources) levoFLOXacin; Translations: [LEVOFLOXACIN] Drug Allergy 06-21-2017 [facility]om[facility] (1 source) Codeine Drug Allergy 12-17-2024 [facility] Repository Medications Current Medications Medication Drug Class(es) Dates Sig (Normalized) Sig (Original) [id number] 200 actuat albuterol 0.09 mg/actuat metered dose [...] Active take 1 tablet by mouth once jaert y CALCIUM CARBONATE/VITAMIN D3 (CALCIUM 600 + D ORAL) Take 1 tablet by mouth once daily. 0 Active Comment on above: Take 1 tablet by tomas th once daily. Take 2 tablets by mo [facility] once daily. cholecalciferol 0.125 mg oral tablet [...] sources) Anticholinergic, Corticosteroid, beta2-Adrenergic Agonist Start: 12-17-2024 Opfvsgvewov-Kfmwhxelp-Cj lanter (Trelegy Ellipta) 100-62.5-25 mcg blister with device Active 1 NMA INHALATION DAILY December 17, 2024 12:00am Start: 06-19-2023 End: 11-05-2023 take 1 puff(s) by inhalation once daily ilfnwpfypkq-jkkljzoco-bfzdcddj (TRELEGY ELLIPTA) 100-62.5-25 mcg inhalation powder Indications: [...] take 1 puff(s) by inhalation once daily egopmpzxelt-nzyhzkkau-mfsfisob (TRELEGY ELLIPTA) 100-62.5-25 mcg inhalation powder Inhale 1 Puff as instructed once daily. 90 Each 3 08/30/2022 11/22/2022 Discontinued Start: 07-16-1969 take 1 puff(s) by inhalation once daily hoajgesydem-vojszcvqv-eefmonjz (TRELEGY ELLIPTA) 100-62.5-25 mcg inhalation powder Inhale [...] Discontinued Start: 07-08-2015 take 2 tablets by [facility] once daily Losartan 50 MG tablet Active 100 mg PO DAILY July 08, 2015 1:00am Start: 07-08-2015 take 100 mg by mouth once jaret y Losartan Active 100 MG PO DAILY July 08, 2015 12:00am Comment on above: 1 tablet once daily. Take 1 tablet by [facility] once daily. Multivitamin capsule (20 sources) take 1 capsule by mouth once daily Multivitamin capsule Take 1 capsule by mouth once daily. Active take 1 capsule by mouth once twin ly Multivitamin capsule Take 1 capsule by mouth once daily. 0 Active Comment on above: Take 1 capsule by [facility] once daily. naproxen sodium 220 mg oral [...] EVERY 12 HOURS December 17, 2024 12:00am Kramer-3 Fatty Acids 300 mg cap (20 sources) take 1 capsule by mouth once daily Kramer-3 Fatty Acids 300 mg cap Take 1 capsule by mouth once daily. Active take 1 capsule by mouth once twin ly Kramer-3 Fatty Acids 300 mg cap Take 1 capsule by mouth once daily. 0 Active Comment on above: Take 1 capsule by [facility] once daily. ondansetron 4 mg disintegrating oral [...] above: once daily. [facility] rosuvastatin calcium 10 mg [...] nee ded. Take 1 Lozenge by mo [facility] as needed. Completed/Discontinued Medications Medication Drug Class(es) [...] 2017 1:00am December 17, 2024 10:56am nystatin [id number] unt/ml / triamcinolone acetonide 1 mg/ml topical [...] once daily Tiotropium-Olodater ol (Stiolto Respimat Inhal Pioche) 4 GM mist Discontinued 4 g IH DAILY November 01, 2016 12:00am December 17, 2024 11:24am Start: 11-01-2016 take 4 g by inhalati on once daily Tiotropium-Olodaterol (Stiolto Respimat Inhal Pioche) 4 GM mist Active 4 GM IH DAILY October 31, 2016 11:00pm omega-3 acid ethyl esters ([facility]) 1000 mg oral capsule (6 sources) Start: [...] OCEAN) 0.65 % nasal spray Use 1 Pioche in the nose as needed. 0 08/30/2022 Discontinued Comment on above: Use 1 Pioche in the n ose as needed. tiotropium [...] Auto (Unsp spec) [#/Vol] 1.49 10*3/uL 0.83-4.51 [facility] Absolute neutrophil countOrd ered By: Jean Claudeaudrey Starr on 12-17-2024 Neutrophils (Bld) [#/Vol] 4.6 10*3/uL 2.0-7.7 [facility] Anion gap in Serum or Plasma Ordered By: Jean Claudeaudrey Starr on 12-17-2024 Anion gap [Moles/Vol] 13 mmol/L 5-15 [facility] Automated lymphocyte count a s percentage of total leukocytesOrdered By: Jean Claudeaudrey Starr on 12-17-2024 Lymphocytes/100 WBC Auto (Unsp spec) 21.6 % 19-41 [facility] BUN/creatinine ratioOrdered By: Jean Claudeaudrey Starr on 12-17-2024 Urea nitrogen/Creatinine [Mass ratio] 24.7 mg/mg High 10-20 [facility] Basic Metabolic Profile (BMP )on 12-17-2024 BUN/CRE 24.7 RATIO High 10- [facility] Comment on above: Performed By: #### L 100.0100, L500.2500 #### [facility] [address] [place], [address] Calcium [Mass/Vol] 9.5 mg/dL Normal 7.6-11.0 [facility] Comment on above: Performed By: #### L 100.0100, L500.2500 #### [facility] [address] [place], [address] Chloride [Moles/Vol] 100 mmol/L Normal 98-108 [facility] Comment on above: Performed By: #### L 100.0100, L500.2500 #### [facility] [address] [place], [address] CO2 [Moles/Vol] 24.3 mmol/L Normal 21.0-32.0 [facility] Comment on above: Performed By: #### L 100.0100, L500.2500 #### [facility] [address] [place], [address] Creatinine [Mass/Vol] 1.18 mg/dL Normal 0.70-1.20 [facility] Comment on above: Performed By: #### L 100.0100, L500.2500 #### [facility] [address] [place], [address] ECRCL 35.93 ml/min Low 50-250 [facility] Comment on above: Performed By: #### L 100.0100, L500.2500 #### [facility] [address] [place], [address] GAP 13 Normal 5-15 [facility] Comment on above: Performed By: #### L 100.0100, L500.2500 #### [facility] [address] [place], [address] GFR/1.73 sq M.predicted among non-blacks MDRD (S/P/Bld) [Vol rate/Area] 48 mL/min/{1.73_m2} Low >60 [facility] Comment on above: Result Comment: mL/m in/1.73m2 CKD-EPI Creatinine Equation (2020) Performed By: #### L 100.0100, L500.2500 #### [facility] [address] [place], [address] Glucose [Mass/Vol] 103 mg/dL High 70-99 [facility] Comment on above: Performed By: #### L 100.0100, L500.2500 #### [facility] [address] [place], [address] Potassium [Moles/Vol] 4.4 mmol/L Normal 3.3-5.1 [facility] Comment on above: Result Comment: Hemo lysis present, Results??could be affected. ?? Performed By: #### L 100.0100, L500.2500 #### [facility] [address] [place], [address] Sodium [Moles/Vol] 137 mmol/L Normal 133-145 [facility] Comment on above: Performed By: #### L 100.0100, L500.2500 #### [facility] [address] [place], [address] Urea nitrogen [Mass/Vol] 29 mg/dL High 4-19 [facility] Comment on above: Performed By: #### L 100.0100, L500.2500 #### [facility] [address] [place], [address] Basophil percentageOrdered B y: Jean Claude Starr on 12-17-2024 Basophils/100 WBC (Bld) 1.0 % 0-1 [facility] Bilirubin Test strip Ql (U)O rdered By: Jean Claude Starr on 12-17-2024 Bilirubin Ql (U) 1 mg/dL High Negative [facility] Comment on above: COLOR OF URINE MAY A FFECT DIPSTICK RESULTS. CBC W/Diff, Automatedon Absolute Lymph 1.49 X10 3/uL Normal 0.83-4.51 [facility] Comment on above: Order Comment: REDRA W. PREVIOUS SPECIMEN REJECTED DUE TO SPECIMEN BEING QNS. 12/17/24 1157 Gerard Asencio. Performed By: #### L 100.0100 #### [facility] [address] [place], [address] Absolute Neut 4.6 X10 3/uL Normal 2.0-7.7 [facility] Comment on above: Order Comment: REDRA W. PREVIOUS SPECIMEN REJECTED DUE TO SPECIMEN BEING QNS. 12/17/24 1157 Gerard Page Performed By: #### L 100.0100 #### [facility] [address] [place], [address] Basophils/100 WBC (Bld) 1.0 % Normal 0-1 [facility] Comment on above: Order Comment: REDRA W. PREVIOUS SPECIMEN REJECTED DUE TO SPECIMEN BEING QNS. 12/17/24 1157 Gerard Asencio. Performed By: #### L 100.0100 #### [facility] [address] [place], [address] Eosinophils/100 WBC (Bld) 0.6 % Normal 0-5 [facility] Comment on above: Order Comment: REDRA W. PREVIOUS SPECIMEN REJECTED DUE TO SPECIMEN BEING QNS. 12/17/24 1157 Gerard Page Performed By: #### L 100.0100 #### [facility] [address] [place], [address] Erythrocyte distribution width (RBC) [Ratio] 13.3 % Normal 11.6-14.6 [facility] Comment on above: Order Comment: REDRA W. PREVIOUS SPECIMEN REJECTED DUE TO SPECIMEN BEING QNS. 12/17/24 1157 Gerard Page Performed By: #### L 100.0100 #### [facility] [address] [place], [address] Hematocrit (Bld) [Volume fraction] 43.6 % Normal 37-47 [facility] Comment on above: Order Comment: REDRA W. PREVIOUS SPECIMEN REJECTED DUE TO SPECIMEN BEING QNS. 12/17/24 1157 Gerard Page Performed By: #### L 100.0100 #### [facility] [address] [place], [address] Hemoglobin (Bld) [Mass/Vol] 14.2 g/dL Normal 12.0-15.0 [facility] Comment on above: Order Comment: REDRA W. PREVIOUS SPECIMEN REJECTED DUE TO SPECIMEN BEING QNS. 12/17/24 1157 Gerard Page Performed By: #### L 100.0100 #### [facility] [address] [place], [address] IG% 0.300 Normal 0.0-0.9 [facility] Comment on above: Order Comment: REDRA W. PREVIOUS SPECIMEN REJECTED DUE TO SPECIMEN BEING QNS. 12/17/24 1157 Gerard Page Result Comment: IG% - Immature Granulocytes (promyelocytes, myelocytes and metamyelocytes) > 1% indicates that a LEFT SHIFT is Present. Performed By: #### L 100.0100 #### [facility] [address] [place], [address] Lymphocytes/100 WBC (Bld) 21.6 % Normal 19-41 [facility] Comment on above: Order Comment: REDRA W. PREVIOUS SPECIMEN REJECTED DUE TO SPECIMEN BEING QNS. 12/17/24 1157 Gerard Page Performed By: #### L 100.0100 #### [facility] [address] [place], [address] MCH (RBC) [Entitic mass] 28.9 pg Normal 27.0-32.0 [facility] Comment on above: Order Comment: REDRA W. PREVIOUS SPECIMEN REJECTED DUE TO SPECIMEN BEING QNS. 12/17/24 1157 Gerard Page Performed By: #### L 100.0100 #### [facility] [address] [place], [address] MCHC (RBC) [Mass/Vol] 32.6 g/dL Normal 32-36 [facility] Comment on above: Order Comment: REDRA W. PREVIOUS SPECIMEN REJECTED DUE TO SPECIMEN BEING QNS. 12/17/24 1157 Gerard Page Performed By: #### L 100.0100 #### [facility] [address] [place], [address] MCV (RBC) [Entitic vol] 88.6 fL Normal 81-99 [facility] Comment on above: Order Comment: REDRA W. PREVIOUS SPECIMEN REJECTED DUE TO SPECIMEN BEING QNS. 12/17/24 1157 Gerard Page Performed By: #### L 100.0100 #### [facility] [address] [place], [address] Monocytes/100 WBC (Bld) 9.4 % Normal 0-10 [facility] Comment on above: Order Comment: REDRA W. PREVIOUS SPECIMEN REJECTED DUE TO SPECIMEN BEING QNS. 12/17/24 1157 Gerard Asencio. Performed By: #### L 100.0100 #### [facility] [address] [place], [address] Neutrophils/100 WBC (Bld) 67.1 % Normal 47-70 [facility] Comment on above: Order Comment: REDRA W. PREVIOUS SPECIMEN REJECTED DUE TO SPECIMEN BEING QNS. 12/17/24 1157 Gerard Asencio. Performed By: #### L 100.0100 #### [facility] [address] [place], [address] Nucleated RBC (Bld) [#/Vol] 0 10*3/uL Normal 0-5 [facility] Comment on above: Order Comment: REDRA W. PREVIOUS SPECIMEN REJECTED DUE TO SPECIMEN BEING QNS. 12/17/24 1157 Gerard Asencio. Performed By: #### L 100.0100 #### [facility] [address] [place], [address] Platelet mean volume (Bld) [Entitic vol] 11.7 fL Normal 6.2-12.0 [facility] Comment on above: Order Comment: REDRA W. PREVIOUS SPECIMEN REJECTED DUE TO SPECIMEN BEING QNS. 12/17/24 1157 Gerard Asencio. Performed By: #### L 100.0100 #### [facility] [address] [place], [address] Platelets (Bld) [#/Vol] 184 10*3/uL Normal 150-450 [facility] Comment on above: Order Comment: REDRA W. PREVIOUS SPECIMEN REJECTED DUE TO SPECIMEN BEING QNS. 12/17/24 1157 Gerard Garcesr. Performed By: #### L 100.0100 #### [facility] [address] [place], [address] RBC (Bld) [#/Vol] 4.92 10*6/uL Normal 4.2-5.4 [facility] Comment on above: Order Comment: REDRA W. PREVIOUS SPECIMEN REJECTED DUE TO SPECIMEN BEING QNS. 12/17/24 1157 Gerard R Stoner. Performed By: #### L 100.0100 #### [facility] [address] [place], [address] RDW SD 43.2 fl Normal 35.1-43.9 [facility] Comment on above: Order Comment: REDRA W. PREVIOUS SPECIMEN REJECTED DUE TO SPECIMEN BEING QNS. 12/17/24 1157 Gerard R Stoner. Performed By: #### L 100.0100 #### [facility] [address] [place], [address] WBC (Bld) [#/Vol] 6.9 10*3/uL Normal 4.4-11.0 [facility] Comment on above: Order Comment: REDRA W. PREVIOUS SPECIMEN REJECTED DUE TO SPECIMEN BEING QNS. 12/17/24 1157 Gerard R Stoner. Performed By: #### L 100.0100 #### [facility] [address] [place], [address] Absolute Neut Normal 2.0-7.7 [facility] Comment on above: Result Comment: This specimen has been REJECTED due to Laboratory criteria: Quanity Not Sufficient. ED STAFF has been notified of need of recollection. 12/17/24 1155 Gerard R Stoner Performed By: #### L 100.0100, L500.2500 #### [facility] [address] [place], [address] HCT Normal 37-47 [facility] Comment on above: Result Comment: This specimen has been REJECTED due to Laboratory criteria: Quanity Not Sufficient. ED STAFF has been notified of need of recollection. 12/17/24 1155 Gerard R Stoner Performed By: #### L 100.0100, L500.2500 #### [facility] [address] [place], [address] HGB Normal 12.0-15.0 [facility] Comment on above: Result Comment: This specimen has been REJECTED due to Laboratory criteria: Quanity Not Sufficient. ED STAFF has been notified of need of recollection. 12/17/24 1155 Gerard R Stoner Performed By: #### L 100.0100, L500.2500 #### [facility] [address] [place], [address] MCH Normal 27.0-32.0 [facility] Comment on above: Result Comment: This specimen has been REJECTED due to Laboratory criteria: Quanity Not Sufficient. ED STAFF has been notified of need of recollection. 12/17/24 1155 Gerard R Stoner Performed By: #### L 100.0100, L500.2500 #### [facility] [address] [place], [address] MCHC Normal 32-36 [facility] Comment on above: Result Comment: This specimen has been REJECTED due to Laboratory criteria: Quanity Not Sufficient. ED STAFF has been notified of need of recollection. 12/17/24 1155 Gerard R Stoner Performed By: #### L 100.0100, L500.2500 #### [facility] [address] [place], [address] MCV Normal 81-99 [facility] Comment on above: Result Comment: This specimen has been REJECTED due to Laboratory criteria: Quanity Not Sufficient. ED STAFF has been notified of need of recollection. 12/17/24 1155 Gerard R Stoner Performed By: #### L 100.0100, L500.2500 #### [facility] [address] [place], [address] NEUT% Normal 47-70 [facility] Comment on above: Result Comment: This specimen has been REJECTED due to Laboratory criteria: Quanity Not Sufficient. ED STAFF has been notified of need of recollection. 12/17/24 1155 Gerard R Stoner Performed By: #### L 100.0100, L500.2500 #### [facility] [address] [place], [address] PLT Normal 150-450 [facility] Comment on above: Result Comment: This specimen has been REJECTED due to Laboratory criteria: Quanity Not Sufficient. ED STAFF has been notified of need of recollection. 12/17/24 1155 Gerard R Stoner Performed By: #### L 100.0100, L500.2500 #### [facility] [address] [place], [address] RBC Normal 4.2-5.4 [facility] Comment on above: Result Comment: This specimen has been REJECTED due to Laboratory criteria: Quanity Not Sufficient. ED STAFF has been notified of need of recollection. 12/17/24 115 Gerard R Stoner Performed By: #### L 100.0100, L500.2500 #### [facility] [address] [place], [address] RDW CV Normal 11.6-14.6 [facility] Comment on above: Result Comment: This specimen has been REJECTED due to Laboratory criteria: Quanity Not Sufficient. ED STAFF has been notified of need of recollection. 12/17/24 115 Gerard R Stoner Performed By: #### L 100.0100, L500.2500 #### [facility] [address] [place], [address] RDW SD Normal 35.1-43.9 [facility] Comment on above: Result Comment: This specimen has been REJECTED due to Laboratory criteria: Quanity Not Sufficient. ED STAFF has been notified of need of recollection. 12/17/24 115 Gerard R Stoner Performed By: #### L 100.0100, L500.2500 #### [facility] [address] [place], [address] WBC Normal 4.4-11.0 [facility] Comment on above: Result Comment: This specimen has been REJECTED due to Laboratory criteria: Quanity Not Sufficient. ED STAFF has been notified of need of recollection. 12/17/24 1155 Gerard R Stoner Performed By: #### L 100.0100, L500.2500 #### [facility] [address] [place], [address] Carbon dioxide, total [Moles /volume] in Central venous bloodOrdered By: Jean Claude Starr on 12-17-2024 CO2 [Moles/Vol] 24.3 mmol/L 21.0-32.0 [facility] Chloride assayOrdered By: Nima Starr on 12-17-2024 Chloride [Moles/Vol] 100 mmol/L 98-108 [facility] Emergency Department Summary on 12-17-2024 Emergency Department Summary [facility] Medical Records Department [address] [place] [address] Emergency Department Summary 12/17/24 MR#: [id number] Acct: [id number] Name: YULIA GALLAGHER Rep #: [id number] : 1945 79 From: Jean Claude Starr MD PCP: Dr. Gopal aDs MD Status:REG ER Location: ED HPI History [...] symptoms: Yes Recent Illness/Hospitaliza tion: No PFSH [facility] Medical History (Updated 12/17/24 @ 14:15 by [...] to o (more content not included)... Normal [facility] Eosinophil percentageOrdered By: Jean Claudeaudrey Starr on 12-17-2024 Eosinophils/100 WBC (Bld) 0.6 % 0-5 [facility] Erythrocyte distribution wid th ratioOrdered By: Jean Claude Starr on 12-17-2024 Erythrocyte distribution width (RBC) [Ratio] 13.3 % 11.6-14.6 [facility] Erythrocyte distribution wid th standard deviationOrdered By: Jean Claude Starr on 12-17-2024 Erythrocyte distribution width (RBC) [Ratio] 43.2 fl 35.1-43.9 [facility] Glomerular filtration rate ( GFR) estimation/1.73 [...] Hematocrit (Bld) [Volume fraction] 43.6 % 37-47 [facility] Hemoglobin measurementOrdere d By: Jean Claude Starr on 12-17-2024 Hemoglobin (Bld) [Mass/Vol] 14.2 g/dL 12.0-15.0 [facility] Hyaline casts LM.LPF (Urine sed) [#/Area]Ordered By: Jean Claude Starr on 12-17-2024 Hyaline casts (Urine sed) [#/Area] 0 /[LPF] 0-5 [facility] Immature granulocytes/100 WB C Auto (Bld)Ordered By: Jean Claudeaudrey Starr on 12-17-2024 Immature granulocytes/100 WBC (Bld) 0.300 % 0.0-0.9 [facility] Comment on above: IG% - Immature Granu locytes (promyelocytes, myelocytes and metamyelocytes) > 1% indicates that a LEFT SHIFT is Present. Ketones Test strip Ql (U)Ord ered By: Jean Claude Starr on 12-17-2024 Ketones Ql (U) Negative Negative [facility] MCV (mean corpuscular volume ) determinationOrdered By: Jean Claude Starr on 12-17-2024 MCV (RBC) [Entitic vol] 88.6 fL 81-99 [facility] Mean corpuscular hemoglobin (MCH) determinationOrdered By: Jean Claudeaudrey Starr on 12-17-2024 MCH (RBC) [Entitic mass] 28.9 pg 27.0-32.0 [facility] Mean corpuscular hemoglobin concentration (MCHC) determinationOrdered By: Jean Claudeaudrey Starr on 12-17-2024 MCHC (RBC) [Mass/Vol] 32.6 g/dL 32-36 [facility] Mean platelet volume determi nationOrdered By: Jean Claudeaudrey Starr 12-17-2024 Platelet mean volume (Bld) [Entitic vol] 11.7 fL 6.2-12.0 [facility] Microscopic analysis of urin e for red blood cells (RBC)Ordered By: Jean Claude Starr on 12-17-2024 Microscopic analysis of urine for red blood cells (RBC) 0 SEEN /hpf 0-5 [facility] Monocyte percentageOrdered B y: Jean Claude Starr on 12-17-2024 Monocytes/100 WBC (Bld) 9.4 % 0-10 [facility] Mucus LM Ql (Urine sed)Order ed By: Jean Claude Starr on 12-17-2024 Mucus Ql (Urine sed) 0 SEEN /hpf [facility] Neutrophil percentageOrdered By: Jean Claude Starr on 12-17-2024 Neutrophils/100 WBC (Bld) 67.1 % 47-70 [facility] Nitrite Test strip Ql (U)Ord ered By: Jean Claude Starr on 12-17-2024 Nitrite Ql (U) Positive High Negative [facility] Nucleated red blood cell per centageOrdered By: Jean Claude Starr on 12-17-2024 Nucleated RBC/100 WBC (Bld) [Ratio] 0 % 0-5 [facility] Platelet countOrdered By: Nima Starr on 12-17-2024 Platelets (Bld) [#/Vol] 184 10*3/uL 150-450 [facility] Potassium measurement (mass/ volume)Ordered By: Jean Claudeaudrey Starr on 12-17-2024 Potassium (Unsp spec) [Mass/Vol] 4.4 mmol/L 3.3-5.1 [facility] Comment on above: Hemolysis present, R esults could be affected. Protein Test strip Ql (U)Ord ered By: Jean Claude Starr on 12-17-2024 Protein Ql (U) 30 mg/dl High Negative [facility] RBC Auto (Bld) [#/Vol]Ordere d By: Jean Claude Starr on 12-17-2024 RBC (Bld) [#/Vol] 4.92 10*6/uL 4.2-5.4 [facility] Serum creatinine measurement (mass/volume)Ordered By: Jean Claude Starr on 12-17-2024 Creatinine [Mass/Vol] 1.18 mg/dL 0.70-1.20 [facility] Serum glucose measurement (m ass/volume)Ordered By: Jean Claude Starr on 12-17-2024 Glucose [Mass/Vol] 103 mg/dL High 70-99 [facility] Serum or plasma calcium claude urement (mass/volume)Ordered By: Jean Claude Starr on 12-17-2024 Calcium [Mass/Vol] 9.5 mg/dL 7.6-11.0 [facility] Serum or plasma urea nitroge n measurement (mass/volume)Ordered By: Jean Claude Starr on 12-17-2024 Urea nitrogen [Mass/Vol] 29 mg/dL High 4-19 [facility] Sodium levelOrdered By: Jean Claude Starr on 12-17-2024 Sodium [Moles/Vol] 137 mmol/L 133-145 [facility] Squamous epithelial cells de tection in urine sediment by light microscopyOrdered By: Jean Claude Starr on 12-17-2024 Epithelial cells.squamous LM Ql (Urine sed) 5-10 SEEN /hpf 5-10 [facility] Urinalysis, Completeon 12-17 CAST,COARSE GR 0-5 SEEN Normal 0-5 /lpf [facility] Comment on above: Order Comment: COLOR OF URINE MAY AFFECT DIPSTICK RESULTS. REIMBURSEMENT REPRESENTATIVE TO SPECIFY Performed By: #### L 400.0001 #### [facility] [address] [facility] [address] CAST,FINE GRAN 5-10 SEEN Normal 0-5 [facility] Comment on above: Order Comment: COLOR OF URINE MAY AFFECT DIPSTICK RESULTS. REIMBURSEMENT REPRESENTATIVE TO SPECIFY Performed By: #### L 400.0001 #### [facility] [address] [place], [address] CAST,HYALINE 0-5 SEEN Normal 0-5 [facility] Comment on above: Order Comment: COLOR OF URINE MAY AFFECT DIPSTICK RESULTS. REIMBURSEMENT REPRESENTATIVE TO SPECIFY Performed By: #### L 400.0001 #### [facility] [address] [place], [address] BACTERIA 1+ /hpf Normal None Seen [facility] Comment on above: Order Comment: COLOR OF URINE MAY AFFECT DIPSTICK RESULTS. REIMBURSEMENT REPRESENTATIVE TO SPECIFY Performed By: #### L 400.0001 #### [facility] [address] [place], [address] EPI,SQUAMOUS 5-10 SEEN Normal 5-10 [facility] Comment on above: Order Comment: COLOR OF URINE MAY AFFECT DIPSTICK RESULTS. REIMBURSEMENT REPRESENTATIVE TO SPECIFY Performed By: #### L 400.0001 #### [facility] [address] [place], [address] WBC 10-25 SEEN Normal 0-5 [facility] Comment on above: Order Comment: COLOR OF URINE MAY AFFECT DIPSTICK RESULTS. REIMBURSEMENT REPRESENTATIVE TO SPECIFY Performed By: #### L 400.0001 #### [facility] [address] [place], [address] Mucus Ql (Urine sed) 0 SEEN Normal [facility] Comment on above: Order Comment: COLOR OF URINE MAY AFFECT DIPSTICK RESULTS. REIMBURSEMENT REPRESENTATIVE TO SPECIFY Performed By: #### L 400.0001 #### [facility] [address] [place], [address] RBC 0 SEEN Normal 0-5 [facility] Comment on above: Order Comment: COLOR OF URINE MAY AFFECT DIPSTICK RESULTS. REIMBURSEMENT REPRESENTATIVE TO SPECIFY Performed By: #### L 400.0001 #### [facility] [address] [place], [address] Urine clarityOrdered By: Jean Claude Starr on 12-17-2024 Clarity (U) Sl. Cloudy Clear [facility] Urine coarse granular cast d etectionOrdered By: Jean Claude Starr on 12-17-2024 Coarse Granular Casts LM Ql (Urine sed) 0-5 SEEN /lpf 0-5 /lpf [facility] Urine color determinationOrd ered By: Jean Claude Starr on 12-17-2024 Color (U) Zully Yellow [facility] Urine glucose detectionOrder ed By: Jean Claude Starr on 12-17-2024 Glucose Ql (U) Normal mg/dl Normal [facility] Urine leukocyte esterase det ection by dipstickOrdered By: Jean Claude Starr on 12-17-2024 Leukocyte esterase Test strip Ql (U) 500 /ul High Negative [facility] Urine pHOrdered By: Jean Claude ventura on 12-17-2024 pH (U) 5.0 [pH] 5.0 - 8.0 [facility] Urine sediment bacteria coun t by microscopy (number/high power field)Ordered By: Jean Claude Starr on 12-17-2024 Bacteria LM.HPF (Urine sed) [#/Area] 1 /[HPF] None Seen [facility] Urine sediment fine granular cast count by microscopy (number/low power field)Ordered By: Jean Claude Starr on 12-17-2024 Fine Granular Casts LM.LPF (Urine sed) [#/Area] 5-10 SEEN /lpf 0-5 [facility] Urine specific gravity measu rementOrdered By: [facility] Specific gravity (U) [Rel density] 1.020 1.002-1.030 [facility] Urine urobilinogen measureme ntOrdered By: Jean Claude Starr on 12-17-2024 Urobilinogen Ql (U) 4 mg/dl High Normal [facility] White blood cell (WBC) count Ordered By: Jean Claude Starr on 12-17-2024 WBC (Bld) [#/Vol] 6.9 10*3/uL 4.4-11.0 [facility] White blood cell countOrdere d By: Jean Claude Starr on 12-17-2024 White blood cell count 10-25 SEEN /hpf 0-5 [facility] CNOVon 11-17-2024 [facility] Office Visit (FAMMAS) ---- YULIA GALLAGHER ([id number]) 1945 F Date Time Provider Department 11/17/24 [...] included)... Normal [facility] CNOVon 05-07-2024 [facility] Office Visit (FAMMAS) ---- YULIA GALLAGHER ([id number]) 1945 F Date Time Provider Department 05/07/24 [...] Take 200 mg by mouth once daily. Kramer-3 Fatty Acids 300 mg cap Take 1 [...] range of (more content not included)... Normal [facility] 01-14-2024 [facility] Office Visit (OUMOUMDS) ---- YULIA GALLAGHER ([id number]) 1945 F Date Time Provider Department 01/14/24 [...] daily. (Patient not taking: Reported on 01/14/2024) Kramer-3 Fatty Acids 300 mg cap Take 1 [...] sounds are normal. (more content not included)... [facility] 01-08-2024 [facility] Telephone (FAMPLA) ---- TIFFANIEYULIA Guillermina ([id number]) 1945 F Date Time Provider Department 01/08/24 [...] 200 mg by mouth once daily. - Kramer-3 Fatty Acids 300 mg cap Take 1 [...] Encounter Status:Closed by CINDY NORWOOD on 01/09/24 [facility] CBC W Auto Differential pane l (Bld)on 06-24-2024 Basophils (Bld) [#/Vol] 0.07 10*3/uL Normal <0.11 [facility] Comment on above: Order Comment: Speci men Type: BLOOD SPECIMEN [facility] Address: [address] [place] [address] Performed By: #### 5 7021-8 #### [facility] CLIA [id number] [address] [place] [address] [place] Basophils/100 WBC (Bld) 1.4 % Normal [facility] Comment on above: Order Comment: Speci men Type: BLOOD SPECIMEN Ordering Facility: [facility] Address: [address] [place] [address] Performed By: #### 5 7021-8 #### [facility] CLIA [id number] [address] [place] [address] [place] Differential cell count method Nom (Bld) Auto Normal [facility] Comment on above: Order Comment: Speci men Type: BLOOD SPECIMEN Ordering Facility: [facility] Address: [address] [place] [address] Performed By: #### 5 7021-8 #### [facility] CLIA [id number] [address] [place] [address] [place] Eosinophils (Bld) [#/Vol] 0.52 10*3/uL High <0.46 [facility] Comment on above: Order Comment: Speci men Type: BLOOD SPECIMEN Ordering Facility: [facility] Address: [address] [place] [address] Performed By: #### 5 7021-8 #### [facility] CLIA [id number] [address] [place] [address] [place] Eosinophils/100 WBC (Bld) 10.1 % Normal [facility] Comment on above: Order Comment: Speci men Type: BLOOD SPECIMEN Ordering Facility: [facility] Address: [address] [place] [address] Performed By: #### 5 7021-8 #### [facility] CLIA [id number] [address] [place] [address] [place] Erythrocyte distribution width (RBC) [Ratio] 13.7 % Normal 11.5-15.0 [facility] Comment on above: Order Comment: Speci men Type: BLOOD SPECIMEN Ordering Facility: [facility] Address: [address] [place] [address] Performed By: #### 5 7021-8 #### [facility] CLIA [id number] [address] [place] [address] [place] Hematocrit (Bld) [Volume fraction] 44.9 % Normal 36.0-46.0 [facility] Comment on above: Order Comment: Speci men Type: BLOOD SPECIMEN Ordering Facility: [facility] Address: [address] [place] [address] Performed By: #### 5 7021-8 #### [facility] CLIA [id number] [address] [place] [address] [place] Hemoglobin (Bld) [Mass/Vol] 14.5 g/dL Normal 11.5-15.5 [facility] Comment on above: Order Comment: Speci men Type: BLOOD SPECIMEN Ordering Facility: [facility] Address: [address] [place] [address] Performed By: #### 5 7021-8 #### [facility] CLIA [id number] [address] [place] [address] [place] Immature granulocytes (Bld) [#/Vol] 10*3/uL Normal <0.10 [facility] Comment on above: Order Comment: Speci men Type: BLOOD SPECIMEN Ordering Facility: [facility] Address: [address] [place] [address] Performed By: #### 5 7021-8 #### [facility] [id number] [address] [place] [address] [place] Immature granulocytes/100 WBC (Bld) 0.2 % Normal [facility] Comment on above: Order Comment: Speci men Type: BLOOD SPECIMEN Ordering Facility: [facility] Address: [address] [place] [address] Performed By: #### 5 7021-8 #### [facility] CLIA [id number] [address] [place] [address] [place] Lymphocytes (Bld) [#/Vol] 1.30 10*3/uL Normal 1.00-4.0 0 [facility] Comment on above: Order Comment: Speci men Type: BLOOD SPECIMEN Ordering Facility: [facility] Address: [address] [place], [place] [address] Performed By: #### 5 7021-8 #### [facility] CLIA [id number] [address] [place] [address] [place] Lymphocytes/100 WBC (Bld) 25.1 % Normal [facility] Comment on above: Order Comment: Speci men Type: BLOOD SPECIMEN Ordering Facility: [facility] Address: [address] [place] [address] Performed By: #### 5 7021-8 #### [facility] CLIA [id number] [address] [place] [address] [place] MCH (RBC) [Entitic mass] 29.5 pg Normal 26.0-34.0 [facility] Comment on above: Order Comment: Speci men Type: BLOOD SPECIMEN Ordering Facility: [facility] Address: [address] [place] [address] Performed By: #### 5 7021-8 #### [facility] CLIA [id number] [address] [place] [address] [place] MCHC (RBC) [Mass/Vol] 32.3 g/dL Normal 30.5-36.0 [facility] Comment on above: Order Comment: Speci men Type: BLOOD SPECIMEN Ordering Facility: [facility] Address: [address] [place] [address] Performed By: #### 5 7021-8 #### [facility] CLIA [id number] [address] [place] [address] [place] MCV (RBC) [Entitic vol] 91.3 fL Normal 80.0-100.[address] [facility] Comment on above: Order Comment: Speci men Type: BLOOD SPECIMEN Ordering Facility: [facility] Address: [address] [place] [address] Performed By: #### 5 7021-8 #### [facility] CLIA [id number] [address] [place] [address] [place] Monocytes (Bld) [#/Vol] 0.45 10*3/uL Normal <0.87 [facility] Comment on above: Order Comment: Speci men Type: BLOOD SPECIMEN Ordering Facility: [facility] Address: [address] [place] [address] Performed By: #### 5 7021-8 #### [facility] CLIA [id number] [address] [place] [address] [place] Monocytes/100 WBC (Bld) 8.7 % Normal [facility] Comment on above: Order Comment: Speci men Type: BLOOD SPECIMEN Ordering Facility: [facility] Address: [address] [place] [address] Performed By: #### 5 7021-8 #### [facility] CLIA [id number] [address] [place] [address] [place] Neutrophils (Bld) [#/Vol] 2.82 10*3/uL Normal 1.45-7.5 0 [facility] Comment on above: Order Comment: Speci men Type: BLOOD SPECIMEN Ordering Facility: [facility] Address: [address] [place] [address] Performed By: #### 5 7021-8 #### [facility] CLIA [id number] [address] [place] [address] [place] Neutrophils/100 WBC (Bld) 54.5 % Normal [facility] Comment on above: Order Comment: Speci men Type: BLOOD SPECIMEN Ordering Facility: [facility] Address: [address] [place] [address] Performed By: #### 5 7021-8 #### [facility] CLIA [id number] [address] [place] [address] [place] Nucleated RBC (Bld) [#/Vol] 10*3/uL Normal <0.01 [facility] Comment on above: Order Comment: Speci men Type: BLOOD SPECIMEN Ordering Facility: [facility] Address: [address] [place] [address] Performed By: #### 5 7021-8 #### [facility] CLIA [id number] [address] [place] [address] [place] Nucleated RBC/100 WBC (Bld) [Ratio] 0.0 /100 WBC Normal [facility] Comment on above: Order Comment: Speci men Type: BLOOD SPECIMEN Ordering Facility: [facility] Address: [address] [place] [address] Performed By: #### 5 7021-8 #### [facility] CLIA [id number] [address] [place] [address] [place] Platelet mean volume (Bld) [Entitic vol] 11.1 fL Normal 9.0-12.7 [facility] Comment on above: Order Comment: Speci men Type: BLOOD SPECIMEN Ordering Facility: [facility] Address: [address] [place] [address] Performed By: #### 5 7021-8 #### [facility] CLIA [id number] [address] [place] [address] [place] Platelets (Bld) [#/Vol] 220 10*3/uL Normal 150-400 [facility] Comment on above: Order Comment: Speci men Type: BLOOD SPECIMEN Ordering Facility: [facility] Address: [address] [place] [address] Performed By: #### 5 7021-8 #### [facility] CLIA [id number] [address] [place] [address] [place] RBC (Bld) [#/Vol] 4.92 10*6/uL Normal 3.90-5.20 [facility] Comment on above: Order Comment: Speci men Type: BLOOD SPECIMEN Ordering Facility: [facility] Address: [address] [place] [address] Performed By: #### 5 7021-8 #### [facility] CLIA [id number] [address] [place] [address] [place] WBC (Bld) [#/Vol] 5.17 10*3/uL Normal 3.70-11.00 [facility] Comment on above: Order Comment: Speci men Type: BLOOD SPECIMEN Ordering Facility: [facility] Address: [address] [place] [address] Performed By: #### 5 7021-8 #### [facility] CLIA [id number] [address] [place] [address] [place] Comprehensive metabolic 2000 panelon 01-07-2024 Albumin [Mass/Vol] 4.0 g/dL Normal 3.9-4.9 [facility] Comment on above: Order Comment: Speci men Type: BLOOD SPECIMEN Ordering Facility: [facility] Address: [address] [place] [address] Performed By: #### 2 4323-8 #### [facility] CLIA [id number] [address] [place] [address] [place] ALP [Catalytic activity/Vol] 114 U/L Normal 34-123 [facility] Comment on above: Order Comment: Speci men Type: BLOOD SPECIMEN Ordering Facility[facility] Address: [address] [place] [address] [place] [address] Performed By: #### 2 4323-8 #### [facility] CLIA [id number] [address] [place] [address] [place] ALT [Catalytic activity/Vol] 10 U/L Normal 7-38 [facility] Comment on above: Order Comment: Speci men Type: BLOOD SPECIMEN Ordering Facility: [facility] Address: [facility] [place] [address] Performed By: #### 2 4323-8 #### [facility] CLIA [id number] [address] [place] [address] [place] Anion gap [Moles/Vol] 9 mmol/L Normal 8-15 [facility] Comment on above: Order Comment: Speci men Type: BLOOD SPECIMEN Ordering Facility: [facility] Address: [facility] [place] [address] Performed By: #### 2 4323-8 #### [facility] CLIA [id number] [address] [place] [address] [place] AST [Catalytic activity/Vol] 25 U/L Normal 13-35 [facility] Comment on above: Order Comment: Speci men Type: BLOOD SPECIMEN Ordering Facility[facility] Address: [facility] [address] Performed By: #### 2 4323-8 #### [facility] CLIA [id number] [address] [place] [address] [place] Bilirubin [Mass/Vol] 0.4 mg/dL Normal 0.2-1.3 [facility] Comment on above: Order Comment: Speci men Type: BLOOD SPECIMEN Ordering Facility: [facility] Address: [facility] [place] [id number] Performed By: #### 2 4323-8 #### [facility] CLIA [id number] [address] [place] [address] [place] Calcium [Mass/Vol] 10.1 mg/dL Normal 8.5-10.2 [facility] Comment on above: Order Comment: Speci men Type: BLOOD SPECIMEN Order[facility] Address: [address] [place] [address] Performed By: #### 2 4323-8 #### [facility] CLIA [id number] [address] [place] [address] [place] Chloride [Moles/Vol] 104 mmol/L Normal 98-107 [facility] Comment on above: Order Comment: Speci men Type: BLOOD SPECIMEN Ordering Facility: [facility] Address: [address] [place] [address] Performed By: #### 2 4323-8 #### [facility] CLIA [id number] [address] [place] [address] [place] CO2 [Moles/Vol] 27 mmol/L Normal 22-30 [facility] Comment on above: Order Comment: Speci men Type: BLOOD SPECIMEN Order[facility] Facility[facility] Address: [address] [place] [address] Performed By: #### 2 4323-8 #### [facility] CLIA [id number] [address] [place] [address] [place] Creatinine [Mass/Vol] 1.13 mg/dL High 0.58-0.96 [facility] Comment on above: Order Comment: Speci men Type: BLOOD SPECIMEN Ordering Facility[facility] Address: [address] [place] [address] Performed By: #### 2 4323-8 #### [facility] CLIA [id number] [address] [place] [address] [place] Creatinine and Glomerular filtration rate.predicted panel (S/P/Bld) 51 mL/min/1.73m??? Low >=60 [facility] Comment on above: Order Comment: Speci men Type: BLOOD SPECIMEN Ordering Facility: [facility] Address: [address] [place], [place] [address] Result Comment: Estela mated Glomerular Filtration Rate [...] GFR. Performed By: #### 2 4323-8 #### [facility] [id number] [address] [place] [address] [place] Glucose [Mass/Vol] 93 mg/dL Normal 74-99 [facility] Comment on above: Order Comment: Gloria storey Type: BLOOD SPECIMEN Ordering Facility: [facility] Address: [address] [place] [address] Result Comment: The [place] Diabetes Association (ADA) provides guidance for cutoff [...] Standards of Medical Care in Diabetes 2016, [place] [employer]. Diabetes Care. 2016.39(Suppl 1). Performed By: #### 2 4323-8 #### [facility] [id number] [address] [place] [address] [place] Potassium [Moles/Vol] 5.6 mmol/L High 3.7-5.1 [facility] Comment on above: Order Comment: Gloira storey Type: BLOOD SPECIMEN Order[facility] Facility[facility] Address: [address] [place], [place] [address] Performed By: #### 2 4323-8 #### [facility] CLIA [id number] [address] [place] [address] [place] Protein [Mass/Vol] 6.4 g/dL Normal 6.3-8.0 [facility] Comment on above: Order Comment: Speci men Type: BLOOD SPECIMEN [facility] Address: [address] [place] [address] Performed By: #### 2 4323-8 #### [facility] CLIA [id number] [address] [place] [address] [place] Sodium [Moles/Vol] 140 mmol/L Normal 136-144 [facility] Comment on above: Order Comment: Speci men Type: BLOOD SPECIMEN [facility] Address: [address] [place] [address] Performed By: #### 2 4323-8 #### [facility] CLIA [id number] [address] [place] [address] [place] Urea nitrogen [Mass/Vol] 15 mg/dL Normal 7-21 [facility] Comment on above: Order Comment: Speci men Type: BLOOD SPECIMEN [facility] Facility[facility] Address: [address] [place] [address] Performed By: #### 2 4323-8 #### [facility] CLIA [id number] [address] [place] [address] [place] Lipid 1996 panelon 4 Cholesterol [Mass/Vol] 297 mg/dL High <200 [facility] Comment on above: Order Comment: Speci men Type: BLOOD SPECIMEN Ordering Facility[facility] Address: [address] [place] [address] Result Comment: <200 mg/dL, Desirable 200-239 mg/dL, Borderline high >239 mg/dL, High Performed By: #### 2 4331-1 #### [facility] CLIA [id number] [address] [place] [address] [place] [facility] CLIA [id number] [address] [place] [address] [place] #### 3016-3 #### [facility] CLIA [id number] [address] [place] [address] [place] Cholesterol in HDL [Mass/Vol] 64 mg/dL Normal >39 [facility] Comment on above: Order Comment: Gloria storey Type: BLOOD SPECIMEN Order[facility] Address: [address] [place] [address] Result Comment: 40-5 9 mg/dL, Acceptable >59 mg/dL, High: Negative risk factor for coronary heart disease <40 mg/dL, Low: Positive risk factor for coronary heart disease Performed By: #### 2 4331-1 #### [facility] CLIA [id number] [address] [place] [address] [place] [facility] CLIA [id number] [address] [place] [address] [place] #### 3016-3 #### [facility] CLIA [id number] [address] [place] [address] [place] Cholesterol in LDL [Mass/Vol] 214 mg/dL High <100 [facility] Comment on above: Order Comment: Gloria storey Type: BLOOD SPECIMEN [facility] Address: [address] [place] [address] Result Comment: <100 mg/dL, Optimal 100-129 mg/dL, Near optimal/above optimal 130-159 mg/dL, Borderline high 160-189 mg/dL, High >189 mg/dL, Very high Secondary prevention optimal LDL Cholesterol levels are recommended to be < 70 mg/dL Performed By: #### 2 4331-1 #### [facility] CLIA [id number] [address] [place] [address] [place] [facility] CLIA [id number] [address] [place] [address] [place] #### 3016-3 #### [facility] CLIA [id number] [address] [place] [address] [place] Cholesterol in LDL/Cholesterol in HDL [Mass ratio] 3.34 {ratio} High <2.54 [facility] Comment on above: Order Comment: Speci men Type: BLOOD SPECIMEN [facility] Address: [address] [place] [address] Result Comment: Salas olivo: 1. National Cholesterol Education Program ATP III Guideline At-A-Glance Quick Desk Reference: National Heart, Lung, and Blood [place]. National Institutes of Health. 2001: NIH Publication No. 01-3305. 2. An International Atherosclerosis Society position paper: global recommendations for the management of dyslipidemia: executive summary, Atherosclerosis. 2014: 232(2):410-413. Performed By: #### 2 4331-1 #### [facility] CLIA [id number] [address] [place] [address] [place] [facility] CLIA [id number] [address] [place] [address] [place] #### 3016-3 #### [facility] CLIA [id number] [address] [place] [address] [place] Cholesterol in VLDL [Mass/Vol] 19 mg/dL Normal <30 [facility] Comment on above: Order Comment: Speci men Type: BLOOD SPECIMEN [facility] Address: [address] [place] [address] Performed By: #### 2 4331-1 #### [facility] CLIA [id number] [address] [place] [address] [place] [facility] CLIA [id number] [address] [place] [address] [place] #### 3016-3 #### [facility] CLIA [id number] [address] [place] [address] [place] Cholesterol non HDL [Mass/Vol] 233 mg/dL High <130 [facility] Comment on above: Order Comment: Speci men Type: BLOOD SPECIMEN Ordering Facility: [facility] Address: [address] [place] [address] Result Comment: <130 mg/dL, Optimal 130-159 mg/dL, Near optimal/above optimal 160-189 mg/dL, Borderline high 190-219 mg/dL, High >219 mg/dL, Very high Secondary prevention optimal non HDL Cholesterol levels are recommended to be <100 mg/dL Performed By: #### 2 4331-1 #### [facility] CLIA [id number] [address] [place] [address] [place] [address] [place] #### 3016-3 #### [facility] CLIA [id number] [address] [place] [address] [place] Cholesterol.total/Cholest caity in HDL [Mass ratio] 4.64 {ratio} Normal <5.10 [facility] Comment on above: Order Comment: Speci men Type: BLOOD SPECIMEN Ordering Facility: [facility] Address: [address] [place] [address] Performed By: #### 2 4331-1 #### [facility] CLIA [id number] [address] [place] [address] [place] [id number] [place] [address] [place] #### 3016-3 #### [facility] CLIA [id number] [address] [place] [address] [place] FASTING TIME 12 hrs Normal [facility] Comment on above: Order Comment: Speci men Type: BLOOD SPECIMEN Ordering Facility: [facility] Address: [address] [place] [address] Performed By: #### 2 4331-1 #### [facility] CLIA [id number] [address] [place] [address] [place] [facility] CLIA [id number] [address] [place] [address] [place] #### 3016-3 #### [facility] CLIA [id number] [address] [place] [address] [place] Triglyceride [Mass/Vol] 95 mg/dL Normal <[address] [facility] Comment on above: Order Comment: Speci men Type: BLOOD SPECIMEN Ordering Facility: [facility] Address: [address] [place] [address] Result Comment: <150 mg/dL, Normal 150-199 mg/dL, Borderline high 200-499 mg/dL, High >499 mg/dL, Very high Performed By: #### 2 4331-1 #### [facility] CLIA [id number] [address] [place] [address] [place] [facility] CLIA [id number] [address] [place] [address] [place] #### 3016-3 #### [facility] CLIA [id number] [address] [place] [address] [place] TSH SerPl-aCncon 01-07-2024 TSH Qn 6.820 m[IU]/L High 0.270-4.200 [facility] Comment on above: Order Comment: Speci men Type: BLOOD SPECIMEN Ordering Facility: [facility] Address: [address] [place] [address] Performed By: #### 2 4331-1 #### [facility] CLIA [id number] [address] [place] [id number] [place] [facility] CLIA [id number] [address] [place] [address] [place] #### 3016-3 #### [facility] CLIA [id number] [address] [place] [id number] [place] TSH SerPl-aCncon 03-21-2023 TSH Qn 6.500 m[IU]/L High 0.270-4.200 [facility] Comment on above: Order Comment: Speci men Type: BLOOD SPECIMEN Ordering Facility: [facility] Address: [address] [place] [address] Performed By: #### 3 016-3 #### [facility] CLIA [id number] [facility] [place] [id number] [place] SCREENINGon 09-28-2022 [facility] TSHon 07-06-2017 Thyroid stimulating hormone (TSH) 0.130 UIU/ML Low 0.358-3.740 [facility] Comment on above: Result Comment: 3rd generation ultra sensitive TSH Performed By: #### L [id number] ####[facility] [id number] [place], [place] [address]Ax# [phone] Vital Signs Date Time Vital Sign Value Performing Clinician Facility 12-17-2024 14:29-0400 Body temperature 97.9 [degF] Dr. Gopal Das MD Work Phone: [facility] 12-17-2024 14:29-0400 Diastolic blood pressure 71 mm[Hg] Dr. Gopal Das MD Work Phone: [facility] 12-17-2024 14:29-0400 Heart rate 66 /min Dr. Gopal Das MD Work Phone: [facility] 12-17-2024 14:29-0400 Respiratory rate 14 /min Dr. Gopal Das MD Work Phone: [facility] 12-17-2024 14:29-0400 SaO2% (BldA) [Mass fraction] 98 % Dr. Gopal Das MD Work Phone: [facility] 12-17-2024 14:29-0400 Systolic blood pressure 130 mm[Hg] Dr. Gopal Das MD Work Phone: [facility] 12-17-2024 10:08-0400 Body height 165.[address] Gopal Das MD Work Phone: [facility] 12-17-2024 10:08-0400 Body mass index (BMI) [Ratio] 24.8 kg/m2 Dr. Gopal Das MD Work Phone: [facility] 12-17-2024 10:08-0400 Body weight 67.[address] Gopal Das MD Work Phone: [facility] 11-17-2024 14:30-0400 Body height 165.1 cm Gopal Das MD Work Phone: [facility] 11-17-2024 14:30-0400 Body mass index (BMI) [Ratio] 25.93 kg/m2 Gopal Das MD Work Phone: [facility] 11-17-2024 14:30-0400 Body temperature 97.5 [degF] Gopal Das MD Work Phone: [facility] 11-17-2024 14:30-0400 Body weight 70.67 kg Gopal Das MD Work Phone: [facility] 11-17-2024 14:30-0400 Diastolic blood pressure 72 mm[Hg] Gopal Das MD Work Phone: [facility] 11-17-2024 14:30-0400 Heart rate 92 /min Gopal Das MD Work Phone: [facility] 11-17-2024 14:30-0400 Respiratory rate 16 /min Gopal Das MD Work Phone: [facility] 11-17-2024 14:30-0400 SaO2% (BldA) [Mass fraction] 96 % Gopal Das MD Work Phone: [facility] 11-17-2024 14:30-0400 Systolic blood pressure 136 mm[Hg] Gopal Das MD Work Phone: [facility] 05-07-2024 14:35-0400 Body height 165.1 cm Gopal Das MD Work Phone: [facility] 05-07-2024 14:35-0400 Body mass index (BMI) [Ratio] 27.62 kg/m2 Gopal Das MD Work Phone: [facility] 05-07-2024 14:35-0400 Body temperature 97.59 [degF] Gopal Das MD Work Phone: [facility] 05-07-2024 14:35-0400 Body weight 75.3 kg Gopal Das MD Work Phone: [facility] 05-07-2024 14:35-0400 Diastolic blood pressure 80 mm[Hg] Gopal Das MD Work Phone: [facility] 05-07-2024 14:35-0400 Heart rate 62 /min Gopal Das MD Work Phone: [facility] 05-07-2024 14:35-0400 Respiratory rate 18 /min Gopal Das MD Work Phone: [facility] 05-07-2024 14:35-0400 SaO2% (BldA) [Mass fraction] 97 % Gopal Das MD Work Phone: [facility] 05-07-2024 14:35-0400 Systolic blood pressure 132 mm[Hg] Gopal Das MD Work Phone: [facility] 01-14-2024 13:28-0400 Body mass index (BMI) [Ratio] 27.49 kg/m2 Gopal Das MD Work Phone: [facility] 01-14-2024 13:28-0400 Body weight 74.93 kg Gopal Das MD Work Phone: [facility] 01-14-2024 13:28-0400 Diastolic blood pressure 68 mm[Hg] Gopal Das MD Work Phone: [facility] 01-14-2024 13:28-040 Heart rate 80 /min Gopal Das MD Work Phone: [facility] 01-14-2024 13:28040 Respiratory rate 18 /min Gopal Das MD Work Phone: [facility] 01-14-2024 13:28040 Systolic blood pressure 122 mm[Hg] Gopal Das MD Work Phone: [facility] 11-05-2023 16:10-0400 Body height 165.1 cm Gopal Das MD Work Phone: [facility] 11-05-2023 16:10-0400 Body mass index (BMI) [Ratio] 27.12 kg/m2 Gopal Das MD Work Phone: [facility] 11-05-2023 16:10-0400 Body temperature 97.9 [degF] Gopal Das MD Work Phone: [facility] 11-05-2023 16:10-0400 Body weight 73.94 kg Gopal Das MD Work Phone: [facility] 11-05-2023 16:10-0400 Diastolic blood pressure 72 mm[Hg] Gopal Das MD Work Phone: [facility] 11-05-2023 16:10-0400 Heart rate 62 /min Gopal Das MD Work Phone: [facility] 11-05-2023 16:10-0400 Respiratory rate 15 /min Gopal Das MD Work Phone: [facility] 11-05-2023 16:10-0400 SaO2% (BldA) [Mass fraction] 95 % Gopal Das MD Work Phone: [facility] 11-05-2023 16:10-0400 Systolic blood pressure 136 mm[Hg] Gopal Das MD Work Phone: [facility] 07-14-2023 11:38-0500 Heart rate 74 /min [facility] 07-14-2023 11:38-0500 Respiratory rate 16 /min [facility] 07-14-2023 11:38-0500 SaO2% (BldA) [Mass fraction] 100 % [facility] 07-14-2023 08:23-0500 Body height 165.1 cm [facility] 07-14-2023 08:23-0500 Body mass index (BMI) [Ratio] 27.8 kg/m2 [facility] 07-14-2023 08:23-0500 Body temperature 97.4 [degF] [facility] 07-14-2023 08:23-0500 Body weight 75.79 kg [facility] 07-14-2023 08:23-0500 Diastolic blood pressure 78 mm[Hg] [facility] 07-14-2023 08:23-0500 Systolic blood pressure 130 mm[Hg] [facility] 07-11-2023 13:47-0500 Body height 170.18 cm [facility] 07-11-2023 13:47-0500 Body mass index (BMI) [Ratio] 27.8 kg/m2 [facility] 07-11-2023 13:47-0500 Body temperature 96.9 [degF] [facility] 07-11-2023 13:47-0500 Body weight 80.6 kg [facility] 07-11-2023 13:47-0500 Diastolic blood pressure 91 mm[Hg] [facility] 07-11-2023 13:47-0500 Heart rate 98 /min [facility] 07-11-2023 13:47-0500 Respiratory rate 14 /min [facility] 07-11-2023 13:47-0500 SaO2% (BldA) [Mass fraction] 94 % [facility] 07-11-2023 13:47-0500 Systolic blood pressure 135 mm[Hg] [facility] 04-16-2023 10:22-0400 Body height 165.1 cm Gopal Das MD Work Phone: [facility] 04-16-2023 10:22-0400 Body temperature 97 [degF] Gopal Das MD Work Phone: [facility] 04-16-2023 10:22-0400 Body weight 86.36 kg Gopal Das MD Work Phone: [facility] 04-16-2023 10:22-0400 Diastolic blood pressure 84 mm[Hg] Gopal Das MD Work Phone: [facility] 04-16-2023 10:22-0400 Heart rate 76 /min Gopal Das MD Work Phone: [facility] 04-16-2023 10:22-0400 Respiratory rate 18 /min Gopal Das MD Work Phone: [facility] 04-16-2023 10:22-0400 SaO2% (BldA) [Mass fraction] 96 % Gopal Das MD Work Phone: [facility] 04-16-2023 10:22-0400 Systolic blood pressure 138 mm[Hg] Gopal Das MD Work Phone: [facility] 03-05-2023 13:46-0400 Body height 165.1 cm Gopal Das MD Work Phone: [facility] 03-05-2023 13:46-0400 Body temperature 96.91 [degF] Gopal Das MD Work Phone: [facility] 03-05-2023 13:46-0400 Body weight 89.08 kg Gopal Das MD Work Phone: [facility] 03-05-2023 13:46-0400 Diastolic blood pressure 78 mm[Hg] Gopal Das MD Work Phone: [facility] 03-05-2023 13:46-0400 Heart rate 89 /min Gopal Das MD Work Phone: [facility] 03-05-2023 13:46-0400 Respiratory rate 16 /min Gopal Das MD Work Phone: [facility] 03-05-2023 13:46-0400 SaO2% (BldA) [Mass fraction] 95 % Gopal Das MD Work Phone: [facility] 03-05-2023 13:46-0400 Systolic blood pressure 134 mm[Hg] Gopal Das MD Work Phone: [facility] 08-30-2022 13:32-0500 Body height 165.1 cm Gopal Das MD Work Phone: [facility] 08-30-2022 13:32-0500 Body temperature 96.91 [degF] Gopal Das MD Work Phone: [facility] 08-30-2022 13:32-0500 Body weight 94.17 kg Gopal Das MD Work Phone: [facility] 08-30-2022 13:32-0500 Diastolic blood pressure 58 mm[Hg] Gopal Das MD Work Phone: [facility] 08-30-2022 13:32-0500 Heart rate 98 /min Gopal Das MD Work Phone: [facility] 08-30-2022 13:32-0500 Respiratory rate 14 /min Gopal Das MD Work Phone: [facility] 08-30-2022 13:32-0500 SaO2% (BldA) [Mass fraction] 98 % Gopal Das MD Work Phone: [facility] 08-30-2022 13:32-0500 Systolic blood pressure 128 mm[Hg] Gopal Das MD Work Phone: [facility] 02-20-2022 10:07-0400 Body height 165.1 cm Gopal Das MD Work Phone: [facility] 02-20-2022 10:07-0400 Body weight 90.81 kg Gopal Das MD Work Phone: [facility] 02-20-2022 10:07-0400 Diastolic blood pressure 78 mm[Hg] Gopal Das MD Work Phone: [facility] 02-20-2022 10:07-0400 Heart rate 85 /min Gopal Das MD Work Phone: [facility] 02-20-2022 10:07-0400 Respiratory rate 14 /min Gopal Das MD Work Phone: [facility] 02-20-2022 10:07-0400 SaO2% (BldA) [Mass fraction] 95 % Gopal Das MD Work Phone: [facility] 02-20-2022 10:07-0400 Systolic blood pressure 110 mm[Hg] Gopal Das MD Work Phone: [facility] 06-27-2021 09:29-0500 Body temperature 97.5 [degF] Gopal Das MD Work Phone: [facility] 06-27-2021 09:29-0500 Body weight 96.16 kg Gopal Das MD Work Phone: [facility] 06-27-2021 09:29-0500 Diastolic blood pressure 80 mm[Hg] Gopal Das MD Work Phone: [facility] 06-27-2021 09:29-0500 Heart rate 88 /min Gopal Das MD Work Phone: [facility] 06-27-2021 09:29-0500 SaO2% (BldA) [Mass fraction] 93 % Gopal Das MD Work Phone: [facility] 06-27-2021 09:29-0500 Systolic blood pressure 128 mm[Hg] Gopal Das MD Work Phone: [facility] Encounters Encounter Date Encounter Type Care Provider Facility Start: 12-17-2024 End: 12-17-2024 Emergency department patient visit [facility] Facility:[facility] Start: 11-27-2024 End: 11-27-2024 Refill Gopal Das MD Work Phone: [facility] Comment on above: Refill Request Start: 11-26-2024 End: 11-27-2024 Refill Gopal Das MD Work Phone: [facility] Comment on above: Refill Request Start: 11-17-2024 End: 11-17-2024 Patient encounter procedure Gopal Das MD Work Phone: [facility] Comment on above: Wellness examination (Primary Dx); [...] encounter status Gopal Das MD Work Phone: [facility] Start: 11-17-2024 End: 11-17-2024 ambulatory GOPAL DAS Facility:[id number] Start: 07-09-2024 End: 07-11-2024 Refill Alice Ji APRN.CNP Work Phone: [facility] Comment on above: Refill Request Start: 05-07-2024 End: 05-07-2024 Office outpatient visit 25 minutes Gopal Das MD Work Phone: [facility] Comment on above: Benign essential HTN (Primary Dx); Pure hypercholesterolemia; Acquired hypothyroidism; Stage 3 chronic kidney disease, unspecified whether stage 3a or 3b CKD (HCC); Screening for deficiency anemia; Anxiety; Chronic obstructive pulmonary disease, unspecified COPD type (HCC) Start: 05-07-2024 End: 05-07-2024 ambulatory GOPAL DAS Facility:[id number] Start: 01-14-2024 End: 01-14-2024 Office outpatient visit 15 minutes Gopal Das MD Work Phone: [facility] Comment on above: Serum potassium elev ated (Primary Dx); Polyarthritis; Acquired hypothyroidism; Pure hypercholesterolemia; Hyperkalemia Start: 01-14-2024 End: 01-14-2024 ambulatory GOPAL DAS Facility:[id number] Start: 01-08-2024 Telephone encounter Gopal Das MD Work Phone: [facility] Comment on above: Results Start: 01-07-2024 End: 01-07-2024 ambulatory GOPAL DAS Facility:[facility] Start: 11-05-2023 End: 11-05-2023 Patient encounter procedure Gopal Das MD Work Phone: [facility] Comment on above: Wellness examination (Primary Dx); [...] encounter status Gopal Das MD Work Phone: [facility] Start: 08-31-2023 Refill Janett Parson i, APRN.CNP Work Phone: [facility] Comment on above: Refill Request Start: 07-14-2023 End: 07-14-2023 Emergency department patient visit [facility] Work Phone: Start: 07-11-2023 End: 07-11-2023 Emergency department patient visit [facility] Work Phone: Start: 04-16-2023 End: 04-16-2023 Office outpatient visit 15 minutes Gopal Das MD Work Phone: [facility] Comment on above: Chronic obstructive pulmonary disease, unspecified COPD type (HCC) (Primary Dx) Start: 03-22-2023 Telephone encounter Gopal Das MD Work Phone: [facility] Start: 03-21-2023 End: 03-21-2023 ambulatory GOPAL DAS Facility:[facility] Start: 03-20-2023 Refill Gopal Richards MD Work Phone: [facility] Comment on above: Refill Request Start: 03-05-2023 End: 03-05-2023 Office outpatient visit 15 minutes Gopal Das MD Work Phone: [facility] Comment on above: Acquired hypothyroid ism (Primary Dx); Anxiety; Stage 3 chronic kidney disease, unspecified whether stage 3a or 3b CKD (HCC); Benign essential HTN; Chronic obstructive pulmonary disease, unspecified COPD type (HCC); Gastroesophageal reflux disease without esophagitis; Anxiety associated with depression Start: 02-19-2023 Refill Gopal Richards MD Work Phone: [facility] Comment on above: Refill Request Start: 12-14-2022 Refill Gopal Richards MD Work Phone: [facility] Comment on above: Refill Request Start: 10-02-2022 Telephone encounter Gopal Das MD Work Phone: [facility] Comment on above: Results (elevated li pids) Refill Request Start: 09-29-2022 Documentation procedure Mammog anthony Coordinator [facility] Start: 09-29-2022 Letter encounter Mammography Coordinator [facility] Start: 09-28-2022 End: 09-28-2022 Subsequent hospital visit by physician Screen Mammo [facility] Comment on above: Encounter for screen ing mammogram for malignant neoplasm of breast [Z12.31] Start: 09-08-2022 Telephone encounter Gopal Das MD Work Phone: [facility] Comment on above: Orders Start: 08-30-2022 End: 08-30-2022 Patient encounter procedure Gopal Das MD Work Phone: [facility] Comment on above: Wellness examination (Primary Dx); Anxiety; Essential hypertension; Pure hypercholesterolemia; Benign essential HTN; Chronic obstructive pulmonary disease, unspecified COPD type (HCC); Gastroesophageal reflux disease without esophagitis; Postoperative hypothyroidism; Anxiety associated with depression; Screening for deficiency anemia; Encounter for screening mammogram for malignant neoplasm of breast Start: 08-30-2022 End: 08-30-2022 Patient encounter status Gopal Das MD Work Phone: [facility] Start: 03-02-2022 Refill Gopal Richards MD Work Phone: [facility] Comment on above: Refill Request Orders Start: 02-20-2022 End: 02-20-2022 Office outpatient visit 15 minutes Gopal Das MD Work Phone: [facility] Comment on above: Pure hypercholestero lemia (Primary Dx); Other specified hypothyroidism; Benign essential HTN Start: 01-11-2022 Refill Gopal Richards MD Work Phone: [facility] Comment on above: Refill Request Start: 11-26-2021 Chart abstracting Gopal Das MD Work Phone: [facility] Start: 11-26-2021 Patient encounter status Verna Das MD Work Phone: [facility] Start: 07-05-2017 Ambulatory Gopal Das Facilit y:[facility] Procedures Date Procedure Procedure Detail Performing [...] Author Start: 09-29-2027 LIPID SCREEN LIPID SCREEN [facility] Start: 04-07-2027 LIPID SCREEN LIPID SCREEN [facility] Start: 01-06-2027 Diabetes Screening Diabetes Screening [facility] Start: 11-17-2025 Annual PCP Team Chronic Disease Visit Annual PCP Team Chronic Disease Visit [facility] Start: 09-28-2025 DIABETES SCREEN DIABETES SCREEN [facility] Start: 09-28-2025 Diabetes Screening Diabetes Screening [facility] Start: 05-25-2025 End: 05-25-2025 Patient encounter procedure 05/25/2025 2:10 PM EST [facility] [address] [place] [id number] Gopal Das MD [address] [place], [place] [id number] 6 month [facility] up [facility] Comment on above: 6 month follow up Start: 05-07-2025 Annual PCP Team Chronic Disease Visit Annual PCP Team Chronic Disease Visit [facility] Start: 04-07-2025 DIABETES SCREEN DIABETES SCREEN [facility] Start: 03-16-2025 Influenza vaccination Influenza Vaccine (Season Ended) [facility] Start: 01-13-2025 Annual PCP Team Chronic Disease Visit Annual PCP Team Chronic Disease Visit [facility] Start: 01-13-2025 BP Controlled (<130/80) BP Controlled (<130/80) [facility] Start: 01-06-2025 Complete blood count Hemoglobin/Hematocrit [facility] Start: 01-06-2025 Creatinine measurement Serum Creatinine [facility] Start: 12-17-2024 [facility] Start: 12-17-2024 Bacteria identified in Urine by Culture Urine Culture [facility] Start: 12-17-2024 [facility] Start: 12-01-2024 End: 12-01-2024 Patient encounter procedure 12/01/2024 11:10 AM EDT Appointment Mammogram [address] [place] [address] Mammogram Start: 11-17-2024 End: 02-16-2025 CBC W Auto Differential panel - Blood COMPLETE BLOOD COUNT AND DIFFERENTIAL Lab Routine Screening for deficiency anemia Expected: 11/17/2024, Expires: 02/16/2025 [facility] Work Phone: Comment on above: Expected: 11/17/2024, Expires: Start: 11-17-2024 End: 02-16-2025 Comprehensive metabolic 2000 panel - Serum or Plasma COMPREHENSIVE METABOLIC PANEL Lab Routine Essential hypertension Stage 3 chronic kidney disease, unspecified whether stage 3a or 3b CKD (HCC) Expected: 11/17/2024, Expires: 02/16/2025 [facility] Comment on above: Expected: 11/17/2024, Expires: Start: 11-17-2024 End: 02-16-2025 Lipid 1996 panel - Serum or Plasma LIPID PANEL, FASTING Lab Routine Mixed hyperlipidemia Expected: 11/17/2024, Expires: 02/16/2025 [facility] Comment on above: Expected: 11/17/2024, Expires: Start: 11-17-2024 End: 02-16-2025 Thyrotropin [Units/volume] in Serum or Plasma THYROID STIMULATING HORMONE Lab Routine Hypothyroidism, unspecified type Expected: 11/17/2024, Expires: 02/16/2025 [facility] Comment on above: Expected: 11/17/2024, Expires: Start: 11-10-2024 End: 11-10-2024 Patient encounter procedure 11/10/2024 11:00 AM EDT Office Visit [facility] [address] [place] [phone] Gopal Das MD [address] [place], [place] [id number] Annual Wellness [facility] Comment on above: Annual Wellness Start: 11-04-2024 Annual PCP Team Chronic Disease Visit Annual PCP Team Chronic Disease Visit [facility] Start: 07-16-2024 Advance Directive Discussion Advance Directive Discussion [facility] Start: 05-07-2024 End: 05-07-2024 Patient encounter procedure 05/07/2024 2:20 PM EDT Office Visit [facility] [address] [place] [phone] Gopal Das MD [address] [place] [address] 6 Month Follow Up [facility] [facility] Comment on above: 6 Month Follow Up Start: 05-07-2024 End: 08-06-2024 CBC W Auto Differential panel - Blood COMPLETE BLOOD COUNT AND DIFFERENTIAL Lab Routine Screening for deficiency anemia Expected: 05/07/2024, Expires: 08/06/2024 [facility] Work Phone: Comment on above: Expected: 05/07/2024, Expires: Start: 05-07-2024 End: 08-06-2024 Comprehensive metabolic 2000 panel - Serum or Plasma COMPREHENSIVE METABOLIC PANEL Lab Routine Pure hypercholesterolemia Benign essential HTN Stage 3 chronic kidney disease, unspecified whether stage 3a or 3b CKD (HCC) Expected: 05/07/2024, Expires: 08/06/2024 [facility] Comment on above: Expected: 05/07/2024, Expires: Start: 05-07-2024 End: 08-06-2024 Lipid 1996 panel - Serum or Plasma LIPID PANEL BASIC Lab Routine Pure hypercholesterolemia Expected: 05/07/2024, Expires: 08/06/2024 [facility] Comment on above: Expected: 05/07/2024, Expires: Start: 05-07-2024 End: 08-06-2024 Thyrotropin [Units/volume] in Serum or Plasma THYROID STIMULATING HORMONE Lab Routine Acquired hypothyroidism Expected: 05/07/2024, Expires: 08/06/2024 [facility] Comment on above: Expected: 05/07/2024, Expires: 5 Start: 04-16-2024 Annual PCP Team Chronic Disease Visit Annual PCP Team Chronic Disease Visit [facility] Start: 04-15-2024 End: 07-15-2024 Hepatic function 2000 panel - Serum or Plasma HEPATIC FUNCTION PNL Lab Routine Pure hypercholesterolemia Expected: 04/15/2024, Expires: 07/15/2024 [facility] Comment on above: Expected: 04/15/2024, Expires: 4 Start: 04-15-2024 End: 07-15-2024 Lipid 1996 panel - Serum or Plasma LIPID PANEL BASIC Lab Routine Pure hypercholesterolemia Expected: 04/15/2024, Expires: 07/15/2024 [facility] Comment on above: Expected: 04/15/2024, Expires: 4 Start: 04-15-2024 End: 07-15-2024 Thyrotropin [Units/volume] in Serum or Plasma THYROID STIMULATING HORMONE Lab Routine Acquired hypothyroidism Expected: 04/15/2024, Expires: 07/15/2024 [facility] Comment on above: Expected: 04/15/2024, Expires: Start: 03-16-2024 Covid-19 Vaccine ( season) Covid-19 Vaccine () [facility] Start: 03-16-2024 Influenza vaccination [facility] Start: 03-05-2024 ANNUAL PCP TEAM CHRONIC DISEASE VISIT ANNUAL PCP TEAM CHRONIC DISEASE VISIT [facility] Start: 01-14-2024 End: 04-14-2024 Basic metabolic 2000 panel - Serum or Plasma BASIC METABOLIC PANEL Lab Routine Serum potassium elevated Expected: 01/14/2024, Expires: 04/14/2024 [facility] Work Phone: Comment on above: Expected: 01/14/2024, Expires: 4 Start: 01-14-2024 End: 04-14-2024 Erythrocyte sedimentation rate SEDIMENTATION RATE, WESTERGREN Lab Routine Polyarthritis Expected: 01/14/2024, Expires: 04/14/2024 [facility] Comment on above: Expected: 01/14/2024, Expires: Start: 01-14-2024 End: 01-14-2024 Patient encounter procedure 01/14/2024 1:40 PM EDT [facility] [address] [place] [id number] Gopal Das MD [address] [place] [address] discuss lab results [facility] Comment on above: discuss lab results Start: 11-05-2023 End: 02-04-2024 CBC W Auto Differential panel - Blood COMPLETE BLOOD COUNT AND DIFFERENTIAL Lab Routine Screening for deficiency anemia Expected: 11/05/2023, Expires: 02/04/2024 [facility] Work Phone: Comment on above: Expected: 11/05/2023, Expires: Start: 11-05-2023 End: 02-04-2024 Comprehensive metabolic 2000 panel - Serum or Plasma COMPREHENSIVE METABOLIC PANEL Lab Routine Stage 3 chronic kidney disease, unspecified whether stage 3a or 3b CKD (HCC) Benign essential HTN Pure hypercholesterolemia Expected: 11/05/2023, Expires: 02/04/2024 [facility] Comment on above: Expected: 11/05/2023, Expires: Start: 11-05-2023 End: 02-04-2024 Lipid 1996 panel - Serum or Plasma LIPID PANEL BASIC Lab Routine Pure hypercholesterolemia Expected: 11/05/2023, Expires: 02/04/2024 [facility] Comment on above: Expected: 11/05/2023, Expires: Start: 11-05-2023 End: 02-04-2024 Thyrotropin [Units/volume] in Serum or Plasma THYROID STIMULATING HORMONE Lab Routine Acquired hypothyroidism Expected: 11/05/2023, Expires: 02/04/2024 [facility] Comment on above: Expected: 11/05/2023, Expires: Start: 09-29-2023 Complete blood count Hemoglobin/Hematocrit [facility] Start: 09-29-2023 Creatinine measurement Serum Creatinine [facility] Start: 09-29-2023 HEMOGLOBIN/HEMATOCRIT HEMOGLOBIN/HEMATOCRIT [facility] Start: 09-29-2023 SERUM CREATININE SERUM CREATININE [facility] Start: 08-30-2023 ANNUAL PCP TEAM CHRONIC DISEASE VISIT ANNUAL PCP TEAM CHRONIC DISEASE VISIT [facility] Start: 08-30-2023 BP CONTROLLED (<130/80) BP CONTROLLED (<130/80) [facility] Start: 07-16-2023 Advance Directive Discussion Advance Directive Discussion [facility] Start: 07-14-2023 [facility] Start: 07-14-2023 Plain X-ray of shoulder Shoulder min 2 Views [facility] Start: 07-14-2023 XR Shoulder GE 2 Views [facility] Start: 07-11-2023 [facility] Start: 03-16-2023 Covid-19 Vaccine () Covid-19 Vaccine () [facility] Start: 03-16-2023 Influenza vaccination [facility] Start: 03-05-2023 End: 05-05-2023 Thyrotropin [Units/volume] in Serum or Plasma TSH BLD Lab Routine Acquired hypothyroidism Expected: 03/05/2023, Expires: 05/05/2023 [facility] Work Phone: Comment on above: Expected: 03/05/2023, Expires: Start: 02-20-2023 ANNUAL PCP TEAM CHRONIC DISEASE VISIT ANNUAL PCP TEAM CHRONIC DISEASE VISIT [facility] Start: 02-20-2023 BP CONTROLLED (<130/80) BP CONTROLLED (<130/80) [facility] Start: 08-30-2022 End: 10-30-2022 CBC W Auto Differential panel - Blood CBC + DIFF Lab Routine Screening for deficiency anemia Expected: 08/30/2022, Expires: 10/30/2022 [facility] Work Phone: Comment on above: Expected: 08/30/2022, Expires: Start: 08-30-2022 End: 10-30-2022 Comprehensive metabolic 2000 panel - Serum or Plasma COMP METABOLIC PANEL Lab Routine Essential hypertension Pure hypercholesterolemia Expected: 08/30/2022, Expires: 10/30/2022 [facility] Work Phone: Comment on above: Expected: 08/30/2022, Expires: 3 Start: 08-30-2022 End: 10-30-2022 Lipid 1996 panel - Serum or Plasma LIPID PANEL BASIC Lab Routine Pure hypercholesterolemia Expected: 08/30/2022, Expires: 10/30/2022 [facility] Work Phone: Comment on above: Expected: 08/30/2022, Expires: 3 Start: 08-30-2022 End: 10-30-2022 Thyrotropin [Units/volume] in Serum or Plasma TSH BLD Lab Routine Postoperative hypothyroidism Expected: 08/30/2022, Expires: 10/30/2022 [facility] Work Phone: Comment on above: Expected: 08/30/2022, Expires: 3 Start: 07-16-2022 ADVANCE DIRECTIVE DISCUSSION ADVANCE DIRECTIVE DISCUSSION [facility] Start: 2022 RSV Vaccine (1 - 1-dose 75+ series) RSV Vaccine (1 - 1-dose 75+ series) [facility] Start: 03-16-2022 Influenza vaccination [facility] Start: 02-20-2022 End: 04-22-2022 Comprehensive metabolic 2000 panel - Serum or Plasma COMP METABOLIC PANEL Lab Routine Pure hypercholesterolemia Benign essential HTN Expected: 02/20/2022, Expires: 04/22/2022 [facility] Work Phone: Comment on above: Expected: 02/20/2022, Expires: 2 Start: 02-20-2022 End: 04-22-2022 Lipid 1996 panel - Serum or Plasma LIPID PANEL BASIC Lab Routine Pure hypercholesterolemia Expected: 02/20/2022, Expires: 04/22/2022 [facility] Work Phone: Comment on above: Expected: 02/20/2022, Expires: 2 Start: 02-20-2022 End: 04-22-2022 Thyrotropin [Units/volume] in Serum or Plasma TSH BLD Lab Routine Other specified hypothyroidism Expected: 02/20/2022, Expires: 04/22/2022 [facility] Work Phone: Comment on above: Expected: 02/20/2022, Expires: Start: 07-16-2021 ADVANCE DIRECTIVE DISCUSSION ADVANCE DIRECTIVE DISCUSSION [facility] Start: 03-14-2020 Screening for osteoporosis Bone Density Screening [facility] Start: 06-23-2018 COLOGUARD (FIT-DNA) COLOGUARD (FIT-DNA) [facility] Start: 08-24-2017 Colonoscopy COLONOSCOPY [facility] Start: 08-24-2017 COLORECTAL CANCER SCREENING COLORECTAL CANCER SCREENING [facility] Start: 2012 BONE DENSITY BONE DENSITY [facility] Start: 2012 PNEUMOVAX AGE 65 AND OVER WITH 5YR LOOKBACK (#1) PNEUMOVAX AGE 65 AND OVER WITH 5YR LOOKBACK (#1) [facility] Start: 2007 RSV Vaccine (1 - 1-dose 60+ series) RSV Vaccine (1 - 1-dose 60+ series) [facility] Start: 1997 SHINGRIX VACCINE (1 of 2) SHINGRIX VACCINE (1 of 2) [facility] Start: 1992 COLOGUARD (FIT-DNA) COLOGUARD (FIT-DNA) [facility] Start: [address] COLONOGRAPHY [facility] Start: 1992 DIABETES SCREEN DIABETES SCREEN [facility] Start: 1992 FECAL OCCULT BLOOD FECAL OCCULT BLOOD [facility] Start: 1992 LIPID SCREEN LIPID SCREEN [facility] Start: 1992 SIGMOIDOSCOPY SIGMOIDOSCOPY [facility] Start: 1987 Mammography MAMMOGRAM [facility] Start: 1977 Zoledronic acid therapy ALPHA-1 ANTITRYPSIN DEFICIENCY SCREENING [facility] Start: 1966 Pneumococcal Vaccine: 50+ (1 of 2 - PCV) Pneumococcal Vaccine: 50+ (1 of 2 - PCV) [facility] Start: 1966 Urine microalbumin profile [facility] Start: 1965 ANNUAL PCP TEAM CHRONIC DISEASE VISIT ANNUAL PCP TEAM CHRONIC DISEASE VISIT [facility] Start: 1965 BP CONTROLLED (<130/80) BP CONTROLLED (<130/80) [facility] Start: 1965 HEPATITIS C SCREENING HEPATITIS C SCREENING [facility] Start: 1965 Hepatitis C screening Hepatitis C Screening [facility] Start: 1965 SPIROMETRY SPIROMETRY [facility] Start: 1953 Pneumococcal Vaccine: 65+ (1 - PCV) Pneumococcal Vaccine: 65+ (1 - PCV) [facility] Start: 1953 Pneumococcal Vaccine: 65+ (1 of 2 - PCV) Pneumococcal Vaccine: 65+ (1 of 2 - PCV) [facility] Start: 1953 PNEUMOCOCCAL: 65+ (1 - PCV) PNEUMOCOCCAL: 65+ (1 - PCV) [facility] Start: 1952 COVID-19 VACCINE (#1) COVID-19 VACCINE (#1) [facility] Start: 1947 COVID-19 VACCINE (#1) COVID-19 VACCINE (#1) [facility] End: 09-29-2023 MAYA SCREENING MAYA SCREENING Radiology Routine Encounter for screening mammogram for malignant neoplasm of breast 1 Occurrences starting 08/30/2022 until 09/29/2023 [facility] Work Phone: Comment on above: 1 Occurrences starting 08/30/2022 until 09/29/2023 End: 12-04-2024 MG Breast Screening MAYA SCREENING Radiology Routine Encounter for screening mammogram for malignant neoplasm of breast 1 Occurrences starting 11/05/2023 until 12/04/2024 [facility] Comment on above: 1 Occurrences starting 11/05/2023 until 12/04/2024 End: 12-17-2025 MG Breast Screening MAYA SCREENING Radiology Routine Encounter for screening mammogram for malignant neoplasm of breast 1 Occurrences starting 11/17/2024 until 12/17/2025 [facility] Comment on above: 1 Occurrences starting 11/17/2024 until 12/17/2025 Patient Education [facility] Work Phone: Patient referral [facility] Work Phone: Urine culture [facility] Payers Date Payer Category Payer Medicare [id number] 2024 Self-pay [id number] 2024 Unknown [id number] 2024 Medicare (Managed Care) [employer] ME DICARE [id number] 2023 Unknown [id number] 2021 Medicare AETNA MEDICARE A ETNA MEDICARE O [id number] 2021-Present [phone] [address] [place] [address] [facility] [id number] 2021 Medicare [id number] 2021 Private Health Insurance [facility] [id number] 2019 Medicare HUMANA MEDICARE HUMANA MEDICARE PPO [id number] 2019-Present [phone] [id number] [place] [id number] [id number] 2015 Unknown RODY [id number] 2012 Medicare MEDICARE PART A B [id number] Medicare [id number] Private Health Insurance AETNA SR SUPPLEM ENT INS [id number] Private Health Insurance [id number] Unknown [id number] Social History Date Type Detail Facility Start: 07-22-2015 End: 12-17-2024 Tobacco smoking status NHIS Ex-smoker [facility] Start: 03-18-1974 End: 03-18-2004 History of tobacco use Current smoker [facility] Start: 07-22-2015 End: 03-05-2023 Cigarettes smoked current (pack per day) - Reported 2 [facility] Start: 11-26-2021 End: 02-20-2022 Alcohol intake Current drinker of alcohol (finding) [facility] Start: 07-22-2015 History SDOH Alcohol Comment per week [facility] Start: 1945 Sex Assigned At Not on file [facility] Start: 12-24-2021 End: 02-20-2022 Exposure to SARS-CoV-2 (event) Not sure [facility] Start: 03-18-1974 End: 03-18-2004 History of tobacco use Cigarette Smoker [facility] Start: 02-20-2022 Tobacco use and exposure Smokeless tobacco non-user [facility] Start: 08-30-2022 End: 11-17-2024 Alcohol intake Ex-drinker (finding) [facility] Start: 08-30-2022 History SDOH Alcohol Frequency 2 [facility] Start: 08-30-2022 History SDOH Alcohol Std Drinks 1 [facility] Start: 08-30-2022 History SDOH Social Connections Phone 5 [facility] Start: 08-30-2022 History SDOH Social Connections Moravian 3 [facility] Start: 08-30-2022 History SDOH Physical Activity DPW 0 [facility] Start: 08-30-2022 History SDOH Stress 4 [facility] Start: 08-30-2022 Education 21 [facility] Start: 08-30-2022 Alcohol Comment occassionally [facility] Start: 08-30-2022 End: 03-05-2023 Social connection and isolation panel [facility] Do you belong to any clubs or organizations such as jain groups, unions, fraternal or athletic groups, or school groups? No [facility] Are you now , , , , never or living with a partner? [facility] How often to you hav e a drink containing alcohol? Monthly or less [facility] How many standard dr inks containing alcohol do you have on a typical day? 1 or 2 [facility] How often do you hav e 6 or more drinks on 1 occasion? Never [facility] How hard is it for y ou to pay for the very basics like food, housing, medical care, and heating Not hard at all [facility] Do you feel stress - tense, restless, nervous, or anxious, or unable to sleep at night because your mind is troubled all the time - these days [OSQ] Rather much [facility] (I/We) worried amanda er (my/our) food would run out before (I/we) got money to buy more. Never true [facility] Start: 08-30-2022 Gender identity Identifies as female gender (finding) [facility] Start: 08-30-2022 Sexual orientation Heterosexual (finding) [facility] Start: 1945 Sex Assigned At Female [facility] Start: 07-11-2023 End: 07-14-2023 Tobacco smoking status NHIS Unknown if ever smoked [facility] Are you now , , , , never or living with a partner? [facility] Do you feel stress - tense, restless, nervous, or anxious, or unable to sleep at night because your mind is troubled all the time - these days [OSQ] Very much [facility] Do you feel stress - tense, restless, nervous, or anxious, or unable to sleep at night because your mind is troubled all the time - these days [OSQ] Not at all [facility] Functional Status Date Assessment Result Facility [facility] Mental Status Date Assessment Result Facility 07-14-2023 Cognitive function Level Of Cons ciousness Awake;Alert;Appropriate;Follow s Commands [facility] Work Phone: Clinical Notes 02-20-2022 to 12-17-2024 Note Date & Type Note Facility 12-17-2024 Discharge summary [facility] 12-17-2024 Discharge summary Note Date/Time December 17, 2024 2:17pm [facility] Medical Records Department [address] [place] [address] Emergency Department Summary 12/17/24 MR#: [id number] Acct: [id number] Name: YULIA GALLAGHER Rep #:[id number] : 1945 79 From: Jean Claude Starr [...] % (Auto) Cancelled Lymph % (Auto) Cancelled [place] % (Auto) Cancelled Eos % (Auto) Cancelled [...] Drop Cells Cancelled Ovalocytes Cancelled Stomatocytes Cancelled [place] Bodies Cancelled [place] Cells Cancelled Bite Cells Cancelled Crenated Cell [...] Sl. Cloudy Urine pH 5.0 Ur Specific [place] 1.020 Urine Protein 30 H Urine Glucose [...] % (Auto) 67.1 Lymph % (Auto) 21.6 [place] % (Auto) 9.4 Eos % (Auto) 0.6 [...] Target Cells Tear Drop Cells Ovalocytes Stomatocytes [place] Bodies [place]ia Cells Bite Cells Crenated Cell Acanthocytes (Spur) Rouleaux Schistocytes Sodium Potassium Chloride Carbon Dioxide Anion Gap BUN Creatinine Estim Creat Clear Calc Est GFR (MDRD) Non-Af BUN/Creatinine Ratio Glucose Calcium Urine Color Urine Clarity Urine pH Ur Specific [place] Urine Protein Urine Glucose (UA) Urine Ketones [...] Care Provider] - 3-5 Days Print Language: Swedish Disposition Disposition: Home, Self Care What to do if you have Problems For any increased pain, shortness of breath, bleeding, nausea or vomiting, chestpain, or any unexpected problems, contact your Primary Care Provider. Call [facility] ([phone]) or report to the closest Emergency Room. Call 911 if necessary. 12/17/24 [id number] <Electronically signed by Jean Claude Starr MD> Cosigner Signature (if applicable): CC: Dr. Gopal Das MD ~ Signed [facility] Work Phone: [phone] Telephone encounter Note* Telephone Encounter - Yemi Clement LPN - 11/27/2024 1:20 PM EDT Patient called requesting the following refill. Requested Prescriptions Pending Prescriptions Disp Refills ALPRAZolam (XANAX) 0.5 mg tablet 90 tablet 1 Sig: Take 1 tablet by mouth three times a day as needed for anxiety for up to 90 days. Patient last appointment: 11/17/2024 Next appointment 05/25/2025 Patient Phone numbers: [phone] (home) Request is for script(s) to be escript to [facility] pharmacy. Yemi Clement LPN [facility]05-15-2025 Miscellaneous Notes* Telephone Encounter - Yemi Clement LPN - 11/27/2024 1:20 PM EDT Patient called requesting the following refill. Requested Prescriptions Pending Prescriptions Disp Refills ALPRAZolam (XANAX) 0.5 mg tablet 90 tablet 1 Sig: Take 1 tablet by mouth three times a day as needed for anxiety for up to 90 days. Patient last appointment: 11/17/2024 Next appointment 05/25/2025 Patient Phone numbers: [phone] (home) Request is for script(s) to be escript to [facility] pharmacy. Yemi Clement LPN documented in this encounterV[facility]05-14-2025 Telephone encounter Note * Telephone Encounter - Yemi Clement LPN - 11/26/2024 2:42 PM EDT Patient called requesting the following refill. Requested Prescriptions Pending Prescriptions Disp Refills PARoxetine (PAXIL) 20 mg tablet 90 tablet 3 Sig: Take 1 tablet by mouth once daily. Patient last appointment: 11/17/2024 Next appointment 05/25/2025 Patient Phone numbers: [phone] (home) Request is for script(s) to be escript to [facility] pharmacy. Yemi Clement LPN [facility]05-14-2025 Miscellaneous Notes* Telephone Encounter - Yemi Clement LPN - 11/26/2024 2:42 PM EDT Patient called requesting the following refill. Requested Prescriptions Pending Prescriptions Disp Refills PARoxetine (PAXIL) 20 mg tablet 90 tablet 3 Sig: Take 1 tablet by mouth once daily. Patient last appointment: 11/17/2024 Next appointment 05/25/2025 Patient Phone numbers: [phone] (home) Request is for script(s) to be escript to [facility] pharmacy. Yemi Clement LPN documented in this encounterVeter[facility]05-05-2025 Instructions* Patient Instructions* Gopal Das MD - [...] review all the medicines you take, even cnhp-cao-yzplrwu medicines. As you get older, the way [...] have certain medical conditions. documented in this encounterVeter[facility]05-05-2025 NoteHNO ID: [id number] Author: GOPAL DAS MD Service: ? Author [...] Take 1 tablet by mouth once daily. madarqklfaw-xuatunucl-uecpsqpd (TRELEGY ELLIPTA) 100-62.5-25 mcg inhalation powder Inhale [...] Take 200 mg by mouth once daily. Kramer-3 Fatty Acids 300 mg cap Take 1 [...] Sitting, BP Cuff Size: (more content not included)...[facility]05-05-2025 History of Present illness Narrative* Gopal [...] Take 1 tablet by mouth once daily. caonhrbtlps-hevowtehj-uayfcjfm (TRELEGY ELLIPTA) 100-62.5-25 mcg inhalation powder Inhale [...] Take 200 mg by mouth once daily. Kramer-3 Fatty Acids 300 mg cap Take 1 [...] unspecified whether stage 3a or 3b CKD (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 - Ordered CMP [...] reasons. Gopal Das MD 11/17/2024 Recording using Communication Science software for draft documentation of the visit was discussed with the patient/authorized customer success representative; all questions welcomed and answered. Patient/authorized customer success representative agreed to proceed Medicare Health Risk [...] 17, 2024 2:41 PM documented in this encounterVeterans Health Administration05-05-2025 NoteHNO ID: [id number] Author: YEMI CLEMENT LPN Service: ? Author [...] Yemi Clement LPN November 17, 2024 2:41 [facility] Telephone encounter Note* Telephone Encounter - Farrah Hyman LPN - 07/10/2024 8:29 AM EST Last Office Visit: 05-07-2024 Next Scheduled Office Visit: 11-10-2024 Requested Prescriptions Pending Prescriptions Disp Refills losartan (COZAAR) 100 mg tablet [Pharmacy Med Name: LOSARTAN POTASSIUM 100 MG TAB] 90 tablet 3 Sig: TAKE 1 TABLET BY MOUTH EVERY DAY Farrah Hyman LPN July 10, 2024 8:29 AM [facility]12-26-2024 Miscellaneous Notes* Telephone Encounter - Farrah Hyman LPN - 07/10/2024 8:29 AM EST Last Office Visit: 05-07-2024 Next Scheduled Office Visit: 11-10-2024 Requested Prescriptions Pending Prescriptions Disp Refills losartan (COZAAR) 100 mg tablet [Pharmacy Med Name: LOSARTAN POTASSIUM 100 MG TAB] 90 tablet 3 Sig: TAKE 1 TABLET BY MOUTH EVERY DAY Farrah Hyman LPN July 10, 2024 8:29 AM documented in this encounterVeterans Health Administration11-02-2024 NoteHNO ID: [id number] Author: GOPAL DAS MD Service: ? Author [...] Take 1 tablet by mouth once daily. ibjtimybzzc-dbpyljuug-haedpuyj (TRELEGY ELLIPTA) 100-62.5-25 mcg inhalation powder Inhale [...] Take 200 mg by mouth once daily. Kramer-3 Fatty Acids 300 mg cap Take 1 [...] PANEL Blood pressure improve (more content not included)...[facility] 05-17-2024 History of Present illness Narrative* [...] Take 1 tablet by mouth once daily. jallhbvytuo-gmkghhkkp-setppvvw (TRELEGY ELLIPTA) 100-62.5-25 mcg inhalation powder Inhale [...] Take 200 mg by mouth once daily. Kramer-3 Fatty Acids 300 mg cap Take 1 [...] 07, 2024 2:35 PM documented in this encounterVeterans Health Administration10-23-2024 NoteHNO ID: [id number] Author: FARRAH HYMAN LPN Service: ? Author Type: LICENSED NURSE Type: Progress Notes Filed: 05/17/2024 15:32 Note Text: Patient is in office for 6 month exam. Patient has no current complaints or concerns. No refills needed Farrah Hyman LPN May 07, 2024 2:35 [facility] NoteHNO ID: [id number] Author: GOPAL DAS MD Service: ? Author [...] Take 1 tablet by mouth once daily. mpyoiznxwzd-prnszzlme-fmurpzpm (TRELEGY ELLIPTA) 100-62.5-25 mcg inhalation powder Inhale [...] daily. (Patient not taking: Reported on 01/14/2024) Kramer-3 Fatty Acids 300 mg cap Take 1 [...] at baseline. Psychiatric: M (more content not included)...[facility]07-01-2024 History of Present illness Narrative* Gopal [...] Take 1 tablet by mouth once daily. jvjbcpmvqnm-otuvkyxuz-idmqscif (TRELEGY ELLIPTA) 100-62.5-25 mcg inhalation powder Inhale [...] daily. (Patient not taking: Reported on 01/14/2024) Kramer-3 Fatty Acids 300 mg cap Take 1 [...] results completed on 01/07/2024. documented in this encounterVeterans Health Administration07-01-2024 NoteHNO ID: [id number] Author: SKYLA RAIN LPN Service: ? Author Type: LICENSED NURSE Type: Progress Notes Filed: 01/14/2024 14:14 Note Text: Patient in the office today to discuss recent lab results completed on 01/07/2024.[facility]06-26-2024 Telephone encounter Note* Telephone Encounter - Cindy Norwood - 01/09/2024 8:32 AM EDT Yulia returned the phone call to the [place] office. I scheduled an office visit to for her to follow up with Dr. Das on January 13 at 1:40 pm. Cindy Phillip January 09, 2024 8:33 AM [facility]06-26-[facility]24 Miscellaneous Notes* Telephone Encounter - Cindy Norwood - 01/09/2024 8:32 AM EDT Yulia returned the phone call to the [place] office. I scheduled an office visit to [...] follow-up to discuss results documented in this encounterVeterans Health Administration06-25-2024 Telephone encounter Note * Telephone Encounter - Farrah Hyman LPN - 01/08/2024 3:53 PM EDT Message left for patient to phone office at earliest convenience in regards to results. Farrah Hyman LPN January 08, 2024 3:53 PM [facility]06-25-2024 Telephone encounter Note* Telephone Encounter - Farrah Hyman LPN - 01/08/2024 3:53 PM EDT ----- Message from Gopal Das MD sent at 01/08/2024 3:40 PM EDT ----- Schedule follow-up to discuss results [facility]04-28-2024 Instructions* Patient Instructions* Gopal Das MD - [...] review all the medicines you take, even sxxr-lcw-zjfoxaa medicines. As you get older, the way [...] have certain medical conditions. documented in this encounterVeterans Health Administration04-22-2024 History of Present illness Narrative* Gopal Das [...] Take 200 mg by mouth once daily. Kramer-3 Fatty Acids 300 mg cap Take 1 capsule by mouth once daily. ZINC/ASCORBIC ACID/PYRIDOXINE (ZINC LOZENGE ORAL) Take 1 Lozenge by mouth as needed. PARoxetine (PAXIL) 20 mg tablet Take 1 tablet by mouth once daily. xtgfoumeexv-zjbcsgoow-cktgslaf (TRELEGY ELLIPTA) 100-62.5-25 mcg inhalation powder Inhale [...] Chronic obstructive pulmonary disease, unspecified (HCC) J44.9 teraeoqbwqk-vkvmqgdsh-yqssodni (TRELEGY ELLIPTA) 100-62.5-25 mcg inhalation powder 4. [...] 05, 2023 4:16 PM documented in this encounterVeterans Health Administration02-19-2024 Miscellaneous Notes* Telephone Encounter - Farrah Hyman [...] 03, 2023 1:17 PM documented in this encounterVeterans Health Administration12-27-2023 Discharge summary Author Deo Gallagher [facility] July 11, 2023 4:22pm Note Date/Time July 11, 2023 3:11pm [facility] Medical Records Department [address] [place] [address] Emergency Department Summary 07/11/23 MR#: [id number] Acct: [id number] Name: YULIA GALLAGHER Rep #:[id number] : 1945 78 From: Deo Gallagher MD [...] her nightlyblood pressure medication last night, Cozaar. [facility] Medical History (Updated 07/11/23 @ 15:51 [...] your Primary Care Provider. Call [facility] ([phone]) or report to the closest Emergency Room. Call 911 if necessary. 07/11/232 <Electronically signed by Deo Gallagher MD> Cosigner Signature (if applicable): CC: Dr. Gopal Das MD ~ Signed [facility] Work Phone: [phone] 601-551410-02-2023 History of Present illness Narrative* Gopal Das MD - 04/16/2023 1:09 PM EDT This note was created using Press-sense. Subjective Yulia Gallagher is a 78 year [...] 16, 2023 10:24 AM documented in this encounterVeterans Health Administration09-07-2023 Miscellaneous Notes* Telephone Encounter - Farrah Hyman [...] has had missed doses. documented in this encounterVeterans Health Administration09-05-2023 Miscellaneous Notes* Telephone Encounter - Yemi Clement LPN - 03/20/2023 10:37 AM EDT Patient called requesting the following refill. Requested Prescriptions Pending Prescriptions Disp Refills PARoxetine (PAXIL) 20 mg tablet 90 tablet 3 Sig: Take 1 tablet by mouth once daily. Patient last appointment: 03/05/2023 Next appointment 09/05/2023 Patient Phone numbers: [phone] (home) Request is for script(s) to be escript to [facility]. Yemi Clement LPN documented in this encounterVeterans Health Administration08-21-2023 History of Present illness Narrative* Gopal Das MD - 03/05/2023 2:05 PM EDT This note was created using INRFOODter. Subjective Yulia Gallagher is a 77 year [...] unspecified whether stage 3a or 3b CKD ([facility]) N18.30 4. Benign essential HTN I10 5. Chronic obstructive pulmonary disease, unspecified COPD type ([facility]) J44.9 6. Gastroesophageal reflux disease without esophagitis [...] 05, 2023 1:52 PM documented in this encounterVeterans Health Administration08-07-2023 Miscellaneous Notes* Telephone Encounter - Farrah Hyman LPN - 02/19/2023 10:55 AM EDT Last Office Visit: 08-30-2022 Next Scheduled Office Visit: 02-28-2023 Requested Prescriptions Pending Prescriptions Disp Refills ALPRAZolam (XANAX) 0.5 mg tablet 90 tablet 2 Sig: Take 1 tablet by mouth three times daily as needed for up to 90 days. Farrah Hyman LPN February 19, 2023 10:56 AM documented in this encounterVeterans Health Administration06-01-2023 Miscellaneous Notes* Telephone Encounter - Shannon Matute [...] Patient last appointment: 08/30/2022 Patient Phone numbers: [phone] (home) Request is for script(s) to be escript to pharmacy. Shannon Matute LPN documented in this encounterVeterans Health Administration03-20-2023 Miscellaneous Notes* Telephone Encounter - Yemi Clement LPN - 10/02/2022 10:43 AM EDT Patient called requesting the following refill. Requested Prescriptions Pending Prescriptions Disp Refills omega-3 acid ethyl esters (LOVAZA) 1 gram capsule 180 capsule 3 Sig: Take 2 capsules by mouth once daily. Patient last appointment: 08/30/2022 Next appointment 02/28/2023 Patient Phone numbers: [phone] (home) Request is for script(s) to be escript to [facility] pharmacy. Yemi Clement LPN documented in this encounterVeterans Health Administration03-20-2023 Miscellaneous Notes* Telephone Encounter - Yemi Clement [...] 02, 2022 10:42 AM documented in this encounterVeterans Health Administration03-17-2023 Miscellaneous Notes* Letter - Mammography Coordinator - 09/29/2022 8:42 PM EDT October 02, 2022 PID: [id number] Yulia Gallagher [address] [place] [address] Dear Ms. Gallagher, We are pleased to [...] report [facility] and are available for your continuing care. Thank you for allowing us to help in meeting your health care needs. Sincerely, Dr. Burt Interpreting Radiologist [facility] (Normal over 40) documented in this encounterVeterans Health Administration03-16-2023 History of Present illness Narrative* Cinthia Sierra, [...] DATA: Not applicable SIGNED BY: Cinthia Sierra [employer] September 28, 2022 10:15 AM documented in this encounterVeterans Health Administration02-24-2023 Miscellaneous Notes* Telephone Encounter - Farrah Hyman LPN - 09/08/2022 4:16 PM EST [facility] informed this nurse that the following orders need generated for the care gaps [facility] for the year. Colon screening, Spirometry, Hep C Screen,, and Alpha 1 Antitrypsin Deficiency Screening Farrah Hyman LPN September 08, 2022 4:18 PM documented in this encounterVeterans Health Administration02-15-2023 History of Present illness Narrative* Gopal Das MD - 08/30/2022 1:57 PM EST This note was created using INRFOODter. Subjective Yulia Gallagher is a 77 year [...] - MAYA SCREENING; Future Other orders - eowuwbddfoy-hyrqxzyts-etjzangg (TRELEGY ELLIPTA) 100-62.5-25 mcg inhalation powder; Inhale [...] patient: Yemi Clement LPN documented in this encounterVeterans Health Administration08-18-2022 Miscellaneous Notes* Telephone Encounter - Farrah Hyman LPN - 03/02/2022 3:22 PM EDT Please sign attached order per patient request and patients chart Farrah Hyman LPN March 02, 2022 3:23 PM documented in this encounterVeterans Health Administration08-18-2022 Miscellaneous Notes* Telephone Encounter - Farrah Hyman LPN - 03/02/2022 2:56 PM EDT Please sign attached per patient request and prior chart order Farrah Hyman LPN March 02, 2022 3:18 PM documented in this encounterVeterans Health Administration08-08-2022 History of Present illness Narrative* Gopal Das MD - 02/20/2022 12:54 PM EDT This note was created using Dafitiriter. Subjective Yulia Gallagher is a 76 year [...] 4 hours as needed. documented in this encounterVeterans Health Administration08-08-2022 Nurse Note* Shannon Matute LPN - 02/20/2022 10:06 AM EDT Pt has complains that when she wears a mask she feels like the room is spinning and nausea since before December [facility]* Diagnosis Anxiety- Primary Anxiety state, unspecified documented in this encounter [facility]* Diagnosis Pure hypercholesterolemia- Primary Other specified hypothyroidism Benign essential HTN Essential hypertension, benign documented in this encounter [facility]* Diagnosis Generalized weakness- Primary Other malaise and fatigue documented in this encounter [facility]* Diagnosis Wellness examination- Primary Anxiety Anxiety [...] Other screening mammogram documented in this encounter [facility]* Diagnosis Anxiety Anxiety state, unspecified documented in this [facility]* Diagnosis Acquired hypothyroidism- Primary Unspecified hypothyroidism Anxiety Anxiety state, unspecified Stage 3 chronic kidney disease, unspecified whether stage 3a or 3b CKD (HCC) Benign essential HTN Essential hypertension, benign Chronic obstructive pulmonary disease, unspecified COPD type (HCC) Gastroesophageal reflux disease without esophagitis Esophageal reflux Anxiety associated with depression Dysthymic disorder documented in this encounter [facility]* Diagnosis Chronic obstructive pulmonary disease, unspecified COPD type (HCC)- Primary documented in this encounter [facility]* Diagnosis Encounter for screening mammogram for malignant neoplasm of breast Other screening mammogram documented in this encounter [facility] noteNo assessment information availableWChildren's Hospital for Rehabilitation Work Phone: Evaluation note* Diagnosis Wellness examination- [...] health care facility documented in this encounter [facility]* Diagnosis Serum potassium elevated- Primary Hyperpotassemia Polyarthritis Unspecified polyarthropathy or polyarthritis, site unspecified Acquired hypothyroidism Unspecified hypothyroidism Pure hypercholesterolemia Hyperkalemia Hyperpotassemia documented in this encounter [facility]* Diagnosis Benign essential HTN- Primary Essential hypertension, benign Pure hypercholesterolemia Acquired hypothyroidism Unspecified hypothyroidism Stage 3 chronic kidney disease, unspecified whether stage 3a or 3b CKD (HCC) Screening for deficiency anemia Screening for other and unspecified deficiency anemia Anxiety Anxiety state, unspecified Chronic obstructive pulmonary disease, unspecified COPD type (HCC) documented in this encounter [facility]* Diagnosis Wellness examination- Primary Essential hypertension [...] health care facility documented in this encounter [facility]* Diagnosis Anxiety Anxiety state, unspecified documented in this encounter [facility] Discharge instructions Additional Instructions Repeat CT your head negative. CT cervical spine no fractures. Left shoulder x- ray no fracture. Use Tylenol as needed for headache symptoms. Follow-up with your doctor.[facility] Work Phone: Reason for referral (narrative)* Diagnostic Procedure Only (Routine) - Pending Review Specialty Diagnoses / Procedures Referred By Alivia t Referred To Contact [facility] Diagnoses Encounter for screening mammogram for malignant neoplasm of breast Procedures MAYA SCREENING SCREENING MAMMOGRAPHY BI 2-VIEW BREAST INC Gopal Moran MD [address] [place] [address] [facility] [address] [place] [address] Referral ID Status Reason Start Date Expiration Date Visits Requested Visits Authorized [id number] Pending Review Auto-Generat ed Referral 08/30/2022 09/29/2023 1 1 [facility] for referral (narrative)* Diagnostic Procedure Only (Routine) - Closed Specialty Diagnoses / Procedures Referred By Alivia barboza Referred To Contact [facility] Diagnoses Encounter for screening mammogram for malignant neoplasm of breast Procedures MAYA SCREENING SCREENING MAMMOGRAPHY BI 2-VIEW BREAST INC Gopal Moran MD [address] [place] [address] [facility] [address] [place] [address] Referral ID Status Reason Start Date Expiration Date V isits Requested Visits Authorized [id number] Closed Auto-Generate d Referral 08/30/2022 09/29/2023 1 1 [facility] for referral (narrative)* Diagnostic Procedure Only (Routine) - Pending Review Specialty Diagnoses / Procedures Referred By Alivia t Referred To Contact [facility] Diagnoses Encounter for screening mammogram for malignant neoplasm of breast Procedures MAYA SCREENING SCREENING MAMMOGRAPHY BI 2-VIEW BREAST INC Gopal Moran MD [address] [place] [address] [facility] [address] [place] [address] Referral ID Status Reason Start Date Expiration Date Visits Requested Visits Authorized [id number] Pending Review Auto-Generat ed Referral 11/05/2023 12/04/2024 1 1 [facility] ([facility]arrative)No reason for referral information availableWChildren's Hospital for Rehabilitation Work Phone: Reason for visit Narrative* Diagnostic Procedure Only (Routine) - Closed Specialty Diagnoses / Procedures Referred By Contac t Referred To Contact [facility] Diagnoses Encounter for screening mammogram for malignant neoplasm of breast Procedures MAYA SCREENING SCREENING MAMMOGRAPHY BI 2-VIEW BREAST INC CAD Gopal Das MD [address] [place] [address] [facility] [address] [place] [address] Referral ID Status Reason Start Date Expiration Date V isits Requested Visits Authorized [id number] Closed Auto-Generate d Referral 08/30/2022 09/29/2023 1 1 [facility] Summary Purpose Family History No Family History Records FoundNo Family History Records FoundNo Family History Records FoundNo Family History Records Found Advance Directives Advance Directive Response Recorded Date/ Time Advance Directives Yes June 20, 2017 2:54am Living Will No July 11, 2 023 4:22pm Power of Dairy Chemist No July 11, 2023 4:22pm Advance Directive Response Recorded Date/ Time Advance Directives Yes June 20, 2017 2:54am Living Will No July 14, 2 023 9:04am Power of Dairy Chemist No July 14, 2023 9:04am Advance Directive Response Recorded Date/ Time Do you have a Healthcare Power of Dairy Chemist? No December 17, 2024 11:22am Advance Directives Yes June 20, 2017 3:54am Chief Complaint and Reason for Visit Chief Complaint FALL Chief Complaint FALL general Chief Complaint Admit Date general illness December 17, 2024 10:06 am Additional Source Comments INFORMATION SOURCE (unrecogn ized section and content) DATE CREATED AUTHOR 01/11/2018 Toma quiñonez [place] DATE CREATED AUTHOR AUTHOR'S ORGANIZ ATION 01/09/2024 [facility] DATE CREATED AUTHOR AUTHOR'S ORGANIZ ATION 11/20/2024 Toma quiñonez DATE CREATED AUTHOR AUTHOR'S ORGANIZ ATION 12/18/2024 [facility] Source Comments (unrecognize d section and content) In the event this informatio n is protected by the Federal Confidentiality of Alcohol and Drug Abuse Patient Records regulations: The Federal rules restrict any use of the information to criminally investigate or prosecute any alcohol or drug abuse patient.[facility] AdministrationIn the event this information is protected by the Federal Confidentiality of Alcohol and Drug Abuse Patient Records regulations: The Federal rules restrict any use of the information to criminally investigate or prosecute any alcohol or drug abuse patient.[facility] AdministrationIn the event this information is protected by the Federal Confidentiality of Alcohol and Drug Abuse Patient Records regulations: The Federal rules restrict any use of the information to criminally investigate or prosecute any alcohol or drug abuse patient.[facility] AdministrationIn the event this information is protected by the Federal Confidentiality of Alcohol and Drug Abuse Patient Records regulations: The Federal rules restrict any use of the information to criminally investigate or prosecute any alcohol or drug abuse patient.[facility] AdministrationIn the event this information is protected by the Federal Confidentiality of Alcohol and Drug Abuse Patient Records regulations: The Federal rules restrict any use of the information to criminally investigate or prosecute any alcohol or drug abuse patient.[facility] AdministrationIn the event this information is protected by the Federal Confidentiality of Alcohol and Drug Abuse Patient Records regulations: The Federal rules restrict any use of the information to criminally investigate or prosecute any alcohol or drug abuse patient.[facility] AdministrationIn the event this information is protected by the Federal Confidentiality of Alcohol and Drug Abuse Patient Records regulations: The Federal rules restrict any use of the information to criminally investigate or prosecute any alcohol or drug abuse patient.[facility] AdministrationIn the event this information is protected by the Federal Confidentiality of Alcohol and Drug Abuse Patient Records regulations: The Federal rules restrict any use of the information to criminally investigate or prosecute any alcohol or drug abuse patient.[facility] AdministrationIn the event this information is protected by the Federal Confidentiality of Alcohol and Drug Abuse Patient Records regulations: The Federal rules restrict any use of the information to criminally investigate or prosecute any alcohol or drug abuse patient.[facility] AdministrationIn the event this information is protected by the Federal Confidentiality of Alcohol and Drug Abuse Patient Records regulations: The Federal rules restrict any use of the information to criminally investigate or prosecute any alcohol or drug abuse patient.[facility] AdministrationIn the event this information is protected by the Federal Confidentiality of Alcohol and Drug Abuse Patient Records regulations: The Federal rules restrict any use of the information to criminally investigate or prosecute any alcohol or drug abuse patient.[facility] AdministrationIn the event this information is protected by the Federal Confidentiality of Alcohol and Drug Abuse Patient Records regulations: The Federal rules restrict any use of the information to criminally investigate or prosecute any alcohol or drug abuse patient.[facility] AdministrationIn the event this information is protected by the Federal Confidentiality of Alcohol and Drug Abuse Patient Records regulations: The Federal rules restrict any use of the information to criminally investigate or prosecute any alcohol or drug abuse patient.[facility] AdministrationIn the event this information is protected by the Federal Confidentiality of Alcohol and Drug Abuse Patient Records regulations: The Federal rules restrict any use of the information to criminally investigate or prosecute any alcohol or drug abuse patient.[facility] AdministrationIn the event this information is protected by the Federal Confidentiality of Alcohol and Drug Abuse Patient Records regulations: The Federal rules restrict any use of the information to criminally investigate or prosecute any alcohol or drug abuse patient.[facility] AdministrationIn the event this information is protected by the Federal Confidentiality of Alcohol and Drug Abuse Patient Records regulations: The Federal rules restrict any use of the information to criminally investigate or prosecute any alcohol or drug abuse patient.[facility] AdministrationIn the event this information is protected by the Federal Confidentiality of Alcohol and Drug Abuse Patient Records regulations: The Federal rules restrict any use of the information to criminally investigate or prosecute any alcohol or drug abuse patient.[facility] AdministrationIn the event this information is protected by the Federal Confidentiality of Alcohol and Drug Abuse Patient Records regulations: The Federal rules restrict any use of the information to criminally investigate or prosecute any alcohol or drug abuse patient.[facility] AdministrationIn the event this information is protected by the Federal Confidentiality of Alcohol and Drug Abuse Patient Records regulations: The Federal rules restrict any use of the information to criminally investigate or prosecute any alcohol or drug abuse patient.[facility] AdministrationIn the event this information is protected by the Federal Confidentiality of Alcohol and Drug Abuse Patient Records regulations: The Federal rules restrict any use of the information to criminally investigate or prosecute any alcohol or drug abuse patient.[facility] AdministrationIn the event this information is protected by the Federal Confidentiality of Alcohol and Drug Abuse Patient Records regulations: The Federal rules restrict any use of the information to criminally investigate or prosecute any alcohol or drug abuse patient.[facility] AdministrationIn the event this information is protected by the Federal Confidentiality of Alcohol and Drug Abuse Patient Records regulations: The Federal rules restrict any use of the information to criminally investigate or prosecute any alcohol or drug abuse patient.[facility] AdministrationIn the event this information is protected by the Federal Confidentiality of Alcohol and Drug Abuse Patient Records regulations: The Federal rules restrict any use of the information to criminally investigate or prosecute any alcohol or drug abuse patient.[facility] AdministrationIn the event this information is protected by the Federal Confidentiality of Alcohol and Drug Abuse Patient Records regulations: The Federal rules restrict any use of the information to criminally investigate or prosecute any alcohol or drug abuse patient.[facility] AdministrationIn the event this information is protected by the Federal Confidentiality of Alcohol and Drug Abuse Patient Records regulations: The Federal rules restrict any use of the information to criminally investigate or prosecute any alcohol or drug abuse patient.[facility] AdministrationIn the event this information is protected by the Federal Confidentiality of Alcohol and Drug Abuse Patient Records regulations: The Federal rules restrict any use of the information to criminally investigate or prosecute any alcohol or drug abuse patient.[facility] Administration Care Teams (unrecognized sec tion and content) [employer]griscience [employer] Instructor Relationship Specialty Start Date End Date Gopal Das MD PCP - General Family Practice 07/06/15 Agriscience Technology Instructor Relationship Specialty Start Date End Date Gopal Das MD PCP - General Family Practice 07/06/15 Agriscience Technology Instructor Relationship Specialty Start Date End Date Gopal Das MD PCP - General Family Practice 07/06/15 Agriscience Technology Instructor Relationship Specialty Start Date End Date Gopal Das MD PCP - General Family Practice 07/06/15 Agriscience Technology Instructor Relationship Specialty Start Date End Date Gopal Das MD PCP - General Family Medicine 07/06/15 Agriscience Technology Instructor Relationship Specialty Start Date End Date Gopal Das MD PCP - General Family Medicine 07/06/15 Agriscience Technology Instructor Relationship Specialty Start Date End Date Gopal Das MD PCP - General Family Medicine 07/06/15 Agriscience Technology Instructor Relationship Specialty Start Date End Date Gopal Das MD PCP - General Family Medicine 07/06/15 Agriscience Technology Instructor Relationship Specialty Start Date End Date Gopal Das MD PCP - General Family Medicine 07/06/15 Agriscience Technology Instructor Relationship Specialty Start Date End Date Gopal Das MD PCP - General Family Medicine 07/06/15 Agriscience Technology Instructor Relationship Specialty Start Date End Date Gopal Das MD PCP - General Family Medicine 07/06/15 Agriscience Technology Instructor Relationship Specialty Start Date End Date Gopal Das MD PCP - General Family Medicine 07/06/15 Agriscience Technology Instructor Relationship Specialty Start Date End Date Gopal Das MD PCP - General Family Medicine 07/06/15 Agriscience Technology Instructor Relationship Specialty Start Date End Date Gopal Das MD PCP - General Family Medicine 07/06/15 Team Status: Active Member Role Status Dates Dr. Gopal Das MD Family Provider Active Dr. Gopal Das MD Primary Care Provider Active Team Status: Inactive Member Role Status Dates Dr. Gopal Das MD Primary Care Provider Active Dr. Deo Gallagher MD Emergency Provider Active Team Status: Inactive Member Role Status Dates Dr. Gopal Das MD Primary Care Provider Active Dr. Christopher Priest DO Emergency Provider Active [employer]gr[employer]ience [employer] Instructor Relationship Specialty Start Date End Date Gopal Das MD PCP - General Family Medicine 07/06/15 Agriscience Technology Instructor Relationship Specialty Start Date End Date Gopal Das MD PCP - General Family Medicine 07/06/15 Agriscience Technology Instructor Relationship Specialty Start Date End Date Gopal Das MD PCP - General Family Medicine 07/06/15 Agriscience Technology Instructor Relationship Specialty Start Date End Date Gopal Das MD PCP - General Family Medicine 07/06/15 Agriscience Technology Instructor Relationship Specialty Start Date End Date Gopal Das MD PCP - General Family Medicine 07/06/15 Agriscience Technology Instructor Relationship Specialty Start Date End Date Gopal Das MD PCP - General Family Medicine 07/06/15 Agriscience Technology Instructor Relationship Specialty Start Date End Date Gopal Das MD PCP - [facility] Family Medicine 07/06/15 Agriscience Technology Instructor Relationship Specialty Start Date End Date Gopal Das MD PCP - General Family Medicine 07/06/15 Agriscience Technology Instructor Relationship Specialty Start Date End Date Gopal Das MD PCP - [facility] Medicine 07/06/15 Team Status: Active Member Role [...] BE BASED ON THE PRIMARY CLINICAL RECORDS. [employer] [facility]. provides no warranty or guarantee of the accuracy or completeness of information in this document.
--- NOTE | 2024-12-19 23:52 | EKG12_ITS ---
Test Reason : CP ADMISSION Blood Pressure : */* mmHG Vent. Rate : 71 BPM Atrial Rate : 71 BPM P-R Int : 172 ms QRS Dur : 144 ms QT Int : 412 ms P-R-T Axes : 69 -40 46 degrees QTcB Int : 447 ms Normal sinus rhythm Left axis deviation Right bundle branch block Inferior infarct , age undetermined Abnormal ECG When compared with ECG of 19-Dec-2024 15:42, MANUAL COMPARISON REQUIRED DATA IS UNCONFIRMED Confirmed by Jeronimo Puente ([id number]), editorial writer STAN RODRIGUEZ ([id number]) on 12/22/2024 9:10:34 AM Referred By: Confirmed By: Jeronimo Puente
--- NOTE | 2024-12-19 23:56 | ECHOD_ITS ---
Reason For Study : CAD/ASDH Procedure This was a 2D Doppler, Color Flow transthoracic echocardiogram. Exam performed in department. Left Ventricle Normal LV size. The estimated ejection fraction is 70 %. Unable to assess diastolic dysfunction. No regional wall motion abnormalities noted. Right Ventricle Moderately dilated right ventricle. Mild global right ventricular systolic dysfunction. Atria The left and right atria are normal. No doppler evidence for ASD. Mitral Valve There is no mitral valve stenosis. Trivial mitral valve insufficiency. Tricuspid Valve There is no tricuspid stenosis. Mild tricuspid valve insufficiency. Pulmonary artery systolic pressure is 25-30 mmHg. Aortic Valve Trisinus/trileaflet aortic valve. There is no aortic stenosis. No aortic valve insufficiency. Pulmonic Valve There is no pulmonic valvular stenosis. No pulmonic valve insufficiency. Great Vessels Normal sized aortic root. Pericardium/Pleural No pericardial effusion. MMode/2D Measurements & Calculations LVIDd: 3.8 cm IVSd: 1.1 cm LVOT diam: 2.0 cm LVIDs: 2.8 cm LVPWd: 1.4 cm LVOT area: 3.0 cm2 FS: 26.8 % Ao root diam: 2.7 cm LAV(MOD-bp): 36.7 ml LVAd ap4: 20.0 cm2 LAV(MOD-bp) Indexed: 20.7 ml/m2 LVLd ap4: 7.5 cm LAV(MOD-sp2): 26.2 ml EDV(MOD-sp4): 44.5 ml LAV(MOD-sp4): 38.5 ml EDV(sp4-el): 45.5 ml LVAs ap4: 9.4 cm2 LVLs ap4: 6.1 cm ESV(MOD-sp4): 13.2 ml ESV(sp4-el): 12.4 ml EF(MOD-sp4): 70.4 % EF(sp4-el): 72.7 % SV(MOD-sp4): 31.3 ml SV(sp4-el): 33.1 ml LA A4 area: 15.8 cm2 SI(MOD-sp4): 17.7 ml/m2 LA dimension(2D): 3.9 cm RA A4 area: 15.4 cm2 Time Measurements MV dec time: 0.37 sec Doppler Measurements & Calculations MV E max barber: 94.3 cm/sec Lat Peak E' Barber: 5.2 cm/sec Med Peak E' Barber: 6.5 cm/sec MV A max barber: 133.1 cm/sec E/E' lat: 18.3 E/E' med: 14.6 MV E/A: 0.71 MV V2 max: 149.9 cm/sec Ao V2 max: 174.4 cm/sec MV max P.0 mmHg MV dec slope: 253.3 cm/sec2 Ao max P.2 mmHg MV V2 mean: 97.1 cm/sec Ao V2 mean: 114.7 cm/sec MV mean P.1 mmHg Ao mean P.1 mmHg MV V2 VTI: 36.3 cm Ao V2 VTI: 29.7 cm AV (velocity ratio): 0.95 MVA(VTI): 2.3 cm2 MAIDA(I,D): 2.8 cm2 MAIDA(V,D): 2.8 cm2 LV V1 max: 163.4 cm/sec SV(LVOT): 84.6 ml PA V2 max: 108.2 cm/sec LV V1 max P.7 mmHg PA V2 mean: 79.4 cm/sec LV V1 mean P.7 mmHg LV V1 mean: 109.8 cm/sec LV V1 VTI: 28.2 cm TR max barber: 265.2 cm/sec TR max P.1 mmHg ECHO/Echo Complete Interpretation Summary Unable to assess diastolic dysfunction. Moderately dilated right ventricle. Mild global right ventricular systolic dysfunction. Trivial mitral valve insufficiency. The estimated ejection fraction is 70 %. Ordering Physician: Vicki Rosenbaum Referring Physician: ROWDY DAS Performed By: Anne Saucedo RCS
[2024-12-20] VITALS (12 sets, daily range): BP systolic 96–130; BP diastolic 46–68; PULSE 68–93; RESP 16–18; TEMP 36.4–37.2; O2SAT 94–98; BMI 25.6
[2024-12-20] MEDS: HEPARIN/D5w 25,000 UNITS 25,000 UNITS/250 ML IV.SOLN. 8 UNITS CONT INF (00:34)
[2024-12-20 01:05] LABS: Magnesium 1.5 mg/dL (1.5-2.2)
[2024-12-20 01:51] LABS: Partial Thromboplast Time 34.6 Seconds (24.1-36.2)
[2024-12-20] MEDS: 0.9% Saline Lock 10 ML Syringe IV ×3 (01:52→18:47)
[2024-12-20] MEDS: 0.9% Normal Saline (1000mL) 1,000 ML 75 ML IV (01:52)
[2024-12-20] MEDS: Heparin Injection (Vial) 5,000 UNIT/ML VIAL IV ×2 (03:09→18:46)
[2024-12-20] MEDS: Levothyroxine 125 MCG Tablet PO (06:17)
[2024-12-20 06:30] LABS: Absolute Lymphocyte Count 1.99 X10^3/uL (0.83-4.51); Absolute Neutrophil Count 3.1 X10^3/uL (2.0-7.7); Basophil# 0.04 X10^3/uL; Basophil% 0.7 % (0-1); Eosinophil# 0.06 X10^3/uL; Hematocrit 37.2 % (37-47); Hemoglobin 12.1 g/dL (12.0-15.0); Lymphocyte # 1.99 X10^3/ul (0.83-4.51); Lymphocyte % 32.9 % (19-41); Mean Corp Hgb Conc 32.5 g/dL (32-36); Mean Corpuscular Hgb 28.7 pg (27.0-32.0); Mean Corpuscular Volume 88.4 fL (81-99); Mean Platelet Vol. 12.2 fl (6.2-12.0); Monocyte# 0.81 X10^3/uL; Monocyte% 13.4 % (0-10); NRBC Flagged by Analyzer 0 % (0-5); Neutrophil # 3.12 X10^3/uL (2.7-7.7); Neutrophil % 51.7 % (47-70); Platelet Count 186 K/mm3 (150-450); RBC Distribution Width CV 13.4 % (11.6-14.6); RBC Distribution Width SD 43.3 fl (35.1-43.9); Red Blood Count 4.21 M/mm3 (4.2-5.4)
[2024-12-20 06:50] LABS: ALB/GLOB Ratio 1.3 RATIO (0.9-2.4); AST(SGOT) 35 U/L (<=31); Alanine Aminotransfer ALT/SGPT 18 U/L (<=34); Alkaline Phosphatase 98 U/L (35-104); Anion Gap 9 (5-15); BUN 14 mg/dL (4-19); BUN/Creat Ratio 12.4 RATIO (10-20); Calcium,Total 8.8 mg/dL (7.6-11.0); Chloride 103 mmol/L (98-108); Cholesterol 115 mg/dL (<=200); Creatinine, Serum 1.11 mg/dL (0.70-1.20); EST Glomerular Filtration Rate 51 (>60); Estimated Creatinine Clearance 41.65 ml/min (50-250); Globulin 2.3 g/dL (2.2-4.2); Glucose 97 mg/dL (70-99); High Density Lipoprotein 39 mg/dL; Low Density Lipoprotein Calc. 63 mg/dL; Protein, Total 5.3 g/dL (5.9-8.4); Sodium Level 136 mmol/L (133-145); Total Bilirubin 0.49 mg/dL (0.00-1.30); Triglycerides 63 mg/dL; Very Low Density Lipoprotein 13 mg/dL (5-40); cholesterol:hdl ratio screen 2.93
[2024-12-20 07:04] LABS: Troponin T High Sensitivity 3852 ng/L (<=14)
[2024-12-20] MEDS: Ipratropium/Albuterol Sulfate 3 ML AMPUL.NEB INHALATION ×2 (07:18→13:19)
[2024-12-20 09:40] LABS: Partial Thromboplast Time 109.5 Seconds (24.1-36.2)
[2024-12-20] MEDS: Paroxetine 20 MG Tablet PO (10:03)
[2024-12-20] MEDS: Nitrofurantoin Macrocrystals 100 MG Capsule PO ×2 (10:06→16:35)
[2024-12-20] MEDS: Ensure Plus High Protein 120 ML LIQUID PO (10:10)
--- NOTE | 2024-12-20 10:20 | CASEMGMT ---
RN?CM?GLUER MACHINE OPERATOR?CM?to room to meet with patient for initial transition planning/care coordination?assessment.?RN?CM?introduced self and role at [facility].? Pt voices understanding and consents to?assessment?at this time.? Pt resting in bed in no distress at this time.?Daughter, Arlet, @ bedside and pt agreeable to her being present during assessment. Pt is A/O at this time and answers all questions appropriately.?? Care providers, pharmacy, and demographics verified/updated at this time. PCP: Dr Burrows Specialists: none Preferred Pharmacy: [facility] ([facility] Insurance: [facility] [employer]formerly [employer] Other commercial Prescription Benefit:?yes Living Will/HPOA:?Does not have either and would like to complete. SW, Padma, made aware. Pt and daughter made aware if SW unable to meet w/her while @ [facility] this can be done w/SW as an OP. LNOK: Dtr, Arlet. MADHU, Dominic. Pt has 2 other adult children as well. Living Arrangements: Pt lives in a split-level home w/2 steps to enter. 7 steps b/w each floor. Pt is independent w/ADL's and IADL's and manages her own medications. Pt's grand-daughter just moved in w/her and will start assisting w/home mgnt tasks. Transportation:?Pt drives. DME: ? Denies using any DME and denies needs.?She does have a nebulizer, but does not use it. She uses an inhaler. HHC/SNF: No hx of either. Denies need for HHC or OP therapy. Pt wishes to return home and states has no concerns with going home at time of discharge.?CM?to follow for any discharge planning/needs.? Pt and daughter voice no further concerns/needs at this time.? PLAN:??Home. Yg MIRANDAN?RN?CM
--- NOTE | 2024-12-20 11:13 | PN.HOSP_ITS ---
Subjective Subjective Troponins elevated on admission however her chest pain has resolved. Vital signs are stable Objective Data Objective Data Vital Signs: Vital Signs Temp Pulse Resp BP Pulse Ox O2 Del Method 98.3 F 68 16 101/54 L 98 Room Air 12/20/24 09:53 12/20/24 09:53 12/20/24 09:53 12/20/24 09:53 12/20/24 09:53 12/20/24 09:53 Oxygen Delivery Method Room Air Weight: 154 lb 1.65 oz Body Mass Index (BMI) 25.6 Intake & Output: Intake and Output for Last 24 Hours 12/19/24 12/20/24 12/21/24 03:59 03:59 03:59 Intake Total 72.53 / 72.53 65.83 / 65.83 Balance 72.53 / 72.53 65.83 / 65.83 Lab / Micro Data 12/20/24 06:05 12/20/24 06:05 Labs: Laboratory Results - last 24 hr 12/19/24 16:35: WBC 8.9, RBC 4.94, Hgb 14.2, Hct 43.7, MCV 88.5, MCH 28.7, MCHC 32.5, RDW Std Deviation 42.7, RDW Coeff of Vipul 13.3, Plt Count 221, MPV 11.9, Immature Gran % (Auto) 0.200, Neut % (Auto) 76.8 H, Lymph % (Auto) 12.2 L, [place] % (Auto) 9.8, Eos % (Auto) 0.5, Baso % (Auto) 0.5, Absolute Neuts (auto) 6.8, Absolute Lymphs (auto) 1.08, Nucleated RBC % 0, Sodium 138, Potassium 3.9, Chloride 101, Carbon Dioxide 25.2, Anion Gap 12, BUN 15, Creatinine 1.07, Estim Creat Clear Calc 43.21 L, Est GFR (MDRD) Non-Af 53 L, BUN/Creatinine Ratio 14.3, Glucose 107 H, Calcium 9.7, Troponin T High Sens 5909 H*, [place] [address] H 12/19/24 18:00: PT 13.9, INR 1.1, APTT 27.0, D-Dimer Quant (PE/DVT) 4.00 H* 12/19/24 18:45: Troponin T Hi Sens 2 Hr 5021 H* 12/19/24 20:25: Magnesium 1.5, Troponin T Hi Sens 4Hr 4679 H* 12/19/24 23:14: APTT Cancelled 12/20/24 01:00: APTT 34.6 12/20/24 06:05: WBC 6.0, RBC 4.21, Hgb 12.1, Hct 37.2, MCV 88.4, MCH 28.7, MCHC 32.5, RDW Std Deviation 43.3, RDW Coeff of Vipul 13.4, Plt Count 186, MPV 12.2 H, Immature Gran % (Auto) 0.300, Neut % (Auto) 51.7, Lymph % (Auto) 32.9, [place] % (Auto) 13.4 H, Eos % (Auto) 1.0, Baso % (Auto) 0.7, Absolute Neuts (auto) 3.1, Absolute Lymphs (auto) 1.99, Nucleated RBC % 0, Sodium 136, Potassium 4.0, Chloride 103, Carbon Dioxide 24.0, Anion Gap 9, BUN 14, Creatinine 1.11, Estim Creat Clear Calc 41.65 L, Est GFR (MDRD) Non-Af 51 L, BUN/Creatinine Ratio 12.4, Glucose 97, Calcium 8.8, Total Bilirubin 0.49, AST 35 H, ALT 18, Alkaline Phosphatase 98, Troponin T High Sens 3852 H* D, Total Protein 5.3 L, Albumin 3.0 L, Globulin 2.3, Albumin/Globulin Ratio 1.3, Triglycerides 63, Cholesterol 115, LDL Cholesterol, Calc 63, VLDL Cholesterol 13, HDL Cholesterol 39 L, Cholesterol/HDL Ratio 2.93 12/20/24 09:14: APTT 109.5 H* Radiography Diagnostic Testing: Radiology Impression Chest X-Ray 12/19/24 17:15 IMPRESSION: Cardiomegaly without overt failure. Reading Location: [facility] Chest CTA 12/19/24 19:35 IMPRESSION: 1. No pulmonary embolism is identified. Some of the distal pulmonary arteries cannot be evaluated due to suboptimal opacification. 2. Mild cardiomegaly with small pericardial effusion. 3. Continue low-dose CT scan of the chest in 12 months is recommended. Reading Location: [facility] Physical Exam Narrative General: Alert, Oriented x3, Cooperative, No apparent distress HEENT: Atraumatic, PERRLA, EOMI, Normocephalic Oral: Moist Mucosa Neck: Supple, No JVD Lungs: Diminished, Normal air movement, No rhonchi, No wheeze, No rales Cardiovascular: Regular rate, Regular Rhythm, Normal S1, Normal S2, No murmurs Abdomen: Soft, Non Tender, Non-Distended, No Hepato-splenomegaly Extremities: No edema, Capillary Refill Less than 3 Seconds Skin: No rashes, No breakdown Musculoskeletal: No Tenderness to Palpation of Joints or Extremities Neurological: No focal neurological deficits, Motor Exam 5/5 strength throughout, Sensory exam intact to light touch and pain Psych/Mental Status: Normal Affect, Appropriate Assessment & Plan Assessment/Plan (1) NSTEMI, initial episode of care: PLAN: Plan 1. Non-STEMI/essential HTN/HLD ? Continue with the heparin drip ? Awaiting echo ? Awaiting cardiology evaluation ? Troponin peaked at 5021 ? D-dimer was elevated however CTA was negative for PE ? Continue with her home blood pressure medications ? Will monitor make adjustments as necessary ? Continue with her home cholesterol medications 2. COPD ? Not in exacerbation ? Continue with home inhalers 3. Hypothyroidism ? Stable ? Continue with Synthroid 4. Anxiety/depression ? Stable ? Continue with her home medications DVT: Heparin drip Charges/Coding Visit Charges Inpatient E&M: 91594 Subs Hosp L2
--- NOTE | 2024-12-20 13:25 | CON.PCM.CA_ITS ---
Assessment & Plan Assessment/Plan (1) NSTEMI, initial episode of care: PLAN: Continue IV heparin. Agree with statin, beta-gerard. Keep the patient on scheduled aspirin 81 mg p.o. daily. Will be reasonable to start her on Brilinta 90 mg p.o. twice daily starting from tonight. Recommend loading dose of Brilinta 180 mg p.o. x 1 today. HPI Consult Data Date of Consult: 12/20/24 HPI Narrative Reason for Consultation: Non-STEMI HPI Narrative: DEYANIRA MORENO, is a 79 F who presents with retrosternal chest pain radiating to her back. Patient's troponin was elevated. She is on a heparin drip and has been admitted to the PCU. Her chest pain has currently resolved. [facility] Medical History (Updated 12/20/24 @ 01:[address] Vicki Rosenbaum MD) Anxiety and depression Hyperlipidemia Hypothyroid HTN (hypertension) Home Medications ?Medication ?Instructions ?Recorded ?Last Taken ?Type losartan 50 mg tablet 100 mg PO DAILY BP 07/08/15 Unknown History levothyroxine 125 mcg tablet 125 mcg PO DAILY thyroid 11/01/16 12/19/24 08:00 History 125 mcg paroxetine HCl 20 mg tablet 20 mg PO DAILY depression 11/01/16 12/18/24 22:00 History 20 mg albuterol sulfate 90 mcg/actuation 2 puff inhalation Q 6H PRN 12/17/24 12/19/24 08:00 History aerosol inhaler (Ventolin HFA) shortness of breath or wheezing 2 puff alprazolam 0.25 mg tablet 0.25 mg PO TID PRN anxiety 0 12/17/24 Unknown History fluticasone fur. 100 mcg-umeclid 1 inh inhalation JARET Y COPD 12/17/24 12/19/24 08:00 History 62.5 mcg-vilant 25 mcg 1 inh inhalat.powder (Trelegy Ellipta) nitrofurantoin 100 mg PO Q12 #10 CAPSULES 0 12/17/24 Unknown Rx monohydrate/macrocrystals 100 mg capsule rosuvastatin 10 mg tablet (Crestor) 10 mg PO DAILY low ers cholesterol 12/19/24 12/18/24 22:00 History 10 mg losartan 100 mg tablet 100 mg PO DAILY BP 12/20/24 12/18/24 22:00 History 100 mg Allergy/AdvReac Type Severity Reaction Status Date / Time codeine Allergy Hives Verified 12/19/24 15:29 Family History (Updated 12/20/24 @ 01:[address] Vicki Rosenbaum MD) Mother Alzheimer's dementia Father CAD (coronary artery disease) Heart disease Hypertension Myocardial infarction Surgical History (Updated 12/20/24 @ 01:[address] Vicki Rosenbaum MD) History of cholecystectomy S/P appendectomy History of hysterectomy History of tonsillectomy and adenoidectomy Status post cataract extraction Social History (Updated 12/20/24 @ 01:[address] Vicki Rosenbaum MD) household members: none Smoking Status: Former smoker how long ago did patient quit smoking: Quit remotely but cannot give exact timeline. alcohol intake: current alcohol intake frequency: holidays/special occasions only substance use type: does not use Physical Exam Const alert HEENT normocephalic Eyes no scleral icterus Resp clear to auscultation bilaterally Cardio regular rate Risk Stratification Risk Stratification Applicable: No Objective Data Vital Signs: Vital Signs Temp Pulse Resp BP Pulse Ox O2 Del Method 98.3 F 79 16 96/56 L 96 Room Air 12/20/24 09:53 12/20/24 13:20 12/20/24 13:20 12/20/24 11:45 12/20/24 11:45 12/20/24 11:45 Oxygen Delivery Method Room Air Weight: 154 lb 1.65 oz Body Mass Index (BMI) 25.6 Intake & Output: Intake and Output for Last 24 Hours 12/18/24 12/19/24 12/20/24 23:59 23:59 23:59 Intake Total 872.11 / 872.11 Balance 872.11 / 872.11 Lab / Micro Data 12/20/24 06:05 12/20/24 06:05 Labs: Laboratory Results - last 24 hr 12/19/24 16:35: WBC 8.9, RBC 4.94, Hgb 14.2, Hct 43.7, MCV 88.5, MCH 28.7, MCHC 32.5, RDW Std Deviation 42.7, RDW Coeff of Vipul 13.3, Plt Count 221, MPV 11.9, Immature Gran % (Auto) 0.200, Neut % (Auto) 76.8 H, Lymph % (Auto) 12.2 L, [place] % (Auto) 9.8, Eos % (Auto) 0.5, Baso % (Auto) 0.5, Absolute Neuts (auto) 6.8, Absolute Lymphs (auto) 1.08, Nucleated RBC % 0, Sodium 138, Potassium 3.9, Chloride 101, Carbon Dioxide 25.2, Anion Gap 12, BUN 15, Creatinine 1.07, Estim Creat Clear Calc 43.21 L, Est GFR (MDRD) Non-Af 53 L, BUN/Creatinine Ratio 14.3, Glucose 107 H, Calcium 9.7, Troponin T High Sens 5909 H*, [place] [address] H 12/19/24 18:00: PT 13.9, INR 1.1, APTT 27.0, D-Dimer Quant (PE/DVT) 4.00 H* 12/19/24 18:45: Troponin T Hi Sens 2 Hr 5021 H* 12/19/24 20:25: Magnesium 1.5, Troponin T Hi Sens 4Hr 4679 H* 12/19/24 23:14: APTT Cancelled 12/20/24 01:00: APTT 34.6 12/20/24 06:05: WBC 6.0, RBC 4.21, Hgb 12.1, Hct 37.2, MCV 88.4, MCH 28.7, MCHC 32.5, RDW Std Deviation 43.3, RDW Coeff of Vipul 13.4, Plt Count 186, MPV 12.2 H, Immature Gran % (Auto) 0.300, Neut % (Auto) 51.7, Lymph % (Auto) 32.9, [place] % (Auto) 13.4 H, Eos % (Auto) 1.0, Baso % (Auto) 0.7, Absolute Neuts (auto) 3.1, Absolute Lymphs (auto) 1.99, Nucleated RBC % 0, Sodium 136, Potassium 4.0, Chloride 103, Carbon Dioxide 24.0, Anion Gap 9, BUN 14, Creatinine 1.11, Estim Creat Clear Calc 41.65 L, Est GFR (MDRD) Non-Af 51 L, BUN/Creatinine Ratio 12.4, Glucose 97, Calcium 8.8, Total Bilirubin 0.49, AST 35 H, ALT 18, Alkaline Phosphatase 98, Troponin T High Sens 3852 H* D, Total Protein 5.3 L, Albumin 3.0 L, Globulin 2.3, Albumin/Globulin Ratio 1.3, Triglycerides 63, Cholesterol 115, LDL Cholesterol, Calc 63, VLDL Cholesterol 13, HDL Cholesterol 39 L, Cholesterol/HDL Ratio 2.93 12/20/24 09:14: APTT 109.5 H* Cardiology Labs/Tests 12/19/24 16:35: WBC 8.9, RBC 4.94, Hgb 14.2, Hct 43.7, MCV 88.5, MCH 28.7, MCHC 32.5, Plt Count 221, MPV 11.9, Immature Gran % (Auto) 0.200, Neut % (Auto) 76.8 H, Lymph % (Auto) 12.2 L, [place] % (Auto) 9.8, Eos % (Auto) 0.5, Baso % (Auto) 0.5, Absolute Neuts (auto) 6.8, Nucleated RBC % 0, Sodium 138, Potassium 3.9, Chloride 101, Carbon Dioxide 25.2, Anion Gap 12, BUN 15, Creatinine 1.07, Est GFR (MDRD) Non-Af 53 L, BUN/Creatinine Ratio 14.3, Glucose 107 H, Calcium 9.7 12/19/24 18:00: PT 13.9, INR 1.1, APTT 27.0, D-Dimer Quant (PE/DVT) 4.00 H* 12/19/24 20:25: Magnesium 1.5 12/19/24 23:14: APTT Cancelled 12/20/24 01:00: APTT 34.6 12/20/24 06:05: WBC 6.0, RBC 4.21, Hgb 12.1, Hct 37.2, MCV 88.4, MCH 28.7, MCHC 32.5, Plt Count 186, MPV 12.2 H, Immature Gran % (Auto) 0.300, Neut % (Auto) 51.7, Lymph % (Auto) 32.9, [place] % (Auto) 13.4 H, Eos % (Auto) 1.0, Baso % (Auto) 0.7, Absolute Neuts (auto) 3.1, Nucleated RBC % 0, Sodium 136, Potassium 4.0, Chloride 103, Carbon Dioxide 24.0, Anion Gap 9, BUN 14, Creatinine 1.11, Est GFR (MDRD) Non-Af 51 L, BUN/Creatinine Ratio 12.4, Glucose 97, Calcium 8.8, Total Bilirubin 0.49, Triglycerides 63, Cholesterol 115, VLDL Cholesterol 13, HDL Cholesterol 39 L, Cholesterol/HDL Ratio 2.93 12/20/24 09:14: APTT 109.5 H* Rhythm: EKG: ECHO: Stress Test: Cardiac Cath: PCI: CT Surgery: Holter monitor: EPS: PPM: CXR: Chest CT Scan: Radiography Diagnostic Testing: Radiology Impression Chest X-Ray 12/19/24 17:15 IMPRESSION: Cardiomegaly without overt failure. Reading Location: [facility] Chest CTA 12/19/24 19:35 IMPRESSION: 1. No pulmonary embolism is identified. Some of the distal pulmonary arteries cannot be evaluated due to suboptimal opacification. 2. Mild cardiomegaly with small pericardial effusion. 3. Continue low-dose CT scan of the chest in 12 months is recommended. Reading Location: [facility]
[2024-12-20] MEDS: TICAGRELOR 90 MG TABLET 180 MG PO (13:49)
[2024-12-20] MEDS: Aspirin 81 MG TAB.CHEW PO (13:49)
[2024-12-20 18:23] LABS: Partial Thromboplast Time 35.7 Seconds (24.1-36.2)
[2024-12-20] MEDS: Metoprolol Tartrate 25 MG Tablet 12.5 MG PO (20:05)
[2024-12-20] MEDS: Atorvastatin Calcium 20 MG Tablet PO (20:05)
[2024-12-20] MEDS: TICAGRELOR 90 MG TABLET PO (20:06)
[2024-12-20] MEDS: ALPRAZolam 0.5 MG Tablet PO (21:07)
[2024-12-21] VITALS (8 sets, daily range): BP systolic 101–133; BP diastolic 50–70; PULSE 65–82; RESP 16; TEMP 36–37.1; O2SAT 93–96; BMI 25.7
[2024-12-21 01:31] LABS: Partial Thromboplast Time 50.7 Seconds (24.1-36.2)
[2024-12-21] MEDS: Heparin Injection (Vial) 5,000 UNIT/ML VIAL IV (01:49)
[2024-12-21] MEDS: HEPARIN/D5w 25,000 UNITS 25,000 UNITS/250 ML IV.SOLN. 9 UNITS CONT INF (01:51)
[2024-12-21] MEDS: Levothyroxine 125 MCG Tablet PO (05:12)
[2024-12-21] MEDS: Ipratropium/Albuterol Sulfate 3 ML AMPUL.NEB INHALATION ×2 (06:56→13:16)
[2024-12-21 08:11] LABS: Absolute Lymphocyte Count 1.15 X10^3/uL (0.83-4.51); Absolute Neutrophil Count 2.9 X10^3/uL (2.0-7.7); Basophil# 0.04 X10^3/uL; Basophil% 0.8 % (0-1); Eosinophil# 0.13 X10^3/uL; Eosinophils% 2.7 % (0-5); Hemoglobin 11.8 g/dL (12.0-15.0); Lymphocyte # 1.15 X10^3/ul (0.83-4.51); Lymphocyte % 24.3 % (19-41); Mean Corp Hgb Conc 32.8 g/dL (32-36); Mean Corpuscular Hgb 28.9 pg (27.0-32.0); Mean Platelet Vol. 11.7 fl (6.2-12.0); Monocyte% 10.6 % (0-10); NRBC Flagged by Analyzer 0 % (0-5); Neutrophil # 2.89 X10^3/uL (2.7-7.7); Neutrophil % 61.2 % (47-70); Platelet Count 182 K/mm3 (150-450); RBC Distribution Width CV 13.5 % (11.6-14.6); RBC Distribution Width SD 42.9 fl (35.1-43.9); Red Blood Count 4.09 M/mm3 (4.2-5.4); White Blood Count 4.7 K/mm3 (4.4-11.0)
[2024-12-21 08:48] LABS: Anion Gap 11 (5-15); BUN 12 mg/dL (4-19); BUN/Creat Ratio 11.5 RATIO (10-20); Calcium,Total 9.1 mg/dL (7.6-11.0); Carbon Dioxide 23.6 mmol/L (21.0-32.0); Chloride 105 mmol/L (98-108); Creatinine, Serum 1.05 mg/dL (0.70-1.20); EST Glomerular Filtration Rate 55 (>60); Estimated Creatinine Clearance 44.09 ml/min (50-250); Glucose 95 mg/dL (70-99); Potassium 3.7 mmol/L (3.3-5.1); Sodium Level 139 mmol/L (133-145)
[2024-12-21 08:49] LABS: Partial Thromboplast Time 74.1 Seconds (24.1-36.2)
[2024-12-21] MEDS: TICAGRELOR 90 MG TABLET PO ×2 (09:37→21:34)
[2024-12-21] MEDS: Paroxetine 20 MG Tablet PO (09:38)
[2024-12-21] MEDS: 0.9% Saline Lock 10 ML Syringe IV (09:39)
--- NOTE | 2024-12-21 09:52 | PCM.PN.HOSP ---
Subjective Subjective Doing well today, no chest pain. Plan for heart cath tomorrow Objective Data Objective Data Vital Signs: Vital Signs Temp Pulse Resp BP Pulse Ox O2 Del Method 98.7 F 71 16 102/57 L 93 Room Air 12/21/24 09:29 12/21/24 09:29 12/21/24 09:29 12/21/24 09:29 12/21/24 09:29 12/21/24 09:29 Oxygen Delivery Method Room Air Weight: 154 lb 8.705 oz Body Mass Index (BMI) 25.7 Intake & Output: Intake and Output for Last 24 Hours 12/20/24 12/21/24 12/22/24 03:59 03:59 03:59 Intake Total 72.53 / 72.53 1812.76 / 1812.76 Balance 72.53 / 72.53 1812.76 / 1812.76 Lab / Micro Data 12/21/24 07:55 12/21/24 07:55 Labs: Laboratory Results - last 24 hr 12/20/24 17:30: APTT 35.7 12/21/24 01:14: APTT 50.7 H 12/21/24 07:55: WBC 4.7, RBC 4.09 L, Hgb 11.8 L, Hct 36.0 L, MCV 88.0, MCH 28.9, MCHC 32.8, RDW Std Deviation 42.9, RDW Coeff of Vipul 13.5, Plt Count 182, MPV 11.7, Immature Gran % (Auto) 0.400, Neut % (Auto) 61.2, Lymph % (Auto) 24.3, [place] % (Auto) 10.6 H, Eos % (Auto) 2.7, Baso % (Auto) 0.8, Absolute Neuts (auto) 2.9, Absolute Lymphs (auto) 1.15, Nucleated RBC % 0, APTT 74.1 H, Sodium 139, Potassium 3.7, Chloride 105, Carbon Dioxide 23.6, Anion Gap 11, BUN 12, Creatinine 1.05, Estim Creat Clear Calc 44.09 L, Est GFR (MDRD) Non-Af 55 L, BUN/Creatinine Ratio 11.5, Glucose 95, Calcium 9.1 Radiography Diagnostic Testing: Radiology Impression Echocardiogram 12/19/24 23:56 Interpretation Summary Unable to assess diastolic dysfunction. Moderately dilated right ventricle. Mild global right ventricular systolic dysfunction. Trivial mitral valve insufficiency. The estimated ejection fraction is 70 %. Ordering Physician: Vicki Rosenbaum Referring Physician: ROWDY DAS Performed By: Anne Saucedo RCS Physical Exam Narrative General: Alert, Oriented x3, Cooperative, No apparent distress HEENT: Atraumatic, PERRLA, EOMI, Normocephalic Oral: Moist Mucosa Neck: Supple, No JVD Lungs: Diminished, Normal air movement, No rhonchi, No wheeze, No rales Cardiovascular: Regular rate, Regular Rhythm, Normal S1, Normal S2, No murmurs Abdomen: Soft, Non Tender, Non-Distended, No Hepato-splenomegaly Extremities: No edema, Capillary Refill Less than 3 Seconds Skin: No rashes, No breakdown Musculoskeletal: No Tenderness to Palpation of Joints or Extremities Neurological: No focal neurological deficits, Motor Exam 5/5 strength throughout, Sensory exam intact to light touch and pain Psych/Mental Status: Normal Affect, Appropriate Assessment & Plan Assessment/Plan (1) NSTEMI, initial episode of care: PLAN: Plan 1. Non-STEMI/essential HTN/HLD ? Continue with the heparin drip ? Echo with an EF of 70% with mild global right ventricular systolic dysfunction and a moderately dilated right ventricle, diastolic dysfunction cannot be evaluated ? Started on Brilinta and likely plan for heart cath on Sunday ? Troponin peaked at 5021 ? D-dimer was elevated however CTA was negative for PE ? Continue with her home blood pressure medications ? Will monitor make adjustments as necessary ? Continue with her home cholesterol medications 2. COPD ? Not in exacerbation ? Continue with home inhalers 3. Hypothyroidism ? Stable ? Continue with Synthroid 4. Anxiety/depression ? Stable ? Continue with her home medications DVT: Heparin drip Charges/Coding Visit Charges Inpatient E&M: 66634 Subs Hosp L2
[2024-12-21] MEDS: Ceftriaxone 1 GM/50 ML BAG IV (10:15)
[2024-12-21 14:46] LABS: Partial Thromboplast Time 59.9 Seconds (24.1-36.2)
[2024-12-21] MEDS: Metoprolol Tartrate 25 MG Tablet 12.5 MG PO (21:30)
[2024-12-21] MEDS: Atorvastatin Calcium 20 MG Tablet PO (21:34)
[2024-12-22] VITALS (15 sets, daily range): BP systolic 100–147; BP diastolic 53–82; PULSE 47–80; RESP 16–18; TEMP 36.2–36.8; O2SAT 92–97; BMI 25.7
[2024-12-22] MEDS: HEPARIN/D5w 25,000 UNITS 25,000 UNITS/250 ML IV.SOLN. 10 UNITS CONT INF (04:10)
[2024-12-22] MEDS: Metoprolol Tartrate 25 MG Tablet 12.5 MG PO ×2 (05:57→20:19)
[2024-12-22] MEDS: TICAGRELOR 90 MG TABLET PO (05:57)
[2024-12-22] MEDS: Levothyroxine 125 MCG Tablet PO (06:03)
[2024-12-22 06:28] LABS: Absolute Lymphocyte Count 0.88 X10^3/uL (0.83-4.51); Absolute Neutrophil Count 2.9 X10^3/uL (2.0-7.7); Basophil# 0.04 X10^3/uL; Basophil% 0.9 % (0-1); Eosinophil# 0.17 X10^3/uL; Eosinophils% 3.8 % (0-5); Hematocrit 33.5 % (37-47); Lymphocyte # 0.88 X10^3/ul (0.83-4.51); Lymphocyte % 19.9 % (19-41); Mean Corp Hgb Conc 32.8 g/dL (32-36); Mean Corpuscular Hgb 28.9 pg (27.0-32.0); Mean Corpuscular Volume 87.9 fL (81-99); Mean Platelet Vol. 11.5 fl (6.2-12.0); Monocyte# 0.44 X10^3/uL; NRBC Flagged by Analyzer 0 % (0-5); Neutrophil # 2.88 X10^3/uL (2.7-7.7); Neutrophil % 65.2 % (47-70); Platelet Count 197 K/mm3 (150-450); RBC Distribution Width CV 13.7 % (11.6-14.6); RBC Distribution Width SD 43.8 fl (35.1-43.9); Red Blood Count 3.81 M/mm3 (4.2-5.4); White Blood Count 4.4 K/mm3 (4.4-11.0)
[2024-12-22 06:38] LABS: Partial Thromboplast Time 64.1 Seconds (24.1-36.2)
[2024-12-22 07:20] LABS: Anion Gap 10 (5-15); BUN 11 mg/dL (4-19); Calcium,Total 9.1 mg/dL (7.6-11.0); Carbon Dioxide 24.3 mmol/L (21.0-32.0); Chloride 105 mmol/L (98-108); Creatinine, Serum 1.06 mg/dL (0.70-1.20); EST Glomerular Filtration Rate 54 (>60); Estimated Creatinine Clearance 43.73 ml/min (50-250); Glucose 89 mg/dL (70-99); Potassium 4.1 mmol/L (3.3-5.1); Sodium Level 140 mmol/L (133-145)
--- NOTE | 2024-12-22 07:45 | CPS ---
Pt has been refusing most aerosols. This RT will check with Dr and see if they can be changed to prn.
[2024-12-22] MEDS: Paroxetine 20 MG Tablet PO (08:20)
[2024-12-22] MEDS: Aspirin 81 MG TAB.CHEW PO (08:20)
--- NOTE | 2024-12-22 10:38 | NURSING ---
1024-Report called to Natasha ROSADO director of cardiac cath lab
[2024-12-22 12:23] LABS: ACT Activated Clotting Time 239 sec (74-137)
[2024-12-22] MEDS: Ceftriaxone 1 GM/50 ML BAG IV (12:55)
[2024-12-22] MEDS: 0.9% Normal Saline (1000mL) 1,000 ML 150 ML IV (12:56)
--- NOTE | 2024-12-22 13:21 | CRPH1.INSTRU ---
General Education Discussed with Patient CAD and cardiac anatomy and function:: Patient communicates acknowledgment Explanation of diagnoses and procedures:: Patient communicates acknowledgment Sign/Symptoms of NH:: Patient communicates acknowledgment Antiplatelet therapy: Patient communicates acknowledgment and Needs reinforcement Proper use of NTG-SL: Patient communicates acknowledgment Emergency procedures and activation of EMS: Patient communicates acknowledgment Compliance of all prescribed medications: Patient communicates acknowledgment Smoking Risk Factors Patient Nicotine/Smoking Risk Factors Are:: Cigarettes Recommendations Recommendations Include:: Previous smoker; encourage continued cessation Response Code Nicotine/Smoking Response Code:: Patient communicates acknowledgment Dyslipidemia Recommendations Recommendations Include:: Lipid profile not available Response Code Dyslipidemia Response Code:: Patient communicates acknowledgment Overweight/Obesity Risk Factors Patient Overweight/Obesity Risk Factors Are:: BMI Normal [18-25 & < 65 years old] Recommendations Recommendations Include:: Exercise 5-7 times/week Response Code Overweight/Obesity:: Patient communicates acknowledgment Hypertension Risk Factors Patient Hypertension Risk Factors Are:: No documented hx of HTN Heart Disease Risk Factors Patient Heart Disease Risk Factors Are:: Previous cardiac event Recommendations Recommendations Include:: Educated family members of their risk and Educated family members of importance of prevention of heart disease Response Code Heart Disease Response Code:: Patient communicates acknowledgment and Family communicates acknowledgment Diabetes Risk Factors Patient Diabetes Risk Factors Are:: No documented hx of diabetes Metabolic Syndrome Recommendations Recommendations Include:: Does not meet criteria and Encouraged follow-up with Primary Care Physician Sedentary Risk Factors Patient Sedentary Risk Factors Are:: Lack of regular exercise Recommendations Recommendations Include:: Benefits of regular exercise and Monitored Outpatient Cardiac Rehab Response Code Sedentary Response Code:: Patient communicates acknowledgment Stress Risk Factors Patient Stress Risk Factors Are:: Patient denies stress as a risk factor Recommendations Recommendations Include:: Identification of stressors, and assessment of coping skills and Stress management techniques Response Code Stress Response Code:: Patient communicates acknowledgment
[2024-12-22] MEDS: Acetaminophen 325 MG Tablet 650 MG PO (13:53)
--- NOTE | 2024-12-22 15:31 | PN_ITS ---
Subjective Subjective Patient seen and examined in the presence of her nurse. She had no complaints today and felt well. She had an uneventful night. She denied any fever chills or any other symptoms. She is for cardiac cath today. Review of systems otherwise negative. Objective Data Objective Data Vital Signs: Vital Signs Temp Pulse Resp BP Pulse Ox O2 Del Method 97.8 F 48 L 16 107/54 L 96 Room Air 12/22/24 08:17 12/22/24 14:50 12/22/24 14:50 12/22/24 14:50 12/22/24 14:50 12/22/24 14:50 Oxygen Delivery Method Room Air Weight: 154 lb 15.759 oz Body Mass Index (BMI) 25.7 Intake & Output: Intake and Output for Last 24 Hours 12/20/24 12/21/24 12/22/24 23:59 23:59 23:59 Intake Total 1821.69 / 1821.69 1113.6 / 1113.6 364.66 / 364.66 Balance 1821.69 / 1821.69 1113.6 / 1113.6 364.66 / 364.66 Lab / Micro Data 12/22/24 06:15 12/22/24 06:15 Labs: Laboratory Results - last 24 hr 12/22/24 06:15: WBC 4.4, RBC 3.81 L, Hgb 11.0 L, Hct 33.5 L, MCV 87.9, MCH 28.9, MCHC 32.8, RDW Std Deviation 43.8, RDW Coeff of Vipul 13.7, Plt Count 197, MPV 11.5, Immature Gran % (Auto) 0.200, Neut % (Auto) 65.2, Lymph % (Auto) 19.9, [place] % (Auto) 10.0, Eos % (Auto) 3.8, Baso % (Auto) 0.9, Absolute Neuts (auto) 2.9, Absolute Lymphs (auto) 0.88, Nucleated RBC % 0, APTT 64.1 H, Sodium 140, Potassium 4.1, Chloride 105, Carbon Dioxide 24.3, Anion Gap 10, BUN 11, Creatinine 1.06, Estim Creat Clear Calc 43.73 L, Est GFR (MDRD) Non-Af 54 L, BUN/Creatinine Ratio 10.0, Glucose 89, Calcium 9.1 12/22/24 11:16: Activated Clotting Time 239 H Physical Exam Const alert, oriented x3, no apparent distress and well nourished General Appearance: cooperative HEENT normocephalic, head/scalp atraumatic, moist oral mucous membranes and oropharynx normal Eyes EOMs intact bilaterally Neck supple and no JVD Lymph Lymphatic: no lymphedema noted Resp normal respiratory effort, normal air movement and clear to auscultation bilaterally Cardio regular rate, regular rhythm, S1 normal heart sound, S2 normal heart sound and no murmurs GI normal to inspection, nondistended, normoactive bowel sounds, soft to palpation, non-tender and non-distended Extremity normal capillary refill, no clubbing, cyanosis or edema and no calf tenderness General Extremity: no tenderness to palpation of joints or extremities Skin General Skin Exam: no breakdown Neuro no focal motor deficits and no sensory deficits noted Motor Exam: strength 5/5 throughout Psych thought process normal, cooperative and affect normal Appearance: appropriate Assessment & Plan Assessment/Plan (1) NSTEMI, initial episode of care: PLAN: Plan #Non-STEMI * Admitted with a complaint of chest pain. Troponins were elevated. CT of the chest was negative for PE despite the elevated D-dimer. Troponins peaked at 5021. * Was on heparin drip as well as aspirin and Plavix. * 2D echo ordered. Cardiac cath done today showed 100% heavily calcified proximal RCA with retrograde filling via collaterals from left system and 50% mild left circumflex artery stenosis and 20% calcified proximal LAD. She had shockwave IV L and percutaneous cardiac angiography with REBECCA to the proximal and mid RCA. * On aspirin and Plavix. To be on aspirin indefinitely and Plavix for at least 6 months. * High intensity statin * 2D echo showed EF of 70% with mild global right ventricular systolic dysfunction and moderately dilated right ventricle. #Hypertension: On losartan and metoprolol #UTI: On IV ceftriaxone. #Hypothyroidism: On Synthroid #Anxiety: Paroxetine #Bradycardia: * Heart rate is down in the 40s today. Patient is asymptomatic. * Will monitor for now and if it persists, will adjust dose of metoprolol given consider holding it. * DVT prophylaxis: SCDs Charges/Coding Visit Charges Inpatient E&M: 57517 Subs Hosp L2
[2024-12-22] MEDS: Clopidogrel Bisulfate 300 MG Tablet PO (18:30)
[2024-12-22] MEDS: Atorvastatin Calcium 20 MG Tablet PO (20:18)
[2024-12-23 02:45] VITALS: BP 120/63; PULSE 64; RESP 18; TEMP 36.7; O2SAT 94
[2024-12-23 03:22] VITALS: BMI 25.8
[2024-12-23] MEDS: Levothyroxine 125 MCG Tablet PO (05:08)
[2024-12-23 06:18] LABS: Hematocrit 33.3 % (37-47); Hemoglobin 10.9 g/dL (12.0-15.0); Mean Corp Hgb Conc 32.7 g/dL (32-36); Mean Corpuscular Hgb 28.9 pg (27.0-32.0); Mean Corpuscular Volume 88.3 fL (81-99); Mean Platelet Vol. 11.3 fl (6.2-12.0); Platelet Count 236 K/mm3 (150-450); RBC Distribution Width CV 13.7 % (11.6-14.6); RBC Distribution Width SD 44.6 fl (35.1-43.9); Red Blood Count 3.77 M/mm3 (4.2-5.4); White Blood Count 4.9 K/mm3 (4.4-11.0)
[2024-12-23 06:29] LABS: Partial Thromboplast Time 28.9 Seconds (24.1-36.2)
[2024-12-23 06:47] LABS: ALB/GLOB Ratio 1.4 RATIO (0.9-2.4); AST(SGOT) 34 U/L (<=31); Alanine Aminotransfer ALT/SGPT 20 U/L (<=34); Albumin, Serum 3.1 g/dL (3.4-4.8); Alkaline Phosphatase 113 U/L (35-104); Anion Gap 9 (5-15); BUN 9 mg/dL (4-19); BUN/Creat Ratio 8.4 RATIO (10-20); Calcium,Total 9.3 mg/dL (7.6-11.0); Carbon Dioxide 22.8 mmol/L (21.0-32.0); Chloride 106 mmol/L (98-108); Creatinine, Serum 1.08 mg/dL (0.70-1.20); EST Glomerular Filtration Rate 53 (>60); Estimated Creatinine Clearance 42.97 ml/min (50-250); Globulin 2.3 g/dL (2.2-4.2); Glucose 90 mg/dL (70-99); Potassium 4.5 mmol/L (3.3-5.1); Protein, Total 5.4 g/dL (5.9-8.4); Sodium Level 138 mmol/L (133-145); Total Bilirubin 0.21 mg/dL (0.00-1.30)
[2024-12-23 07:55] VITALS: O2SAT 91
--- NOTE | 2024-12-23 08:13 | PCM.PN.CARD ---
Subjective Subjective Patient resting comfortably in bed this morning. She denies any issues with her right wrist status post cath and PCI of the right coronary artery yesterday by Dr. Weiss. The patient does continue on IV antibiotics for her urinary tract infection. Patient denies any chest pain denies any shortness of breath and denies any lower extremity edema. Objective Data Vital Signs: Vital Signs Temp Pulse Resp BP Pulse Ox O2 Del Method 98.1 F 64 18 120/63 94 Room Air 12/23/24 02:45 12/23/24 02:45 12/23/24 02:45 12/23/24 02:45 12/23/24 02:45 12/23/24 02:45 Oxygen Delivery Method Room Air Weight: 155 lb 6.814 oz Body Mass Index (BMI) 25.8 Intake & Output: Intake and Output for Last 24 Hours 12/21/24 12/22/24 12/23/24 23:59 23:59 23:59 Intake Total 1113.6 / 1113.6 1814.66 / 1814.66 Balance 1113.6 / 1113.6 1814.66 / 1814.66 Lab / Micro Data Attestation: I reviewed the patient's lab results. 12/23/24 06:04 12/23/24 06:04 Labs: Laboratory Results - last 24 hr 12/22/24 11:16: Activated Clotting Time 239 H 12/23/24 06:04: WBC 4.9, RBC 3.77 L, Hgb 10.9 L, Hct 33.3 L, MCV 88.3, MCH 28.9, MCHC 32.7, RDW Std Deviation 44.6 H, RDW Coeff of Vpiul 13.7, Plt Count 236, MPV 11.3, APTT 28.9, Sodium 138, Potassium 4.5, Chloride 106, Carbon Dioxide 22.8, Anion Gap 9, BUN 9, Creatinine 1.08, Estim Creat Clear Calc 42.97 L, Est GFR (MDRD) Non-Af 53 L, BUN/Creatinine Ratio 8.4 L, Glucose 90, Calcium 9.3, Total Bilirubin 0.21, AST 34 H, ALT 20, Alkaline Phosphatase 113 H, Total Protein 5.4 L, Albumin 3.1 L, Globulin 2.3, Albumin/Globulin Ratio 1.4 Rhythm Strip Rhythm Strip: Sinus Rhythm Rate: 64 Cardiology Labs/Tests 12/23/24 06:04: WBC 4.9, RBC 3.77 L, Hgb 10.9 L, Hct 33.3 L, MCV 88.3, MCH 28.9, MCHC 32.7, Plt Count 236, MPV 11.3, APTT 28.9, Sodium 138, Potassium 4.5, Chloride 106, Carbon Dioxide 22.8, Anion Gap 9, BUN 9, Creatinine 1.08, Est GFR (MDRD) Non-Af 53 L, BUN/Creatinine Ratio 8.4 L, Glucose 90, Calcium 9.3, Total Bilirubin 0.21 Rhythm: EKG: ECHO: Stress Test: Cardiac Cath: PCI: CT Surgery: Holter monitor: EPS: PPM: CXR: Chest CT Scan: Physical Exam Const alert and oriented x3 HEENT normocephalic Eyes EOMs intact bilaterally Neck no JVD Chest inspection of chest normal Resp normal respiratory effort and clear to auscultation bilaterally Cardio Rate: regular rate Rhythm: regular rhythm Heart Sounds: S1 normal and S2 normal; Negative for click, gallop or murmur Peripheral Pulses: radial pulses present right 2+ Extremity Extremity Narrative: Right wrist with a small ecchymotic area. Neuro Neuro Narrative: Alert and oriented x 3 Psych mental status grossly normal Assessment & Plan Assessment/Plan (1) NSTEMI, initial episode of care: PLAN: Patient status post PCI with stenting of the right coronary artery 12/22/[address] Weiss. From a cardiovascular standpoint the patient is doing fine she needs to remain on dual antiplatelet therapy with Plavix and aspirin uninterrupted for 1 year. The patient also needs to be continued on her rosuvastatin for secondary risk factor modifications. Her blood pressure is well-controlled she should continue on her current medical therapy. The patient needs to follow-up with the [facility] in 7 to 10 days. (2) Urinary tract infection: QUALIFIERS: Urinary tract infection type: site unspecified PLAN: Patient is urinary tract infection is being managed by the primary service. She remains on IV antibiotics. PLAN: Plan 1. From a cardiovascular standpoint the patient can be discharged to home today. 2. The patient be maintained on dual antiplatelet therapy with Plavix and aspirin uninterrupted for 1 year. 3. The patient should continue her home blood pressure medications. 4. The patient should follow-up with the [facility] advanced practitioner in 7 to 10 days. Charges/Coding Visit Charges Inpatient E&M: 02123 Subs Hosp L2
[2024-12-23 08:22] VITALS: BP 133/56; PULSE 64; RESP 17; TEMP 36.7; O2SAT 93
[2024-12-23 08:26] VITALS: PULSE 64
[2024-12-23] MEDS: Aspirin 81 MG TAB.CHEW PO (08:26)
[2024-12-23] MEDS: Losartan Potassium 100 MG Tablet PO (08:26)
[2024-12-23] MEDS: Metoprolol Tartrate 25 MG Tablet 12.5 MG PO (08:26)
[2024-12-23] MEDS: Paroxetine 20 MG Tablet PO (08:27)
[2024-12-23] MEDS: Ceftriaxone 1 GM/50 ML BAG IV (08:27)
[2024-12-23] MEDS: Clopidogrel Bisulfate 75 MG Tablet PO (08:27)
--- NOTE | 2024-12-23 08:41 | CRPHASE1_ITS ---
Patient Communication Patient Information Former Patient:: Phase I PHII Cardiac Rehab Discussed with Patient:: Yes Guide to Cardiac Rehab Given to Patient:: Yes Cardiac Rehab Facility Choice List Given to Patient:: Yes Communication to Cardiac Rehab Choice Program [facility] PHII:: Communication Given to CR Sessions:: 36 sessions - 3 days/wk, 12 weeks Post Discharge Choice Letter Given to Patient:: Yes Medical/Surgical History Medical History MD:: No Angina:: No CAD:: Yes Congestive Heart Failure: Cardiomyopathy:: No Valve Disease/Replacement:: No Pulmonary:: No COPD:: Yes Asthma:: Yes KITTY:: No Diabetes:: No Diabetes Type I:: No Diabetes Type II:: No Hypertension:: No Dyslipidemia:: No Arrhythmias:: No EPS:: No CVA/TIA: CEA:: No PE:: No DVT:: No PVD:: No PAD:: No Arthritis:: Yes GI:: No GERD:: No Cancer:: No Renal:: No Thyroid:: No Depression:: No Anxiety:: Yes Surgical History CABG: No PTCA:: Yes ICD:: No Pacemaker:: No Orthopedic:: No Cardiac Rehabilitation Info Program Information Cardiac Rehabilitation Program Information: Cardiac Rehab The cardiac rehab team at [facility] consists of highly skilled exercise physiologists, nurses, respiratory therapists and physicians working together with you. Our purpose is to help you have a full recovery and achieve the goals you set for yourself. Over the years many of our patients have returned to activities they assumed they would never do again! We can help restore your confidence and motivation to make lifestyle changes that can have a significant impact on your health and quality of life! We can help answer questions and concerns you may have about exercise, lifestyle, medications, diet, stress and anxiety which are common following a hospitalization. WE monitor ECG and vital signs during exercise and discuss your progress with you and report to your physician(s). Cardiac Rehab is proven to help reduce readmissions, improve functional capacity and lower recurrence of problems with your heart. Our Cardiac Rehab program is Certified by the [place] [employer]-Vascular [employer] Pulmonary [employer] (AACVPR) and Accredited by the [place] [employer] through our [facility]. You can contact us at . We invite you to call us with your questions or to get started in our program. If you have other questions or concerns be sure to ask your physician/provider during your follow-up visit. WE look forward to seeing you!
--- NOTE | 2024-12-23 10:00 | EKG12_ITS ---
Test Reason : AM EKG Blood Pressure : */* mmHG Vent. Rate : 67 BPM Atrial Rate : 67 BPM P-R Int : 166 ms QRS Dur : 138 ms QT Int : 418 ms P-R-T Axes : 57 -43 27 degrees QTcB Int : 441 ms Normal sinus rhythm Left axis deviation Right bundle branch block Inferior infarct (cited on or before 19-Dec-2024) Abnormal ECG When compared with ECG of 20-Dec-2024 00:26, No significant change was found Confirmed by Jeronimo Puente ([id number]), publication editor STAN RODRIGUEZ ([id number]) on 12/23/2024 11:07:42 AM Referred By: CIERRA Confirmed By: Jeronimo Puente
--- NOTE | 2024-12-23 12:53 | DCINST_ITS ---
Discharge Instructions Diet Discharge Diet: Low fat / Low cholesterol DC O2, CPAP, BIPAP needs Home O2 Discharge instructions: No Dressing / Incision Discharge Activity: Return to Normal Activity Weight Bearing Status: Weight bearing as tolerated Dressing / Incision Call your doctor if you observe: Fever of 101 or Higher, Shortness of breath, Dizziness, Swelling in the ankles and Chest pain Follow Up Care Test Results: Test results from this visit will be discussed in further detail at your follow- up appointment, if applicable. Discharge Plan Admission Admit Date/Time: 12/19/24 22:51 Primary Reason for Your Visit: nonstemi Attending Provider: Geovanna Mccarthy Primary Care Provider: Gopal Burrows Consulting Providers: Travis Keller; Vicki Rosenbaum; Jethro Wright Instructions Patient Instructions: Heart Attack Dc Discharge Orders/Prescriptions Prescriptions: New aspirin 81 mg Tablet,Chewable 81 mg PO BREAKFAST Qty: 30 2RF clopidogrel 75 mg Tablet 75 mg PO DAILY Qty: 30 2RF metoprolol tartrate 25 mg Tablet 12.5 mg PO BID Qty: 30 2RF cefdinir 300 mg capsule 300 mg PO BID Qty: 10 0RF Continued paroxetine HCl 20 MG tablet 20 mg PO DAILY levothyroxine 125 MCG tablet 125 mcg PO DAILY rosuvastatin [Crestor] 10 mg tablet 10 mg PO DAILY losartan 100 mg tablet 100 mg PO DAILY Trelegy Ellipta 100-62.5-25 mcg blister with device 1 inh inhalation DAILY albuterol sulfate [Ventolin HFA] 90 mcg/actuation HFA aerosol inhaler 2 puff INHALATION Q6H PRN (Reason: shortness of breath or wheezing) alprazolam 0.25 mg tablet 0.25 mg PO TID PRN (Reason: anxiety) Discontinued losartan 50 MG tablet 100 mg PO DAILY nitrofurantoin monohyd/m-cryst 100 mg capsule 100 mg PO Q12 Qty: 10 0RF Referrals / Follow Up: Brian De León MD [Med Staff - Active Staff] - Within 1 Month Gopal Burrows MD [Primary Care Provider] - Within 1 Week Disposition Disposition (needs filled in before D/C Order can be placed): Home, Self Care
--- NOTE | 2024-12-23 12:54 | PCM.DC.SUM ---
Providers Date of Admission: 12/19/24 Date of Discharge: 12/23/24 Primary Care Physician: Dr. Gopal Burrows MD Consultations 12/19/24 23:56 Consult: Cardiology Routine Consulting Provider: Travis Keller Reason for Consult: Chest Pain, NSTEMI EMERGENT Consult: No MD Notified: Yes Date Notified: 12/19/24 Time Notified: 23:50 Method of Notification: Text Reason For Visit: NSTEMI Diagnosis Discharge Diagnosis (1) NSTEMI, initial episode of care: Status: Acute Code(s): I21.4 - Non-ST elevation (NSTEMI) myocardial infarction (2) Urinary tract infection: Status: Acute Code(s): N39.0 - Urinary tract infection, site not specified Qualifiers: Urinary tract infection type: site unspecified Plan #Non-STEMI Admitted with a complaint of chest pain. Troponins were elevated. CT of the chest was negative for PE despite the elevated D-dimer. Troponins peaked at 5021. Was on heparin drip as well as aspirin and Plavix. 2D echo ordered. Cardiac cath done today showed 100% heavily calcified proximal RCA with retrograde filling via collaterals from left system and 50% mild left circumflex artery stenosis and 20% calcified proximal LAD. She had shockwave IV L and percutaneous cardiac angiography with REBECCA to the proximal and mid RCA. On aspirin and Plavix. To be on aspirin indefinitely and Plavix for at least 6 months. High intensity statin 2D echo showed EF of 70% with mild global right ventricular systolic dysfunction and moderately dilated right ventricle. #Hypertension: On losartan and metoprolol #UTI: On IV ceftriaxone. #Hypothyroidism: On Synthroid #Anxiety: Paroxetine #Bradycardia: Heart rate is down in the 40s today. Patient is asymptomatic. Will monitor for now and if it persists, will adjust dose of metoprolol given consider holding it. DVT prophylaxis: SCDs Medications at Discharge Home Medications levothyroxine 125 mcg tablet 125 mcg PO DAILY thyroid 11/01/16 paroxetine HCl 20 mg tablet 20 mg PO DAILY depression 11/01/16 albuterol sulfate 90 mcg/actuation aerosol inhaler (Ventolin HFA) 2 puff inhalation Q6H PRN shortness of breath or wheezing 12/17/24 alprazolam 0.25 mg tablet 0.25 mg PO TID PRN anxiety 12/17/24 fluticasone fur. 100 mcg-umeclid 62.5 mcg-vilant 25 mcg inhalat.powder (Trelegy Ellipta) 1 inh inhalation DAILY COPD 12/17/24 rosuvastatin 10 mg tablet (Crestor) 10 mg PO DAILY lowers cholesterol 12/19/24 losartan 100 mg tablet 100 mg PO DAILY BP 12/20/24 aspirin 81 mg chewable tablet 81 mg PO BREAKFAST #30 tabs 12/23/24 cefdinir 300 mg capsule 300 mg PO BID #10 caps 12/23/24 clopidogrel 75 mg tablet 75 mg PO DAILY #30 tabs 12/23/24 metoprolol tartrate 25 mg tablet 12.5 mg (1/2 x 25 mg) PO BID #30 tabs 12/23/24 Hospital Course Operations None Procedures Cardiac catheterization Summary of Care Provided Minutes Spent on Discharge: 55 Hospital Course: Patient is a 79-year-old female with a past medical history as outlined was admitted via the ED on 12/19/2024 with complaint of chest discomfort started on the morning of the day of admission. The chest discomfort radiated towards her back and occurred at rest. Spontaneously resolved just before she came into the ED. She had been seen in the ED the day prior for nausea and vomiting as well as loose stools but her symptoms improved. Of note urine cultures done on 12/17/2024 when she came into the ED when she had also had urinary symptoms grew gram-positive cocci. On admission initial troponin was elevated at 5909 with repeat delta troponin trended down slightly to 5021 and subsequently down to 4679. proBNP was also elevated at 12,367. Chest x-ray showed cardiomegaly and CT of the chest shows no evidence of PE. EKG showed no acute ST changes. She was admitted and managed for non-STEMI as well as UTI. She was placed on aspirin and heparin bolus and started on heparin drip and also placed on high intensity statins. Cardiology was consulted. 2D echo done showed EF of 70% with mild right ventricular global systolic dysfunction and moderately dilated right ventricle. Cardiac cath done today 100% heavily calcified proximal RCA with retrograde filling via collaterals from left system and 50% mild left circumflex artery stenosis and 20% calcified proximal LAD. She had shockwave IV L and percutaneous cardiac angiography with REBECCA to the proximal and mid RCA. Patient remained stable after the procedure and was discharged home on 12/23/2024. She was discharged on p.o. aspirin and Plavix as well as high intensity statin. She is follow-up with her PCP and follow-up with cardiology within 1 to 2 weeks. She was also discharged on p.o. cefdinir based on the urine culture results which grew strep anginosus sensitive to ceftriaxone. She is to follow-up with her primary care doctor and follow-up with cardiology within 1 to 2 weeks. Patient seen and examined prior to discharge. She had no active complaints and was eager to be discharged home. I saw the patient with her nurse by her bedside and her granddaughter was also by bedside. Review of systems otherwise negative. Labs and vitals reviewed. Home medication reviewed and reconciled. Physical Exam Const alert, oriented x3, no apparent distress and well nourished General Appearance: cooperative and comfortable Orientation / Consciousness: awake HEENT normocephalic, head/scalp atraumatic, hearing grossly normal bilaterally, moist oral mucous membranes and oropharynx normal Mouth: oral and palatal mucosa normal Eyes EOMs intact bilaterally Neck supple and no JVD Lymph Lymphatic: no lymphedema noted Resp normal respiratory effort, normal air movement and clear to auscultation bilaterally Cardio regular rate, regular rhythm, S1 normal heart sound, S2 normal heart sound and no murmurs GI normal to inspection, nondistended, normoactive bowel sounds, soft to palpation, non-tender and non-distended Extremity normal to inspection, full ROM, normal capillary refill, no clubbing, cyanosis or edema and no calf tenderness General Extremity: no tenderness to palpation of joints or extremities Skin no rashes or lesions noted General Skin Exam: no breakdown Neuro no focal motor deficits and no sensory deficits noted Motor Exam: strength 5/5 throughout Psych thought process normal, cooperative and affect normal Appearance: appropriate Weight / BMI Weight Weight: 155 lb 6.814 oz Body Mass Index (BMI) 25.8 ABG / Lab / Microbiology Data 12/23/24 06:04 12/23/24 06:04 Laboratory: Laboratory Results - last 24 hr 12/23/24 06:04: WBC 4.9, RBC 3.77 L, Hgb 10.9 L, Hct 33.3 L, MCV 88.3, MCH 28.9, MCHC 32.7, RDW Std Deviation 44.6 H, RDW Coeff of Vipul 13.7, Plt Count 236, MPV 11.3, APTT 28.9, Sodium 138, Potassium 4.5, Chloride 106, Carbon Dioxide 22.8, Anion Gap 9, BUN 9, Creatinine 1.08, Estim Creat Clear Calc 42.97 L, Est GFR (MDRD) Non-Af 53 L, BUN/Creatinine Ratio 8.4 L, Glucose 90, Calcium 9.3, Total Bilirubin 0.21, AST 34 H, ALT 20, Alkaline Phosphatase 113 H, Total Protein 5.4 L, Albumin 3.1 L, Globulin 2.3, Albumin/Globulin Ratio 1.4 D/C Instructions Discharge Diet: Low fat / Low cholesterol Discharge Activity: Return to Normal Activity Weight Bearing Status: Weight bearing as tolerated Call your doctor if you observe: Fever of 101 or Higher, Shortness of breath, Dizziness, Swelling in the ankles and Chest pain DC O2, CPAP, BIPAP Needs Home O2 Discharge instructions: No DC home with Oxygen: No Meaningful Use Info Meaningful Use Meaningful Use Diagnoses (Choose all that apply): None applicable Ischemic Stroke Statin Dosing Therapy Reference: STATIN DOSE THERAPY REFERENCE: * Patients > 75 years receive moderate or high dose statin therapy. * Patients 75 years or YOUNGER should receive HIGH intensity statin dose unless contraindicated. You will be required to document reason for non-treatment if statin daily dose does not meet guidelines. HIGH DOSE STATIN THERAPY DAILY Atorvastatin > than or = to 40 mg Rosuvastatin > than or = to 20 mg Amlodipine + Atorvastatin > than or = to 2.5/40 mg Ezetimibe + Simvastatin 10/80 mg Simvastatin 80mg Discharge Plan Admission Admit Date/Time: 12/19/24 22:51 Primary Reason for Your Visit: nonstemi Attending Provider: Geovanna Mccarthy Primary Care Provider: Gopal Burrows Consulting Providers: Travis Keller; Vicki Rosenbaum; Jethro Wright Instructions Patient Instructions: Heart Attack Dc Discharge Orders/Prescriptions Prescriptions: New aspirin 81 mg Tablet,Chewable 81 mg PO BREAKFAST Qty: 30 2RF clopidogrel 75 mg Tablet 75 mg PO DAILY Qty: 30 2RF metoprolol tartrate 25 mg Tablet 12.5 mg PO BID Qty: 30 2RF cefdinir 300 mg capsule 300 mg PO BID Qty: 10 0RF Continued paroxetine HCl 20 MG tablet 20 mg PO DAILY levothyroxine 125 MCG tablet 125 mcg PO DAILY rosuvastatin [Crestor] 10 mg tablet 10 mg PO DAILY losartan 100 mg tablet 100 mg PO DAILY Trelegy Ellipta 100-62.5-25 mcg blister with device 1 inh inhalation DAILY albuterol sulfate [Ventolin HFA] 90 mcg/actuation HFA aerosol inhaler 2 puff INHALATION Q6H PRN (Reason: shortness of breath or wheezing) alprazolam 0.25 mg tablet 0.25 mg PO TID PRN (Reason: anxiety) Discontinued losartan 50 MG tablet 100 mg PO DAILY nitrofurantoin monohyd/m-cryst 100 mg capsule 100 mg PO Q12 Qty: 10 0RF Referrals / Follow Up: Brian De León MD [Med Staff - Active Staff] - Within 1 Month Gopal Burrows MD [Primary Care Provider] - Within 1 Week Disposition Disposition (needs filled in before D/C Order can be placed): Home, Self Care Charges/Coding Visit Charges Inpatient E&M: 79981 Disch Hosp >30min
[2024-12-23 14:45] VITALS: BP 121/96; PULSE 69; RESP 17; TEMP 37.2; O2SAT 93
[2024-12-23 16:13] VITALS: BP 122/63; PULSE 68; RESP 18; TEMP 37; O2SAT 95
--- NOTE | 2025-02-23 09:45 | CL.I_ITS ---
Patient Name: DEYANIRA MORENO Study Date: 12/22/2024 Performing: Babak Weiss MD Ht: 65 inches 165.1 cm : 1945 Wt: 154.98 lbs 70.3 kg Age: 79 Gender: female BSA: 1.77 PROCEDURE(S) PERFORMED DC02-([id number])LHC/COR IC11A-([id number])CORONARY INTRAVASCULAR LITHOTRIPSY IC12-([id number])REBECCA W/WO PTCA, SINGLE CORONARY ARTERY CLINICAL PROFILE AND CO-MORBIDITIES Indications: ACS > 24 hrs Heart Failure: None CAD Presentations: Non-STEMI. Symptom onset Date/Time: 12/19/2024 Time Not Available CONCLUSIONS 100% heavily calcified Prox RCA; Filling retrogradely via collaterals from left system 50% Mid LCX 20% calcified Prox LAD RECOMMENDATIONS ASA Indefinitley P2Y12 inhibitors for atleast 6 months DESCRIPTION OF PROCEDURE The patient arrived to the procedure lab. The risks and benefits of the procedure as well as a full description of our services here and lack of surgical backup were fully explained to the patient and/or their significant other prior to the catheterization. The Timeout was completed, verifying the correct patient and procedure. The patient's procedural site was prepped and draped in the usual fashion. Local anesthetic was given subcutaneously to right radial region with Lidocaine 2%. Using a modified Seldinger technique, arterial access was obtained via the right radial artery, a 6Fr sheath was inserted.. Left Coronary Artery selective angiography was performed in multiple views using a 5 Fr. 4.0 Epes catheter. Right Coronary Artery selective angiography was then performed in multiple views using a 5 Fr. 4.0 Epes catheterThe images were reviewed and options discussed. A decision was then made to proceed with an Intervention, IVUS or other adjunct procedure. AL 0.75 Guide catheter was inserted and engaged into the RCA. Runthrough Guide wire was advanced to the RCA. Emerge 1.5 x 8 Balloon catheter was inserted. Balloon catheter was advanced across lesion in the right coronary, proximal. PTCA balloon inflated at 10 atms for 14 secs. PTCA balloon inflated at 14 atms for 8 secs. Emerge 2.5 x 20 Balloon catheter was inserted. Balloon catheter was advanced across lesion in the right coronary, proximal. PTCA balloon inflated at 6 atms for 10 secs. PTCA balloon inflated at 8 atms for 12 secs. [place] 3.0 x 18 Drug Eluting stent was inserted. Drug Eluting stent was advanced across the lesion in the right coronary, proximal. [place] 4.0 x 26 Drug Eluting stent was inserted. Drug Eluting stent was advanced across the lesion in the right coronary, proximal. NC Emerge 3.5 x 15 Balloon catheter was inserted. Balloon catheter was advanced across lesion in the right coronary, proximal. NC Emerge 4.0 x 15 Balloon catheter was inserted. Balloon catheter was advanced across lesion in the right coronary, proximal. Angiogram performed post stent deployment. The arterial sheath was pulled and a TR Band was applied for hemostasis CORONARY ANGIOGRAPHY DOMINANCE: Right Dominant LEFT MAIN: Angiographically normal LEFT ANTERIOR DESCENDING ARTERY: LAD: Calcified 20% Proximal lesion in LAD RIGHT CORONARY ARTERY: RCA: Complex Calcified 100% Proximal lesion in RCA COLLATERAL FLOW: Collateral flow from SEP to RT PDA Collateral flow from SEP to RT PDA INTERVENTION INFORMATION LESION SITE: RCA (Proximal) Lesion Complexity: High/C, thrombus present: Yes, lesion length: 40 mm, culprit lesion: Yes Pre Stenosis: 100 % Pre intervention STEVEN flow: 0 PROCEDURE: Drug Eluting Stent with pre and post dilatation, IVL Post Stenosis: 0 % Post intervention STEVEN flow: 3 Lesion Devices: Cordis 6 Fr AL.75 100cm Guide Catheter Terumo .014 180cm Runthrough Extra Floppy straight Bruce Sci EMERGE MR 1.50x08 BALLOON Bruce Sci EMERGE MR 2.50x20 BALLOON Medtronic 3.0 x 18 SAVAGE FRONTIER REBECCA Medtronic 4.0 x 26 SAVAGE FRONTIER REBECCA [employer] Sci NC EMERGE MR 3.50x15 BALLOON Bruce Sci NC EMERGE MR 4.00x15 BALLOON COMPLICATIONS No Complications PROCEDURE MEDICATIONS Versed 1 mg IV Fentanyl 50 mcg IV Fentanyl 50 mcg IV Oxygen: 2 L/min via nasal cannula Heparin given IA 12/22/2024 11:14:45 Heparin 5000 unit(s) IV 12/22/2024 11:21:29 Heparin 2000 unit(s) IV 12/22/2024 11:51:23 Heparin 2000 unit(s) IV 12/22/2024 12:22:37 Nitro 100 mcg IC 12/22/2024 11:51:16 Nitro 200 mcg IC 12/22/2024 12:04:54 Nitro 200 mcg IC 12/22/2024 12:09:04 Verapamil 2.5mg, Ntg 200mcgs, 2000 units of Heparin given IA 12/22/2024 11:14:45 SUMMARY OF HEMODYNAMIC DATA Time AIR REST ECG 10:54:52 AO 116/53 (77) SA 11:15:34 Signed By Babak Weiss MD On 12/22/2024 12:32:58 Babak Weiss MD
== END 2024-12-23 16:35 | disposition home or self-care (01) | DRG 324 ==
LOC: ED 17:15 → PCU 23:16
PROVIDERS: Family Medicine; Internal Medicine Cardiovascular Disease; Admitting Provider Family Medicine; Emergency Provider Emergency Medicine; PCP Family Medicine; Visit Provider Student in an Organized Health Care Education/Training Program
DX: I21.4 Non-ST elevation (NSTEMI) myocardial infarction (principal); N39.0 Urinary tract infection, site not specified; B95.4 Other streptococcus as the cause of diseases classified elsewhere; N18.30 Chronic kidney disease, stage 3 unspecified; J44.9 Chronic obstructive pulmonary disease, unspecified; E03.9 Hypothyroidism, unspecified; I12.9 Hypertensive chronic kidney disease with stage 1 through stage 4 chronic kidney disease, or unspecified chronic kidney disease; F32.A Depression, unspecified; I25.2 Old myocardial infarction; E78.5 Hyperlipidemia, unspecified; F41.9 Anxiety disorder, unspecified; R00.1 Bradycardia, unspecified; Z79.02 Long term (current) use of antithrombotics/antiplatelets; Z79.82 Long term (current) use of aspirin; Z79.51 Long term (current) use of inhaled steroids; Z79.890 Hormone replacement therapy; Z79.899 Other long term (current) drug therapy; Z87.891 Personal history of nicotine dependence; Z82.49 Family history of ischemic heart disease and other diseases of the circulatory system
CPT/HCPCS: 36415; 71045; 71275; 80048; 80053; 80061; 81001; 83735; 83880; 84484; 85025; 85027; 85347; 85379; 85610; 85730; 87077; 87086; 87088; 87186; 92928; 92972; 93005; 93306; 93454; 94640; 94668; 96360; 96361; 97802; 99152; 99153; 99285; C1761; C1894; Q9967; A4216; C1725; C1769; C1874; C1887; C9600